=== PATIENT | female | born 1985 | race Hispanic/Latino ===

== ENCOUNTER 2021-12-20 14:04 | Emergency (ER) | payer OTHER ==
--- OUTSIDE RECORDS SUMMARY | 2021-12-20 14:07 | XMS REPORT | Continuity of Care Document ---
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 iterative reconstruction technique. Contrast: 100 mL Isovue-300 IV. Creatinine 0.8. GFR greater than 60. Findings: Lung bases are clear with no pleural effusion. The liver is normal in appearance. The biliary ducts are not dilated. No focal lesion is seen. Cholecystectomy. Some cellular The spleen is unremarkable.The adrenal glands are unremarkable. The pancreas is unremarkable. Kidneys are normal in appearance. No hydronephrosis or hydroureter. IVC is un remarkable. Abdominal aorta is unremarkable for age. Small bowel and appendix are unremarkable. A few sigmoid diverticula. No evidence of diverticulitis. Urinary bladder is unremarkable. PAGE 1 Signed Report (CONTINUED) Name: [place] : 1985 Age/S: 34 / F [address] [address] Unit #: [id number] Loc: [place] [address] Phys: Tolu Ashby MD Acct: [id number] Dis Date: Status: REG ERPHONE #: [phone] Exam Date: 03/04/20202131 FAX #: Reason: LLQ pain, tenderness EXAMS: CPT: [id number] CT ABD PELVIS W/CONT 08665 <Continued> Uterus is unremarkable. No adnexal masses seen. Also has a ventricular. The lung No adenopathy, free fluid, or free air. No abnormal mass, edema, or focal fluid collection. Abdominal-pelvic wall is intact. Skeletalstructures are normal for patient age. No abnormal enhancing lesion is seen. Impression: 1. No specific evidence of acute pathology. at 2206 Reported and signed by: Herman Nieves M.D. CC: Dave Callahan DO Technologist:RT Dolores(R)(CT) CTDI: DLP: Trnscb Date/Time: 03/04/2020 (2205) [email or web address] Orig Print D/T: S: 03/04/2020 (2209) PAGE 2 Signed ReportUA RFLX MICR CULT IF [id number] 21:19:00 Test Item Value Reference Range Interpretation Comments UA COLOR (test code = YELLOW discript YEL/STRAW COLU) UA APPEARANCE (test code CLEAR discript CLEAR = APPU) UA GLUCOSE DIPSTICK (test NEGATIVE mg/dL NEG code = DGLUU) UA BILIRUBIN DIPSTICK 1+ mg/dL NEG A (test code = BILU) UA KETONE DIPSTICK (test TRACE mg/dL NEG code = KETU) UA SPECIFIC GRAVITY (test >=1.030 SG 1.005-1.030 A code = SGU) UA BLOOD DIPSTICK (test NEGATIVE mg/DL NEG code = SAAD) UA PH DIPSTICK (test code 5.5 pH UNITS 5.0-7.0 = BENNY) UA PROTEIN DIPSTICK (test NEGATIVE mg/dL NEG code = PROU) UA UROBILINIOGEN DIPSTICK 0.2 mg/dL <2.0 (test code = URO) UA NITRITE DIPSTICK (test NEGATIVE SCREEN NEG code = JOHNNIE) UA LEUKOCYTE ESTERASE 1+ Leuk/mcL NEGATIVE A DIPSTICK (test code = LEUU) UA WBC (test code = WBCU) 1-3 #WBC/HPF 0-3 UA RBC (test code = RBCU) 0-1 #RBC/HPF 0-3 UA BACTERIA (test code = TRACE /HPF NONE-TRACE BACU) UA SQUAMOUS CELLS (test TRACE /HPF NONE code = SQU) UA CULTURE NEEDED? (test NO, WBC<10 Criteria Culture CHK code = UACULT) SOURCE OF URINE: CLEAN CATCHIndication for culture: Suprapubic PainUR HCG [id number] 21:19:00 Test Item Value Reference Range Interpretation Comments UR HCG QUAL (test code = HCGQLU) NEGATIVE NEGATIVE SOURCE OF URINE: CLEAN CATCHIndication for culture: Suprapubic PainUA RFLX MICR CULT IF [id number] 21:17:00 Test Item Value Reference Range Interpretation Comments UA COLOR (test code = COLU) YELLOW discript YEL/STRAW UA APPEARANCE (test code = CLEAR discript CLEAR APPU) UA GLUCOSE DIPSTICK (test NEGATIVE mg/dL NEG code = DGLUU) UA BILIRUBIN DIPSTICK (test 1+ mg/dL NEG A code = BILU) UA KETONE DIPSTICK (test code TRACE mg/dL NEG = KETU) UA SPECIFIC GRAVITY (test >=1.030 SG 1.005-1.030 A code = SGU) UA BLOOD DIPSTICK (test code NEGATIVE mg/DL NEG = SAAD) UA PH DIPSTICK (test code = 5.5 pH UNITS 5.0-7.0 BENNY) UA PROTEIN DIPSTICK (test NEGATIVE mg/dL NEG code = PROU) UA UROBILINIOGEN DIPSTICK 0.2 mg/dL <2.0 (test code = URO) UA NITRITE DIPSTICK (test NEGATIVE SCREEN NEG code = JOHNNIE) UA LEUKOCYTE ESTERASE 1+ Leuk/mcL NEGATIVE A DIPSTICK (test code = LEUU) UA CULTURE NEEDED? (test code Criteria Culture CHK = UACULT) SOURCE OF URINE: CLEAN CATCHIndication for culture: Suprapubic PainUR HCG [id number] 21:17:00 Test Item Value Reference Range Interpretation Comments UR HCG QUAL (test code = HCGQLU) NEGATIVE SOURCE OF URINE: CLEAN CATCHIndication for culture: Suprapubic PainBASIC METABOLIC [id number] 20:31:00 Test Item Value Reference Range Interpretation Comments SODIUM (test code = NA) 140 mmol/L 134-147 N POTASSIUM (test code = 4.2 mmol/L 3.4-5.0 N K) CHLORIDE (test code = 109 mmol/L 100-108 H CL) CARBON DIOXIDE (test 26 mmol/L 21-32 N code = CO2) ANION GAP (test code = 5.0 GAP calc 4.0-15.0 N GAP) GLUCOSE (test code = 81 MG/DL 70-110 N GLU) BLOOD UREA NITROGEN 10 MG/DL 7-18 N (test code = BUN) GLOMERULAR FILTRATION >=60 max estimate >60 RATE (test code = GFR) estGFR CREATININE (test code = 0.8 MG/DL 0.6-1.0 N CREAT) CALCIUM (test code = CA) 8.6 MG/DL 8.5-10.1 N HEPATIC FUNCTION [id number] 20:31:00 Test Item Value Reference Range Interpretation Comments TOTAL PROTEIN (test code = PROT) 7.6 G/DL 6.4-8.2 N ALBUMIN (test code = ALB) 3.6 G/DL 3.4-5.0 N BILIRUBIN TOTAL (test code = 0.20 MG/DL 0.2-1.2 N BILT) BILIRUBIN DIRECT (test code = < 0.10 MG/DL 0.00-0.30 N BILD) BILIRUBIN INDIRECT (test code = 0.10 MG/DL 0.2-1.2 L BILIND) SGOT/AST (test code = AST) 22 Unit/L 15-37 N SGPT/ALT (test code = ALT) 37 Unit/L 12-78 N ALKALINE PHOSPHATASE TOTAL (test 69 Unit/L 45-117 N code = ALKP) CBC W/AUTO [id number] 20:22:00 Test Item Value Reference Range Interpretation Comments WHITE BLOOD CELL (test code = 9.1 K/mm3 3.5-11.0 N WBC) RED BLOOD CELL (test code = 4.51 M/mm3 4.70-6.10 L RBC) HEMOGLOBIN (test code = HGB) 13.7 G/DL 10.4-14.9 N HEMATOCRIT (test code = HCT) 41.9 % 31.5-44.1 N MEAN CELL VOLUME (test code = 92.9 Fl 84.5-98.6 N MCV) MEAN CELL HGB (test code = MCH) 30.4 pg 27.0-34.2 N MEAN CELL HGB CONCETRATION 32.7 G/DL 31.5-34.0 N (test code = MCHC) RED CELL DISTRIBUTION WIDTH 12.5 SD 11.5-14.5 N (test code = RDW) PLATELET COUNT (test code = 209 K/mm3 150-450 N PLT) MEAN PLATELET VOLUME (test code 11.90 fL 7.0-10.5 H = MPV) NEUTROPHIL % (test code = NT%) 53.5 % 40-76 N IMMATURE GRANULOCYTE % (test 0.3 % 0.0-5.0 N code = IG%) LYMPHOCYTE % (test code = LY%) 34.8 % 20.5-51.1 N MONOCYTE % (test code = MO%) 7.5 % 1.7-9.3 N EOSINOPHIL % (test code = EO%) 3.1 % 0.0-6.0 N BASOPHIL % (test code = BA%) 0.8 % 0.0-2.0 N NUCLEATED RBC % (test code = 0.0 /100WBC% 0.0-1.0 N NRBC%) NEUTROPHIL # (test code = NT#) 4.9 K/mm3 1.8-7.6 N IMMATURE GRANULOCYTE # (test 0.03 x10 3/uL 0.00-0.03 N code = IG#) LYMPHOCYTE # (test code = LY#) 3.2 K/mm3 0.6-3.2 N MONOCYTE # (test code = MO#) 0.7 K/mm3 0.3-1.1 N EOSINOPHIL # (test code = EO#) 0.3 K/mm3 0.0-0.4 N BASOPHIL # (test code = BA#) 0.1 K/mm3 0.0-0.1 N NUCLEATED RBC # (test code = 0.0 K/mm3 0.0-0.1 N NRBC#) MANUAL DIFF REQUIRED (test code NO DIFF/SCN CRITERIA = MDIFF) - XR C-SPINE 2-3 [id number] 17:22:00 FAX: Dave Calero DO [phone] [place]: St: REG FAX: Rosenda Engle [phone] Name: SHEILA RODAS [facility] : 1985 Age/S: 33/F [address] [place] [address] Unit #: [id number] Loc: [place] [address] Phys: Rosenda Engle Acct: [id number] Dis Date: Status: REG ER PHONE #: [phone] Exam Date: 11/25/2018 1718 FAX #: [phone] Reason: NECK PAIN EXAMS: CPT CODE: [id number] XR C-SPINE 2-3 VIEWS 87364 CERVICAL SPINE SERIES 11/25/2018 AT 1652 HOURS. CLINICAL HISTORY: Neck pain. COMPARISONS: Cervical spine series 10/04/2008. FINDINGS: 4 AP, lateral, swimmer' s and open-mouth odontoid views of the cervical spine were obtained showing satisfactory cervical spine alignment with no visible fracture, dislocation or destructive lesion. No prevertebral edema. The lung apices are clear. IMPRESSION: 1. No signs of cervical spine fracture or subluxation. 2. No visible significant degenerative change. 3. Clear lung apices. SL: ER-H at 1722 Reported and signed by: Alexy Fu M.D. CC: Dave Callahan DO; Rosenda Engle Technologist: RT Negro(R) Trnscrd Date/Time/By: 11/25/2018 (938) : By: [email or web address] Orig Print D/T: S: 11/25/2018 (6973) PAGE 1 Signed ReportURINALYSIS [id number] 16:40:00 Test Item Value Reference Range Interpretation Comments UA COLOR (test code = COLU) YELLOW YEL/STRAW UA APPEARANCE (test code = APPU) CLOUDY CLEAR A UA GLUCOSE DIPSTICK (test code = NEGATIVE NEGATIVE DGLUU) UA BILIRUBIN DIPSTICK (test code NEGATIVE NEGATIVE = BILU) UA KETONE DIPSTICK (test code = NEGATIVE NEGATIVE KETU) UA SPECIFIC GRAVITY (test code = 1.017 1.005-1.030 N SGU) UA BLOOD DIPSTICK (test code = NEGATIVE NEGATIVE SAAD) UA PH DIPSTICK (test code = BENNY) 5.0 5.0-7.0 N UA PROTEIN DIPSTICK (test code = NEGATIVE NEGATIVE PROU) UA UROBILINIOGEN DIPSTICK (test 2.0 mg/dL 0.2-1.0 A code = URO) UA NITRITE DIPSTICK (test code = NEGATIVE NEGATIVE JOHNNIE) UA LEUKOCYTE ESTERASE DIPSTICK 3+ NEGATIVE A (test code = LEUU) UA WBC (test code = WBCU) >50 WBC/HPF 0-3 A UA RBC (test code = RBCU) >50 RBC/HPF 0-3 A UA BACTERIA (test code = BACU) 2+ /HPF NONE SEEN A UA SQUAMOUS CELLS (test code = 26-35 /HPF NONE SEEN A SQU) UA MUCUS (test code = MUCU) TRACE /LPF NONE SEEN UR HCG [id number] 16:40:00 Test Item Value Reference Range Interpretation Comments UR HCG QUAL (test code = HCGQLU) NEGATIVE NEGATIVE URINALYSIS [id number] 04:22:00 Test Item Value Reference Range Interpretation Comments UA COLOR (test code = COLU) YELLOW YEL/STRAW UA APPEARANCE (test code = APPU) TURBID CLEAR A UA GLUCOSE DIPSTICK (test code = NEGATIVE NEGATIVE DGLUU) UA BILIRUBIN DIPSTICK (test code NEGATIVE NEGATIVE = BILU) UA KETONE DIPSTICK (test code = NEGATIVE NEGATIVE KETU) UA SPECIFIC GRAVITY (test code = 1.015 1.005-1.030 N SGU) UA BLOOD DIPSTICK (test code = 1+ NEGATIVE A SAAD) UA PH DIPSTICK (test code = BENNY) 5.0 5.0-7.0 N UA PROTEIN DIPSTICK (test code = 1+ NEGATIVE A PROU) UA UROBILINIOGEN DIPSTICK (test 0.2 mg/dL 0.2-1.0 code = URO) UA NITRITE DIPSTICK (test code = NEGATIVE NEGATIVE JOHNNIE) UA LEUKOCYTE ESTERASE DIPSTICK 3+ NEGATIVE A (test code = LEUU) UA WBC (test code = WBCU) >50 WBC/HPF 0-3 A UA RBC (test code = RBCU) >50 RBC/HPF 0-3 A UA BACTERIA (test code = BACU) 2+ /HPF NONE SEEN A UA SQUAMOUS CELLS (test code = 36-50 /HPF NONE SEEN A SQU) UA MUCUS (test code = MUCU) 3+ /LPF NONE SEEN A COMMENTS: Clean Catch- CT ABD PELVIS W/O [id number] 03:52:00 Name: SHEILA RODAS [facility] : 1985 Age/S: 33 / F [address] [place] [address] Unit #: [id number] Loc: [place], [id number] Phys: Adrianne Painter MD Acct: [id number] Dis Date: Status: REG ER PHONE #: [phone] Exam Date: 10/04/20188 FAX #: [phone] Reason: rlq abdpain EXAMS: CPTCODE: [id number] CT ABD PELVIS W/O CONT 54859 EXAM: CT, CT abdomen pelvis without contrast: 10/04/2018 Clinical Indication: Vomiting blood. Blood in stools.. Pelvic pain. Right lower quadrant abdominal pain. Comparison: 06/01/2018. TECHNIQUE: Noncontrast helical imaging was performed without IV contrast from diaphragm to the symphysis pubis regions. Multiplanar coronal and sagittal reformations are obtained. CT imaging was performed with exposure control parameters to reduce radiation dose. Oral contrast: None. CT Radiation Dose: DLP = 621.87 mGy-cm FINDINGS: This examination is limited for the evaluation of solid organs and vascular structures due to withheld intravenous contrast. LOWER CHEST: The visualized lung basesare clear. NON-CONTRAST ENHANCED SOLID ORGANS: LIVER: Unremarkable. GALLBLADDER: Cholecystectomy. INTRAHEPATIC BILE DUCT AND EXTRAHEPATIC BILE DUCT: Unremarkable. PANCREAS: Unremarkable. SPLEEN: Unremarkable. ADRENALS: Unremarkable. KIDNEYS: No urinary calculi, hydronephrosis or perinephric stranding. By upper pole renal scars, stable. NON-CONTRAST OPACIFIED STOMACH AND BOWEL: STOMACH: Unremarkable. BOWEL: The non-contrast opacified small bowel loops in the abdomen and pelvis appear unremarkable. The noncontrast opacified colonic loops in the abdomen and pelvis appear unremarkable. APPENDIX: Unremarkable Small fat-containing umbilical hernia seen. The lack of orally administered contrast material limits bowel assessment. PAGE 1 Signed Report (CONTINUED) Name: SHEILA RODAS [facility] : 1985 Age/S: 33 / F [address] [place] [address] Unit #: [id number] Loc: [place] [address] Phys: Adrianne Painter MD Acct: [id number] Dis Date: Status: REG ER PHONE #: [phone] Exam Date: 10/04/2018337 FAX #: [phone] Reason: rlq abd pain EXAMS: CPT CODE: [id number] CT ABD PELVIS W/O CONT 27037 <Continued> PERITONEUM AND RETROPERITONEUM: No ascites or free air. No other fluid collection. There is no aortic aneurysm seen. LYMPH NODES: Unremarkable. PELVIS: No pelvic mass or adenopathy. Uterusis anteverted and unremarkable. Ovaries are unremarkable. BLADDER: Unremarkable. OSSEOUS STRUCTURES: No acute abnormality seen. SOFT TISSUES: Unremarkable. IMPRESSION: 1. No acute abdominal or pelvic abnormality. SL: CONNIE at 0352 Reported and signed by: Luis Mckeon M.D. CC: Adrianne Painter MD; Dave Callahan DO Technologist:RT Young(R) CTDI: DLP: Trnscb Date/Time: 10/04/2018 (035) [email or web address] Orig Print D/T: S: 10/04/2018 (0355)CTDI: DLP: PAGE 2 Signed Report- US TRANSVAGINAL NON [id number] 03:43:00 Name: SHEILA RODAS [facility] : 1985 Age/S: 33 / F [address] [place] [address] Unit #: [id number] Loc: [place], [id number] Phys: Adrianne Painter MD Acct: [id number] Dis Date: Status: REG ER PHONE #: [phone] Exam Date: 10/04/2018 032 FAX #: [phone] Reason: Pelvic Pain EXAMS: CPTCODE: [id number] [place] [address] EXAM: US, US PELVIS COMPLETE: 10/04/2018 EXAM: US, US TRANSVAGINAL: 10/04/2018 Clinical Indication: Blood in stool. Vomiting blood.. Pelvic pain. Comparison: None. TECHNIQUE: Technique: Grayscale, color and Doppler transabdominal and transvaginal imaging of the pelvis was performed with standard technique. FINDINGS: Transabdominal pelvic ultrasound: Uterus is anteverted and heterogenous. Uterus measures6.1 x 2.6 x 3.5 cm. The adnexa and the endometrium not well evaluated on transabdominalpelvic ultrasound necessitating endovaginal pelvic ultrasound. Endovaginal pelvic ultrasound UTERUS: There is an anteverted uterus measuring 5.9 x 2.7 x 4.2 cm in size. Normal uterine contour and morphology. There is normal parenchymal echotexture. The endometrial stripe measures 6.9 mm in thickness. Trace fluid seen in the endometrium trace fluid. Prominent cervix with trace fluid in the cervical canal OVARIES: RIGHT: 2.6 x 1.8 x 2.0 cm. LEFT: 2.3 x 2.1 x 2.3 cm. Small follicle seen in the ovaries.. There areno adnexal masses. The limited Doppler images show normal bilateral ovarian blood flow. OTHER FINDINGS: No free fluid in the pelvic cul-de-sac. If there is further concern, followup pelvic sonography or MRI of the pelvis may be performed. IMPRESSION: PAGE 1 Signed Report (CONTINUED) Name: SHEILA RODAS [facility] : 1985 Age/S: 33 / F [address] [place] [address] Unit #: [id number] Loc: [place] [address] Phys: Adrianne Painter MD Acct: [id number] Dis Date: Status: REG ER PHONE #: [phone] Exam Date: 10/04/2018326 FAX #: [phone] Reason: Pelvic Pain EXAMS: CPT CODE: [id number] [place] [address] <Continued> 1. Trace fluid in the endometrial and cervical canal. Prominent cervix. 2. Otherwise unremarkable pelvic ultrasound SL: CONNIE at 0343 Reported and signed by: Luis Mckeon M.D. CC: Adrianne Painter MD;Dave Callahan Technologist: Elisha Colmenares RDMS(Ady)(OB) Trnscb Date/Time: 10/04/2018 (034) [email or web address] Orig Print D/T: S: 10/04/2018 (034) Probe: [id number] PAGE 2 Signed Report- US PELVIS [id number] 03:43:00 Name: SHEILA RODAS [facility] : 1985 Age/S: 33 / F [address] [place] [address] Unit #: [id number] Loc: [place] [id number] Phys: Adrianne Painter MD Acct: [id number] Dis Date: Status: REG ER PHONE #: [phone] Exam Date: 10/04/2018326 FAX #: [phone] Reason: Pelvic Pain EXAMS: CPTCODE: [id number] US PELVIS COMPLETE 67087 EXAM: US, US PELVIS COMPLETE: 10/04/2018 EXAM: US, US TRANSVAGINAL: 10/04/2018 Clinical Indication: Blood in stool. Vomiting blood.. Pelvic pain. Comparison: None. TECHNIQUE: Technique: Grayscale, color and Doppler transabdominal and transvaginal imaging of the pelvis was performed with standard technique. FINDINGS: Transabdominal pelvic ultrasound: Uterus is anteverted and heterogenous. Uterus measures6.1 x 2.6 x 3.5 cm. The adnexa and the endometrium not well evaluated on transabdominalpelvic ultrasound necessitating endovaginal pelvic ultrasound. Endovaginal pelvic ultrasound UTERUS: There is an anteverted uterus measuring 5.9 x 2.7 x 4.2 cm in size. Normal uterine contour and morphology. There is normal parenchymal echotexture. The endometrial stripe measures 6.9 mm in thickness. Trace fluid seen in the endometrium trace fluid. Prominent cervix with trace fluid in the cervical canal OVARIES: RIGHT: 2.6 x 1.8 x 2.0 cm. LEFT: 2.3 x 2.1 x 2.3 cm. Small follicle seen in the ovaries.. There areno adnexal masses. The limited Doppler images show normal bilateral ovarian blood flow. OTHER FINDINGS: No free fluid in the pelvic cul-de-sac. If there is further concern, followup pelvic sonography or MRI of the pelvis may be performed. IMPRESSION: PAGE 1 Signed Report (CONTINUED) Name: SHEILA RODAS [facility] : 1985 Age/S: 33 / F [address] [place] [address] Unit #: [id number] Loc: [place] [address] Phys: Adrianne Painter MD Acct: [id number] Dis Date: Status: REG ER PHONE #: [phone] Exam Date: 10/04/2018326 FAX #: [phone] Reason: Pelvic Pain EXAMS: CPT CODE: [id number] US PELVIS COMPLETE 55294 <Continued> 1. Trace fluid in the endometrial and cervical canal. Prominent cervix. 2. Otherwise unremarkable pelvic ultrasound SL: JSYED-H at 0343 Reported and signed by: Luis Mckeon M.D. CC: Adrianne Painter MD;Dave Callahan DO Technologist: Elisha Colmenares RDMS(Ady)(OB) Trnscb Date/Time: 10/04/2018 (034) [email or web address] Orig Print D/T: S: 10/04/2018 (034) Probe: PAGE 2 Signed ReportCOMPREHENSIVE METABOLIC [id number] 03:26:00 Test Item Value Reference Range Interpretation Comments SODIUM (test code = NA) 138 mEq/L 134-147 N POTASSIUM (test code = 4.3 mEq/L 3.4-5.0 N K) CHLORIDE (test code = 107 mEq/L 100-108 N CL) CARBON DIOXIDE (test 25 mEq/L 21-33 N code = CO2) ANION GAP (test code = 10 0-20 N GAP) GLUCOSE (test code = 102 mg/dL 70-110 N GLU) BLOOD UREA NITROGEN 10 mg/dL 7-18 N (test code = BUN) GLOMERULAR FILTRATION 95.8 105-110 L Units of measure = RATE (test code = GFR) ml/mi n/1.73 m2 CREATININE (test code = 0.7 mg/dL 0.6-1.3 N CREAT) TOTAL PROTEIN (test 7.6 g/dL 6.4-8.2 N code = PROT) ALBUMIN (test code = 3.50 g/dL 3.4-5.0 N ALB) CALCIUM (test code = 8.7 mg/dL 8.0-10.5 N CA) BILIRUBIN TOTAL (test 0.20 mg/dL 0.0-1.0 N code = BILT) SGOT/AST (test code = 29 IUnit/L 15-37 N AST) SGPT/ALT (test code = 31 IUnit/L 15-65 N ALT) ALKALINE PHOSPHATASE 92 IUnit/L 20-125 N TOTAL (test code = ALKP) [id number] 03:26:00 Test Item Value Reference Range Interpretation Comments LIPASE (test code = LIP) 125 IUnit/L 73-393 N HCG SERUM [id number] 03:26:00 Test Item Value Reference Range Interpretation Comments HCG SERUM QUAL (test code = SERUM NEGATIVE NEGATIVE HCGQL) COMPREHENSIVE METABOLIC [id number] 03:15:00 Test Item Value Reference Range Interpretation Comments SODIUM (test code = NA) mEq/L 134-147 POTASSIUM (test code = K) mEq/L 3.4-5.0 CHLORIDE (test code = CL) mEq/L 100-108 CARBON DIOXIDE (test code = CO2) mEq/L 21-33 ANION GAP (test code = GAP) 0-20 GLUCOSE (test code = GLU) mg/dL 70-110 BLOOD UREA NITROGEN (test code = mg/dL 7-18 BUN) GLOMERULAR FILTRATION RATE (test 105-110 code = GFR) CREATININE (test code = CREAT) mg/dL 0.6-1.3 TOTAL PROTEIN (test code = PROT) g/dL 6.4-8.2 ALBUMIN (test code = ALB) g/dL 3.4-5.0 CALCIUM (test code = CA) mg/dL 8.0-10.5 BILIRUBIN TOTAL (test code = BILT) mg/dL 0.0-1.0 SGOT/AST (test code = AST) IUnit/L 15-37 SGPT/ALT (test code = ALT) IUnit/L 15-65 ALKALINE PHOSPHATASE TOTAL (test IUnit/L 20-125 code = ALKP) [id number] 03:15:00 Test Item Value Reference Range Interpretation Comments LIPASE (test code = LIP) IUnit/L 73-393 HCG SERUM [id number] 03:15:00 Test Item Value Reference Range Interpretation Comments HCG SERUM QUAL (test code = SERUM NEGATIVE NEGATIVE HCGQL) CBC W/AUTO [id number] 03:11:00 Test Item Value Reference Range Interpretation Comments WHITE BLOOD CELL (test code = 11.09 x10 3/uL 4.5-11.0 H WBC) RED BLOOD CELL (test code = 4.48 x10 6/uL 3.54-5.02 N RBC) HEMOGLOBIN (test code = HGB) 13.6 g/dL 11.0-15.0 N HEMATOCRIT (test code = HCT) 43.3 % 33.0-45.0 N MEAN CELL VOLUME (test code = 96.7 fL 81.0-99.0 N MCV) MEAN CELL HGB (test code = 30.4 pg 27.0-33.0 N MCH) MEAN CELL HGB CONCETRATION 31.4 g/dL 33.0-37.0 L (test code = MCHC) RED CELL DISTRIBUTION WIDTH CV 12.3 % 11.5-14.5 N (test code = RDW) RED CELL DISTRIBUTION WIDTH SD 43.9 fL 37.0-54.0 N (test code = RDW-SD) PLATELET COUNT (test code = 211 x10 3/uL 150-400 N PLT) MEAN PLATELET VOLUME (test 12.0 fL 7.0-9.0 H code = MPV) NEUTROPHIL % (test code = NT%) 65.0 % 56.0-77.0 N IMMATURE GRANULOCYTE % (test 0.7 % 0.0-2.0 N code = IG%) LYMPHOCYTE % (test code = LY%) 25.7 % 14.0-32.0 N MONOCYTE % (test code = MO%) 5.4 % 4.8-9.0 N EOSINOPHIL % (test code = EO%) 2.5 % 0.3-3.7 N BASOPHIL % (test code = BA%) 0.7 % 0.0-2.0 N NUCLEATED RBC % (test code = 0.0 % 0-0 N NRBC%) NEUTROPHIL # (test code = NT#) 7.20 x10 3/uL 2.0-7.6 N IMMATURE GRANULOCYTE # (test 0.08 x10 3/uL 0.00-0.03 H code = IG#) LYMPHOCYTE # (test code = LY#) 2.85 x10 3/uL 1.0-3.8 N MONOCYTE # (test code = MO#) 0.60 x10 3/uL 0.1-0.8 N EOSINOPHIL # (test code = EO#) 0.28 x10 3/uL 0.0-0.2 H BASOPHIL # (test code = BA#) 0.08 x10 3/uL 0.0-0.2 N NUCLEATED RBC # (test code = 0.00 x10 3/uL 0.0-0.1 N NRBC#) MANUAL DIFF REQUIRED (test NO code = MDIFF)
[2021-12-20 15:28] LABS: Urine Blood Trace-intact (Negative); Urine Glucose Negative (Negative); Urine Protein Negative (Negative); Urine Specific Gravity 1.025 (1.005-1.030)
--- NOTE | 2021-12-20 16:23 | RAD REPORT ---
EXAM DESCRIPTION: RAD - Chest Single View - 12/20/2021 4:00 pm CLINICAL HISTORY: Cough COMPARISON: Chest Single View dated 06/29/2020; Chest Pa And Lat (2 Views) dated 02/11/2020; Chest Sin gle View dated 11/01/2018; Chest Single View dated 11/27/2016No comparisons FINDINGS: Lines: None. Lungs: No evidence of edema or pneumonia. Pleural: No significant pleural effusions or pneumothorax. Cardiac: The heart size is within normal limits. Bones: No acute fractures. Other: IMPRESSION: No acute cardiopulmonary disease.
[2021-12-20 16:40] LABS: Urine Specific Gravity/Preg 1.025 (1.005-1.030)
--- NOTE | 2021-12-20 17:40 | ER ---
Nurse's Notes [facility] Name: Jodie Rodriguez Age: 36 yrs Sex: Female : 1985 Arrival Date: 12/20/2021 Time: 14:12 Bed 10 Private MD: Diagnosis: Acute bronchitis, unspecified;UTI/ Urinary tract infection, site not specified Presentation: 12/20 14:46 Chief complaint: Patient states: she started having shortness of breath, cough, ap3 congestion and feeling weak on Friday December 17, 2021. Patient states her symptoms did not improve over the weekend, and she is wanting to be evaluated here for flu, COVID and possible . Coronavirus screen: Client presents with at least one sign or symptom that may indicate coronavirus-19. Ebola Screen: No symptoms or risks identified at this time. Initial Sepsis Screen: Does the patient meet any 2 criteria? No. Patient's initial sepsis screen is negative. Does the patient have a suspected source of infection? No. Patient's initial sepsis screen is negative. Risk Assessment: Do you want to hurt yourself or someone else? Patient reports no desire to harm self or others. Onset of symptoms was December 17, 2021. 14:46 Method Of Arrival: Ambulatory ap3 14:46 Acuity: FLORA 4 ap3 Triage Assessment: 14:49 General: Appears in no apparent distress. Behavior is calm, cooperative. Pain: ap3 Complains of pain in body aches. EENT: Reports nasal congestion nasal discharge. Neuro: Level of Consciousness is awake, alert, obeys commands, Oriented to person, place, time, situation, Appropriate for age Gait is steady, Speech is normal. Cardiovascular: Patient's skin is warm and dry. Respiratory: Reports shortness of breath cough that is Airway is patent Respiratory effort is even, unlabored, Onset: The symptoms/episode began/occurred gradually, the patient has mild shortness of breath. 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 - Social history:: Smoking status: Patient reports the use of cigarette tobacco products, denies chronic smoking, but will smoke occasionally. Screenin:49 Abuse screen: Denies threats or abuse. Nutritional screening: No deficits noted. ap3 Tuberculosis screening: No symptoms or risk factors identified. Fall Risk None identified. Assessment: 15:11 General: patient provided with urine specimen cup and education on proper urine ap3 collection. patient verbalized understanding. Vital Signs: 14:46 BP 103 / 62; Pulse 73; Resp 19; Temp 98.2; Pulse Ox 97% on R/A; Weight 70.31 kg; Height ap3 5 ft. 0 in. (152.40 cm); 14:46 Body Mass Index 30.27 (70.31 kg, 152.40 cm) ap3 ED Course: 14:12 Patient arrived in ED. mr 14:35 Naresh Banks PA is PHCP. cp 14:35 Juan Guzman DO is Attending Physician. cp 14:48 Triage completed. ap3 14:50 Arm band placed on right wrist. ap3 15:19 Flu Sent. ap3 16:03 Chest Single View XRAY In Process Unspecified. EDMS 16:19 Yaima Freire, RN is Primary Nurse. iw Administered Medications: 18:03 Drug: Rocephin (cefTRIAXone) 1 grams Route: IM; Site: right ventrogluteal; iw Medication: 14:50 VIS not applicable for this client. ap3 Outcome: 17:39 Discharge ordered by . cp 18:11 Patient left the ED. iw Signatures: Dispatcher [employer] EDMS Delia Mart mr Yaima Freire, RN RN iw Naresh Banks PA PA cp Prokisch, Amanda RN RN ap3 Corrections: (The following items were deleted from the chart) 14:49 14:48 Allergies: No Known Allergies; ap3 ap3 17:46 15:19 COVID 19 CPL+ANTONIACainRAMSEY drawn and sent. ap3 EDMS
--- NOTE | 2021-12-20 17:40 | EDPHYS ---
Physician Documentation [facility] Name: Jodie Rodriguez Age: 36 yrs Sex: Female : 1985 Arrival Date: 12/20/2021 Time: 14:12 Bed 10 Private MD: ED Physician Juan Guzman HPI: 12/20 15:30 This 36 yrs old Female presents to ER via Ambulatory with complaints of cp Shortness Of Breath, Weakness, Cough. 15:30 The patient has shortness of breath with light activity. Onset: The symptoms/episode cp began/occurred 3 day(s) ago. Associated signs and symptoms: Pertinent positives: productive cough, Pertinent negatives: chest pain, fever, sore throat. Severity of symptoms: in the emergency department the symptoms are unchanged despite home interventions. 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 - Social history:: Smoking status: Patient reports the use of cigarette tobacco products, denies chronic smoking, but will smoke occasionally. ROS: 15:35 Constitutional: Positive for body aches, Negative for fever, poor PO intake. cp 15:35 Eyes: Negative for injury, pain, redness, and discharge. cp 15:35 ENT: Negative for drainage from ear(s), ear pain, sore throat, difficulty swallowing, difficulty handling secretions. 15:35 Cardiovascular: Negative for chest pain. 15:35 Respiratory: Positive for cough, "sounds productive", shortness of breath, Negative for wheezing. 15:35 Abdomen/GI: Negative for vomiting, diarrhea, constipation. 15:35 Skin: Negative for rash. 15:35 Neuro: Positive for weakness, Negative for altered mental status, dizziness, headache. 15:35 All other systems are negative. Exam: 15:45 Head/Face: Normocephalic, atraumatic. cp 15:45 Eyes: Periorbital structures: appear normal, Conjunctiva: normal, no exudate, no cp injection, Sclera: no appreciated abnormality, Lids and lashes: appear normal, bilaterally. 15:45 ENT: External ear(s): are unremarkable, Ear canal(s): are normal, clear, TM's: dullness, bilaterally, Nose: nasal drainage, that is minimal, and is seen coming from both nares, that is clear, Mouth: Lips: moist, Oral mucosa: pink and intact, moist, Posterior pharynx: Airway: no evidence of obstruction, patent, Tonsils: no enlargement, no erythema, no exudate, erythema, that is mild, exudate, is not appreciated, Voice: is normal. 15:45 Neck: ROM/movement: is normal, is supple, without pain, no range of motions limitations, no meningismus. 15:45 Chest/axilla: Inspection: normal. 15:45 Cardiovascular: Rate: normal, Rhythm: regular. 15:45 Respiratory: the patient does not display signs of respiratory distress, Respirations: normal, no use of accessory muscles, no retractions, labored breathing, is not present, Breath sounds: decreased breath sounds, are not appreciated, stridor, is not appreciated, + upper airway congestion. 15:45 Abdomen/GI: Exam negative for discomfort, distension, guarding, Inspection: abdomen appears normal. 15:45 Back: pain, is absent, ROM is normal. 15:45 Neuro: Orientation: to person, place \\T\\ time. Mentation: is normal. 12/21 09:20 Constitutional: The patient appears in no acute distress, alert, awake, non-toxic, well cp developed, well nourished, obese. Vital Signs: 12/20 14:46 BP 103 / 62; Pulse 73; Resp 19; Temp 98.2; Pulse Ox 97% on R/A; Weight 70.31 kg; Height ap3 5 ft. 0 in. (152.40 cm); 14:46 Body Mass Index 30.27 (70.31 kg, 152.40 cm) ap3 MDM: 16:00 Differential diagnosis: Bronchitis pneumonia, influenza, COVID-19, UTI. cp 16:04 Patient medically screened. cp 17:35 Data reviewed: vital signs, nurses notes, lab test result(s), radiologic studies, plain cp films. 17:35 Test interpretation: by ED physician or midlevel provider: plain radiologic studies. cp Counseling: I had a detailed discussion with the patient and/or guardian regarding: the historical points, exam findings, and any diagnostic results supporting the discharge/admit diagnosis, lab results, radiology results, to return to the emergency department if symptoms worsen or persist or if there are any questions or concerns that arise at home. ED course: VSS. Patient appears non-toxic and no signs of respiratory distress. Will discharge to home for continued monitoring. 12/20 15:01 Order name: Flu; Complete Time: 16:37 ap3 12/20 15:28 Order name: Urine Dipstick-Ancillary; Complete Time: 16:37 EDMS 12/20 16:37 Interpretation: Normal except: UBLD Trace-intact; U NIT Positive. cp 12/20 15:37 Order name: Urine --Ancillary (enter results); Complete Time: 17:20 iw 12/20 17:20 Interpretation: Reviewed. cp 12/20 17:39 Order name: SARS-COV-2 RT PCR (Document "Date of Onset" if Symptomatic) iw 12/20 14:56 Order name: Urine Dipstick-Ancillary (obtain specimen); Complete Time: 15:50 cp 12/20 14:56 Order name: Urine Test (obtain specimen); Complete Time: 15:50 cp 12/20 15:19 Order name: Chest Single View XRAY; Complete Time: 16:37 ap3 12/20 16:37 Interpretation: Report reviewed. cp Administered Medications: 18:03 Drug: Rocephin (cefTRIAXone) 1 grams Route: IM; Site: right ventrogluteal; iw Disposition: 17:37 Co-signature as Attending Physician, Juan ALVES was immediately available on-site ms3 in the Emergency Department for consultation in the care of the patient.. Disposition Summary: 12/20/21 17:39 Discharge Ordered Location: Home cp Problem: new cp Symptoms: have improved cp Condition: Stable cp Diagnosis - Acute bronchitis, unspecified cp - UTI/ Urinary tract infection, site not specified cp Followup: cp - With: Private Physician - When: 2 - 3 days - Reason: Recheck today's complaints Discharge Instructions: - Discharge Summary Sheet cp - Acute Bronchitis, Adult cp - Urinary Tract Infection, Adult cp Forms: - Medication Reconciliation Form cp - Thank You Letter cp - Antibiotic Education cp - Prescription Opioid Use cp Prescriptions: - albuterol sulfate 90 mcg/actuation Inhalation HFA aerosol inhaler - inhale 1 puff by INHALATION route every 4-6 hours; 1 Inhaler; Refills: 0, cp Product Selection Permitted - Augmentin 875-125 mg Oral Tablet - take 1 tablet by ORAL route every 12 hours for 10 days; 20 tablet; Refills: 0, cp Product Selection Permitted - Tessalon Perles 100 mg Oral Capsule - take 1 capsule by ORAL route every 8 hours As needed; 20 capsule; Refills: 0, cp Product Selection Permitted Signatures: Dispatcher [employer] EDIA Yaima Freire, [employer] iw Naresh Banks PA PA cp Kell Ruiz RN RN ap3 Juan Guzman DO DO ms3 Corrections: (The following items were deleted from the chart) 14:49 14:48 Allergies: No Known Allergies; ap3 ap3 17:46 15:02 COVID 19 CPL+.BRZ ordered. [facility] EDIA 12/21 09:22 09:20 Head/Face: Normocephalic, atraumatic. cp cp
[2021-12-20] MEDS ORDERED: CEFTRIAXONE 1000 MG/VIAL ONE (17:58)
[2021-12-20] MEDS ORDERED: LIDOCAINE 1% MPF 5 ML VIAL ONE (17:58)
[2021-12-20] MEDS ORDERED: DIAZEPAM 5 MG TABLET ONE (18:51)
[2021-12-20] MEDS ORDERED: HYDROCODONE/APAP 5/325 MG TAB ONE (18:51)
== END 2021-12-20 18:11 | disposition home or self-care (01) ==
LOC: ER 14:04
DX: J20.9 Acute bronchitis, unspecified (principal); N39.0 Urinary tract infection, site not specified; F17.210 Nicotine dependence, cigarettes, uncomplicated; Z20.822 Contact with and (suspected) exposure to COVID-19; Z88.5 Allergy status to narcotic agent
CPT/HCPCS: 81025; 81003; 87804 ×2; 71045; 96372; 99283; U0003

== ENCOUNTER 2022-02-07 14:45 | Emergency (ER) | payer OTHER ==
[2022-02-07 16:35] LABS: Absolute Lymphocytes (CBC) 2.2 K/uL (0.7-4.9); Hematocrit 38.8 % (36.0-45.0); Lymphocytes % 24.1 % (15.3-44.8); MCV 91.4 fL (80-100); MPV 9.7 fL (7.6-11.3); RBC Red Blood Cell Count 4.24 M/uL (3.86-4.86)
[2022-02-07 16:47] LABS: Potassium 3.4 mmol/L (3.5-5.1); Troponin High Sensitivity 3.5 pg/mL (<58.9)
--- NOTE | 2022-02-07 16:56 | RAD REPORT ---
EXAM DESCRIPTION: Griselda Single View02/07/2022 4:04 pm CLINICAL HISTORY: Chest pain COMPARISON: November 2021 FINDINGS: The lungs appear clear of acute infiltrate. The heart is normal size IMPRESSION: No acute abnormalities displayed
--- NOTE | 2022-02-07 17:03 | ER ---
Nurse's Notes [facility] Name: Jodie Rodriguez Age: 36 yrs Sex: Female : 1985 Arrival Date: 02/07/2022 Time: 15:03 Bed 18 Private MD: Diagnosis: Chest pain on breathing;Anxiety disorder, unspecified Presentation: 02/07 15:46 Chief complaint: Patient states: chest pain that began 2 days ago with dizziness, SOB vg1 and anxiety. Coronavirus screen: Vaccine status: Patient reports receiving the 2nd dose of the covid vaccine. Client denies travel out of the [place] in the last 14 days. Ebola Screen: Patient denies exposure to infectious person. Patient denies travel to an Ebola-affected area in the 21 days before illness onset. Initial Sepsis Screen: Does the patient meet any 2 criteria? No. Patient's initial sepsis screen is negative. Does the patient have a suspected source of infection? No. Patient's initial sepsis screen is negative. Risk Assessment: Do you want to hurt yourself or someone else? Patient reports no desire to harm self or others. Onset of symptoms was February 05, 2022. 15:46 Method Of Arrival: Ambulatory vg1 15:46 Acuity: FLORA 3 vg1 Triage Assessment: 15:51 General: Appears uncomfortable, Behavior is calm, cooperative. Pain: Complains of pain vg1 in chest Pain currently is 0 out of 10 on a pain scale. at worst was 10 out of 10 on a pain scale. Neuro: Level of Consciousness is awake, alert, obeys commands, Oriented to person, place, time, situation, Reports dizziness. Cardiovascular: Patient's skin is warm and dry. Respiratory: Airway is patent Respiratory effort is even, unlabored. Historical: - Allergies: 15:51 Codeine; vg1 - PMHx: 15:51 Anxiety; depressive disorder; UTI; vg1 - PSHx: 15:51 Cholecystectomy; section; vg1 - Immunization history:: Client reports receiving the 2nd dose of the Covid vaccine. - Social history:: Smoking status: Patient reports the use of cigarette tobacco products, denies chronic smoking, but will smoke occasionally. Screenin:54 Abuse screen: Denies threats or abuse. Denies injuries from another. Nutritional hernandez screening: No deficits noted. Tuberculosis screening: No symptoms or risk factors identified. Fall Risk None identified. Assessment: 16:54 Pain: Complains of pain in chest Pain does not radiate. Pain began gradually. hernandez Vital Signs: 15:46 BP 106 / 61; Pulse 65; Resp 18; Temp 98.1; Pulse Ox 100% on R/A; Weight 79.38 kg; vg1 Height 5 ft. 0 in. (152.40 cm); Pain 7/10; 15:46 Body Mass Index 34.18 (79.38 kg, 152.40 cm) vg1 ED Course: 15:03 Patient arrived in ED. as 15:09 Raghu White is PHCP. jl9 15:51 Triage completed. vg1 15:51 Arm band placed on. vg1 15:59 EKG done, by ED staff, reviewed by Raghu White. vg1 16:05 XRAY Chest (1 view) In Process Unspecified. EDMS 16:26 Basic Metabolic Panel Sent. kc6 16:26 CBC with Diff Sent. kc6 16:26 Troponin HS Sent. kc6 16:26 Inserted saline lock: 20 gauge in right antecubital area, using aseptic technique. kc6 Blood collected. 16:54 Patient has correct armband on for positive identification. Bed in low position. hernandez air sampling and monitoring on. Pulse ox on. NIBP on. 16:54 No provider procedures requiring assistance completed. Patient maintains SpO2 hernandez saturation greater than 95% on room air. 17:33 IV discontinued, intact, bleeding controlled, No redness/swelling at site. hb Administered Medications: No medications were administered Medication: 16:54 VIS not applicable for this client. hernandez Outcome: 17:03 Discharge ordered by MD. siegel 17:32 Discharged to home ambulatory. hb 17:32 Condition: stable 17:32 Discharge instructions given to patient, Instructed on discharge instructions, follow up and referral plans. medication usage, Demonstrated understanding of instructions, follow-up care, medications. 17:33 Patient left the ED. hb Signatures: Dispatcher [employer] Yael Auguste Heather, RN Lydia Núñez RN RN 1 Au-StagerSenait RN RN ha Linares, John jl9 Campbell, Kaitlyn kc6
--- NOTE | 2022-02-07 17:03 | EDPHYS ---
Physician Documentation [facility] Name: Jodie Rodriguez Age: 36 yrs Sex: Female : 1985 Arrival Date: 02/07/2022 Time: 15:03 Bed 18 Private MD: ED Physician HPI: 02/07 16:35 This 36 yrs old Female presents to ER via Ambulatory with complaints of jl9 Dizziness, Chest Pain, Anxiety. 16:35 The patient presents with generalized weakness, lightheadedness. Onset: The jl9 symptoms/episode began/occurred and improved. Modifying factors: the symptoms are aggravated by nothing. Associated signs and symptoms: Pertinent negatives: ataxia, blurred vision, chest pain. Severity of symptoms: Pain is currently a 0 / 10. Patient c/o intermittent episodes. Patient denies any current symptoms. . Historical: - Allergies: 15:51 Codeine; vg1 - PMHx: 15:51 Anxiety; depressive disorder; UTI; vg1 - PSHx: 15:51 Cholecystectomy; section; vg1 - Immunization history:: Client reports receiving the 2nd dose of the Covid vaccine. - Social history:: Smoking status: Patient reports the use of cigarette tobacco products, denies chronic smoking, but will smoke occasionally. ROS: 16:37 Constitutional: Negative for fever, chills, and weight loss, Eyes: Negative for injury, jl9 pain, redness, and discharge, ENT: Negative for injury, pain, and discharge, Neck: Negative for injury, pain, and swelling, Cardiovascular: Negative for chest pain, palpitations, and edema, Respiratory: Negative for shortness of breath, cough, wheezing, and pleuritic chest pain, Abdomen/GI: Negative for abdominal pain, nausea, vomiting, diarrhea, and constipation, Back: Negative for injury and pain, MS/Extremity: Negative for injury and deformity, Skin: Negative for injury, rash, and discoloration, Neuro: Negative for headache, weakness, numbness, tingling, and seizure, Psych: Negative for depression, anxiety, suicide ideation, homicidal ideation, and hallucinations, Allergy/Immunology: Negative for hives, rash, and allergies, Endocrine: Negative for neck swelling, polydipsia, polyuria, polyphagia, and marked weight changes, Hematologic/Lymphatic: Negative for swollen nodes, abnormal bleeding, and unusual bruising. Exam: 16:37 Constitutional: This is a well developed, well nourished patient who is awake, alert, jl9 and in no acute distress. Head/Face: Normocephalic, atraumatic. Eyes: Pupils equal round and reactive to light, extra-ocular motions intact. Lids and lashes normal. Conjunctiva and sclera are non-icteric and not injected. Cornea within normal limits. Periorbital areas with no swelling, redness, or edema. ENT: Mucous membranes moist. Neck: Trachea midline, no thyromegaly or masses palpated, and no cervical lymphadenopathy. Supple, full range of motion without nuchal rigidity, or vertebral point tenderness. No Meningismus. Chest/axilla: Normal chest wall appearance and motion. Nontender with no deformity. No lesions are appreciated. Cardiovascular: Regular rate and rhythm with a normal S1 and S2. No gallops, murmurs, or rubs. Normal PMI, no JVD. No pulse deficits. Respiratory: Lungs have equal breath sounds bilaterally, clear to auscultation and percussion. No rales, rhonchi or wheezes noted. No increased work of breathing, no retractions or nasal flaring. Abdomen/GI: Soft, non-tender, with normal bowel sounds. No distension or tympany. No guarding or rebound. No evidence of tenderness throughout. Back: No spinal tenderness. No costovertebral tenderness. Full range of motion. Skin: Warm, dry with normal turgor. Normal color with no rashes, no lesions, and no evidence of cellulitis. MS/ Extremity: Pulses equal, no cyanosis. Neurovascular intact. Full, normal range of motion. Neuro: Awake and alert, GCS 15, oriented to person, place, time, and situation. Cranial nerves II-XII grossly intact. Motor strength 5/5 in all extremities. Sensory grossly intact. Cerebellar exam normal. Normal gait. Psych: Awake, alert, with orientation to person, place and time. Behavior, mood, and affect are within normal limits. Vital Signs: 15:46 BP 106 / 61; Pulse 65; Resp 18; Temp 98.1; Pulse Ox 100% on R/A; Weight 79.38 kg; vg1 Height 5 ft. 0 in. (152.40 cm); Pain 7/10; 15:46 Body Mass Index 34.18 (79.38 kg, 152.40 cm) vg1 MDM: 15:51 Patient medically screened. 16:38 Data reviewed: vital signs, nurses notes. 02/07 15:50 Order name: Basic Metabolic Panel; Complete Time: 16:52 02/07 15:50 Order name: CBC with Diff; Complete Time: 16:47 02/07 15:50 Order name: Troponin HS; Complete Time: 16:52 02/07 15:50 Order name: XRAY Chest (1 view); Complete Time: 16:58 02/07 15:50 Order name: EKG; Complete Time: 15:51 02/07 15:50 Order name: Cardiac monitoring; Complete Time: 16:54 02/07 15:50 Order name: EKG - Nurse/Tech; Complete Time: 17:03 02/07 15:50 Order name: IV Saline Lock; Complete Time: 16:26 02/07 15:50 Order name: Labs collected and sent; Complete Time: 16:26 02/07 15:50 Order name: O2 Per Protocol; Complete Time: 16:54 02/07 15:50 Order name: O2 Sat Monitoring; Complete Time: 16:54 jl Administered Medications: No medications were administered Disposition Summary: 02/07/22 17:03 Discharge Ordered Location: Home jl9 Condition: Stable jl9 Diagnosis - Chest pain on breathing jl9 - Anxiety disorder, unspecified jl9 Followup: jl9 - With: Private Physician - When: 1 - 2 days - Reason: Recheck today's complaints, Continuance of care, Re-evaluation by your physician Discharge Instructions: - Discharge Summary Sheet jl9 - Nonspecific Chest Pain, Adult jl9 - Chest Wall Pain jl9 - Managing Anxiety, Adult jl9 Forms: - Medication Reconciliation Form jl9 - Thank You Letter jl9 - Antibiotic Education jl9 - Prescription Opioid Use jl9 Signatures: Dispatcher [employer] Lydia Painter, RN RN david1 Raghu White jl9
[2022-02-07 17:43] VITALS: BP 106/61; TEMP 98.1; O2SAT 100
--- NOTE | 2022-02-08 08:16 | EKG ---
Test Date: 2022-02-07 Test Time: 15:54:28 Manager Agricultural: MARIAM MEASUREMENT RESULTS: Intervals: Rate: 68 NM: 150 QRSD: 84 QT: 406 QTc: 431 [place]: P: 57 NM: 150 QRS: 54 T: 54 INTERPRETIVE STATEMENTS: Normal sinus rhythm Normal ECG No previous ECG available for comparison Electronically Signed On 02-08-22 08:12:40 CDT by Uvaldo Osman
== END 2022-02-07 17:33 | disposition home or self-care (01) ==
LOC: ER 14:45
DX: R07.1 Chest pain on breathing (principal); F41.9 Anxiety disorder, unspecified; F17.210 Nicotine dependence, cigarettes, uncomplicated; Z88.5 Allergy status to narcotic agent
CPT/HCPCS: 36415; 71045; 80048; 84484; 85025; 93005; 99285

== ENCOUNTER 2022-03-03 18:33 | Observation (INO) | payer OTHER ==
--- OUTSIDE RECORDS SUMMARY | 2022-03-03 18:38 | XMS REPORT | Continuity of Care Document ---
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 LYMPH NODES: Unremarkable. PELVIS: No pelvic mass or adenopathy. Uterus is anteverted and unremarkable. Ovaries are unremarkable. BLADDER: Unremarkable. OSSEOUS STRUCTURES: No acute abnormality seen. SOFT TISSUES: Unremarkable. IMPRESSION: 1. No acute abdominal or pelvic abnormality. SL: CONNIE at 0352 Reported and signed by: uLis Mckeon M.D. CC: Adrianne Painter MD; Dave Callahan DO Technologist:RT Young(R) CTDI: DLP: Trnscb Date/Time: 10/04/2018 (0352)[email or web address] Orig Print D/T: S: 10/04/2018 (0355) CTDI: DLP: PAGE 2 Signed Report- US TRANSVAGINAL NON [id number] 03:43:00 Name: SHEILA RODAS [facility] [place] : 1985 Age/S: 33 / F [address] [place] [address] Bl Unit #: [id number] Loc: [place] [address] Phys: Adrianne Painter MD Acct: [id number] Dis Date: Status: REGER PHONE #: [phone] Exam Date: 10/04/2018326 FAX #: [phone] Reason: Pelvic Pain EXAMS: CPT CODE: [id number] [place] [address] EXAM: US, US PELVIS COMPLETE: 10/04/2018 EXAM: US, USTRANSVAGINAL: 10/04/2018 Clinical Indication: Blood in stool. Vomiting blood.. Pelvic pain. Comparison: None. TECHNIQUE: Technique: Grayscale, color and Doppler transabdominal and transvaginal imaging of the pelvis was performed with standard technique. FINDINGS: Transabdominal pelvic ultrasound: Uterus is anteverted and heterogenous. Uterus measures 6.1 x 2.6 x 3.5 cm. The adnexa and the endometriumnot well evaluated on transabdominal pelvic ultrasound necessitating endovaginal pelvic ultrasound. Endovaginal pelvic [...] Small follicle seen in the ovaries.. There are no adnexal masses. The limited Doppler images show normal bilateral ovarian blood flow. OTHER FINDINGS: No free fluid in the pelvic cul-de-sac. If thereis further concern, followup pelvic sonography or MRI of the pelvis may be performed. IMPRESSION: PAGE 1 Signed Report (CONTINUED) Name: RODAS,SHEILA Flores : 1985 Age/S: 33 / F [address] [place] [address] Unit #: [id number] Loc: [place] [address] Phys: Adrianne Painter MD Acct: [id number] Dis Date: Status: REG ER PHONE #: [phone] Exam Date: 10/04/2018326 FAX #: [phone] Reason: Pelvic Pain EXAMS: CPT CODE: [id number] [place] [address] <Continued> 1. Trace fluid in the endometrial and cervical canal. Prominent cervix. 2. Otherwise unremarkable pelvicultrasound SL: JSYED-H at 0343 Reported and signed by: Luis Mckeon M.D. CC: Adrianne Painter MD; Dave Callahan DO Technologist: Elisha Colmenares RDMS(Ady)(OB) Trnscb Date/Time: 10/04/2018 (034) [email or web address] Orig Print D/T: S: 10/04/2018 (0346) Probe: [id number] PAGE 2 Signed Report- US PELVIS [id number] 03:43:00 Name: SHEILA RODAS : 1985 Age/S: 33 / F [address] [place] [address] Unit #: [id number] Loc: [place] [address] Phys: Adrianne Painter MD Acct: [id number] Dis Date: Status: REG ER PHONE #: [phone] Exam Date: 10/04/2018326 FAX #: [phone] Reason: Pelvic Pain EXAMS: CPT CODE: [id number] US PELVIS COMPLETE 59275 EXAM: US, US PELVIS COMPLETE: 10/04/2018 EXAM: US, US TRANSVAGINAL: 10/04/2018 Clinical Indication: Blood in stool. Vomiting blood.. Pelvic pain. Comparison: None. TECHNIQUE: Technique: Grayscale, color and Doppler transabdominal and transvaginal imaging of the pelvis was performed with standard technique. FINDINGS: Transabdominal pelvic ultrasound: Uterus is anteverted and heterogenous. Uterus measures 6.1 x 2.6 x 3.5 cm. The adnexa and the endometrium notwell evaluated on transabdominal pelvic ultrasound necessitating endovaginal pelvic ultrasound. Endovaginal pelvic [...] Small follicle seen in the ovaries.. There are no adnexal masses. The limited Doppler images show normal bilateral ovarian blood flow. OTHER FINDINGS: No free fluid in the pelvic cul-de-sac. If there is further concern, followup pelvic sonography or MRI of the pelvis may be performed. IMPRESSION: PAGE 1 Signed Report (CONTINUED) Name: SHEILA RODAS [facility] : 1985 Age/S: 33 / F [address] [place] [address] Blvd Unit #: [id number] Loc: [place] [address] Phys: Adrianne Painter MD Acct: [id number] Dis Date: Status: REG ER PHONE #: [phone] Exam Date: 10/04/2018326 FAX #: [phone] Reason: Pelvic Pain EXAMS: CPT CODE: [id number] US PELVIS COMPLETE 40282 <Continued> 1. Trace fluid in the endometrial and cervical canal. Prominent cervix. 2. Otherwise unremarkable pelvic ultrasound SL: JSYED-H at 0343 Reported and signed by: Luis Mckeon M.D. CC: Adrianne Painter MD; Dave Callahan DO Technologist: Elisha Colmenares RDMS (Ady)(OB) Trnscb Date/Time: 10/04/2018 (0343) [id number] Orig Print D/T: S: 10/04/2018 (034) Probe: PAGE 2 Signed ReportCOMPREHENSIVE METABOLIC PANEL 2018-10-04 03:26:00 Test Item Value Reference Range Interpretation [...] 20-125 N TOTAL (test code = ALKP) [id number] 03:26:00 Test Item Value Reference Range Interpretation Comments LIPASE (test code = LIP) 125 IUnit/L 73-393 N HCG SERUM [id number] 03:26:00 Test Item Value Reference Range Interpretation Comments HCG SERUM QUAL (test code = SERUM NEGATIVE NEGATIVE HCGQL) COMPREHENSIVE METABOLIC [id number] 03:15:00 Test Item Value Reference Range Interpretation [...] TOTAL (test IUnit/L 20-125 code = ALKP) [id number] 03:15:00 Test Item Value Reference Range Interpretation Comments LIPASE (test code = LIP) IUnit/L 73-393 HCG SERUM [id number] 03:15:00 Test Item Value Reference Range Interpretation Comments HCG SERUM QUAL (test code = SERUM NEGATIVE NEGATIVE HCGQL) CBC W/AUTO [id number] 03:11:00 Test Item Value Reference Range Interpretation [...]
[2022-03-03 20:02] LABS: Urine Blood Negative (Negative); Urine Glucose Negative (Negative); Urine Protein Negative (Negative); Urine Specific Gravity >=1.030 (1.005-1.030); Urine pH 5.5 (5.0-7.0)
--- NOTE | 2022-03-03 20:07 | RAD REPORT ---
EXAM DESCRIPTION: RAD - Chest Single View - 03/03/2022 8:02 pm CLINICAL HISTORY: CHEST PAIN Chest pain. COMPARISON: Chest Single View dated 02/07/2022; Chest Single View dated 12/20/2021 FINDINGS: Portable technique limits examination quality. The lungs are grossly clear. The heart is normal in size. No displaced fractures. IMPRESSION: No acute intrathoracic process suspected.
[2022-03-03] MEDS ORDERED: ONDANSETRON 4 MG/2 ML VIAL ONE (20:17)
[2022-03-03] MEDS ORDERED: MORPHINE 4 MG/ML SYR ONE (20:17)
[2022-03-03 20:45] LABS: Absolute Lymphocytes (CBC) 3.1 K/uL (0.7-4.9); Hematocrit 38.5 % (36.0-45.0); Lymphocytes % 28.9 % (15.3-44.8); MCV 90.6 fL (80-100); MPV 9.9 fL (7.6-11.3); RBC Red Blood Cell Count 4.25 M/uL (3.86-4.86)
[2022-03-03 21:07] LABS: Protime INR 0.92
--- NOTE | 2022-03-03 21:24 | ER ---
Nurse's Notes [facility] Name: Jodie Rodriguez Age: 36 yrs Sex: Female : 1985 Arrival Date: 03/03/2022 Time: 18:37 Bed 25 Private MD: Diagnosis: Chest pain, unspecified;Bradycardia, unspecified-adverse reaction to morphine Presentation: 03/03 18:57 Chief complaint: Patient states: I woke up this morning feeling really weak and sweaty bm7 and my whole body and chest started hurting and I couldn't even put on my clothes. Coronavirus screen: Client presents with at least one sign or symptom that may indicate coronavirus-19. Standard/surgical mask placed on the client. Ebola Screen: No symptoms or risks identified at this time. Initial Sepsis Screen: Does the patient meet any 2 criteria? No. Patient's initial sepsis screen is negative. Does the patient have a suspected source of infection? No. Patient's initial sepsis screen is negative. Risk Assessment: Do you want to hurt yourself or someone else? Patient reports no desire to harm self or others. Onset of symptoms was March 03, 2022 at 08:00. 18:57 Method Of Arrival: Ambulatory bm7 18:57 Acuity: FLORA 3 bm7 Triage Assessment: 18:59 General: Appears in no apparent distress. uncomfortable, Behavior is calm, cooperative, bm7 appropriate for age. Pain: Complains of pain in anterior aspect of right upper chest and anterior aspect of left upper chest Pain does not radiate. Pain currently is 8 out of 10 on a pain scale. EENT: No deficits noted. No signs and/or symptoms were reported regarding the EENT system. Neuro: No deficits noted. Cardiovascular: Denies shortness of breath, Chest pain is described as vague, is located in chest wall. Respiratory: No deficits noted. GI: No deficits noted. No signs and/or symptoms were reported involving the gastrointestinal system. : No deficits noted. No signs and/or symptoms were reported regarding the genitourinary system. Derm: No deficits noted. No signs and/or symptoms reported regarding the dermatologic system. Musculoskeletal: No deficits noted. No signs and/or symptoms reported regarding the musculoskeletal system. CLINICAL TEAM LEAD: 18:59 LMP N/A - Irregular menses bm7 Historical: - Allergies: 18:59 Codeine; bm7 - PMHx: 18:59 Anxiety; depressive disorder; bm7 - PSHx: 18:59 section; Cholecystectomy; bm7 - Immunization history:: Adult Immunizations up to date, Client reports receiving the 2nd dose of the Covid vaccine, Client reports receiving the 1st dose of the Covid vaccine. - Social history:: Smoking status: Patient/guardian denies using tobacco products. Screenin:00 Nutritional screening: No deficits noted. ja4 Assessment: 21:00 General: Appears uncomfortable, obese, Behavior is calm, cooperative, appropriate for ja4 age. Pain: Quality of pain is described as aching. 21:40 Reassessment: pt started having a reaction to the morphine and zofran given. chest pain ja4 increased breathing increased. pt is diaphoretic and pulse has dropped to low 40's and sometimes high 30's. provider aware. pt being monitored. Vital Signs: 18:57 BP 100 / 54; Pulse 74; Resp 16; Temp 97.7(TE); Pulse Ox 100% on R/A; Weight 90.72 kg; bm7 Height 5 ft. 0 in. (152.40 cm) (R); Pain 8/10; 21:00 Pulse 71; Resp 19; Pulse Ox 100% ; Pain 9/10; ja4 18:57 Body Mass Index 39.06 (90.72 kg, 152.40 cm) 7 ED Course: 18:37 Patient arrived in ED. ja2 18:59 Triage completed. bm7 18:59 Arm band placed on left wrist. bm7 19:04 EKG done. bm7 19:38 Robin Hicks NP is PHCP. pm1 19:38 Tyrone Salinas MD is Attending Physician. pm1 19:54 Mario Castaneda, [facility] is Primary Nurse. ja4 20:03 XRAY Chest (1 view) In Process Unspecified. EDMS 20:40 Inserted saline lock: 22 gauge in right antecubital area, using aseptic technique. ja4 Blood collected. 21:00 Patient has correct armband on for positive identification. Side rails up X 1. Cardiac ja4 monitor on. Pulse ox on. 21:00 No provider procedures requiring assistance completed. Patient maintains SpO2 ja4 saturation greater than 95% on room air. 21:23 Avelina Mo MD is Hospitalizing Provider. pm1 22:33 SARS RAPID Sent. aa9 03/04 07:43 Primary Nurse role handed off by Mario Castaneda, [facility] 07:43 Julius Romero, RN is Primary Nurse. bp Administered Medications: 03/03 20:43 Drug: Zofran (Ondansetron) 4 mg Route: IVP; Site: right antecubital; ja4 20:44 Drug: morphine 4 mg Route: IVP; Infused Over: 4 mins; Site: right antecubital; ja4 22:33 Drug: Magnesium Sulfate 1 grams Route: IVPB; Infused Over: 1 hrs; Site: right aa9 antecubital; Medication: 21:00 VIS not applicable for this client. ja4 Outcome: 21:00 Admitted to ER Hold. Please see [facility] for further documentation. ja4 21:23 Decision to Hospitalize by Provider. pm1 03/04 15:04 Patient left the ED. ss Signatures: Dispatcher [employer] EDNJ Jennifer Gallardo RN RN Robin Hicks, WOOD CHOPPER WOOD CHOPPER pm1 Julius Romero, RN RN Enedina Pizarro, RN RN Angeline Shafer ja2 Corazon Wilkinson RN RN [facility] Mario Castaneda, RN RN [email or web address] Corrections: (The following items were deleted from the chart) 03/03 19:00 18:59 PMHx: UTI; bm7 bm7 20:45 20:44 Inserted saline lock: 22 gauge in right antecubital area, using aseptic omar technique. Blood collected. jaAlicja
--- NOTE | 2022-03-03 21:24 | EDPHYS ---
Physician Documentation [facility] Name: Jodie Rodriguez Age: 36 yrs Sex: Female : 1985 Arrival Date: 03/03/2022 Time: 18:37 Bed 25 Private MD: ED Physician Tyrone Salinas HPI: 03/03 19:47 This 36 yrs old Female presents to ER via Ambulatory with complaints of Chest pm1 Pain, Nausea, Weakness. 19:47 The patient or guardian reports chest pain that is located primarily in the anterior pm1 aspect of right upper chest, anterior aspect of left upper chest and mid-sternal area. Onset: The symptoms/episode began/occurred 4 day(s) ago. The pain does not radiate. Associated signs and symptoms: Pertinent positives: Nausea and generalized weakness, Pertinent negatives: abdominal pain, cough, fever, shortness of breath, Nausea and vomiting. Modifying factors: the patient symptoms are aggravated by Palpation and deep breathing. The chest pain is described as stabbing. Duration: The patient or guardian reports a single episode, that is still ongoing, For 4 days. Severity of pain: in the emergency department the pain is actually worse. The patient has not experienced similar symptoms in the past. The patient has not recently seen a physician. 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 - Social history:: Smoking status: Patient/guardian denies using tobacco products. ROS: 19:47 Constitutional: Negative for fever, chills, and weight loss. pm1 19:47 Respiratory: Negative for shortness of breath, cough, wheezing, and pleuritic chest pain, Abdomen/GI: Negative for abdominal pain, nausea, vomiting, diarrhea, and constipation, Back: Negative for injury and pain, MS/Extremity: Negative for injury and deformity, Skin: Negative for injury, rash, and discoloration, Neuro: Negative for headache, weakness, numbness, tingling, and seizure. 19:47 Cardiovascular: Positive for chest pain, Negative for edema, palpitations. 19:47 All other systems are negative. Exam: 19:47 Constitutional: This is a well developed, well nourished patient who is awake, alert, pm1 and in no acute distress. Head/Face: Normocephalic, atraumatic. 19:47 Back: No spinal tenderness. No costovertebral tenderness. Full range of motion. Skin: Warm, dry with normal turgor. Normal color with no rashes, no lesions, and no evidence of cellulitis. MS/ Extremity: Pulses equal, no cyanosis. Neurovascular intact. Full, normal range of motion. 19:47 Chest/axilla: Inspection: normal, Palpation: tenderness, of the anterior aspect of right upper chest and anterior aspect of left upper chest, that totally reproduces the patient's complaints. 19:47 Cardiovascular: Exam negative for acute changes, Rate: normal, Rhythm: regular, Pulses: no pulse deficits are appreciated, Heart sounds: normal, normal S1and S2, Edema: is not appreciated. 19:47 Respiratory: Exam negative for acute changes, respiratory distress, shortness of breath, Breath sounds: are clear throughout. 19:47 Abdomen/GI: Exam negative for acute changes, Inspection: abdomen appears normal, Palpation: abdomen is soft and non-tender, in all quadrants. 19:47 Neuro: Exam negative for acute changes, Orientation: is normal, Mentation: is normal, Motor: is normal, moves all fours. Vital Signs: 18:57 BP 100 / 54; Pulse 74; Resp 16; Temp 97.7(TE); Pulse Ox 100% on R/A; Weight 90.72 kg; bm7 Height 5 ft. 0 in. (152.40 cm) (R); Pain 8/10; 21:00 Pulse 71; Resp 19; Pulse Ox 100% ; Pain 9/10; ja4 18:57 Body Mass Index 39.06 (90.72 kg, 152.40 cm) bm7 MDM: 19:38 Patient medically screened. pm1 19:51 Data reviewed: vital signs. Data interpreted: Pulse oximetry: on room air is 100 %. pm1 Interpretation: normal. 21:18 ED course: Patient with apparent adverse side effect to morphine administration. pm1 Patient was given morphine 4 mg. Which patient with bradycardia and EKG obtained EKG showing heart rate of 39 bpm. On triage patient with heart rates in the 70s. Patient's blood pressure within normal limits 130s to 140s systolic. Currently no indication to get patient atropine. Explained to patient would like to observe her in the hospital due to response to the medication and to continue cardiac work-up. 21:18 Counseling: I had a detailed discussion with the patient and/or guardian regarding: the pm1 historical points, exam findings, and any diagnostic results supporting the discharge/admit diagnosis, lab results, the need for further work-up and treatment in the hospital. 21:43 Physician consultation: Lore YEPEZ was contacted at 21:43, regarding admission, pm1 patient's condition, and will see patient in ED, shortly, would like further tests performed, UDS. 21:48 Counseling: I had a detailed discussion with the patient and/or guardian regarding: lab pm1 results. 03/03 19:44 Order name: Basic Metabolic Panel; Complete Time: 21:30 pm1 03/03 19:44 Order name: CBC with Diff; Complete Time: 21:39 pm1 03/03 19:44 Order name: LFT's; Complete Time: 21:30 pm1 03/03 19:44 Order name: Magnesium; Complete Time: 21:30 pm1 03/03 19:44 Order name: NT PRO-BNP; Complete Time: 21:30 pm1 03/03 19:44 Order name: PT-INR; Complete Time: 21:23 pm1 03/03 19:44 Order name: Troponin HS; Complete Time: 21:30 pm1 03/03 20:02 Order name: Urine Dipstick-Ancillary; Complete Time: 20:12 EDMS 03/03 21:24 Order name: SARS RAPID; Complete Time: 23:04 pm1 03/03 21:33 Order name: CBC Smear Scan; Complete Time: 21:39 EDMS 03/03 21:39 Order name: UDS; Complete Time: 03:45 pm1 03/04 03:18 Order name: CBC with Automated Diff; Complete Time: 03:45 EDMS 03/04 03:38 Order name: Basic Metabolic Panel; Complete Time: 03:45 EDMS 03/04 03:38 Order name: Phosphorus; Complete Time: 03:45 EDMS 03/03 19:44 Order name: XRAY Chest (1 view); Complete Time: 20:12 pm1 03/03 19:44 Order name: EKG; Complete Time: 19:46 pm1 03/03 19:44 Order name: Cardiac monitoring; Complete Time: 20:29 pm1 03/03 19:44 Order name: EKG - Nurse/Tech; Complete Time: 22:16 pm1 03/03 19:44 Order name: IV Saline Lock; Complete Time: 22:16 pm1 03/03 19:44 Order name: Labs collected and sent; Complete Time: 22:16 pm1 03/03 19:44 Order name: O2 Per Protocol; Complete Time: 22:16 pm1 03/03 19:44 Order name: O2 Sat Monitoring; Complete Time: 22:16 pm1 03/04 03:38 Order name: Troponin High Sensitivity; Complete Time: 03:45 EDMS 12 03:38 Order name: Lipid Profile; Complete Time: 03:45 EDMS 03/04 03:38 Order name: T4 Free; Complete Time: 03:45 EDMS 12 03:38 Order name: Magnesium; Complete Time: 03:45 EDMS 03/04 03:38 Order name: Thyroid Stimulating Hormone; Complete Time: 03:45 EDMS 11 19:44 Order name: Urine Dipstick-Ancillary (obtain specimen); Complete Time: 22:16 pm1 03/03 19:44 Order name: Urine Test (obtain specimen); Complete Time: 22:16 pm1 EC:49 Rate is 66 beats/min. Rhythm is regular, Normal Sinus Rhythm with No ectopy. QRS Grant pm1 is Normal. NM interval is normal. QRS interval is normal. QT interval is normal. No Q waves. T waves are Normal. No ST changes noted. Clinical impression: Normal ECG. 21:18 Rate is 39 beats/min. Rhythm is regular, Sinus bradycardia with No ectopy. QRS Grant is pm1 Normal. No Q waves. T waves are Normal. No ST changes noted. Clinical impression: Sinus bradycardia. Administered Medications: 20:43 Drug: Zofran (Ondansetron) 4 mg Route: IVP; Site: right antecubital; ja4 20:44 Drug: morphine 4 mg Route: IVP; Infused Over: 4 mins; Site: right antecubital; ja4 22:33 Drug: Magnesium Sulfate 1 grams Route: IVPB; Infused Over: 1 hrs; Site: right aa9 antecubital; Disposition Summary: 03/03/22 21:23 Hospitalization Ordered Hospitalization Status: Observation pm1 Provider: Avelina Mo pm1 Condition: Stable pm1 Problem: new pm1 Symptoms: have improved pm1 Bed/Room Type: Standard pm1 Location: [facility] ER HOLD(03/03/22 21:41) Room Assignment: ERHOLD-(03/03/22 21:41) Diagnosis - Chest pain, unspecified pm1 - Bradycardia, unspecified - adverse reaction to morphine pm1 Forms: - Medication Reconciliation Form pm1 - SBAR form pm1 Signatures: Dispatcher [employer] EDMS Ruchi Persaud RN RN Robin Hicks NP MANAGER TREASURY pm1 Enedina Pizarro, RN RN bm7 Lore Carmona PA PA sb3 Corazon Wilkinson RN RN aa9 Mario Castaneda RN RN ja4 Corrections: (The following items were deleted from the chart) 19:00 18:59 PMHx: UTI; bm7 bm7 21:41 21:23 Telemetry/MedSurg (observation) pm1 21:41 21:23 pm1 21:44 21:41 ECG: pm1 pm1
[2022-03-03 21:28] LABS: ALT/SGPT 23 U/L (12-78); Albumin 3.2 g/dL (3.4-5.0); Alkaline Phosphatase 88 U/L (45-117); BUN Blood Urea Nitrogen 7 mg/dL (7-18); Bicarbonate 23 mmol/L (21-32); Bilirubin Total 0.2 mg/dL (0.2-1.0); Glomerular Filtration Rate 114 ml/min (=/>90); Glucose Level 94 mg/dL (74-106); NT PRO-BNP 113 pg/mL (<125); Protein, Total 6.8 g/dL (6.4-8.2); Sodium Level 135 mmol/L (136-145)
[2022-03-03 21:29] LABS: AST/SGOT 27 U/L (15-37); Bilirubin Direct < 0.1 mg/dL (0-0.2); Magnesium 1.6 mg/dL (1.8-2.4)
[2022-03-03 21:32] LABS: Blood Morphology Comment NOT SEEN (NOT SEEN); Platelet Estimate ADEQ; White Blood Cell Scan OK (OK)
[2022-03-03] MEDS ORDERED: MAGNESIUM SULFATE 1 gm IVPB 1 GM/100 ML BAG IV ONE (22:32)
[2022-03-03 22:55] LABS: SARS-CoV-2 Antigen Rapid Res Negative (Negative)
[2022-03-03] MEDS ORDERED: ONDANSETRON 4 MG/2 ML VIAL IV PRN (23:29)
[2022-03-03] MEDS ORDERED: ACETAMINOPHEN 500 MG TAB PO PRN (23:29)
--- NOTE | 2022-03-03 23:30 | P.HP ---
Certification for Inpatient Patient admitted to: Observation With expected LOS: <2 Midnights Patient will require the following post-hospital care: None Practitioner: I am a practitioner with admitting privileges, knowledge of patient current condition, hospital course, and medical plan of care. Services: Services provided to patient in accordance with Admission requirements found in Title 42 Section 412.3 of the Code of Federal Regulations <Lore Carmona - Last Filed: 03/04/22 03:06> Patient History Date of Service: 03/04/22 Reason for admission: Chest Pain History of Present Illness: Patient is a 36-year-old female with anxiety who presented to the ED with complaints of chest pain. Patient states she has been feeling pain for about 4 days now but today she woke up with weakness, diaphoresis, and malaise. The pain is generalized and is reproducible. It does not radiate. No shortness of breath. Her EKG showed NSR. She was given 4 mg of morphine which dropped her HR from 70s to high 30s low 40s. She was light headed and diaphoretic. Patient reports having morphine in the past without any adverse reactions. Her HR gradually improved. Labs significant for sodium 135, magnesium 1.6, troponin negative. COVID negative. Given her chest pain and adverse reaction to morphine, ED provider wishes to admit patient for observation. Home medications list reviewed: Yes (None) - Past Medical/Surgical History Diabetic: No -: Depression -: Anxiety -: -: Cholecystectomy Psychosocial/ Personal History: Patient lives at home with her significant other. - Family History Mother -: Hypertension Father -: Diabetes - Social History Smoking Status: Current some day smoker Alcohol use: No CD- Drugs: No Caffeine use: Yes Place of Residence: Home <Lore Carmona - Last Filed: 03/04/22 03:06> Date of Service: 03/04/22 <Avelina Mo - Last Filed: 03/04/22 13:53> Allergies codeine Allergy (Verified 03/03/22 23:29) Itching/Hives/Rash Home Medications: ALPRAZolam [Xanax] 0.25 mg PO BID PRN #30 tab 03/04/22 Escitalopram Oxalate [Lexapro] 10 mg PO DAILY #30 03/04/22 Escitalopram [Lexapro] 10 mg PO DAILY #30 tab 03/04/22 Review of Systems General: Malaise Cardiovascular: Chest Pain Gastrointestinal: Nausea <Lore Carmona - Last Filed: 03/04/22 03:06> Physical Examination - Physical Exam General: Alert, In no apparent distress HEENT: Atraumatic, PERRLA, EOMI, Sclerae nonicteric Neck: Supple, 2+ carotid pulse no bruit, No LAD, Without JVD or thyroid abnormality Respiratory: Clear to auscultation bilaterally, Normal air movement Cardiovascular: Regular rate/rhythm, Normal S1 S2 Gastrointestinal: Normal bowel sounds, No tenderness Musculoskeletal: No tenderness Integumentary: No rashes Neurological: Normal speech, Normal strength at 5/5 x4 extr, Normal tone, Normal affect - Studies Laboratory Data (last 24 hrs) 03/03/22 20:25: PT 10.1, INR 0.92 03/03/22 20:25: WBC 10.9, Hgb 13.0, Hct 38.5, Plt Count 192 03/03/22 20:25: Sodium 135 L, Potassium 4.0, BUN 7, Creatinine 0.70, Glucose 94, Magnesium 1.6 L, Total Bilirubin 0.2, AST 27, ALT 23, Alkaline Phosphatase 88 <Lore Carmona - Last Filed: 03/04/22 03:06> - Studies Laboratory Data (last 24 hrs) 03/03/22 20:25: PT 10.1, INR 0.92 03/03/22 20:25: WBC 10.9, Hgb 13.0, Hct 38.5, Plt Count 192 03/03/22 20:25: Sodium 135 L, Potassium 4.0, BUN 7, Creatinine 0.70, Glucose 94, Magnesium 1.6 L, Total Bilirubin 0.2, AST 27, ALT 23, Alkaline Phosphatase 88 <Avelina Mo - Last Filed: 03/04/22 13:53> Assessment and Plan - Problems (Diagnosis) (1) Chest pain Current Visit: Yes Status: Acute Qualifiers: Chest pain type: unspecified Qualified Code(s): R07.9 - Chest pain, unspecified (2) Adverse effect of morphine Current Visit: Yes Status: Acute (3) Bradycardia Current Visit: Yes Status: Acute (4) Hypomagnesemia Current Visit: Yes Status: Acute - Plan -Initial troponin negative. Will repeat q6hx2 and trend -Cardiology consulted. Echo ordered. Monitor on telemetry -Hold off on any narcotics given adverse reaction. Heart rate has improved. -Lipid and thyroid panel ordered for morning. -IV fluids overnight -UDS pending -Monitor and replete electrolytes per protocol -Reconcile and continue home medications -Lovenox for VTE ppx -Full code Discharge Plan: Home Plan to discharge in: 24 Hours - Advance Directives Does patient have a Living Will: No Does patient have a Durable POA for Healthcare: No - Code Status/Comfort Care Code Status Assessed: Yes (Full) Critical Care: No Time Spent Managing Pts Care (In Minutes): 50 <Lore Carmona - Last Filed: 03/04/22 03:06>
[2022-03-03 23:36] VITALS: BMI 39.0
[2022-03-03] MEDS: NA CHLORIDE 0.9% 1,000 ML IV SCH (23:45)
[2022-03-04 03:14] LABS: Absolute Lymphocytes (CBC) 1.6 K/uL (0.7-4.9); Hematocrit 34.3 % (36.0-45.0); Lymphocytes % 17.3 % (15.3-44.8); MCV 90.2 fL (80-100); MPV 9.8 fL (7.6-11.3); RBC Red Blood Cell Count 3.81 M/uL (3.86-4.86)
[2022-03-04 03:29] LABS: Barbiturates NEGATIVE (NEGATIVE); Benzodiazepines NEGATIVE (NEGATIVE); Cocaine NEGATIVE (NEGATIVE); METHAMPHETAM NEGATIVE (NEGATIVE); Methadone NEGATIVE (NEGATIVE); Opiates POSITIVE (NEGATIVE); Phencyclidine NEGATIVE (NEGATIVE); THC Cannibis NEGATIVE (NEGATIVE)
[2022-03-04 03:38] LABS: Magnesium 1.9 mg/dL (1.8-2.4); Phosphorus 3.1 mg/dL (2.5-4.9); Potassium 4.4 mmol/L (3.5-5.1); Thyroid Stimulating Hormone 1.25 uIU/mL (0.360-3.740); Troponin High Sensitivity 5.8 pg/mL (<58.9)
[2022-03-04] MEDS ORDERED: ENOXAPARIN 40 MG/0.4 ML SQ SCH (09:00)
[2022-03-04] MEDS ORDERED: ENOXAPARIN 40 MG/0.4 ML SQ ONE (09:36)
[2022-03-04] MEDS: NA CHLORIDE 0.9% 1,000 ML IV SCH (09:45)
--- NOTE | 2022-03-04 13:32 | EKG ---
Test Date: 2022-03-03 Test Time: 19:01:43 Jewel Oliving Machine Operator: KAMARI MEASUREMENT RESULTS: Intervals: Rate: 66 NC: 144 QRSD: 74 QT: 386 QTc: 404 [place]: P: 41 NC: 144 QRS: 48 T: 48 INTERPRETIVE STATEMENTS: Normal sinus rhythm Normal ECG Compared to ECG 02/07/2022 15:54:28 No significant changes Electronically Signed On 03-04-22 13:31:34 CDT by Jose Thompson
--- NOTE | 2022-03-04 13:54 | P.DS ---
Discharge Date: 03/04/22 Disposition: ROUTINE DISCHARGE Discharge Condition: GOOD Reason for Admission: Chest Pain Brief History of Present Illness: Patient is a 36-year-old female who came to the hospital with chest pain. She was ruled out for acute coronary syndrome. Her blood pressure dropped after getting morphine. We will monitor her for observation. She was having a panic attack and we will discharge her with anxiolytics. Hospital Course: Clinically, patient is done well and she is stable for discharge home. She will continue with Lexapro daily and Xanax as needed. Vital Signs/Physical Exam: Temp Pulse Resp BP Pulse Ox 97.9 F 65 16 99/57 L 100 03/04/22 04:00 03/04/22 12:00 03/04/22 12:00 03/04/22 12:00 03/04/22 12:00 General: Alert, In no apparent distress, Oriented x3 Laboratory Data at Discharge: WBC 9.2 K/uL (4.3-10.9) D 03/04/22 02:47 Hgb 11.7 g/dL (12.0-15.0) L 03/04/22 02:47 Hct 34.3 % (36.0-45.0) L 03/04/22 02:47 Plt Count 170 K/uL (152-406) 03/04/22 02:47 PT 10.1 SECONDS (9.5-12.5) 03/03/22 20:25 INR 0.92 03/03/22 20:25 Sodium 138 mmol/L (136-145) 03/04/22 02:42 Potassium 4.4 mmol/L (3.5-5.1) 03/04/22 02:42 BUN 8 mg/dL (7-18) 03/04/22 02:42 Creatinine 0.67 mg/dL (0.55-1.3) 03/04/22 02:42 Glucose 109 mg/dL (74-106) H 03/04/22 02:42 Phosphorus 3.1 mg/dL (2.5-4.9) 03/04/22 02:42 Magnesium 1.9 mg/dL (1.8-2.4) 03/04/22 02:42 Total Bilirubin 0.2 mg/dL (0.2-1.0) 03/03/22 20:25 AST 27 U/L (15-37) 03/03/22 20:25 ALT 23 U/L (12-78) 03/03/22 20:25 Alkaline Phosphatase 88 U/L (45-117) 03/03/22 20:25 Triglycerides 102 mg/dL (<150) 03/04/22 02:42 Cholesterol 130 mg/dL (<200) 03/04/22 02:42 HDL Cholesterol 45 mg/dL (40-60) 03/04/22 02:42 Cholesterol/HDL Ratio 2.89 03/04/22 02:42 Home Medications: ALPRAZolam [Xanax] 0.25 mg PO BID PRN #30 tab 03/04/22 Escitalopram Oxalate [Lexapro] 10 mg PO DAILY #30 03/04/22 Escitalopram [Lexapro] 10 mg PO DAILY #30 tab 03/04/22 New Medications: Escitalopram Oxalate [Lexapro] 10 mg PO DAILY #30 Escitalopram [Lexapro] 10 mg PO DAILY #30 tab ALPRAZolam [Xanax] 0.25 mg PO BID PRN #30 tab PRN Reason: Anxiety Physician Discharge Instructions: -DC IV and DC home -Follow-up with PCP in 1 to 2 weeks -Follow-up with Cardiology in 1 to 2 weeks -Please call Dr. Mo at [phone] if any questions regarding hospital stay -Please call nursing station at [phone] if any nursing or medication questions -Return to the emergency room if symptoms worsen Diet: Regular Activity: Fall precautions Followup: NONE,NONE [Primary Care Provider] - Time spent managing pt's care (in minutes): 35
[2022-03-04 15:36] VITALS: BP 100/54; TEMP 97.7; O2SAT 100
--- NOTE | 2022-03-04 19:24 | CON ---
Date of Consultation: 03/04/2022 Reason For Consultation: Chest pain. History Of Present Illness: This 36-year-old female presented to the emergency room with chest pain, feeling generally weak and bad. Chest pain is retrosternal, not related to exertion and no radiatio n. No shortness of breath. No nausea, vomiting, diarrhea, or diaphoresis. No known history of card iac disease. Past Medical History: Dyslipidemia. Medications: Refer reconciliation sheet for detailed list. Allergies: CODEINE. Family History: No premature coronary artery disease or cancer. Social History: She does not smoke or drink. Does not use any drugs. Review of Systems: All systems were reviewed and were negative except for mentioned in HPI. Physical Examination: Vital Signs: Temperature is 97.9, pulse is 55, breathing at 16, blood pressure is 96/59, saturating 100% pleasant young female, in no apparent distress. Head and Neck: Pupils are equal, reactive to light. Intact eye movements. No JVD. No cervical lym phadenopathy. Neck is supple. Thyroid is not enlarged. Lungs: Clear to auscultation bilaterally. Cardiac: Crackles. No accessory muscle use. Heart: Regular rate and rhythm. No extra sounds. Abdomen: Soft, nontender. Bowel sounds positive. No organomegaly. No masses or hernia. No rigidi ty or rebound. Extremities: No edema, clubbing, cyanosis. Intact pulses. Skin: No rash. Neurologic: Alert, awake, oriented x3. No acute events. Investigations: Troponins x2 are negative. Creatinine 0.7, hemoglobin is 11.7, white blood count is 9.2. EKG without acute specific abnormalities. Assessment And Recommendation: 1.Chest pain. Cardiac enzymes are negative. From Cardiology standpoint, patient can be released. Also, she had an echo that showed normal ejection fraction and no wall motion abnormality. From Card iology standpoint, the patient can be released and follow up as an outpatient. We will plan for exer cise stress test on outpatient basis. 2.Dyslipidemia. Continue home medications. SR/MODL Voice ID: [id number] Report ID: [id number]
--- NOTE | 2022-03-07 07:02 | ECHO ---
HEIGHT: 5 ft 0 in WEIGHT: 200 lb 0 oz DATE OF STUDY: 03/04/[address]: Lore Carmona 2-DIMENSIONAL: YES M.MODE: YES DOPPLER: YES COLOR FLOW: YES TDS: NO PORTABLE: YES DEFINITY: NO BUBBLE STUDY: NO DIAGNOSIS: CHEST PAIN, SHORTNESS OF BREATH CARDIAC HISTORY: CATHERIZATION: SURGERY: PROSTHETIC VALVE: PACEMAKER: MEASUREMENTS (cm) DIASTOLIC (NORMALS) SYSTOLIC (NORMALS) IVSd 1.0 (0.6-1.2) LA Diam 2.8 (1.9-4.0) LVEF 55-60% LVIDd 3.5. (3.5-5.7) LVIDs 2.6 (2.0-3.5) %FS 27% LVPWd 1.1 (0.6-1.2) Ao Diam 2.4 (2.0-3.7) 2 DIMENSIONAL ASSESSMENT: RIGHT ATRIUM: NORMAL LEFT ATRIUM: NORMAL RIGHT VENTRICLE: NORMAL LEFT VENTRICLE: NORMAL TRICUSPID VALVE: NORMAL MITRAL VALVE: NORMAL PULMONIC VALVE: NORMAL AORTIC VALVE: NORMAL PERICARDIAL EFFUSION: NONE AORTIC ROOT: NORMAL LEFT VENTRICULAR WALL MOTION: NORMAL DOPPLER/COLOR FLOW: MILD AORTIC REGURGITATION. COMMENTS: NORMAL LEFT VENTRICULAR EJECTION FRACTION 55-60%. NORMAL WALL MOTION. MILD AORTIC REGURGITATION. TECHNOLOGIST: Lupillo MACDONALD
--- NOTE | 2022-03-08 08:28 | EKG ---
Test Date: 2022-03-03 Test Time: 21:23:51 Emulsion Coater: KAMARI MEASUREMENT RESULTS: Intervals: Rate: 42 [place]: 160 QRSD: 86 QT: 460 QTc: 384 [place]: P: 39 CO: 160 QRS: 68 T: 72 INTERPRETIVE STATEMENTS: Marked sinus bradycardia Abnormal ECG Compared to ECG 03/03/2022 21:02:42 Sinus arrhythmia no longer present Electronically Signed On 03-08-22 08:13:14 CDT by Uvaldo Osman
--- NOTE | 2022-03-08 08:29 | EKG ---
Test Date: 2022-03-03 Test Time: 20:58:31 Estimator: KAMARI MEASUREMENT RESULTS: Intervals: Rate: 39 [place]: 138 QRSD: 76 QT: 472 QTc: 379 [place]: P: 58 [place]: 138 QRS: 67 T: 67 INTERPRETIVE STATEMENTS: Marked sinus bradycardia with premature atrial complexes in a pattern of bigeminy Abnormal ECG Compared to ECG 03/03/2022 19:01:43 Atrial premature complex(es) now present Sinus rhythm no longer present Electronically Signed On 03-08-22 08:13:16 CDT by Uvaldo Osman
--- NOTE | 2022-03-08 08:29 | EKG ---
Test Date: 2022-03-03 Test Time: 21:02:42 Vegetable Grader: KAMARI MEASUREMENT RESULTS: Intervals: Rate: 39 [place]: 156 QRSD: 78 QT: 464 QTc: 373 [place]: P: 48 HI: 156 QRS: 60 T: 69 INTERPRETIVE STATEMENTS: Marked sinus bradycardia with sinus arrhythmia Abnormal ECG Compared to ECG 03/03/2022 20:58:31 Atrial premature complex(es) no longer present Electronically Signed On 03-08-22 08:13:15 CDT by Uvaldo Osman
== END 2022-03-04 14:58 | disposition home or self-care (01) ==
LOC: ER 18:33 → ERHOLD 23:24
PROVIDERS: ADMIT Hospitalist; ATTEND Hospitalist
DX: R07.9 Chest pain, unspecified (principal); I95.2 Hypotension due to drugs; T40.2X5A Adverse effect of other opioids, initial encounter; Y92.239 Unspecified place in hospital as the place of occurrence of the external cause; R00.1 Bradycardia, unspecified; E83.42 Hypomagnesemia; E78.5 Hyperlipidemia, unspecified; R11.0 Nausea; F41.9 Anxiety disorder, unspecified; F32.A Depression, unspecified; Z88.5 Allergy status to narcotic agent; Z90.49 Acquired absence of other specified parts of digestive tract; Z20.822 Contact with and (suspected) exposure to COVID-19; Z82.49 Family history of ischemic heart disease and other diseases of the circulatory system; Z83.3 Family history of diabetes mellitus
CPT/HCPCS: 93005 ×4; 93306; 85025 ×2; 80048 ×2; 36415; 83735 ×2; 84100; 85610; 80061; 80076; 84443; 81003; 84484 ×2; 84439; 83880; 80307; 71045; 96375; 96374; 99285; 87811; J1650; J3475; J2405; G0378 ×2

== ENCOUNTER 2022-03-21 19:32 | Emergency (ER) | payer OTHER ==
--- OUTSIDE RECORDS SUMMARY | 2022-03-21 19:36 | XMS REPORT | Continuity of Care Document ---
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 areobtained. CT imaging was performed with exposure control parameters to reduce radiation dose. Oral co ntrast: None. CT Radiation Dose: DLP = 621.87 mGy-cm FINDINGS: This examination is limited for the evaluation of solid organs and vascular structures due to withheld intravenous contrast. LOWER CHEST: The visualized lung bases are clear. NON-CONTRAST ENHANCED SOLID ORGANS: LIVER: Unremarkable. GALLBLADDER: Cholecystectomy. INTRAHEPATIC BILE DUCT AND EXTRAHEPATIC BILE DUCT: Unremarkable. PANCREAS: Unremarkable. SPLEEN: Unremarkable. ADRENALS: Unremarkable. KIDNEYS: No urinary calculi, hydronephrosis or perinephric stranding. By Dr renata wilson renal scars, stable. NON-CONTRAST OPACIFIED STOMACH AND BOWEL: STOMACH: Unremarkable. BOWEL: The non-contrast opacified small bowel loops in the abdomen and pelvis appear unremarkable. The noncontrast opacified colonic loops in the abdomen and pelvis appear unremarkable. APPENDIX: Unremarkable Small fat-containing umbilical hernia seen. The lack of orally admi nistered contrast material limits bowel assessment. PAGE 1 Signed Report (CONTINUED) Name: YASH RODAS : 1985 Age/S: 33 / F [address] [facility] Unit #: [id number] Loc: [place] [address] Phys: Adrianne Painter MD Acct: [id number] Dis Date: Status: REG ER PHONE #: Exam Date: 10/04/2018 033 FAX #: [phone] Reason: rlq abd pain EXAMS: CPT CODE: [id number] CT ABD PELVIS W/O CONT 13545 (Continued) PERITONEUM AND RETROPERITONEUM: No ascites or free air.No other fluid collection. There is no aortic aneurysm seen. LYMPH NODES: Unremarkable. PELVIS: No pelvic mass or adenopathy. Uterus is anteverted and unremarkable. Ovaries are unremarkable. BLADDER: Unremarkable. OSSEOUS STRUCTURES: No acute abnormality seen. SOFT TISSUES: Unremarkable. IMPRESSION: 1. No acute abdominal or pelvic abnormality. SL: CONNIE at 0352 Reported and signed by: Luis Mckeon M.D. CC: Adrianne Painter MD; Dave tinoco DO Technologist:RT Young(R) CTDI: DLP: Trnscb Date/Time: 10/04/2018 (035) [email or web address] Orig Print D/T: S: 10/04/2018 (0355) CTDI: DLP: PAGE 2 Signed Report- US TRANSVAGINAL NON [id number] 03:43:00 Name: SHEILA RODAS : 1985 Age/S: 33 / F [address] [place] [address] Unit #: [id number] Loc: [place] [address] Phys: Adrianne Painter MD Acct: [id number] Dis Date: Status: REG ER PHONE #: [phone] Exam Date: 10/04/2018326 FAX #: [phone] Reason: Pelvic Pain EXAMS:CPT CODE: [id number] [place] [address] EXAM: US, US PELVIS COMPLETE: 10/04/2018 EXAM: US, US TRANSVAGINAL: 10/04/2018 Clinical Indication: Blood in stool. Vomiting blood.. Pelvic pain. Comparison: None. TECHNIQUE: Technique: Grayscale, color and Doppler transabdominal and transvaginal imagingof the pelvis was performed with standard technique. FINDINGS: Transabdominal pelvic ultrasound: Uterus is anteverted and heterogenous. Uterus measures 6.1 x 2.6 x 3.5 cm. The adnexa and the endometrium not well evaluated on transabdominal pelvic ultrasound necessitating endovaginal pelvic ultrasound.Endovaginal pelvic ultrasound UTERUS: There is an anteverted uterus measuring 5.9 x 2.7 x 4.2 cm in size. Normal uterine contour and morphology. There is normal parenchymal echotexture. The endometrialstripe measures 6.9 mm in thickness. Trace fluid [...] 1 Signed Report (CONTINUED) Name: SHEILA RODAS [facility] : 1985 Age/S: 33 / F [address] [place] [address] Unit #: [id number] Loc: [place] [address] Phys: Adrianne Painter MD Acct: [id number] Dis Date: Status: REG ER PHONE #: [phone] Exam Date: 10/04/2018 0327 FAX #: [phone]: Pelvic Pain EXAMS: CPT CODE: [id number] [place] [address] (Continued) 1. Trace fl uid in the endometrial and cervical canal. Prominent cervix. 2. Otherwise unremarkable pelvic ultrasound SL: JSJORDON at 0343 Reported and signed by: Luis Mckeon M.D. CC: Adrianne Painter MD; Dave Callahan Technologist: Elisha Colmenares RDMS(Ady)(OB) Trnndb Date/Time: 10/04/2018 (0343) [email or web address] Orig Print D/T: S: 10/04/2018 (0346) Probe: [id number] PAGE 2 Signed Report- US PELVIS [id number] 03:43:00 Name: SHEILA RODAS [facility] : 1985 Age/S: 33 / F [address] [place] [address] Unit #: [id number] Loc: [place] [address] Phys: Adrianne Painter MD Acct: [id number] Dis Date: Status: REG ER PHONE #: [phone] Exam Date: 10/04/2018326 FAX #: [phone] Reason: Pelvic Pain EXAMS: CPT CODE: [id number] US PELVIS COMPLETE 67503 EXAM: US, US PELVIS COMPLETE: 10/04/2018 EXAM: US, US TRANSVAGINAL: 10/04/2018 Clinical Indication: Blood in stool. Vomiting blood.. Pelvic pain. Comparison: None. TECHNIQUE: Technique: Grayscale, color and Doppler transabdominal and transvaginal imaging of the pelvis was performed with standard technique. FINDINGS: Transabdominal pelvic ultrasound: Uterus isanteverted and heterogenous. Uterus measures 6.1 x 2.6 x 3.5 cm. The adnexa and the endometrium not well evaluated on transabdominal pelvic ultrasound necessitating endovaginal pelvic ultrasound. Endovaginal pelvic ultrasound UTERUS: There is an anteverted uterus measuring 5.9 x 2.7 x 4.2 cm in size.Normal uterine contour and morphology. There is normal parenchymal echotexture. The endometrial stripe measures 6.9 mm in thickness. Trace fluid seen in the endometrium trace fluid. Prominent cervix wit h trace fluid in the cervical canal OVARIES: [...] the pelvis may be performed. IMPRESSION: PAGE 1Signed Report (CONTINUED) Name: SHEILA RODAS [facility] : 1985 Age/S: 33 / F [address] [place] [address] Unit #: [id number] Loc: [place] [address] Phys: Adrianne Painter MD Acct: [id number] Dis Date: Status: REG ER PHONE #: [phone] Exam Date: 10/04/2018326 FAX #: [phone] Reason: Pelvic Pain EXAMS: CPT CODE: [id number] US PELVIS COMPLETE 56046 (Continued) 1. Trace fluid inthe endometrial and cervical canal. Prominent cervix. 2. Otherwise unremarkable pelvic ultrasound SL: JSYED-H at 0343 Reported and signed by: Luis Mckeon M.D. CC: Adrianne Painter MD; Dave Callahan Technologist: Elisha Colmenares RDMS(Ady)(OB)Trnscb Date/Time: 10/04/2018 (034) [email or web address] Orig Print D/T: S: 10/04/2018 (0346) Probe: PAGE 2 Signed Report COMPREHENSIVE METABOLIC [id number] 03:26:00 Test Item Value Reference Range Interpretation [...] 20-125 N TOTAL (test code = ALKP) [id number] 03:26:00 Test Item Value Reference Range Interpretation Comments LIPASE (test code = LIP) 125 IUnit/L 73-393 N HCG SERUM [id number] 03:26:00 Test Item Value Reference Range Interpretation Comments HCG SERUM QUAL (test code = SERUM NEGATIVE NEGATIVE HCGQL) COMPREHENSIVE METABOLIC [id number] 03:15:00 Test Item Value Reference Range Interpretation [...] TOTAL (test IUnit/L 20-125 code = ALKP) [id number] 03:15:00 Test Item Value Reference Range Interpretation Comments LIPASE (test code = LIP) IUnit/L 73-393 HCG SERUM [id number] 03:15:00 Test Item Value Reference Range Interpretation Comments HCG SERUM QUAL (test code = SERUM NEGATIVE NEGATIVE HCGQL) CBC W/AUTO [id number] 03:11:00 Test Item Value Reference Range Interpretation [...]
[2022-03-21 21:49] LABS: Urine Blood Negative (Negative); Urine Glucose Negative (Negative); Urine Protein Negative (Negative); Urine Specific Gravity >=1.030 (1.005-1.030)
--- NOTE | 2022-03-21 21:58 | RAD REPORT ---
EXAM DESCRIPTION: RAD - Chest Single View - 03/21/2022 9:42 pm CLINICAL HISTORY: CHEST PAIN COMPARISON: Portable 03/03/2022 TECHNIQUE: AP portable chest image was obtained 03/21/2022 9:42 pm . FINDINGS: Lungs are clear. Heart and vasculature are normal. No measurable pleural effusion and no p neumothorax. No acute bony abnormality seen. No acute aortic findings suspected. IMPRESSION: No acute cardiopulmonary process. No significant change from comparison study.
--- NOTE | 2022-03-21 23:12 | ER ---
Nurse's Notes [facility] Name: Jodie Rodriguez Age: 36 yrs Sex: Female : 1985 Arrival Date: 03/21/2022 Time: 19:34 Bed 30 Private MD: Diagnosis: Acute upper respiratory infection, unspecified Presentation: 03/21 20:14 Chief complaint: Patient states: Pt reports headache, cough, congestion, abdominal kb3 pain, chills, diarrhea, frequent urination x3-4 days. Coronavirus screen: Vaccine status: Patient reports receiving the 2nd dose of the covid vaccine. Client denies travel out of the [place] in the last 14 days. chills, congestion, cough unrelated to allergies, diarrhea, fatigue, headache, muscle pain, nausea, shaking with chills, Client presents with at least one sign or symptom that may indicate coronavirus-19. Standard/surgical mask placed on the client. Ebola Screen: Patient negative for fever greater than or equal to 101.5 degrees Fahrenheit, and additional compatible Ebola Virus Disease symptoms Patient denies exposure to infectious person. Patient denies travel to an Ebola-affected area in the 21 days before illness onset. No symptoms or risks identified at this time. Initial Sepsis Screen: Does the patient meet any 2 criteria? No. Patient's initial sepsis screen is negative. Does the patient have a suspected source of infection? No. Patient's initial sepsis screen is negative. Risk Assessment: Do you want to hurt yourself or someone else? Patient reports no desire to harm self or others. Onset of symptoms was March 17, 2022. 20:14 Method Of Arrival: Ambulatory kb3 20:14 Acuity: FLORA 3 kb3 Triage Assessment: 20:16 General: Appears in no apparent distress. Behavior is calm, cooperative. 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 - Social history:: Smoking status: Patient reports the use of cigarette tobacco products, smokes one-half pack cigarettes per day, Patient/guardian denies using alcohol, street drugs. Screenin:23 Abuse screen: Denies threats or abuse. Nutritional screening: No deficits noted. bb Tuberculosis screening: No symptoms or risk factors identified. Fall Risk None identified. Assessment: 21:23 General: Appears in no apparent distress. Behavior is calm, cooperative. Pain: bb Complains of pain in back and abdomen Pain does not radiate. Pain began suddenly. Neuro: Level of Consciousness is awake, alert, obeys commands, Oriented to person, place, time, situation. Cardiovascular: Capillary refill < 3 seconds Patient's skin is warm and dry. Respiratory: Respiratory effort is even, unlabored. GI: Reports lower abdominal pain, upper abdominal pain. Derm: Skin is pink, warm \T\ dry. Musculoskeletal: Circulation, motion, and sensation intact. 21:24 Reassessment: provider notified pt unable to tolerate nasal swabs. bb Vital Signs: 20:14 BP 123 / 68; Pulse 54; Resp 16; Temp 98.3; Pulse Ox 99% ; Weight 68.04 kg; Height 5 ft. kb3 0 in. (152.40 cm); Pain 7/10; 20:14 Body Mass Index 29.29 (68.04 kg, 152.40 cm) kb3 ED Course: 19:34 Patient arrived in ED. bp1 20:16 Triage completed. kb3 20:16 Arm band placed on right wrist. kb3 20:18 Rag[facility] White [facility]. jl9 20:18 Naresh Connolly MD is Attending Physician. jl9 21:08 Curly Haro, [facility] is Primary Nurse. as6 21:23 Patient has correct armband on for positive identification. Pulse ox on. NIBP on. bb 21:23 No provider procedures requiring assistance completed. Patient maintains SpO2 bb saturation greater than 95% on room air. 21:44 XRAY Chest (1 view) In Process Unspecified. EDMS 23:18 Patient did not have IV access during this emergency room visit. as6 Administered Medications: No medications were administered Medication: 21:23 VIS not applicable for this client. bb Outcome: 23:12 Discharge ordered by . jl9 23:18 Discharged to home ambulatory, with significant other. as6 23:18 Condition: stable 23:18 Discharge instructions given to patient, Instructed on discharge instructions, follow up and referral plans. medication usage, Demonstrated understanding of instructions, follow-up care, medications, Prescriptions given X 3. 23:19 Patient left the ED. as6 Signatures: Dispatcher [employer] EDMS Fabiola Sevilla RN RN bb Enedina Rodriguez Ashby, RN RN as6 Raghu White 9 Dipika Genao RN RN kb3 Corrections: (The following items were deleted from the chart) 20:18 20:16 Home Meds: Chronic UTI; kb3 kb3
--- NOTE | 2022-03-21 23:13 | EDPHYS ---
Physician Documentation [facility] Name: Jodie Rodriguez Age: 36 yrs Sex: Female : 1985 Arrival Date: 03/21/2022 Time: 19:34 Bed 30 Private MD: RUTH Physician Naresh Connolly HPI: 03/21 22:28 This 36 yrs old Female presents to ER via Ambulatory with complaints of Chest jl9 Pain > 30 y/o, Weakness, Abdominal Pain, Headache, Diarrhea. 22:28 Associated signs and symptoms: Pertinent positives: cough, Pertinent negatives: jl9 lightheadedness, near syncope, palpitations. Modifying factors: The symptoms are alleviated by the symptoms are aggravated by exertion. 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 - Social history:: Smoking status: Patient reports the use of cigarette tobacco products, smokes one-half pack cigarettes per day, Patient/guardian denies using alcohol, street drugs. ROS: 22:29 Constitutional: Negative for fever, chills, and weight loss, Eyes: Negative for injury, jl9 pain, redness, and discharge, ENT: Negative for injury, pain, and discharge, Neck: Negative for injury, pain, and swelling, Cardiovascular: Negative for chest pain, palpitations, and edema. 22:29 Back: Negative for injury and pain. 22:29 MS/Extremity: Negative for injury and deformity, Skin: Negative for injury, rash, and discoloration, Neuro: Negative for headache, weakness, numbness, tingling, and seizure, Psych: Negative for depression, anxiety, suicide ideation, homicidal ideation, and hallucinations, Allergy/Immunology: Negative for hives, rash, and allergies, Endocrine: Negative for neck swelling, polydipsia, polyuria, polyphagia, and marked weight changes, Hematologic/Lymphatic: Negative for swollen nodes, abnormal bleeding, and unusual bruising. 22:29 Respiratory: Positive for cough, "sounds productive". 22:29 Abdomen/GI: Positive for nausea. 22:29 : Positive for small amounts. Exam: 22:30 Constitutional: This is a well developed, well nourished patient who is awake, alert, jl9 and in no acute distress. Head/Face: Normocephalic, atraumatic. Eyes: Pupils equal round and reactive to light, extra-ocular motions intact. Lids and lashes normal. Conjunctiva and sclera are non-icteric and not injected. Cornea within normal limits. Periorbital areas with no swelling, redness, or edema. ENT: Mucous membranes moist. Neck: Trachea midline, no thyromegaly or masses palpated, and no cervical lymphadenopathy. Supple, full range of motion without nuchal rigidity, or vertebral point tenderness. No Meningismus. Chest/axilla: Normal chest wall appearance and motion. Nontender with no deformity. No lesions are appreciated. Cardiovascular: Regular rate and rhythm with a normal S1 and S2. No gallops, murmurs, or rubs. Normal PMI, no JVD. No pulse deficits. Respiratory: Lungs have equal breath sounds bilaterally, clear to auscultation and percussion. No rales, rhonchi or wheezes noted. No increased work of breathing, no retractions or nasal flaring. Abdomen/GI: Soft, non-tender, with normal bowel sounds. No distension or tympany. No guarding or rebound. No evidence of tenderness throughout. Back: No spinal tenderness. No costovertebral tenderness. Full range of motion. Skin: Warm, dry with normal turgor. Normal color with no rashes, no lesions, and no evidence of cellulitis. MS/ Extremity: Pulses equal, no cyanosis. Neurovascular intact. Full, normal range of motion. Neuro: Awake and alert, GCS 15, oriented to person, place, time, and situation. Cranial nerves II-XII grossly intact. Motor strength 5/5 in all extremities. Sensory grossly intact. Cerebellar exam normal. Normal gait. Psych: Awake, alert, with orientation to person, place and time. Behavior, mood, and affect are within normal limits. Vital Signs: 20:14 BP 123 / 68; Pulse 54; Resp 16; Temp 98.3; Pulse Ox 99% ; Weight 68.04 kg; Height 5 ft. kb3 0 in. (152.40 cm); Pain 7/10; 20:14 Body Mass Index 29.29 (68.04 kg, 152.40 cm) kb3 MDM: 20:51 Patient medically screened. jl9 22:30 Data reviewed: vital signs, nurses notes. jl9 23:11 Counseling: I had a detailed discussion with the patient and/or guardian regarding: the jl9 historical points, exam findings, and any diagnostic results supporting the discharge/admit diagnosis, lab results, the need for outpatient follow up, to return to the emergency department if symptoms worsen or persist or if there are any questions or concerns that arise at home. 03/21 20:19 Order name: Urine Dipstick-Ancillary (obtain specimen); Complete Time: 21:44 [facility] 03/21 20:19 Order name: XRAY Chest (1 view); Complete Time: 22:06 [facility] 03/21 21:50 Order name: Urine Dipstick-Ancillary; Complete Time: 22:06 [facility] 03/21 21:50 Order name: Urine Test (obtain specimen); Complete Time: 21:50 mw2 Administered Medications: No medications were administered Disposition Summary: 03/21/22 23:12 Discharge Ordered Location: Home jl9 Condition: Stable jl9 Diagnosis - Acute upper respiratory infection, unspecified jl9 Followup: jl9 - With: Private Physician - When: 1 - 2 days - Reason: Recheck today's complaints, Continuance of care, Re-evaluation by your physician Discharge Instructions: - Discharge Summary Sheet jl9 - Upper Respiratory Infection, Adult jl9 Forms: - Medication Reconciliation Form jl9 - Thank You Letter jl9 - Antibiotic Education jl9 - Prescription Opioid Use jl9 Prescriptions: - albuterol sulfate 90 mcg/actuation Inhalation HFA aerosol inhaler - inhale 2 puff by INHALATION route every 6 hours As needed; 18 gram; Refills: 0, jl9 Product Selection Permitted - azithromycin 250 mg Oral tablet - take 2 tablet by ORAL route once daily for 1 day then 1 tablet (250 mg) by oral jl9 route once daily for 4 days; 6 tablet; Refills: 0, Product Selection Permitted - Prednisone 20 mg Oral Tablet - take 2 tablets by ORAL route once daily for 5 days; 10 tablet; Refills: 0, jl9 Product Selection Permitted Signatures: Dispatcher [employer] [facility] Elvis Delaney mw2 Raghu White jl9 Dipika Genao, RN RN kb3 Corrections: (The following items were deleted from the chart) 20:18 20:16 Home Meds: Chronic UTI; kb3 kb3
== END 2022-03-21 23:19 | disposition home or self-care (01) ==
LOC: ER 19:32
DX: J06.9 Acute upper respiratory infection, unspecified (principal); R07.9 Chest pain, unspecified; Z88.5 Allergy status to narcotic agent
CPT/HCPCS: 71045; 81003; 99284

== ENCOUNTER 2022-04-05 18:38 | Emergency (ER) | payer OTHER ==
--- OUTSIDE RECORDS SUMMARY | 2022-04-05 18:42 | XMS REPORT | Continuity of Care Document ---
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 Technologist: RT Negro(R) Trnscrd Date/Time/By: 11/25/2018 (0404) : By: [email or web address] Orig Print D/T: S: 11/25/2018 (5822) PAGE 1 Signed ReportURINALYSIS [id number] 16:40:00 Test Item Value Reference Range Interpretation [...] MUCU) TRACE /LPF NONE SEEN UR HCG [id number] 16:40:00 Test Item Value Reference Range Interpretation Comments UR HCG QUAL (test code = HCGQLU) NEGATIVE NEGATIVE URINALYSIS [id number] 04:22:00 Test Item Value Reference Range Interpretation [...] COMMENTS: Clean Catch- CT ABD PELVIS W/O [id number] 03:52:00 Name: SHEILA RODAS [facility] : 1985 Age/S: 33 / F [address] [place] [address] Bl Unit #: [id number] Loc: [place] [address] Phys: Adrianne Painter MD Acct: [id number] Dis Date: Status: REG ER PHONE #: [phone] Exam Date: 10/04/2018 0338 FAX #: [phone] Reason: rlq abd pain EXAMS:CPT CODE: [id number] CT ABD PELVIS W/O CONT 74185 EXAM: CT, CT abdomen pelvis without contrast: [...] 1 Signed Report (CONTINUED) Name: SHEILA RODAS [facility] : 1985 Age/S: 33 / F [address] [place] [address] Unit #: [id number] c: [place] [address] Phys: Adrianne Painter MD Acct: [id number] Dis Date: Status: REG ER PHONE #: [phone] Exam Date: 10/04/2018337 FAX #: [phone] Reason: rlq abd pain EXAMS: CPT CODE: [id number] CT ABD PELVIS W/O CONT 34234 (Continued) PERITONEUM AND RETROPERITONEUM: No ascites or [...] Young(R) CTDI: DLP: Trnscb Date/Time: 10/04/2018 (035) [id number].[email or web address] Orig Print D/T: S: 10/04/2018 (0355) CTDI: DLP: PAGE 2 Signed Report- US TRANSVAGINAL NON [id number] 03:43:00 Name: SHEILA RODAS [facility] : 1985 Age/S: 33 / F [address] [place] [address] Unit #: [id number] Loc: [place] [address] Phys: Adrianne Painter MD Acct: [id number] Dis Date: Status: REG ER PHONE #: [phone] Exam Date: 10/04/2018326 FAX #: [phone] Reason: Pelvic Pain EXAMS:CPT CODE: [id number] [place] [address] EXAM: US, US PELVIS COMPLETE: 10/04/2018 EXAM: [...] measuring 5.9 x 2.7 x 4.2 cm insize. Normal uterine contour and morphology. There is normal parenchymal echotexture. The endometrial stripe measures 6.9 mm in thickness. Trace fluid seen in the endometrium trace fluid. Prominent cervix with trace fluid in the cervical canal OVARIES: RIGHT: 2.6 x 1.8 x 2.0 cm. LEFT: 2.3 x 2.1 x 2.3cm. Small follicle seen in the ovaries.. There are no adnexal masses. The limited Doppler images show normal bilateral ovarian blood flow. OTHER FINDINGS: No free fluid in the pelvic cul-de-sac. If there is further concern, followup pelvic sonography or MRI of the pelvis may be performed. IMPRESSION: PAGE 1 Signed Report (CONTINUED) Name: SHEILA RODAS [facility] [place] : 1985 Age/S: 33 / F [address] [place] [address] Unit #: [id number] Loc: [place] [address] Phys: Adrianne Painter MD Acct: [id number] Dis Date: Status: REG ER PHONE #: [phone] Exam Date: 10/04/2018326 FAX #: [phone] Reason: Pelvic Pain EXAMS: CPT CODE: [id number] [place] [address] (Continued) 1. Trace fluid in the endometrial and cervical canal. Prominent cervix. 2. Otherwise unremarkable pelvic ultrasound SL: JSYED-H at 0343 Reported and signed by: Luis Mckeon M.D. CC: Adrianne Painter MD; Dave Callahan Technologist: Elisha Colmenares RDMS(A)(OB) Trnscb Date/Time: 10/04/2018 (0343) [email or web address] Orig Print D/T: S: 10/04/2018 (0346) Probe: [id number] PAGE 2 Signed Report- US PELVIS [id number] 03:43:00 Name: SHEILA RODAS [facility] : 1985 Age/S: 33 / F [address] [place] [address] Unit #: [id number] Loc: [place] [address] Phys: Adrianne Painter MD Acct: [id number] Dis Date: Status: REG ER PHONE #: [phone] Exam Date: 10/04/2018326 FAX #: [phone] Reason: Pelvic Pain EXAMS: CPT CODE: [id number] US PELVIS COMPLETE 58403 EXAM: US, US PELVIS COMPLETE: 10/04/2018 EXAM: US, US TRANSVAGINAL: 10/04/2018 Clinical Indication: Blood in stool. Vomiting blood.. Pelvic pain. Comparison:None. TECHNIQUE: Technique: Grayscale, color and Doppler transabdominal [...] fluid in the pelvic cul-de-sac. If there isfurther concern, followup pelvic sonography or MRI of the pelvis may be performed. IMPRESSION: PAGE 1 Signed Report (CONTINUED) Name: SHEILA RODAS [facility] : 1985 Age/S: 33 / F [address] [place] [address] Unit #: [id number] Loc: [place] [address] Phys: Adrianne Painter MD Acct: [id number] Dis Date: Status: REG ER PHONE #: [phone] Exam Date: 10/04/2018326 FAX #: [phone] Reason: Pelvic Pain EXAMS: CPT CODE: [id number] US PELVIS COMPLETE 91001 (Continued) 1. Trace fluid in the endometrial and cervical canal. Prominent cervix. 2. Otherwise unremarkable pelvic ultrasound SL:JSSHOND-H at 0343 Reported and signed by:Luis Mckeon M.D. CC: Adrianne Painter MD; Dave Callahan DO Technologist: Elisha Colmenares RDMS(Ady)(OB) Trnscb Date/Time: 10/04/2018 (034) [id number] Orig Print D/T: S: 10/04/2018 (0346) Probe: PAGE 2 Signed ReportCOMPREHENSIVE METABOLIC [id number] 03:26:00 Test Item Value Reference Range Interpretation [...] 20-125 N TOTAL (test code = ALKP) [id number] 03:26:00 Test Item Value Reference Range Interpretation Comments LIPASE (test code = LIP) 125 IUnit/L 73-393 N HCG SERUM [id number] 03:26:00 Test Item Value Reference Range Interpretation Comments HCG SERUM QUAL (test code = SERUM NEGATIVE NEGATIVE HCGQL) COMPREHENSIVE METABOLIC [id number] 03:15:00 Test Item Value Reference Range Interpretation [...] TOTAL (test IUnit/L 20-125 code = ALKP) [id number] 03:15:00 Test Item Value Reference Range Interpretation Comments LIPASE (test code = LIP) IUnit/L 73-393 HCG SERUM [id number] 03:15:00 Test Item Value Reference Range Interpretation Comments HCG SERUM QUAL (test code = SERUM NEGATIVE NEGATIVE HCGQL) CBC W/AUTO [id number] 03:11:00 Test Item Value Reference Range Interpretation [...]
[2022-04-05 19:49] LABS: Urine Blood Negative (Negative); Urine Glucose Negative (Negative); Urine Protein Negative (Negative); Urine Specific Gravity 1.025 (1.005-1.030); Urine pH 5.5 (5.0-7.0)
[2022-04-05 20:25] LABS: Urine Mucus Slight /HPF (None Seen); Urine RBC <5 /HPF (None Seen)
[2022-04-05 20:36] LABS: Absolute Lymphocytes (CBC) 2.8 K/uL (0.7-4.9); Hematocrit 36.9 % (36.0-45.0); Lymphocytes % 25.4 % (15.3-44.8); MCV 89.8 fL (80-100); RBC Red Blood Cell Count 4.12 M/uL (3.86-4.86)
[2022-04-05 21:02] LABS: Albumin 3.3 g/dL (3.4-5.0); Bilirubin Total 0.3 mg/dL (0.2-1.0); Protein, Total 7.1 g/dL (6.4-8.2)
[2022-04-05 21:10] LABS: Potassium 3.7 mmol/L (3.5-5.1)
[2022-04-05] MEDS ORDERED: KETOROLAC 30 MG/ML INJ ONE (21:17)
--- NOTE | 2022-04-05 21:37 | RAD REPORT ---
EXAM DESCRIPTION: CTAbdomen Pelvis W Contrast - 04/05/2022 9:29 pm CLINICAL HISTORY: Abdominal pain. lower abdomen pain COMPARISON: Chest Single View dated 03/03/2022 TECHNIQUE: Biphasic CT imaging of the abdomen and pelvis was performed with 100 ml non-ionic IV cont rast. All CT scans are performed using dose optimization technique as appropriate and may include automated exposure control or mA/KV adjustment according to patient size. FINDINGS: The lung bases are clear. Cholecystectomy clips. The liver, spleen, pancreas, adrenal glands and kidneys are within normal limits. No bowel obstruction, free air, free fluid or abscess. Small fat containing umbilical hernia. The perez endix is not identified as a discrete structure, however, no secondary findings of appendicitis are i dentified. No evidence of significant lymphadenopathy. No suspicious bony findings. IMPRESSION: No acute intra-abdominal or pelvic finding.
[2022-04-05 22:24] LABS: Urine Specific Gravity/Preg 1.025 (1.005-1.030)
[2022-04-05] MEDS ORDERED: CEFTRIAXONE 1000 MG/VIAL ONE (22:29)
--- NOTE | 2022-04-05 23:21 | EDPHYS ---
Physician Documentation [facility] Name: Jodie Rodriguez Age: 36 yrs Sex: Female : 1985 Arrival Date: 04/05/2022 Time: 18:40 Bed 9 Private MD: Naresh Fernandez HPI: 04/05 19:20 This 36 yrs old Female presents to ER via Ambulatory with complaints of Needs cp Test, Chest Pain, Abdominal Pain, Back Pain. 19:20 The patient presents with pelvic pain, vaginal discharge. cp 19:20 Onset: The symptoms/episode began/occurred gradually. Associated signs and symptoms: cp Pertinent positives: pain with intercourse, suprapubic pain, weight gain, Pertinent negatives: fever. The patient's method of control includes nothing. 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 - Social history:: Smoking status: Patient/guardian denies using tobacco. ROS: 19:30 Constitutional: Positive for weight gain, Negative for body aches, chills, fever, poor cp PO intake. 19:30 Respiratory: Negative for cough, shortness of breath, wheezing. cp 19:30 Abdomen/GI: Positive for abdominal pain, of the suprapubic area, Negative for vomiting, diarrhea, constipation. 19:30 Back: Negative for pain at rest, pain with movement. 19:30 : Positive for pelvic pain, vaginal discharge. 19:30 Neuro: Negative for altered mental status, headache, weakness. 19:30 All other systems are negative. Exam: 19:35 Constitutional: The patient appears in no acute distress, alert, awake, non-toxic, well cp developed, well nourished, overweight 19:35 Head/Face: Normocephalic, atraumatic. cp 19:35 Eyes: Periorbital structures: appear normal, Sclera: no appreciated abnormality, Lids and lashes: appear normal, bilaterally. 19:35 ENT: External ear(s): are unremarkable, Nose: is normal, Mouth: Lips: moist, Oral mucosa: moist, Posterior pharynx: Airway: no evidence of obstruction, patent. 19:35 Chest/axilla: Inspection: normal. 19:35 Cardiovascular: Rate: normal. 19:35 Respiratory: the patient does not display signs of respiratory distress, Respirations: normal, no use of accessory muscles, no retractions, labored breathing, is not present, Breath sounds: are clear throughout, no decreased breath sounds, no stridor, no wheezing. 19:35 Abdomen/GI: Inspection: obese Bowel sounds: active, all quadrants, Palpation: soft, in all quadrants, mild abdominal tenderness, in the suprapubic area, rebound tenderness, is not appreciated, involuntary guarding, is not appreciated. 19:35 Back: pain, is absent, ROM is normal. 19:35 Skin: cellulitis, is not appreciated, no rash present. 23:00 : Pelvic Exam: External exam: is normal, Speculum exam: no bleeding is noted, cp discharge, white, the nurse was present for the exam, patient unable to tolerate complete exam. Vital Signs: 19:30 BP 109 / 70; Pulse 72; Resp 16; Temp 96.8; Pulse Ox 100% ; jh5 21:12 BP 108 / 55; Pulse 56; Resp 18 S; Pulse Ox 99% on R/A; as6 22:30 BP 114 / 59; Pulse 60; Resp 17 S; Pulse Ox 100% on R/A; jj7 23:25 BP 128 / 99; Pulse 79; Resp 19; Pulse Ox 100% ; jj7 MDM: 19:42 Patient medically screened. cp 20:00 Differential diagnosis: appendicitis, cervicitis, molar preganancy, nonspecific cp abdominal pain, ovarian cyst, pelvic inflammatory disease, hemorrhage, ruptured ectopic , urinary tract infection, vaginosis. 23:20 Data reviewed: vital signs, nurses notes, lab test result(s), radiologic studies, CT cp scan. 23:20 Counseling: I had a detailed discussion with the patient and/or guardian regarding: the cp historical points, exam findings, and any diagnostic results supporting the discharge/admit diagnosis, lab results, radiology results, the need for outpatient follow up, an OB/Gyne specialist, to return to the emergency department if symptoms worsen or persist or if there are any questions or concerns that arise at home. Response to treatment: the patient's symptoms have mildly improved after treatment, and as a result, I will discharge patient. 04/05 19:11 Order name: Urine Microscopic Only; Complete Time: 20:35 cp 04/05 19:49 Order name: Urine Dipstick-Ancillary; Complete Time: 19:55 EDMS 04/05 19:56 Order name: CBC with Diff; Complete Time: 22:05 cp 04/05 19:56 Order name: CMP; Complete Time: 22:05 cp 04/05 19:56 Order name: Lipase; Complete Time: 22:05 cp 04/05 20:10 Order name: Urine --Ancillary (enter results); Complete Time: 22:58 wm 04/05 19:11 Order name: Urine Dipstick-Ancillary (obtain specimen); Complete Time: 19:49 cp 04/05 19:11 Order name: Urine Test (obtain specimen); Complete Time: 19:49 cp 04/05 20:36 Order name: CT Abd/Pelvis - IV Contrast Only; Complete Time: 22:05 cp 04/05 22:08 Order name: Wet Prep 04/05 19:56 Order name: IV Saline Lock; Complete Time: 20:20 cp 04/05 19:56 Order name: Labs collected and sent; Complete Time: 20:20 cp 04/05 22:08 Order name: Pelvic Exam Setup; Complete Time: 23:18 cp Administered Medications: 21:11 Drug: Ketorolac 15 mg Route: IVP; Site: left antecubital; as6 22:29 Drug: Rocephin (cefTRIAXone) 1 grams Route: IV; Rate: calculated rate; Site: left j antecubital; 23:33 Follow up: Response: No adverse reaction; IV Status: Completed infusion; IV Intake: 13mmzw0 23:17 Drug: Zithromax (azithromycin) 1 grams Route: PO; jj7 23:32 Follow up: Response: No adverse reaction jj7 23:35 Follow up: Response: No adverse reaction jj7 Disposition Summary: 04/05/22 23:21 Discharge Ordered Location: Home cp Problem: new cp Symptoms: have improved cp Condition: Stable cp Diagnosis - Female pelvic inflammatory disease, unspecified cp Followup: cp - With: Melvin Lacy MD - When: 1 week - Reason: Recheck today's complaints Discharge Instructions: - Discharge Summary Sheet cp - Pelvic Inflammatory Disease cp - Pelvic Pain, Female cp Forms: - Medication Reconciliation Form cp - Thank You Letter cp - Antibiotic Education cp - Prescription Opioid Use cp Prescriptions: - Naprosyn 500 mg Oral Tablet - take 1 tablet by ORAL route 2 times per day take with food; 20 tablet; Refills: cp 0, Product Selection Permitted - Zofran 4 mg Oral Tablet - take 1 tablet by ORAL route every 12 hours As needed; 20 tablet; Refills: 0, cp Product Selection Permitted - Doxycycline Hyclate 100 mg Oral Tablet - take 1 tablet by ORAL route every 12 hours; 20 tablet; Refills: 0, Product cp Selection Permitted - Metronidazole 500 mg Oral Tablet - take 1 tablet by ORAL route every 8 hours; 30 tablet; Refills: 0, Product cp Selection Permitted Signatures: Dispatcher [employer] EDAK Naresh Banks PA PA cp Rees, Jessica RN RN jh5 Curly Haro RN RN as6 Kristen Arredondo RN RN jj7
--- NOTE | 2022-04-05 23:21 | ER ---
Nurse's Notes [facility] Name: Jodie Rodriguez Age: 36 yrs Sex: Female : 1985 Arrival Date: 04/05/2022 Time: 18:40 Bed 9 Private MD: Diagnosis: Female pelvic inflammatory disease, unspecified Presentation: 04/05 19:30 Chief complaint: Patient states: "As you can tell by my stomach, I have gained weight! jh5 So am i or is something else going on? I have had urinary tract infections all my life. When me and him are having sex, I leak a lot of fluid. Like a lot a lot.". Coronavirus screen: Vaccine status: Patient reports being unvaccinated. Client denies travel out of the [place] in the last 14 days. Ebola Screen: Patient negative for fever greater than or equal to 101.5 degrees Fahrenheit, and additional compatible Ebola Virus Disease symptoms Patient denies exposure to infectious person. Patient denies travel to an Ebola-affected area in the 21 days before illness onset. 19:30 Method Of Arrival: Ambulatory 5 19:39 Initial Sepsis Screen: Does the patient meet any 2 criteria? No. Patient's initial 5 sepsis screen is negative. Does the patient have a suspected source of infection? No. Patient's initial sepsis screen is negative. Risk Assessment: Do you want to hurt yourself or someone else? Patient reports no desire to harm self or others. 19:39 Acuity: FLORA 4 jh5 20:22 Onset of symptoms is unknown. as6 Triage Assessment: 19:38 General: Appears in no apparent distress. unkempt, Behavior is calm, cooperative, jh5 appropriate for age. Pain: Denies pain. Cardiovascular: No deficits noted. 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 - Social history:: Smoking status: Patient/guardian denies using tobacco. Screenin:22 Abuse screen: Denies threats or abuse. Denies injuries from another. Nutritional as6 screening: No deficits noted. Tuberculosis screening: No symptoms or risk factors identified. Fall Risk None identified. Assessment: 20:21 General: Appears in no apparent distress. Behavior is calm, cooperative, Reports as6 fatigue for. Pain: Denies pain. Neuro: Level of Consciousness is awake, alert. Respiratory: Respiratory effort is even, unlabored. : Reports "Fluid leaking" during intercourse. Vital Signs: 19:30 BP 109 / 70; Pulse 72; Resp 16; Temp 96.8; Pulse Ox 100% ; jh5 21:12 BP 108 / 55; Pulse 56; Resp 18 S; Pulse Ox 99% on R/A; as6 22:30 BP 114 / 59; Pulse 60; Resp 17 S; Pulse Ox 100% on R/A; jj7 23:25 BP 128 / 99; Pulse 79; Resp 19; Pulse Ox 100% ; jj7 ED Course: 18:40 Patient arrived in ED. rg4 18:43 Naresh Banks PA is PHCP. cp 18:43 Naresh Connolly MD is Attending Physician. cp 19:38 Arm band placed on right wrist. jh5 19:40 Triage completed. jh5 19:41 Curly Haro, RN is Primary Nurse. as6 20:10 Inserted saline lock: 20 gauge in left antecubital area, using aseptic technique. Blood as6 collected. 20:20 CBC with Diff Sent. as6 20:20 CMP Sent. as6 20:20 Lipase Sent. as6 20:22 Bed in low position. Call light in reach. Side rails up X 1. Adult w/ patient. Warm as6 blanket given. 21:31 CT Abd/Pelvis - IV Contrast Only In Process Unspecified. EDMS 22:50 Assist provider with pelvic exam: Set up pelvic tray. Performed by Naresh romero Specimens sent to lab. ASSISTED MARLENI BANKS WITH PELVIC EXAM. PT DID NOT TOLERATE WELL. ONLY WET PREP COLLECTED PT REFUSED OTHER SWABBED AND STATED IT HURT TO MUCH. MARLENI BANKS STOPPED EXAM IMMEDIATELY. PT BOYFRIEND AT BEDSIDE HOLDING HER HAND. 23:14 Wet Prep Sent. jj7 23:20 Melvin Lacy MD is Referral Physician. cp 23:26 IV discontinued, intact, bleeding controlled, Pressure dressing applied. jj7 Administered Medications: 21:11 Drug: Ketorolac 15 mg Route: IVP; Site: left antecubital; as6 22:29 Drug: Rocephin (cefTRIAXone) 1 grams Route: IV; Rate: calculated rate; Site: left jj7 antecubital; 23:33 Follow up: Response: No adverse reaction; IV Status: Completed infusion; IV Intake: 30odde3 23:17 Drug: Zithromax (azithromycin) 1 grams Route: PO; jj7 23:32 Follow up: Response: No adverse reaction jj7 23:35 Follow up: Response: No adverse reaction jj7 Medication: 23:26 VIS not applicable for this client. jj7 Intake: 23:33 IV: 20ml; Total: 20ml. jj7 Outcome: 23:21 Discharge ordered by . mariela 23:26 Discharged to home ambulatory, with significant other. jj7 23:26 Condition: good 23:26 Discharge instructions given to patient. 23:31 Patient left the ED. jj7 Signatures: Dispatcher [employer] EDMS Naresh Banks PA PA cp Garcia, Rubi rg4 Angeline Lyn, RN RN jh5 Curly Haro RN RN as6 Kristen Arredondo RN RN jj7 Corrections: (The following items were deleted from the chart) 19:40 19:30 Chief complaint: Patient states: "As you can tell by my stomach, I have gained jh5 weight! So am i or is something else going on? I have had urinary tract infections all my life". jh5
[2022-04-05] MEDS ORDERED: AZITHROMYCIN 250 MG TAB ONE (23:26)
[2022-04-06 15:23] VITALS: TEMP 96.8
[2022-04-06 15:38] VITALS: O2SAT 100
[2022-04-06 15:40] VITALS: BP 128/99
== END 2022-04-05 23:31 | disposition home or self-care (01) ==
LOC: ER 18:38
DX: N73.9 Female pelvic inflammatory disease, unspecified (principal); Z88.5 Allergy status to narcotic agent
CPT/HCPCS: 85025; 36415; 81025; 87210; 83690; 80053; 74177; Q9967; 81003; 81015; 96365; 96375; 99284

== ENCOUNTER 2022-04-22 13:52 | Emergency (ER) | payer OTHER ==
--- OUTSIDE RECORDS SUMMARY | 2022-04-22 13:57 | XMS REPORT | Continuity of Care Document ---
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 [facility] 4.2.7.2.686 [place] [phone] [place] [address] Branch 2019-08-22 2019-08-22 Emergency Magen [facility] 1.2.840.114 [id number] Univers 11:21:43 17:19:00 [facility] 350.1.13.10 it y of [place] [phone] [facility] 014 Branch ([facility]) 2019-08-22 2019-08-22 Emergency X MAGEN [facility] ERT [id number] Univers 11:21:43 17:19:00 COYE ity of [facility] 2019-08-22 2019-08-22 Office Roberto Carlos Hubbard 1.2.840.114 [id number] Univers 09:38:03 09:53:03 Visit , Erika Pediatric 350.1.13.10 ity of [place] and [place].2.[place].2.[place] [phone] [facility] 314 [facility] 2019-08-20 2019-08-20 Transition Erwin Kat 1.2.840.114 [id number] [id number] Univers 00:00:00 00:00:00 of Care Avery Gentile 350.1.13.10 ity of [place]2.7.2.[place] [id number] [place] [address] Branch 2019-08-18 2019-08-18 Emergency Arnulfo [facility] 1.2.261.360 8357 7450 Univers 16:02:43 20:28:00 Luana Joyner 350.1.13.10 it y of [place] 4.2.7.2.686 [place] [phone] [facility] 014 Branch ([facility]) 2019-08-18 2019-08-18 Nurse KINGSTON Engle 1.2.840.114 [id number] Univers 00:00:00 00:00:00 Triage Angeline Roberson RAKESH 350.1.13.10 ity of [facility] 4.2.7.2.686 [place] [phone] [place] [address] Branch 2019-08-15 2019-08-15 Office Siri Carney 1.2.840.114 737 [id number] Univers 14:01:24 16:11:29 Visit Y Pediatric 350.1.13.10 ity of [place] and [place] [id number] [address] 2019-07-23 2019-07-23 Emergency X SIERRA [facility] ERT [id number] Univers 18:48:12 21:49:00 DHARA mata of [facility] 2019-04-12 2019-04-12 Telephone Team, [facility] [place] 1.2.840.114 [id number] Univers 00:00:00 00:00:00 Health RAKESH 350.1.13.10 it y of [facility] 4.2.7.2.686 [place] [id number] [facility] 082 Branch 2019-03-21 2019-03-21 Office Rhett Gabriel 1.2.840.114 [id number] Univers 13:09:44 13:29:44 Visit Bryon Pediatric 350.1.13.10 ity of [place] and [place].2.[place].2.[place] [phone] [facility] 059 [facility] 2019-03-15 2019-03-15 Office Rhett Massey 1.2.840.114 710 [id number] Univers 14:04:01 14:19:01 Visit Lana Pediatric 350.1.13.10 ity of [place] and [place] [phone] [facility] 314 [facility] 2019-03-14 2019-03-14 Clinic Siri Carney 1.2.840.114 710 [id number] Univers 00:00:00 00:00:00 Assessment Y Pediatric 350.1.13.10 ity of [place] and [place] [phone] [address] 2019-03-07 2019-03-07 Office Siri Carney 1.2.840.114 [id number] Univers 13:29:17 13:53:55 Visit Y Pediatric 350.1.13.10 ity of [place] and [place].2.[place] [id number] [address] 2019-02-28 2019-03-01 Emergency Natalio Kurtz [facility] 1.2 .840.114 [id number] Univers 13:57:58 15:30:00 [facility] 350.1.13.10 ity of [place] [phone] [facility] 109 Branch ([facility]) 2019-02-28 2019-02-28 Office Siri Carney 1.2.840.114 [id number] Univers 13:34:47 15:10:47 Visit Y Pediatric 350.1.13.10 ity of [place] and [place].2.[place] [phone] [address] 2019-02-28 2019-02-28 Telephone Pcp, Rhett 1.2.103.473 [id number] 3517 Univers 00:00:00 00:00:00 Patient Pediatric 350.1.13.10 ity of Does Not s and 4.2.7.2.686 [place] as Have A Adult [phone] [address] Results Test Description Test Time Test Comments Results Result Comments Source POCT TEST 2021-10-14 17:20:00 Test Item Value Reference Range Interpretation Comme nts POCT PREG (test code = 1605) Negative On board controls acceptable with C Line (test code = 3574) Yes POCT PREG LOT # (test code = 3575) [id number] POCT PREG TEST DATE (test code = 3576) [facility]20[facility]2021-09-20 13:37:00 Test Item Value Reference Range Interpretation Comments URINE HCG TRIAGE (ER ONLY) (test NEGATIVE Negative code = HCGTRIAGE) Urine Test Result: NEGATIVEAre internal controls (presence of a control line & clear background) OK? YesLot # of HCG Test Kit: [id number] Date of Kit: 09/18/21Test Performed by:KRISTINA RNTest Perfomed on: 09/18/21- CT ABD PELVIS [id number] 00:00:00 [facility] SHE[facility] RODRIGUEZINDA : 1985 Sex: F Name: MICHAELSHEILA Hubbard FSED : 1985 Age/S: 36 / F [address] [facility] Unit #: [id number] Loc: [place] [address] Phys: YochaparrojonopumafaisalJosejulius Garsia MD Acct: [id number] Dis Date: Status: JEN WHEELER #: Exam Date: 2021 0310 FAX #: Reason: lower abdominal pain EXAMS: CPT CODE: [id number] CT ABD PELVIS W/CONT 13580 PROCEDURE INFORMATION: Exam: CT Abdomen And Pelvis [...] clinical indication); or iterative reconstruction. Contrast material: BGH703; Contrast volume: 95 ml; Contrast route: INTRAVENOUS [...] PAGE 1 Signed Report (CONTINUED) Name: SHEILA RODRIGUEZ FSED : 1985 Age/S: 36 / F [address] [facility] Unit #: [id number] Loc: [place] [address] Phys: Linda Kendrick MD Acct: [id number] Dis Date: Status: REG ER PHONE #: Exam Date: 09/18/20210 FAX #: Reason: lower abdominal pain EXAMS: CPT CODE: [id number] CT ABD PELVIS W/CONT 12001 (Continued) at 0355 Reported and signed by: Aubrie Busch M.D CC: Linda Kendrick MD; Dave Callahan DO Technologist:RT Soledad(R)(CT) CTDI: DLP: Trnscb Date/Time: 2021 (354) [email or web address] Orig Print D/T: S: 2021 (354) PAGE 2 Signed ReportBASIC METABOLIC [id number] 06:50:00 Test Item Value Reference Range Interpretation [...] CA) 9.3 MG/DL 8.5-10.1 N HEPATIC FUNCTION [id number] 06:50:00 Test Item Value Reference Range Interpretation [...] 45-117 N code = ALKP) BASIC METABOLIC [id number] 06:46:00 Test Item Value Reference Range Interpretation [...] CA) 9.3 MG/DL 8.5-10.1 N HEPATIC FUNCTION [id number] 06:46:00 Test Item Value Reference Range Interpretation [...] = ALKP) UA RFLX MICR CULT IF [id number] 06:43:00 Test Item Value Reference Range Interpretation [...] Indication for culture: RiskForSepsis-no oth srcUR HCG [id number] 06:43:00 Test Item Value Reference Range Interpretation Comments UR HCG QUAL (test code = HCGQLU) NEGATIVE NEGATIVE Indication for culture: RiskForSepsis-no oth src- XR CHEST 1 [id number] 06:38:00[facility] : 1985 Sex: F Name: SHEILA RODRIGUEZ [place] : 1985 Age/S: 34 / F [address] Unit #: [id number] Loc: [place] [address] Phys: Tolu Ashby MD Acct: [id number] Dis Date: Status: PRE ER PHONE #: [phone] Exam Date: 08/15/2020624 FAX #: Reason: chest pain EXAMS: CPT: [id number] XR CHEST 1 V 64535 FluoroTime: DAP (Gy m2): Air Kerma (mGy): [...] CC: PAGE 1 Signed Report Name: SHEILA RODRIGUEZ [place] : 1985 Age/S: 34 / F [address] Unit #: [id number] Loc: [place] [address] Phys: Tolu Ashby MD Acct: [id number] Date: Status: PRE ER PHONE #: [phone] Exam Date: 08/15/2020624 FAX #: Reason: chest painEXAMS: CPT: [id number] XR CHEST 1 V 02656 Fluoro Time: DAP (Gy m2): Air Kerma (mGy): <Continued> Technologist: RT Lee Ann(R)(MR) Trnscb Date/Time: 08/15/2020 (0638) [email or web address] Orig Print D/T: S: 08/15/2020 (1175) PAGE 2 Signed ReportUA RFLX MICR CULT IF [id number] 06:36:00 Test Item Value Reference Range Interpretation [...] Indication for culture: RiskForSepsis-no oth srcUR HCG [id number] 06:36:00 Test Item Value Reference Range Interpretation Comments UR HCG QUAL (test code = HCGQLU) NEGATIVE NEGATIVE Indication for culture: RiskForSepsis-no oth srcCBC W/O [id number] 06:36:00 Test Item Value Reference Range Interpretation [...] H MPV) UA RFLX MICR CULT IF [id number] 06:32:00 Test Item Value Reference Range Interpretation [...] Indication for culture: RiskForSepsis-no oth srcUR HCG [id number] 06:32:00 Test Item Value Reference Range Interpretation Comments UR HCG QUAL (test code = HCGQLU) NEGATIVE Indication for culture: RiskForSepsis-no oth src- CT ABD PELVIS W/[id number] 22:06:00 Name: SHEILA RODRIGUEZ [facility] : 1985 Age/S: 34 / F [address] Unit #: [id number] Loc: [place] [address] Phys: Tolu Ashby MD Acct: [id number] Dis Date: Status: REG ER PHONE #: [phone] Exam Date: 03/04/20202131 FAX #: Reason: LLQ pain, tenderness EXAMS: CPT: [id number] CT ABD PELVIS W/CONT 25868 Location code: H5 CT Abdomen and Pelvis [...] PAGE 1 Signed Report (CONTINUED) Name: SHEILA RODIRGUEZ [facility] : 1985 Age/S: 34 / F [address] Unit #: [id number] Loc: [place] [address] Phys: Tolu Ashby MD Acct: [id number] Dis Date: Status: [facility] ER PHONE #: [phone] Exam Date: 03/04/20202131 FAX #: Reason: LLQ pain, tenderness EXAMS: CPT:[id number] CT ABD PELVIS W/CONT 36550 <Continued> Uterus is unremarkable. No adnexal masses [...] Dolores(R)(CT) CTDI: DLP: Trnscb Date/Time: 03/04/2020 (2205) [email or web address] Orig Print D/T: S: 03/04/2020 (2209) PAGE 2 SignedReportUA RFLX MICR CULT IF [id number] 21:19:00 Test Item Value Reference Range Interpretation [...] culture: Suprapubic PainUA RFLX MICR CULT IF [id number] 21:17:00 Test Item Value Reference Range Interpretation [...] CLEAN CATCHIndication for culture: Suprapubic PainBASIC METABOLIC [id number] 20:31:00 Test Item Value Reference Range Interpretation [...] CA) 8.6 MG/DL 8.5-10.1 N HEPATIC FUNCTION [id number] 20:31:00 Test Item Value Reference Range Interpretation [...] 45-117 N code = ALKP) CBC W/AUTO [id number] 20:22:00 Test Item Value Reference Range Interpretation [...] CRITERIA = MDIFF) - XR C-SPINE 2-3 [id number] 17:22:00 FAX: Dave Calero DO [phone] [place]: St: REG FAX: Rosenda Engle [phone] ---- Name: SHEILA RODRIGUEZ [facility] : 1985 Age/S: 33/F [address] [place] [address] Unit #: [id number] Loc: [place] [address] Phys: Rosenda Engle Acct: [id number] Dis Date: Status: REG ER PHONE #: [phone] Exam Date: 11/25/2018 1718 FAX #: [phone] Reason: NECK PAIN EXAMS: CPT CODE: [id number] XR C-SPINE 2-3 VIEWS 05293 CERVICAL SPINE SERIES 11/25/2018 AT 1652 HOURS. [...] signed by: Alexy Fu M.D. CC: Dave Pandya; Rosenda Engle Technologist: RT Negro(R) Trnscrd Date/Time/By: 11/25/2018 (146) : By: [email or web address] Orig Print D/T: S: 11/25/2018 (5001) PAGE 1 Signed ReportURINALYSIS [id number] 16:40:00 Test Item Value Reference Range Interpretation [...] MUCU) TRACE /LPF NONE SEEN UR HCG [id number] 16:40:00 Test Item Value Reference Range Interpretation Comments UR HCG QUAL (test code = HCGQLU) NEGATIVE NEGATIVE URINALYSIS [id number] 04:22:00 Test Item Value Reference Range Interpretation [...] COMMENTS: Clean Catch- CT ABD PELVIS W/O [id number] 03:52:00 Name: SHEILA RODRIGUEZ [facility] : 1985 Age/S: 33 / F [address] [place] [address] Unit #: [id number] Loc: [place] [address] Phys: Adrianne Painter MD Acct: [id number] Dis Date: Status: REG ER PHONE #: [phone] Exam Date: 10/04/2018337 FAX #: [phone] Reason: rlq abd pain EXAMS: CPT CODE: [id number] CT ABD PELVIS W/O CONT 25728 EXAM: CT, CT abdomen pelvis without contrast: [...] PAGE 1 Signed Report (CONTINUED) Name: YASH RODRIGUEZ [facility] [place] : 1985 Age/S: 33 / F [address] [place] [address] Unit #: [id number] Loc: [place] [address] Phys: Adrianne Painter MD Acct: [id number] Dis Date: Status: REG ER PHONE #: [phone] Exam Date: 10/04/2018337 FAX #: [phone] Reason: rlq abd pain EXAMS: CPT CODE: [id number] CT ABD PELVIS W/O CONT 75919 (Continued) PERITONEUM AND RETROPERITONEUM: No ascites or [...] Luis Mckeon M.D. CC: Adrianne Painter MD; ShadePuma Callahan Technologist:RT Young(R) CTDI: DLP: Trnscb Date/Time: 10/04/2018 (035) [email or web address] Orig Print D/T: S: 10/04/2018 (0355) CTDI: DLP: PAGE 2 Signed Report- US TRANSVAGINAL NON [id number] 03:43:00 Name: SHEILA RODRIGUEZ [facility] : 1985 Age/S: 33 / F [address] [place] [address] Unit #: [id number] Loc: [place] [address] Phys: Adrianne Painter MD Acct: [id number] Dis Date: Status: [facility] PHONE #: [phone] Exam Date: 10/04/2018326 FAX #: [phone] Reason: Pelvic Pain EXAMS: CPT CODE: [id number] [place] [address] EXAM: US, US PELVIS COMPLETE: 10/04/2018 EXAM: [...] no adnexal masses. The limited Doppler images shownormal bilateral ovarian blood flow. OTHER FINDINGS: No free fluid in the pelvic cul-de-sac. If there is further concern, followup pelvic sonography or MRI of the pelvis may be performed. IMPRESSION: PAGE 1 Signed Report (CONTINUED) Name: SHEILA RODRIGUEZ [facility] [place] : 1985 Age/S: 33 / F [address] [place] [address] Unit #: [id number] Loc: [place] [address] Phys: Adrianne Painter MD Acct: [id number] Dis Date: Status: REG ER PHONE #: [phone] Exam Date: 10/04/2018326 FAX #: [phone] Reason: Pelvic Pain EXAMS: CPT CODE: [id number] [place] [address] (Continued) 1. Trace fl uid in the endometrial and cervical canal. Prominent cervix. 2. Otherwise unremarkable pelvic ultrasound SL: JSSTARH at 0343 Reported and signed by: Luis Mckeon M.D. CC: Adrianne Painter MD; Dave Callahan DO Technologist: VALENTE Pretty S(A)(OB) Trnscb Date/Time: 10/04/2018 (342) [email or web address] Orig Print D/T: S: 10/04/2018 (034) Probe: [id number] PAGE 2 Signed Report- US PELVIS COMPLETE 2018-10-04 03:43:00 Name: SHEILA RODRIGUEZ [facility] : 1985 Age/S: 33 / F [address] [place] [address] Unit #: [id number] Loc: [place] [address] Phys: Adrianne Painter MD Acct: [id number] Dis Date: Status: REGER PHONE #: [phone] Exam Date: 10/04/2018326 FAX #: [phone] Reason: Pelvic Pain EXAMS: CPT CODE: [id number] US PELVIS COMPLETE 17254 EXAM: US, US PELVIS COMPLETE: 10/04/2018 EXAM: [...] IMPRESSION: PAGE 1Signed Report (CONTINUED) Name: [facility] [place] [facility] 1985 Age/S: 33 / F [address] [place] [address] Unit #: [id number] Loc: [place] [address] Phys: Adrianne Painter MD Acct: [id number] Dis Date: Status: REG ER PHONE #: [phone] Exam Date: 10/04/2018326 FAX #: [phone] Reason: Pelvic Pain EXAMS: CPT CODE: [id number] US PELVIS COMPLETE 23306 (Continued) 1. Trace fluid inthe endometrial and cervical canal. Prominent cervix. 2. Otherwise unremarkable pelvic ultrasound SL: [id number]-[id number] at 0343 Reported and signed by: Luis Mckeon M.D. CC: Adrianne Painter MD; Dave Callahan DO Technologist: Elisha Colmenares RDMS(A)(OB) Trniab Date/Time: 10/04/2018 (342) [email or web address] Orig Print D/T: S: 10/04/2018 (345) Probe: PAGE 2 Signed Report COMPREHENSIVE METABOLIC [id number] 03:26:00 Test Item Value Reference Range Interpretation [...] 20-125 N TOTAL (test code = ALKP) [id number] 03:26:00 Test Item Value Reference Range Interpretation Comments LIPASE (test code = LIP) 125 IUnit/L 73-393 N HCG SERUM [id number] 03:26:00 Test Item Value Reference Range Interpretation Comments HCG SERUM QUAL (test code = SERUM NEGATIVE NEGATIVE HCGQL) COMPREHENSIVE METABOLIC [id number] 03:15:00 Test Item Value Reference Range Interpretation [...] TOTAL (test IUnit/L 20-125 code = ALKP) [id number] 03:15:00 Test Item Value Reference Range Interpretation Comments LIPASE (test code = LIP) IUnit/L 73-393 HCG SERUM [id number] 03:15:00 Test Item Value Reference Range Interpretation Comments HCG SERUM QUAL (test code = SERUM NEGATIVE NEGATIVE HCGQL) CBC W/AUTO [id number] 03:11:00 Test Item Value Reference Range Interpretation [...]
[2022-04-22] MEDS ORDERED: ALBUTEROL 2.5 MG/3 ML NEB SOL ONE (15:39)
[2022-04-22] MEDS ORDERED: IPRATROPIUM BROM 0.5MG/2.5ML ONE (15:39)
[2022-04-22 16:03] LABS: Absolute Lymphocytes (CBC) 2.6 K/uL (0.7-4.9); Lymphocytes % 25.2 % (15.3-44.8); MCV 89.8 fL (80-100); MPV 9.9 fL (7.6-11.3); RBC Red Blood Cell Count 4.12 M/uL (3.86-4.86)
[2022-04-22 16:21] LABS: Potassium 3.3 mmol/L (3.5-5.1); Troponin High Sensitivity 3.6 pg/mL (<58.9)
[2022-04-22 16:28] LABS: Urine Blood Negative (Negative); Urine Glucose Negative (Negative); Urine Protein Negative (Negative); Urine pH 6.5 (5.0-7.0)
--- NOTE | 2022-04-22 16:40 | RAD REPORT ---
EXAM DESCRIPTION: RAD - Chest Single View - 04/22/2022 4:30 pm CLINICAL HISTORY: CHEST PAIN COMPARISON: Chest Single View dated 03/21/2022; Chest Single View dated 03/03/2022; Chest Single View dated 02/07/2022; Chest Single View dated 12/20/2021; Abdomen Pelvis W Contrast dated 04/05/2022 FINDINGS: Lines: None. Lungs: Low lung volumes and likely basilar atelectasis. Pleural: No significant pleural effusions or pneumothorax. Cardiac: The heart size is within normal limits. Mediastinum: Within normal limits. Bones: No acute fractures. Other: None IMPRESSION: Low lung volumes with likely basilar atelectasis. No definite acute process.
--- NOTE | 2022-04-22 17:39 | EDPHYS ---
Physician Documentation [facility] Name: Jodie Rodriguez Age: 36 yrs Sex: Female : 1985 Arrival Date: 04/22/2022 Time: 13:56 Bed 5 Private MD: ED Physician Tony Woods HPI: 04/22 17:52 This 36 yrs old Female presents to ER via Ambulatory with complaints of kdr Breathing Difficulty, Chest Pain, Headache. 17:52 Patient complains of generalized chest pain, shortness of breath and mild headache that kdr all began this morning. She does not appear in any acute distress on initial evaluation. She does not appear toxic.. Onset: The symptoms/episode began/occurred gradually, this morning. Severity of symptoms: At their worst the symptoms were. The patient has not experienced similar symptoms in the past. The patient has not recently seen a physician. 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 - Social history:: Smoking status: Patient reports the use of cigarette tobacco products, smokes one-half pack cigarettes per day. ROS: 17:52 Constitutional: Negative for fever, chills, and weight loss, Eyes: Negative for injury, kdr pain, redness, and discharge, Neck: Negative for injury, pain, and swelling, Abdomen/GI: Negative for abdominal pain, nausea, vomiting, diarrhea, and constipation, Back: Negative for injury and pain, : Negative for injury, bleeding, discharge, and swelling, MS/Extremity: Negative for injury and deformity, Skin: Negative for injury, rash, and discoloration, Neuro: Negative for headache, weakness, numbness, tingling, and seizure activity. Psych: Negative for depression, anxiety, suicide ideation, homicidal ideation, and hallucinations, Allergy/Immunology: Negative for hives, rash, and allergies, Endocrine: Negative for neck swelling, polydipsia, polyuria, polyphagia, and marked weight changes, Hematologic/Lymphatic: Negative for swollen nodes, abnormal bleeding, and unusual bruising. 17:52 Cardiovascular: Positive for chest pain, with cough, with movement, Negative for edema, orthopnea, palpitations, paroxysmal nocturnal dyspnea. 17:52 Respiratory: Positive for shortness of breath, on exertion. Patient reports difficulty breathing with exertion.. Exam: 14:22 ECG was reviewed by the Attending Physician. kdr 17:52 Constitutional: This is a well developed, well nourished patient who is awake, alert, kdr and in no acute distress. Head/Face: Normocephalic, atraumatic. Eyes: Pupils equal round and reactive to light, extra-ocular motions intact. Lids and lashes normal. Conjunctiva and sclera are non-icteric and not injected. Cornea within normal limits. Periorbital areas with no swelling, redness, or edema. Neck: Trachea midline, no thyromegaly or masses palpated, and no cervical lymphadenopathy. Supple, full range of motion without nuchal rigidity, or vertebral point tenderness. No Meningismus. Chest/axilla: Normal chest wall appearance and motion. Nontender with no deformity. No lesions are appreciated. Cardiovascular: Regular rate and rhythm with a normal S1 and S2. No gallops, murmurs, or rubs. Normal PMI, no JVD. No pulse deficits. Respiratory: Lungs have equal breath sounds bilaterally, clear to auscultation and percussion. No rales, rhonchi or wheezes noted. No increased work of breathing, no retractions or nasal flaring. Abdomen/GI: Soft, non-tender, with normal bowel sounds. No distension or tympany. No guarding or rebound. No evidence of tenderness throughout. Back: No spinal tenderness. No costovertebral tenderness. Full range of motion. Skin: Warm, dry with normal turgor. Normal color with no rashes, no lesions, and no evidence of cellulitis. MS/ Extremity: Pulses equal, no cyanosis. Neurovascular intact. Full, normal range of motion. Neuro: Awake and alert, GCS 15, oriented to person, place, time, and situation. Cranial nerves II-XII grossly intact. Motor strength 5/5 in all extremities. Sensory grossly intact. Cerebellar exam normal. Normal gait. Psych: Awake, alert, with orientation to person, place and time. Behavior, mood, and affect are within normal limits. Vital Signs: 14:15 BP 105 / 56; Pulse 62; Resp 20; Temp 98.1; Pulse Ox 100% ; Height 5 ft. 0 in. (152.40 kb3 cm); Pain 7/10; 14:20 Weight 79.38 kg; kb3 17:27 BP 108 / 57; Pulse 74; Resp 25; Pulse Ox 100% on R/A; Pain 5/10; mb9 17:50 BP 110 / 67; Pulse 71; Resp 18 S; Temp 98.0(TE); Pulse Ox 100% on R/A; aa5 14:20 Body Mass Index 34.18 (79.38 kg, 152.40 cm) kb3 MDM: 17:39 Patient medically screened. kdr 17:52 Data reviewed: vital signs, nurses notes, lab test result(s), EKG, radiologic studies. kdr Counseling: I had a detailed discussion with the patient and/or guardian regarding: the historical points, exam findings, and any diagnostic results supporting the discharge/admit diagnosis, lab results, radiology results, the need for outpatient follow up. ED course: Patient continues to be nontoxic and not in any acute distress in the ED. She tolerated the interventions well and was happy with the care provided the plan for discharge and follow-up.. 04/22 15:37 Order name: Basic Metabolic Panel [facility] 04/22 15:37 Order name: CBC with Diff [facility] 04/22 15:37 Order name: Troponin HS [facility] 04/22 16:13 Order name: CBC with Automated Diff; Complete Time: 17:08 EDMO 04/22 16:21 Order name: Basic Metabolic Panel; Complete Time: 17:08 EDMO 04/22 16:21 Order name: Troponin High Sensitivity; Complete Time: 17:08 MO 04/22 15:37 Order name: XRAY Chest (1 view) [facility] 04/22 15:37 Order name: EKG; Complete Time: 15:38 04/22 15:37 Order name: Cardiac monitoring; Complete Time: 15:37 [facility] 04/22 16:28 Order name: Urine Dipstick-Ancillary; Complete Time: 17:08 EDMO 04/22 16:30 Order name: Urine --Ancillary (enter results) eb 04/22 16:40 Order name: RAD; Complete Time: 17:08 EDMO 04/22 16:57 Order name: Urine --Ancillary; Complete Time: 17:08 EDMO 04/22 15:37 Order name: EKG - Nurse/Tech; Complete Time: 15:37 aa 04/22 15:37 Order name: IV Saline Lock; Complete Time: 15:56 aa 04/22 15:37 Order name: Labs collected and sent; Complete Time: 15:56 aa 04/22 15:37 Order name: O2 Per Protocol; Complete Time: 15:37 aa5 04/22 15:37 Order name: O2 Sat Monitoring; Complete Time: 15:38 aa 04/22 16:28 Order name: Urine Dipstick-Ancillary (obtain specimen); Complete Time: 16:28 ss 04/22 16:28 Order name: Urine Test (obtain specimen); Complete Time: 16:28 ss EC: Rate is 57 beats/min. Rhythm is regular, Sinus bradycardia with No ectopy. QRS [place] is kdr Normal. GA interval is normal. QRS interval is normal. QT interval is normal. Clinical impression: Sinus bradycardia. Administered Medications: 15:56 Drug: Albuterol - atroVENT (ipratropium) (3:1) (2.5 mg - 0.5 mg) 3 ml Route: Nebulizer; aa5 16:15 Follow up: Response: No adverse reaction aa5 Disposition Summary: 04/22/22 17:39 Discharge Ordered Location: Home kdr Problem: an acute exacerbation kdr Symptoms: have improved kdr Condition: Stable kdr Diagnosis - Chest pain, unspecified kdr - Chest pain on breathing kdr - Dyspnea kdr Followup: kdr - With: Private Physician - When: 2 - 3 days - Reason: If symptoms return, Further diagnostic work-up, Recheck today's complaints, Continuance of care, Re-evaluation by your physician Discharge Instructions: - Discharge Summary Sheet kdr - Shortness of Breath, Adult, [id number] kdr - Nonspecific Chest Pain, Adult, [id number] kdr Forms: - Medication Reconciliation Form kdr - Thank You Letter kdr Prescriptions: - albuterol sulfate 90 mcg/actuation Inhalation HFA aerosol inhaler - inhale 2 puff by INHALATION route every 4 hours As needed; 2 puff; Refills: 0, kdr Product Selection Permitted - Ibuprofen 600 mg Oral Tablet - take 1 tablet by ORAL route every 6 hours As needed take with food; 30 tablet; kdr Refills: 0, Product Selection Permitted - Medrol (Dejon) 4 mg Oral Tablets, Dose Pack - take 1 tablet by ORAL route as directed - follow package instructions; 1 kdr packet; Refills: 0, Product Selection Permitted Signatures: Dispatcher [employer] Tony Coronado MD MD kdr Calderon, Audri, RN RN aa5 Jennifer Gallardo RN RN ss Dipika Genao RN RN kb3
--- NOTE | 2022-04-22 17:39 | ER ---
Nurse's Notes [facility] Name: Jodie Rodriguez Age: 36 yrs Sex: Female : 1985 Arrival Date: 04/22/2022 Time: 13:56 Bed 5 Private MD: Diagnosis: Chest pain, unspecified;Chest pain on breathing;Dyspnea Presentation: 04/22 14:15 Chief complaint: Patient states: Pt reports SOB, chest pain and headache since this kb3 morning. Bilateral lungs CTA. Coronavirus screen: Vaccine status: Patient reports receiving the 2nd dose of the covid vaccine. Client denies travel out of the [place] in the last 14 days. Ebola Screen: Patient negative for fever greater than or equal to 101.5 degrees Fahrenheit, and additional compatible Ebola Virus Disease symptoms Patient denies exposure to infectious person. Patient denies travel to an Ebola-affected area in the 21 days before illness onset. No symptoms or risks identified at this time. Initial Sepsis Screen: Does the patient meet any 2 criteria? No. Patient's initial sepsis screen is negative. Does the patient have a suspected source of infection? No. Patient's initial sepsis screen is negative. Risk Assessment: Do you want to hurt yourself or someone else? Patient reports no desire to harm self or others. Onset of symptoms was April 22, 2022 at 10:00. 14:15 Method Of Arrival: Ambulatory kb3 14:15 Acuity: FLORA 3 kb3 Triage Assessment: 14:17 General: Appears distressed, Behavior is calm, cooperative, anxious. Pain: Complains of kb3 pain in anterior aspect of left upper chest Pain does not radiate. Pain currently is 8 out of 10 on a pain scale. Quality of pain is described as sharp. Respiratory: Reports shortness of breath Breath sounds are clear bilaterally. Onset: The symptoms/episode began/occurred this morning. Respiratory: the patient has mild shortness of breath. 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 - Social history:: Smoking status: Patient reports the use of cigarette tobacco products, smokes one-half pack cigarettes per day. Screenin:15 Abuse screen: Denies threats or abuse. Nutritional screening: No deficits noted. aa5 Tuberculosis screening: No symptoms or risk factors identified. Fall Risk None identified. Assessment: 15:15 General: Appears comfortable, unkempt, Behavior is calm, cooperative. Pain: Complains aa5 of pain in chest Pain currently is 5 out of 10 on a pain scale. Quality of pain is described as aching, Pain began this morning Is continuous. Neuro: Level of Consciousness is awake, alert, obeys commands, Oriented to person, place, time, situation, Reports headache on and off. Cardiovascular: Heart tones S1 S2 present Rhythm is regular. Respiratory: Reports shortness of breath at rest cough that is non-productive, Airway is patent Respiratory effort is even, unlabored, Respiratory pattern is regular, symmetrical, Breath sounds are clear bilaterally. GI: Abdomen is round non-distended, Bowel sounds present X 4 quads. Abd is soft and non tender X 4 quads. Patient currently denies diarrhea, nausea, vomiting. : No signs and/or symptoms were reported regarding the genitourinary system. EENT: No signs and/or symptoms were reported regarding the EENT system. Derm: Skin is pink, warm \T\ dry. Musculoskeletal: Range of motion: intact in all extremities. 16:15 Reassessment: Patient is alert, oriented x 3, equal unlabored respirations, skin aa5 warm/dry/pink. 17:50 Reassessment: Patient is alert, oriented x 3, equal unlabored respirations, skin aa5 warm/dry/pink. Vital Signs: 14:15 BP 105 / 56; Pulse 62; Resp 20; Temp 98.1; Pulse Ox 100% ; Height 5 ft. 0 in. (152.40 kb3 cm); Pain 7/10; 14:20 Weight 79.38 kg; kb3 17:27 BP 108 / 57; Pulse 74; Resp 25; Pulse Ox 100% on R/A; Pain 5/10; mb9 17:50 BP 110 / 67; Pulse 71; Resp 18 S; Temp 98.0(TE); Pulse Ox 100% on R/A; aa5 14:20 Body Mass Index 34.18 (79.38 kg, 152.40 cm) kb3 ED Course: 13:56 Patient arrived in ED. dt4 14:17 Triage completed. kb3 14:17 Arm band placed on right wrist. kb3 14:18 Tony Woods MD is Attending Physician. kdr 14:19 EKG completed in triage. Results shown to MD. kb3 14:21 EKG done, by ED staff, reviewed by Tony Woods MD. ap3 15:10 Rosio Dewey, RN is Primary Nurse. aa5 15:15 Patient has correct armband on for positive identification. aa5 15:56 Inserted saline lock: 20 gauge in right antecubital area, using aseptic technique. mb9 Blood collected. 15:57 Basic Metabolic Panel Sent. mb9 15:57 CBC with Diff Sent. mb9 15:57 Troponin HS Sent. mb9 17:39 XRAY Chest (1 view) Sent. eb 17:39 Urine --Ancillary (enter results) Sent. eb 17:50 No provider procedures requiring assistance completed. IV discontinued, intact, aa5 bleeding controlled, No redness/swelling at site. Pressure dressing applied. Administered Medications: 15:56 Drug: Albuterol - atroVENT (ipratropium) (3:1) (2.5 mg - 0.5 mg) 3 ml Route: Nebulizer; aa5 16:15 Follow up: Response: No adverse reaction aa5 Medication: 17:50 VIS not applicable for this client. aa5 Outcome: 17:39 Discharge ordered by . kdr 17:50 Discharged to home ambulatory. aa5 17:50 Condition: improved 17:50 Discharge instructions given to patient, Instructed on discharge instructions, follow up and referral plans. medication usage, Demonstrated understanding of instructions, follow-up care, medications, Prescriptions given X 3. 17:52 Patient left the ED. ss Signatures: Tony Woods MD MD kdr Rosio Dewey, RN RN aa5 Jennifer Gallardo RN RN ss Kell Ruiz RN RN ap3 Justina Suárez eb Dipika Genao RN RN kb3 Lashawn Posadas dt4 Breneman, Delia, RN RN mb9
[2022-04-23 06:47] VITALS: TEMP 98.1; O2SAT 100
[2022-04-23 06:48] VITALS: BP 108/57
--- NOTE | 2022-04-24 07:46 | EKG ---
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
== END 2022-04-22 17:52 | disposition home or self-care (01) ==
LOC: ER 13:52
DX: R07.1 Chest pain on breathing (principal); R07.9 Chest pain, unspecified; J45.909 Unspecified asthma, uncomplicated; F17.210 Nicotine dependence, cigarettes, uncomplicated; Z88.5 Allergy status to narcotic agent
CPT/HCPCS: 36415; 71045; 80048; 81003; 81025; 84484; 85025; 93005; 94640; 99284

== ENCOUNTER 2022-06-05 20:39 | Emergency (ER) | payer OTHER ==
--- OUTSIDE RECORDS SUMMARY | 2022-06-05 20:43 | XMS REPORT | Continuity of Care Document ---
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 [facility] 4.2.7.2.686 [id number] 009 2019-11-13 2019-11-13 Orders Doctor KINGSTON 1.2.840.114 [id number] Univers 00:00:00 00:00:00 Only Unassigned, RAKESH 350.1.13.10 ity of [facility] 4.2.7.2.686 [place]ish as [id number] [place] [address] Branch 2019-11-08 2019-11-08 Telephone Siri Carney 1.2.840.114 7 [id number] 00:00:00 00:00:00 Y Pediatric 350.1.13.10 s and 4.2.7.2.686 Adult [id number] Primary [facility] Care Clinic 2019-11-08 2019-11-08 Telephone CarneySiri worley 1.2.840.114 [id number] Univers 00:00:00 00:00:00 Y Pediatric 350.1.13.10 ity of [place] and [place] [id number] [facility] Primary [facility] Branch Care [facility] 2019-10-18 2019-10-18 Telephone CarneySiri worley 1.2.840.114 7 [id number] Univers 00:00:00 00:00:00 Y Pediatric 350.1.13.10 it[place] and [place] [id number] [address] Care [facility] 2019-10-02 2019-10-02 Telephone CarneySiri worley 1.2.840.114 [id number] Univers 00:00:00 00:00:00 Y Pediatric 350.1.13.10 ity of [place] and [place] [id number] [facility] Primary [address] [place] [address] 2019-09-12 2019-09-12 Office Al [facility] 1.2.840.114 [id number] Univers 12:57:32 13:46:55 Visit Blake, RICH 350.1.13.10 ity of [facility] CARE 4.2.7.2.686 [place]ish as CENTER AT [phone] Va maribell MUELLER 072 [facility] 2019-09-12 2019-09-12 Orders Doctor K[place]STON 1.2.840.114 [id number] Univers 00:00:00 00:00:00 Only Unassigned, RAKESH 350.1.13.10 ity of [facility] 4.2.7.2.686 [place]ish as [phone] [facility] 009 Branch 2019-08-22 2019-08-22 Emergency Magen [facility] 1.2.840.114 [id number] Univers 11:21:43 17:19:00 [facility] 350.1.13.10 it [place] [phone] [place] [address] Branch ([facility]) 2019-08-22 2019-08-22 Emergency X MAGEN [facility] ERT [id number] Univers 11:21:43 17:19:00 VENKATSHON gonzalovince [facility] 2019-08-22 2019-08-22 Office Roberto Carlos Hubbard 1.2.840.114 [id number] Univers 09:38:03 09:53:03 Visit , Erika Pediatric 350.1.13.10 ity of [place] and [place] [id number] [address] 2019-08-20 2019-08-20 Transition Erwin Kat 1.2.840.114 [id number] Univers 00:00:00 00:00:00 of Care Avery Gentile 350.1.13.10 ity of [place].2.[place] [id number] [address] 2019-08-18 2019-08-18 Emergency Arnulfo [facility] 1.2.469.954 [id number] Univers 16:02:43 20:28:00 [facility] 350.1.13.10 it y of [place].2.[place].2.[place] Dar[place] [phone] [address] ([facility]) 2019-08-18 2019-08-18 Nurse KINGSTON Engle 1.2.840.114 [id number] Univers 00:00:00 00:00:00 Triage Angeline Roberson RAKESH 350.1.13.10 ity of [facility] 4.2.7.2.686 [place] [phone] [place] [address] Branch 2019-08-15 2019-08-15 Office CarneySiri worley 1.2.840.114 [id number] Univers 14:01:24 16:11:29 Visit Y Pediatric 350.1.13.10 ity of [place] and [place] [id number] [address] 2019-07-23 2019-07-23 Emergency X SIERRA [facility] ERT [id number] Univers 18:48:12 21:49:00 DHARA mata [facility] 2019-04-12 2019-04-12 Telephone Team, [email or web address] [place] 1.2.840.114 [id number] Univers 00:00:00 00:00:00 Health RAKESH 350.1.13.10 it y of [facility] 4.2.7.2.686 [place] [id number] [place] 640522 Branch 2019-03-21 2019-03-21 Office Rhett Gabriel 1.2.840.114 [id number] Univers 13:09:44 13:29:44 Visit Bryon Pediatric 350.1.13.10 ity of [place] and [place].2.[place].2.[place] [id number] [place] [address] [facility] 2019-03-15 2019-03-15 Office Rhett Massey 1.2.840.114 [id number] Univers 14:04:01 14:19:01 Visit Lana Pediatric 350.1.13.10 ity of [place] and [place].2.[place] [id number] [facility] 314 [facility] 2019-03-14 2019-03-14 Clinic Siri Carney 1.2.840.114 [id number] Univers 00:00:00 00:00:00 Assessment Y Pediatric 350.1.13.10 ity of [place] and [place].2.[place] [id number] [address] 2019-03-07 2019-03-07 Office Siri Carney 1.2.840.114 [id number] Univers 13:29:17 13:53:55 Visit Y Pediatric 350.1.13.10 ity of [place] and [place].2.7.2.[place] [id number] [address] 2019-02-28 2019-03-01 Emergency Natalio Kurtz [facility] 1.2 .840.114 [id number] Univers 13:57:58 15:30:00 Kevin Vyas [facility] 350.1.13.10 it[place] [phone] [facility] 109 Branch (CLC) 2019-02-28 2019-02-28 Office Siri Carney 1.2.840.114 [id number] Univers 13:34:47 15:10:47 Visit Y Pediatric 350.1.13.10 ity of [place] and [place].2.[place] [id number] [address] 2019-02-28 2019-02-28 Telephone Pcp, Rhett 1.2.763.790 [id number] Univers 00:00:00 00:00:00 Patient Pediatric 350.1.13.10 ity of Does Not s and 4.2.7.2.686 [place] as Have A Adult [id number] [address] Results Test Description Test Time Test Comments Results Result Comments Source POCT TEST 2021-10-14 17:20:00 Test Item Value Reference Range Interpretation Comme nts POCT PREG (test code = 1605) Negative On board controls acceptable with C Line (test code = 3574) Yes POCT PREG LOT # (test code = 3575) [id number] POCT PREG TEST DATE (test code = 3576) [facility]2021-09-20 13:37:00 Test Item Value Reference Range Interpretation Comments URINE HCG TRIAGE (ER ONLY) (test NEGATIVE Negative code = HCGTRIAGE) Urine Test Result: NEGATIVEAre internal controls (presence of a control line & clear background) OK? YesLot # of HCG Test Kit: [id number] Date of Kit: 09/18/21Test Performed by:KRISTINA RNTest Perfomed on: 09/18/21- CT ABD PELVIS [id number] 00:00:[address] [facility] JCARLOS LAKEName: SHEILA RODRIGUEZ : 1985 Sex: F Name: SHEILA RODRIGUEZ FSED : 1985 Age/S: 36 / F [address] [facility] Unit #: [id number] Loc: [place] [address] Phys: Linda Kendrick MD Acct: [id number] Dis Date: Status: REG ER PHONE #: Exam Date: 2021 0310 FAX #: Reason: lower abdominal pain EXAMS: CPT CODE: [id number] ABD PELVIS W/CONT 78112 PROCEDURE INFORMATION: Exam: CT Abdomen And Pelvis With Contrast Exam date and time: 2021 3:11 AM Age: 36 years old Clinical indication: Abdominal pain; Localized; Lower; Prior surgery; Surgery date: 6+ months; Surgery type: Gallbladder removed; Additional info: Lowerabdominal pain TECHNIQUE: Imaging protocol: Computed tomography of the abdomen and pelvis with contrast. Radiation optimization: All CT scans at this facility use at least one of these dose optimization techniques: automated exposure control; mA and/or kV adjustment per patient size (includes targetedexams where dose is matched to clinical indication); or iterative reconstruction. Contrast material:IZZ610; Contrast volume: 95 ml; Contrast route: INTRAVENOUS [...] aortic aneurysm. Lymph nodes: No evidence of lympha denopathy. Urinary bladder: Unremarkable as visualized. Reproductive: Unremarkable as visualized. Bones/joints: The visualized osseous structures are unremarkable. Soft tissues: There is a small fat containing umbilical hernia. IMPRESSION: 1. Small umbilical hernia. 2. No acute findings. PAGE 1 Signed Report (CONTINUED) Name: SHEILA RODRIGUEZ FSED : 1985 Age/S: 36 / F [address] [facility] Unit #: [id number] Loc: [place] [address] Phys: Linda Kendrick MD Acct: [id number] DisDate: Status: REG ER PHONE #: Exam Date: 2021 0310 FAX #: Reason: lower abdominal pain EXAMS: CPT CODE: [id number] CT ABD PELVIS W/CONT 86781 (Continued) at 0355 Reported and signed by: Aubrie Busch M.D CC: Linda Kendrick MD;Dave Callahan DO Technologist:RT Soledad(R)(CT) CTDI: DLP: Trnscb Date/Time: 2021 (354) [email or web address].AR21 Orig Print D/T: S: 2021 (354) PAGE 2 Signed ReportBASIC METABOLIC [id number] 06:50:00 Test Item Value Reference Range Interpretation [...] CA) 9.3 MG/DL 8.5-10.1 N HEPATIC FUNCTION [id number] 06:50:00 Test Item Value Reference Range Interpretation [...] 45-117 N code = ALKP) BASIC METABOLIC [id number] 06:46:00 Test Item Value Reference Range Interpretation [...] CA) 9.3 MG/DL 8.5-10.1 N HEPATIC FUNCTION [id number] 06:46:00 Test Item Value Reference Range Interpretation [...] = ALKP) UA RFLX MICR CULT IF [id number] 06:43:00 Test Item Value Reference Range Interpretation [...] Indication for culture: RiskForSepsis-no oth srcUR HCG [id number] 06:43:00 Test Item Value Reference Range Interpretation Comments UR HCG QUAL (test code = HCGQLU) NEGATIVE NEGATIVE Indication for culture: RiskForSepsis-no oth src- XR CHEST 1 [id number] 06:38:00[facility] ROD[facility]IGUE[facility] : 1985 Sex: F Name: SHEILA RODRIGUEZ [facility] : 1985 Age/S: 34 / F [address] Unit #: [id number] Loc: [place] [address] Phys: Tolu Ashby MD Acct: [id number] Dis Date: Status: PRE ER PHONE #: [phone] Exam Date: 08/15/2020 0625 FAX #: Reason: chest pain EXAMS: CPT: [id number] XR CHEST 1 V 35789 FluoroTime: DAP (Gy m2): Air Kerma (mGy): Location Code: H 31 CHEST AP HISTORY: Chest pain COMPARISON: None available FINDINGS: No evidence of consolidation, effusion, or pneumothorax is present. The cardiomediastinal silhouette and pulmonary vasculature are normal. Osseous structures are unremarkable. A mesh structure imposes left breast. Nonspecific radiodense structure superimposes the breasts bilaterally. IMPRESSION: No radiographic evidence for active cardiopulmonary disease. Electronically Signedby Makayla Cole MD on 08/15/2020 at 0638 Reported and signed by: Makayla Cole MD CC: PAGE 1 Signed Report Name: SHEILA RODRIGUEZ [place] : 1985 Age/S: 34 / F [address] [place] [address] Unit #: [id number] Loc: [place] [address] Phys: Tolu Ashby MD Acct: [id number] Date: Status: PRE ER PHONE #: [phone] Exam Date: 08/15/2020 0625 FAX #: Reason: chest painEXAMS: CPT: [id number] XR CHEST 1 V 72195 Fluoro Time: DAP (Gy m2): Air Kerma (mGy): <Continued> Technologist: RT Lee Ann(R)(MR) Trnscb Date/Time: 08/15/2020 (637) [email or web address] Orig Print D/T: S: 08/15/2020 (1036) PAGE 2 Signed ReportUA RFLX MICR CULT IF [id number] 06:36:00 Test Item Value Reference Range Interpretation [...] Indication for culture: RiskForSepsis-no oth srcUR HCG [id number] 06:36:00 Test Item Value Reference Range Interpretation Comments UR HCG QUAL (test code = HCGQLU) NEGATIVE NEGATIVE Indication for culture: RiskForSepsis-no oth srcCBC W/O [id number] 06:36:00 Test Item Value Reference Range Interpretation [...] H MPV) UA RFLX MICR CULT IF [id number] 06:32:00 Test Item Value Reference Range Interpretation [...] Indication for culture: RiskForSepsis-no oth srcUR HCG [id number] 06:32:00 Test Item Value Reference Range Interpretation Comments UR HCG QUAL (test code = HCGQLU) NEGATIVE Indication for culture: RiskForSepsis-no oth src- CT ABD PELVIS [id number] 22:06:00 Name: SHEILA RODRIGUEZ [facility] : 1985 Age/S: 34 / F [address] [facility] Unit #: [id number] Loc: [place] [address] Phys: Tolu Ashby MD Acct: [id number] Dis Date: Status: REG ER PHONE #: [phone] Exam Date: 03/04/20202131 FAX #: Reason: LLQ pain, tenderness EXAMS: CPT: [id number] CT ABD PELVIS W/CONT 04891 Location code: CT Abdomen and Pelvis with [...] 1 Signed Report (CONTINUED) Name: SHEILA RODRIGUEZ [facility] : 1985 Age/S: 34 / F [address] [facility] Unit #:[id number] Loc: [place] [address] Phys: Tolu Ashby MD Acct: [id number] Dis Date: Status: REGER PHONE #: [phone] Exam Date: 03/04/20202131 FAX #: Reason: LLQ pain, tenderness EXAMS: CPT:[id number] CT ABD PELVIS W/CONT 44365 <Continued> Uterus is unremarkable. No adnexal masses [...] Nieves M.D. CC: Dave Callahan DO Technologist:Jade Sweet, RT(R)(CT) CTDI: DLP: Trnscb Date/Time: 03/04/2020 (2205) t.SDR.DRB1 Orig Print D/T: S: 03/04/2020 (2209) PAGE 2 Signed ReportUA RFLX MICR CULT IF [id number] 21:19:00 Test Item Value Reference Range Interpretation [...] culture: Suprapubic PainUA RFLX MICR CULT IF [id number] 21:17:00 Test Item Value Reference Range Interpretation [...] CLEAN CATCHIndication for culture: Suprapubic PainBASIC METABOLIC [id number] 20:31:00 Test Item Value Reference Range Interpretation [...] CA) 8.6 MG/DL 8.5-10.1 N HEPATIC FUNCTION [id number] 20:31:00 Test Item Value Reference Range Interpretation [...] 45-117 N code = ALKP) CBC W/AUTO [id number] 20:22:00 Test Item Value Reference Range Interpretation [...] CRITERIA = MDIFF) - XR C-SPINE 2-3 [id number] 17:22:00 FAX: Dave Calero DO [phone] [place]: St: REG FAX: Rosenda Engle [facility] [phone] ---- Name: SHEILA RODRIGUEZ [facility] : 1985 Age/S: 33/F [address] [place] [address] Blvd Unit #: [id number] Loc: [place] [address] Phys: Rosenda Engle Acct: [id number] Dis Date: Status: REG ER PHONE #: [phone] Exam Date: 11/25/2018 1718 FAX #: [phone] Reason: NECK PAIN EXAMS: CPT CODE: [id number] XR C-SPINE 2-3 VIEWS 83482 CERVICAL SPINE SERIES 11/25/2018 AT 1652 HOURS. [...] Dave Callahan DO; Rosenda Engle Technologist: RT Negro(Janis) Trnscrd Date/Time/By: 11/25/2018 (837) : By: [email or web address] Orig Print D/T: S: 11/25/2018 (2293) PAGE 1 Signed ReportURINALYSIS [id number] 16:40:00 Test Item Value Reference Range Interpretation [...] MUCU) TRACE /LPF NONE SEEN UR HCG [id number] 16:40:00 Test Item Value Reference Range Interpretation Comments UR HCG QUAL (test code = HCGQLU) NEGATIVE NEGATIVE URINALYSIS [id number] 04:22:00 Test Item Value Reference Range Interpretation [...] COMMENTS: Clean Catch- CT ABD PELVIS W/O [id number] 03:52:00 Name: SHEILA RODRIGUEZ [facility] Reading : 1985 Age/S: 33 / F [address] [place] [address] Unit #: [id number] Loc: [facility] [place] [address] Phys: Adrianne Painter MD Acct: [id number] Dis Date: Status: REG ER PHONE #: [phone] Exam Date: 10/04/2018 0338 FAX #: [phone] Reason: rlq abd pain EXAMS: CPT CODE: [id number] CT ABD PELVIS W/O CONT 65037 EXAM: CT, CT abdomen pelvis without contrast: [...] 1 Signed Report (CONTINUED) Name: SHEILA RODRIGUEZ [facility] Reading : 1985 Age/S: 33 / F [address] [place] [address] Unit #: [id number] c: [place] [address] Phys: Adrianne Painter MD Acct: [id number] Dis Date: Status: REG ER PHONE #: [phone] Exam Date: 10/04/2018337 FAX #: [phone] Reason: rlq abd pain EXAMS: CPT CODE: [id number] CT ABD PELVIS W/O CONT 61681 (Continued) PERITONEUM AND RETROPERITONEUM: No ascites or free air. No other fluid collection. There is no aortic aneurysm seen. LYMPH NODES: Unremarkable. PELVIS: No pelvic mass or adenopathy. Uterus is anteverted and unremarkable. Ovaries are unremarkable. BLADDER: Unremarkable. OSSEOUS STRUCTURES: No acute abnormality seen. SOFT TISSUES: Unremarkable. IMPRESSION: 1 . No acute abdominal or pelvic abnormality. SL: CONNIE at 0352 Reported and signed by: Luis Mckeon M.D. CC: Adrianne Painter MD; Dave Callahan DO Technologist:RT Young(R) CTDI: DLP: Trnscb Date/Time: 10/04/2018 (035) t.SDR.JS38 Orig Print D/T: S: 10/04/2018 (0355) CTDI: DLP: PAGE 2 Signed Report- US TRANSVAGINAL NON OB 2018-10-04 03:43:00 Name: SHEILA RODRIGUEZ [facility] : 1985 Age/S: 33 / F [address] [place] [address] Unit #: [id number] Loc: [place] [address] Phys: Adrianne Painter MD Acct: [id number] Dis Date: Status: REG ER PHONE #: [phone] Exam Date: 10/04/2018326 FAX #: [phone] Reason: Pelvic Pain EXAMS: CPT CODE: [id number] [place] [address] EXAM: US, US PELVIS COMPLETE: 10/04/2018 EXAM: [...] 1 Signed Report (CONTINUED) Name: SHEILA RODRIGUEZ [facility] : 1985 Age/S: 33 / F [address] [place] [address] Unit #: [id number] Loc: [place] [address] Phys: Adrianne Painter MD Acct: [id number] Dis Date: Status: REG ER PHONE #: [phone] Exam Date: 10/04/2018326 FAX #: [phone] Reason: Pelvic Pain EXAMS: CPT CODE: [id number] [place] [address] (Continued) 1. Trace fluid in the endometrial and cervical canal. Prominent cervix. 2. Otherwise unremarkable pelvic ultrasound SL: JSYED-H at 0343 Reported and signed by: Luis Mckeon M.D. CC: Adrianne Painter MD; Dave Callahan Technologist: Elisha Colmenares RDMS(Ady)(OB) Trnscb Date/Time: 10/04/2018 (034) BernadineJS38 Orig Print D/T: S: 10/04/2018 (034) Probe: [id number] PAGE 2 Signed Report- US PELVIS [id number] 03:43:00 Name: SHEILA RODRIGUEZ [facility] [place] : 1985 Age/S: 33 / F [address] [place] [address] Unit #: [id number] Loc: [place] [address] Phys: Adrianne Painter MD Acct: [id number] Dis Date: Status: REG ER PHONE #: [phone] Exam Date: 10/04/2018 032 FAX #: [phone] Reason: Pelvic Pain EXAMS: CPT CODE: [id number] US PELVIS COMPLETE 83737 EXAM: US, US PELVIS COMPLETE: 10/04/2018 EXAM: US, US TRANSVAGINAL: 10/04/2018 Clinical Indication: Blood in stool. Vomiting blood.. Pelvic pain. Comparison: None. TECHNIQUE: Technique: Grayscale, color and Doppler transabdominal and transvaginal imaging ofthe pelvis was performed with standard technique. FINDINGS: Transabdominal pelvic ultrasound: Uterusis anteverted and heterogenous. Uterus measures 6.1 x [...] cm. LEFT: 2.3 x 2.1 x 2.3 cm.Small follicle seen in the ovaries.. There are no adnexal masses. The limited Doppler images show normal bilateral ovarian blood flow. OTHER FINDINGS: No free fluid in the pelvic cul-de-sac. If there is further concern, followup pelvic sonography or MRI of the pelvis may be performed. IMPRESSION: PAGE1 Signed Report (CONTINUED) Name: SHEILA RODRIGUEZ [facility] [place] : 1985 Age/S: 33 / F [address] [place] [address] Unit #: [id number] Loc: [place] [address] Phys: Adrianne Painter MD Acct: [id number] Dis Date: Status: REG ER PHONE #: [phone] Exam Date: 10/04/2018326 FAX #: [phone] Reason: Pelvic Pain EXAMS: CPT CODE: [id number] US PELVIS COMPLETE 95828 (Continued) 1. Trace fluidin the endometrial and cervical canal. Prominent cervix. 2. Otherwise unremarkable pelvic ultrasoundSL: CONNIE at 0343 Reported and signedby: Luis Mckeon M.D. CC: Adrianne Painter MD; Dave Callahan DO Technologist: Elisha Colmenares RDMS(Ady)(OB) Trnmdb Date/Time: 10/04/2018 (0343) [email or web address] Orig Print D/T: S: 10/04/2018 (0346) Probe: PAGE 2 Signed Report COMPREHENSIVE METABOLIC [id number] 03:26:00 Test Item Value Reference Range Interpretation [...] 20-125 N TOTAL (test code = ALKP) [id number] 03:26:00 Test Item Value Reference Range Interpretation Comments LIPASE (test code = LIP) 125 IUnit/L 73-393 N HCG SERUM [id number] 03:26:00 Test Item Value Reference Range Interpretation Comments HCG SERUM QUAL (test code = SERUM NEGATIVE NEGATIVE HCGQL) COMPREHENSIVE METABOLIC [id number] 03:15:00 Test Item Value Reference Range Interpretation [...] TOTAL (test IUnit/L 20-125 code = ALKP) [id number] 03:15:00 Test Item Value Reference Range Interpretation Comments LIPASE (test code = LIP) IUnit/L 73-393 HCG SERUM [id number] 03:15:00 Test Item Value Reference Range Interpretation Comments HCG SERUM QUAL (test code = SERUM NEGATIVE NEGATIVE HCGQL) CBC W/AUTO [id number] 03:11:00 Test Item Value Reference Range Interpretation [...]
[2022-06-05 21:00] LABS: Urine Blood Negative (Negative); Urine Glucose Negative (Negative); Urine Protein Negative (Negative)
--- NOTE | 2022-06-05 21:02 | EDPHYS ---
Physician Documentation [facility] Name: Jodie Rodriguez Age: 36 yrs Sex: Female : 1985 Arrival Date: 06/05/2022 Time: 20:41 Bed IW2 Private MD: ED Physician Juan Guzman HPI: 06/05 21:00 This 36 yrs old Female presents to ER via Ambulatory with complaints of r/o kb . 21:00 The patient presents with a desire for a test. Onset: The symptoms/episode kb began/occurred today. Modifying factors: The symptoms are alleviated by nothing, the symptoms are aggravated by nothing. Associated signs and symptoms: The patient has no apparent associated signs or symptoms. Severity of symptoms: At their worst the symptoms were very mild, in the emergency department the symptoms are unchanged. The patient has not experienced similar symptoms in the past. The patient has not recently seen a physician. Pt states her last period was 03/26 so she came to get a test. . [employer]: 20:52 LMP 03/26/2022 kb3 Historical: - Allergies: 20:52 Codeine; kb3 20:52 Morphine; kb3 - Home Meds: 21:12 albuterol sulfate 90 mcg/actuation Inhl aepb [Active]; kb3 - PMHx: 20:52 Anxiety; Asthma; depressive disorder; kb3 - PSHx: 20:52 section; Cholecystectomy; kb3 - Immunization history:: Adult Immunizations up to date, Client reports receiving the 2nd dose of the Covid vaccine, Last tetanus immunization: up to date. - Social history:: Smoking status: Patient reports the use of cigarette tobacco products, denies chronic smoking, but will smoke occasionally. ROS: 21:00 Constitutional: Negative for fever, chills, and weight loss. kb 21:00 : Positive for missed period. 21:00 All other systems are negative. Exam: 21:00 Constitutional: This is a well developed, well nourished patient who is awake, alert, kb and in no acute distress. Head/Face: Normocephalic, atraumatic. ENT: Moist Mucous membranes Cardiovascular: Regular rate and rhythm with a normal S1 and S2. No gallops, murmurs, or rubs. No pulse deficits. Respiratory: Respirations even and unlabored. No increased work of breathing. Talking in full sentences Abdomen/GI: Soft, non-tender. No distention Skin: Warm, dry with normal turgor. Normal color. MS/ Extremity: Pulses equal, no cyanosis. Neurovascular intact. Full, normal range of motion. Neuro: Awake and alert, GCS 15, oriented to person, place, time, and situation. Moves all extremities. Normal gait. Vital Signs: 20:48 BP 125 / 78; Pulse 62; Resp 20; Temp 98.8; Pulse Ox 100% ; Weight 88.9 kg; Height 5 ft. kb3 0 in. (152.40 cm); Pain 0/10; 20:48 Body Mass Index 38.28 (88.90 kg, 152.40 cm) kb3 MDM: 20:51 Patient medically screened. kb 20:59 Data reviewed: vital signs, nurses notes. Data interpreted: Pulse oximetry: on room air kb is 100 %. Interpretation: normal. Counseling: I had a detailed discussion with the patient and/or guardian regarding: the historical points, exam findings, and any diagnostic results supporting the discharge/admit diagnosis, lab results, the need for outpatient follow up, a family practitioner, an OB/Gyne specialist, to return to the emergency department if symptoms worsen or persist or if there are any questions or concerns that arise at home. 06/05 21:00 Order name: Urine Dipstick-Ancillary; Complete Time: 21:02 EDMS 06/05 21:05 Order name: Urine --Ancillary (enter results) ds4 06/05 20:43 Order name: Urine Test (obtain specimen); Complete Time: 21:05 ms3 06/05 20:51 Order name: Urine Dipstick-Ancillary (obtain specimen); Complete Time: 21:05 kb Administered Medications: No medications were administered Disposition: 06/06 00:44 Co-signature as Attending Physician, Juan Guzman DO I was immediately available on-site ms3 in the Emergency Department for consultation in the care of the patient. Disposition Summary: 06/05/22 21:01 Discharge Ordered Location: Home kb Condition: Stable kb Diagnosis - Irregular menstruation, unspecified kb Followup: kb - With: Emergency Department - When: As needed - Reason: Worsening of condition Followup: kb - With: Private Physician - When: 2 - 3 days - Reason: Recheck today's complaints, Continuance of care, Re-evaluation by your physician Forms: - Medication Reconciliation Form kb - Thank You Letter kb - Antibiotic Education kb - Prescription Opioid Use kb Signatures: Dispatcher [employer] EDZaynab Goel, BAM-C BAM-Juan Bolivar, DO ms3 Dipika Genao, RN RN kb3
--- NOTE | 2022-06-05 21:02 | ER ---
Nurse's Notes [facility] Name: Jodie Rodriguez Age: 36 yrs Sex: Female : 1985 Arrival Date: 06/05/2022 Time: 20:41 Bed IW2 Private MD: Diagnosis: Irregular menstruation, unspecified Presentation: 06/05 20:48 Chief complaint: Patient states: Pt reports LMP 3 months ago and she has "all the kb3 symptoms" including weight gain, fatigue, N/V. Reports the [employer] has been out of tests for 3 months so she has not taken a home test. Coronavirus screen: Vaccine status: Patient reports receiving the 2nd dose of the covid vaccine. Client denies travel out of the [place] in the last 14 days. Ebola Screen: Patient negative for fever greater than or equal to 101.5 degrees Fahrenheit, and additional compatible Ebola Virus Disease symptoms Patient denies exposure to infectious person. Patient denies travel to an Ebola-affected area in the 21 days before illness onset. Initial Sepsis Screen: Does the patient meet any 2 criteria? No. Patient's initial sepsis screen is negative. Does the patient have a suspected source of infection? No. Patient's initial sepsis screen is negative. Risk Assessment: Do you want to hurt yourself or someone else? Patient reports no desire to harm self or others. Onset of symptoms is unknown. 20:48 Method Of Arrival: Ambulatory kb3 20:48 Acuity: FLORA 4 kb3 Triage Assessment: 20:52 General: Appears in no apparent distress. Behavior is calm, cooperative. Pain: Denies kb3 pain. 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 - Social history:: Smoking status: Patient reports the use of cigarette tobacco products, denies chronic smoking, but will smoke occasionally. Screenin:07 Abuse screen: Denies threats or abuse. Denies injuries from another. Nutritional kb3 screening: No deficits noted. Tuberculosis screening: No symptoms or risk factors identified. Fall Risk None identified. Assessment: 21:07 General: See triage note. kb3 Vital Signs: 20:48 BP 125 / 78; Pulse 62; Resp 20; Temp 98.8; Pulse Ox 100% ; Weight 88.9 kg; Height 5 ft. kb3 0 in. (152.40 cm); Pain 0/10; 20:48 Body Mass Index 38.28 (88.90 kg, 152.40 cm) kb3 ED Course: 20:41 Patient arrived in ED. as 20:42 Juan Guzman DO is Attending Physician. ms3 20:46 Zaynab Hood FNP-C is PHCP. kb 20:52 Triage completed. kb3 20:52 Arm band placed on right wrist. kb3 21:07 Patient has correct armband on for positive identification. kb3 21:07 Urine --Ancillary (enter results) Sent. kb3 21:07 No provider procedures requiring assistance completed. Patient did not have IV access kb3 during this emergency room visit. 21:07 Urine collected: clean catch specimen, clear. kb3 Administered Medications: No medications were administered Medication: 21:07 VIS not applicable for this client. kb3 Outcome: 21:01 Discharge ordered by . kb 21:12 Discharged to home ambulatory. kb3 21:12 Condition: stable 21:12 Discharge instructions given to patient, Instructed on discharge instructions, follow up and referral plans. Demonstrated understanding of instructions, follow-up care. 21:13 Patient left the ED. kb3 Signatures: Zaynab Hood FNP-C FNP-Yael Sprague as Juan Guzman DO DO ms3 Dipika Genao, RN RN kb3
[2022-06-05 21:17] VITALS: BP 125/78; TEMP 98.8; O2SAT 100
== END 2022-06-05 21:13 | disposition home or self-care (01) ==
LOC: ER 20:39
DX: N92.6 Irregular menstruation, unspecified (principal)
CPT/HCPCS: 81003; 81025; 99283

== ENCOUNTER 2022-07-10 16:23 | Emergency (ER) | payer OTHER ==
--- OUTSIDE RECORDS SUMMARY | 2022-07-10 16:28 | XMS REPORT | Continuity of Care Document ---
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 of [place] [phone] [facility] 014 Branch ([facility]) 2020-03-04 2020-03-07 Inpatient HCAPM AJ [id number] [facility] 19:14:00 03:31:04 87 [facility] 2020-02-24 2020-02-24 Emergency E YOON, MHSE MHSE 7531 MH 07:10:00 14:54:00 [facility] 2019-12-30 2019-12-30 Telephone Siri Carney 1.2.840.114 7 [id number] 00:00:00 00:00:00 Y Pediatric 350.1.13.10 s and 4.2.7.2.686 Adult [phone] Primary 314 Care Clinic 2019-12-30 2019-12-30 Telephone Siri Carney 1.2.840.114 7 [id number] [facility] 00:00:00 00:00:00 Y Pediatric 350.1.13.10 ity of [place] and [place] [phone] [facility] 2019-12-11 2019-12-11 Transition Erwin Ansari 1.2.840.114 75 [id number] 00:00:00 00:00:00 of Care Chaneledgardo Gentile 350.1.13.10 [place] 4.2.7.2.686 [id number] 403 2019-12-11 2019-12-11 Transition Erwin Ansari 1.2.840.114 75 [id number] Univers 00:00:00 00:00:00 of Care Chanel Waitey 350.1.13.10 i ty [place] [id number] [facility] 403 Branch 2019-12-08 2019-12-10 Emergency Dhara Rico I [facility] 1.2 .840.114 [id number] 20:56:31 12:39:00 Abu [facility] 350.1.13.10 Clear 4.2.7.2.686 [place] [phone] [place] [address] ([facility]) 2019-12-08 2019-12-10 Emergency Dhara Rico I [facility] 1.2 .840.114 [id number] [facility] 20:56:31 12:39:00 Abu [facility] 350.1.13.10 ity of [place] [phone] [place] [address] [address] ([facility]) 2019-12-08 2019-12-[address] [facility] [id number] Univers 20:56:31 12:39:00 adolfo ESTRADA o f [facility] 2019-11-19 2019-11-19 Transition Erwin Kat 1.2.840.114 [id number] 00:00:00 00:00:00 of Care Avery Waitey 350.1.13.10 [place] [id number] [facility] 2019-11-19 2019-11-19 Transition Erwin Kat 1.2.840.114 753 [id number] Univers 00:00:00 00:00:00 of Care Avery Waitey 350.1.13.10 [place] [phone] [place] [address] Branch 2019-11-18 2019-11-18 Emergency Elizabeth Willson [facility] 1.2.8 40.114 [id number] 17:23:42 21:05:[address] [facility] 350.1.13.10 [place] 4.2.7.2.686 [place] [phone] [place] [address] ([facility]) 2019-11-18 2019-11-18 Emergency Elizabeth Willson [facility] 1.2.8 40.114 [id number] Univers 17:23:42 21:05:00 Zuhair Powell [facility] 350.1.13.10 ity of [place] [phone] [place] [address] Branch ([facility]) 2019-11-18 2019-11-18 Emergency X ANDRE [facility] ERT [id number] Univers 17:23:42 21:05:00 ZUHAIR [facility] 2019-11-17 2019-11-18 Emergency E IHMEE, LAZARO MHSE MHSE 7530 MH 23:37:00 02:43:00 [facility] ady [facility] 2019-11-13 2019-11-13 Telemedici Siri Carney 1.2.840.114 [id number] Univers 10:02:05 10:17:05 ne Visit Y Pediatric 350.1.13.10 ity of [place] and [place] [id number] [facility] [address] [facility] 2019-11-13 2019-11-13 Outpatient R SIRI CARNEY [facility] [id number] Univers 10:15:00 10:15:00 ity [facility] 2019-11-13 2019-11-13 Orders Doctor ONOFRE 1.2.840.114 [id number] 00:00:00 00:00:00 Only Unassigned, RAKESH 350.1.13.10 [place] [facility] 4.2.7.2.686 [id number] 009 2019-11-13 2019-11-13 Orders Doctor ONOFRE 1.2.840.114 [id number] 95 Univers 00:00:00 00:00:00 Only Unassigned, RAKESH 350.1.13.10 it[place] of [place] [facility] 4.2.7.2.686 [place] [phone] [place] [address] Branch 2019-11-08 2019-11-08 Telephone Siri Carney 1.2.840.114 7 [id number] 00:00:00 00:00:00 Y Pediatric 350.1.13.10 s and 4.2.7.2.686 Adult [phone] Primary [facility] 2019-11-08 2019-11-08 Telephone CarneyiSri worley 1.2.840.114 7 [id number] Univers 00:00:00 00:00:00 Y Pediatric 350.1.13.10 ity [place] [phone] [address] 2019-10-18 2019-10-18 Telephone CarneySiri worley 1.2.840.114 7 [id number] Univers 00:00:00 00:00:00 Y Pediatric 350.1.13.10 ity of [place] [phone] [address] 2019-10-02 2019-10-02 Telephone Siri Carney 1.2.840.114 7 [id number] Univers 00:00:00 00:00:00 Y Pediatric 350.1.13.10 ity of [place] and [place] [phone] [address] 2019-09-12 2019-09-12 Office Al [facility] 1.2.840.114 [id number] Univers 12:57:32 13:46:55 Visit Blake, SPECIALTY 350.1.13.10 ity of [facility] 4.2.7.2.686 [place]ish as CENTER AT [phone] Mn [facility] 2019-09-12 2019-09-12 Orders Doctor [place] 1.2.840.114 [id number] Univers 00:00:00 00:00:00 Only Unassigned, RAKESH 350.1.13.10 ity of [place] [facility] 4.2.7.2.686 [place]ish as [phone] [facility] 009 Branch 2019-08-22 2019-08-22 Emergency Magen [facility] 1.2.840.114 [id number] Univers 11:21:43 17:19:00 [facility] [employer] 350.1.13.10 it y of [place] [id number] [facility] 014 Branch ([facility]) 2019-08-22 2019-08-22 Emergency X MAGEN [facility] ERT [id number] Univers 11:21:43 17:19:00 VENKATSHON adolfo [facility] 2019-08-22 2019-08-22 Office Roberto Carlos Hubbard 1.2.840.114 [id number] Univers 09:38:03 09:53:03 Visit , Erika Pediatric 350.1.13.10 ity of [place] and [place] [id number] [address] 2019-08-20 2019-08-20 Transition Erwin Kat 1.2.840.114 [id number] [id number] Univers 00:00:00 00:00:00 of Care Avery Gentile 350.1.13.10 it[place]7.2.[place] [id number] [place] [address] Branch 2019-08-18 2019-08-18 Emergency Arnulfo [facility] 1.2.716.740 [id number] Univers 16:02:43 20:28:00 Ar [facility] 350.1.13.10 it y of [place] [phone] [facility] 014 Branch ([facility]) 2019-08-18 2019-08-18 Nurse [place] Engle 1.2.840.114 [id number] Univers 00:00:00 00:00:00 Triage Angeline CAMERON 350.1.13.10 ity of [facility] 4.2.7.2.686 [place] [phone] [facility] 019 Branch 2019-08-15 2019-08-15 Office CarneySiri worley 1.2.840.114 [id number] Univers 14:01:24 16:11:29 Visit Y Pediatric 350.1.13.10 ity of [place] [id number] [address] 2019-07-23 2019-07-23 Emergency X RICO [facility] ERT [id number] Univers 18:48:12 21:49:00 DHARA mata [facility] 2019-04-12 2019-04-12 Telephone Team, [facility] [place] 1.2.840.114 [id number] Univers 00:00:00 00:00:00 Health RAKESH 350.1.13.10 it y of [facility]OS[facility] 4.2.7.2.686 [place] [id number] [facility] 082 Branch 2019-03-21 2019-03-21 Office Rhett Gabriel 1.2.840.114 [id number] Univers 13:09:44 13:29:44 Visit Bryon Pediatric 350.1.13.10 ity of [place] and [place] [phone] [place] [address] [facility] 2019-03-15 2019-03-15 Office Rhett Massey 1.2.840.114 [id number] Univers 14:04:01 14:19:01 Visit Lana Pediatric 350.1.13.10 ity of [place] and [place] [phone] [facility] 314 [facility] 2019-03-14 2019-03-14 Clinic Siri Carney 1.2.840.114 [id number] [facility] 00:00:00 00:00:00 Assessment Y Pediatric 350.1.13.10 ity of [place] and [place]2.[place] [phone] [address] 2019-03-07 2019-03-07 Office Siri Carney 1.2.840.114 [id number] Univers 13:29:17 13:53:55 Visit Y Pediatric 350.1.13.10 ity of [place] and [place].2.[place] [id number] [address] 2019-02-28 2019-03-01 Emergency Natalio Kurtz [facility] 1.2 .840.114 [id number] Univers 13:57:58 15:30:00 Kevin Vyas 350.1.13.10 ity of [place] [phone] [facility] 109 Branch ([facility]) 2019-02-28 2019-02-28 Office Siri Carney 1.2.840.114 [id number] Univers 13:34:47 15:10:47 Visit Y Pediatric 350.1.13.10 ity of [place] and [place].2.[place] [phone] [address] 2019-02-28 2019-02-28 Telephone PcpAleksin Marely.2.417.660 1700 3517 Univers 00:00:00 00:00:00 Patient Pediatric 350.1.13.10 ity of Does Not s and 4.2.7.2.686 [place] as Have A Adult [phone] [address] Results Test Description Test Time Test Comments Results Result Comments Source COMP. METABOLIC PANEL (00645) 2022-06-29 18:22:57 Test Item Value Reference Range Interpretation Comme nts NA (test code = 0766231712) 137 mmol/L 135-145 K (test code = 5307846475) 4.4 mmol/L 3.5-5.0 CL (test code = 2605053588) 104 mmol/L 98-108 CO2 TOTAL (test code = 27 mmol/L 23-31 3364518851) AGAP (test code = 8365176368) 2-16 BUN (test code = 1189454003) 7 mg/dL 7-23 GLUCOSE (test code = 9954798280) 94 mg/dL 70-110 CREATININE (test code = 0.71 mg/dL 0.50-1.04 6817742921) TOTAL BILI (test code = 0.5 mg/dL 0.1-1.1 9443645541) CALCIUM (test code = 6287030042) 8.7 mg/dL 8.6-10.6 T PROTEIN (test code = 6.8 g/dL 6.3-8.2 1239240924) ALBUMIN (test code = 8557161820) 4.0 g/dL 3.5-5.0 ALK PHOS (test code = 2852672533) 78 U/L 34-122 ALTv (test code = 1742-6) 20 U/L 5-35 AST(SGOT) (test code = 25 U/L 13-40 2466280973) eGFR (test code = 1926381202) mL/min/1.73m2 ADARSH (test code = ADARSH) Association of Glomerular Filtration Rate (GFR) and Staging of Kidney Disease* + +--------- + ----+| GFR (mL/min/1.73 m2) ?| With Kidney Damage ?| ?Without Kidney Damage+ +--- + +| ?>90 ?| ?Stage one ?| ? Normal ?+ +-------- + -----+| ?60-89 ?| ?Stage two ?| ? Decreased GFR ? + +--------- + ----+| ?30-59 ?| ?Stage three ?| ? Stage three ? + +--------- + ----+| ?15-29 ?| ?Stage four ? | ? Stage four ?+ +-------- + -----+| ?<15 (or dialysis) ? ?| ?Stage five ? | ? Stage five ?+ +-------- + -----+ *Each stage assumes the associated GFR level has been in effect for at least three months. ?Stages 1 to 5, with or without kidney disease, indicate chronic kidney disease. Notes: Determination of stages one and two (with eGFR >59mL/min/1.73 m2) requires estimation of kidney damage for at least three months as defined by structural or functional abnormalities of the kidney, manifested by either:Pathological abnormalities or Markers of kidney damage (including abnormalities in the composition of the blood or urine or abnormalities in imaging tests). [facility] WITH [id number] 18:08:32 Test Item Value Reference Range Interpretation Comments WBC (test code = See_Comment [Automated 8124-2) message] The sy stem which generated this result transmitted reference range : 4.30 - 11.10 10*3/?L. The reference range was not used to interpret this result as normal/abnormal . RBC (test code = See_Comment [Automated 178-8) message] The sy stem which generated this result transmitted reference range : 3.93 - 5.25 10*6/?L. The reference range was not used to interpret this result as normal/abnormal . HGB (test code = 12.6 g/dL 11.6-15.0 718-7) HCT (test code = 38.4 % 35.7-45.2 4544-3) MCV (test code = 92.8 fL 80.6-95.5 787-2) MCH (test code = 30.4 pg 25.9-32.8 785-6) MCHC (test code = 32.8 g/dL 31.6-35.1 786-4) RDW-SD (test code = 41.9 fL 39.0-49.9 84866-7) RDW-CV (test code = 12.2 % 12.0-15.5 788-0) PLT (test code = See_Comment [Automated 777-3) message] The sy stem which generated this result transmitted reference range : 166 - 358 10*3/ ?L. The reference r cecilia was not used to interpret this result as normal/abnormal . MPV (test code = 11.4 fL 9.5-12.9 51795-7) NRBC/100 WBC (test See_Comment [Automat ed code = 4431963867) message] The system which generated this result transmitted reference range : 0.0 - 10.0 /100 WBCs. The refer ence range was not u sed to interpret th is result as normal/abnormal . NRBC x10^3 (test code See_Comment [Auto mated = 7506117131) message] The s ystem which generated this result transmitted reference range : 10*3/?L. The reference range was not used to interpret this result as normal/abnormal . GRAN MAT (NEUT) % 56.8 % (test code = 770-8) IMM GRAN % (test code 0.40 % = 9213075547) LYMPH % (test code = 25.2 % 736-9) MONO % (test code = 4.8 % 5905-5) EOS % (test code = 11.8 % 713-8) BASO % (test code = 1.0 % 706-2) GRAN MAT x10^3(ANC) 4.46 10*3/uL 1.88-7.09 (test code = 5536244343) IMM GRAN x10^3 (test 0.03 10*3/uL 0.00-0.06 code = 4763634292) LYMPH x10^3 (test code 1.98 10*3/uL 1.32-3.29 = 731-0) MONO x10^3 (test code 0.38 10*3/uL 0.33-0.92 = 742-7) EOS x10^3 (test code = 0.93 10*3/uL 0.03-0.39 H 711-2) BASO x10^3 (test code 0.08 10*3/uL 0.01-0.07 H = 704-7) Lab Interpretation Abnormal (test code = 42763-8) [facility] [place] [facility] [id number] 17:29:00 Test Item Value Reference Range Interpretation Comments POCT PREG (test code = 1605) negative On board controls acceptable with positive C Line (test code = 3574) POCT PREG LOT # (test code = 3575) [id number] POCT PREG TEST DATE (test 10-22-2023 code = 3576) Lab Interpretation (test code = Normal 23057-1) [facility] [id number] 17:20:00 Test Item Value Reference Range Interpretation Comments POCT PREG (test code = 1605) Negative On board controls acceptable with Yes C Line (test code = 3574) POCT PREG LOT # (test code = 3575) [id number] POCT PREG TEST DATE (test 09/20/22 code = 3576) [facility] [place] [facility] HCG TRIAGE (ER ONLY)2021-09-20 13:37:00 Test Item Value Reference Range Interpretation Comments URINE HCG TRIAGE (ER ONLY) (test NEGATIVE Negative code = HCGTRIAGE) Urine Test Result: NEGATIVEAre internal controls (presence of a control line & clear background) OK? YesLot # of HCG Test Kit: [id number] Date of Kit: 09/18/21Test Performed by:KRISTINA RNTest Perfomed on: 09/18/21- CT ABD PELVIS [id number] 00:00:00 [facility]: SHEILA RODRIGUEZ : 1985 Sex: F Name: SHEILA RODRIGUEZ FSED : 1985 Age/S: 36 / F [address] Unit #: [id number] Loc: [place] [address] Phys: Linda Kendrick MD Acct: [id number] Dis Date: Status: REG ERPHONE #: Exam Date: 2021 0310 FAX #: Reason: lower abdominal pain EXAMS: CPT CODE: [id number] CT ABD PELVIS W/CONT 33164 PROCEDURE INFORMATION: Exam: CT Abdomen And Pelvis With Contrast Exam date and time: 2021 3:11 AM Age: 36 years old Clinical indication: Abdominal pain; Localized; Lower;Prior surgery; Surgery date: 6+ months; Surgery type: [...] clinical indication); or iterative reconstruction. Contrast material: RWW095; Contrast volume: 95 ml; Contrast route: INTRAVENOUS [...] or evidence of diverticulosis or diverticulitis. Appendix: Noevidence of appendicitis. Intraperitoneal space: Unremarkable. No free [...] : 1985 Age/S: 36 / F [address] Unit #: [id number] Loc: [place] [address] Phys: Linda Kendrick MD Acct: [id number] Dis Date: Status: REG ER PHONE #: Exam Date: 2021 0310 FAX #: Reason: lower abdominal pain EXAMS: CPT CODE: [id number] CT ABD PELVIS W/CONT 11202 (Continued) at 0355 Reported and signed by: Aubrie Busch M.D CC: Linda Kendrick MD; Dave Callahan DO Technologist:RT Soledad(R)(CT) CTDI: DLP: Trnscb Date/Time: 2021 (354) [email or web address] Orig Print D/T: S: 2021 (354) PAGE 2 Signed ReportBASIC METABOLIC [id number] 06:50:00 Test Item Value Reference Range Interpretation [...] CA) 9.3 MG/DL 8.5-10.1 N HEPATIC FUNCTION [id number] 06:50:00 Test Item Value Reference Range Interpretation [...] 45-117 N code = ALKP) BASIC METABOLIC [id number] 06:46:00 Test Item Value Reference Range Interpretation [...] CA) 9.3 MG/DL 8.5-10.1 N HEPATIC FUNCTION [id number] 06:46:00 Test Item Value Reference Range Interpretation [...] = ALKP) UA RFLX MICR CULT IF [id number] 06:43:00 Test Item Value Reference Range Interpretation [...] Indication for culture: RiskForSepsis-no oth srcUR HCG [id number] 06:43:00 Test Item Value Reference Range Interpretation Comments UR HCG QUAL (test code = HCGQLU) NEGATIVE NEGATIVE Indication for culture: RiskForSepsis-no oth src- XR CHEST 1 [id number] 06:38:00[facility] : 1985 Sex: F Name: SHEILA RODRIGUEZ [place] : 1985 Age/S: 34 / F [address] Unit #: [id number] Loc: [place] [address] Phys: Tolu Ashby MD Acct: [id number] Dis Date: Status: PRE ER PHONE #: [phone] Exam Date: 08/15/2020624 FAX #: Reason: chest pain EXAMS: CPT: [id number] XR CHEST 1 V 88445 Fluoro Time: DAP (Gy m2): Air Kerma [...] PAGE 1 Signed Report Name: SHEILA RODRIGUEZ [place] : 1985 Age/S: 34 / F [address] Unit #: [id number] Loc: [place] [address] Phys: Tolu Ashby MD Acct: [id number] Dis Date: Status: PRE ER PHONE #: [phone] Exam Date: 08/15/2020624 FAX #: Reason: chest pain EXAMS: CPT: [id number] XR CHEST 1 V 61782 Fluoro Time: DAP (Gy m2): Air Kerma (mGy): <Continued> Technologist: Jaiden Moise RT(R)(MR) Trnscb Date/Time: 08/15/2020 (0638) [email or web address] Orig Print D/T: S: 08/15/2020 (2488) PAGE 2 Signed ReportUA RFLX MICR CULT IF [id number] 06:36:00 Test Item Value Reference Range Interpretation [...] Indication for culture: RiskForSepsis-no oth srcUR HCG [id number] 06:36:00 Test Item Value Reference Range Interpretation Comments UR HCG QUAL (test code = HCGQLU) NEGATIVE NEGATIVE Indication for culture: RiskForSepsis-no oth srcCBC W/O [id number] 06:36:00 Test Item Value Reference Range Interpretation [...] H MPV) UA RFLX MICR CULT IF [id number] 06:32:00 Test Item Value Reference Range Interpretation [...] Indication for culture: RiskForSepsis-no oth srcUR HCG [id number] 06:32:00 Test Item Value Reference Range Interpretation Comments UR HCG QUAL (test code = HCGQLU) NEGATIVE Indication for culture: RiskForSepsis-no oth src- CT ABD PELVIS [id number] 22:06:00 Name: SHEILA RODRIGUEZ [facility] : 1985 Age/S: 34 / F [address] Unit #: [id number] Loc: [place] [address] Phys: Tolu Ashby MD Acct: [id number] Dis Date: Status: REG ER PHONE #: [phone] Exam Date: 03/04/20202131 FAX #: Reason: LLQ pain, tenderness EXAMS: CPT: [id number] CT ABD PELVIS W/CONT 94131 Location code: CT Abdomen and Pelvis with [...] 1 Signed Report (CONTINUED) Name: SHEILA RODRIGUEZ [place] : 1985 Age/S: 34 / F [address] [facility] Unit #: [id number] Loc: [place] [address] Phys: Tolu Ashby MD Acct: [id number] Dis Date: Status: REG ERPHONE #: [phone] Exam Date: 03/04/20202131 FAX #: Reason: LLQ pain, tenderness EXAMS: CPT: [id number] CT ABD PELVIS W/CONT 74575 <Continued> Uterus is unremarkable. No adnexal masses [...] culture: Suprapubic PainUA RFLX MICR CULT IF [id number] 21:17:00 Test Item Value Reference Range Interpretation [...] CLEAN CATCHIndication for culture: Suprapubic PainBASIC METABOLIC [id number] 20:31:00 Test Item Value Reference Range Interpretation [...] CA) 8.6 MG/DL 8.5-10.1 N HEPATIC FUNCTION [id number] 20:31:00 Test Item Value Reference Range Interpretation [...] 45-117 N code = ALKP) CBC W/AUTO [id number] 20:22:00 Test Item Value Reference Range Interpretation [...] CRITERIA = MDIFF) - XR C-SPINE 2-3 [id number] 17:22:00 FAX: Dave Calero DO [phone] [place]: [facility]: [facility] FAX: Rosenda Engle [phone] ---- Name: SHEILA RODRIGUEZ [facility] : 1985 Age/S: 33/F [address] [place] [address] Unit #: [id number] Loc: [place] [address] Phys: Rosenda Engle Acct: [id number] Dis Date: Status: REG ER PHONE #: [phone] Exam Date: 11/25/2018 1718 FAX #: [phone] Reason: NECK PAIN EXAMS: CPT CODE: [id number] XR C-SPINE 2-3 VIEWS 47533 CERVICAL SPINE SERIES 11/25/2018 AT 1652 HOURS. [...] Engle Technologist: RT Negro(R) Trnscrd Date/Time/By: 11/25/2018 (172) : By: [email or web address] Orig Print D/T: S: 11/25/2018 (6326) PAGE 1 Signed ReportURINALYSIS [id number] 16:40:00 Test Item Value Reference Range Interpretation [...] MUCU) TRACE /LPF NONE SEEN UR HCG [id number] 16:40:00 Test Item Value Reference Range Interpretation Comments UR HCG QUAL (test code = HCGQLU) NEGATIVE NEGATIVE URINALYSIS [id number] 04:22:00 Test Item Value Reference Range Interpretation [...] SAAD) UA PH DIPSTICK (test code = BENYN) 5.0 5.0-7.0 N UA PROTEIN DIPSTICK (test [...] COMMENTS: Clean Catch- CT ABD PELVIS W/O [id number] 03:52:00 Name: SHEILA RODRIGUEZ [facility] : 1985 Age/S: 33 / F [address] [place] [address] Unit #: [id number] Loc: [place] [address] Phys: Adrianne Painter MD Acct: [id number] Dis Date: Status: REG ER PHONE #: [phone] Exam Date: 10/04/2018 033 FAX #: [phone] Reason: rlq abd pain EXAMS: CPT CODE: [id number] CT ABD PELVIS W/O CONT [id number] EXAM: CT, CT abdomen pelvis without contrast: [...] 1 Signed Report (CONTINUED) Name: SHEILA RODRIGUEZ [facility] : 1985 Age/S: 33 / F [address] [place] [address] Unit #: [id number] Loc: [place] [address] Phys: Adrianne Paniter MD Acct: [id number] Dis Date: Status: REG ER PHONE #: [phone] Exam Date: 10/04/2018337 FAX #: [phone] Reason: rlq abd pain EXAMS: CPT CODE: [id number] CT ABD PELVIS W/O CONT 99321 (Continued) PERITONEUM AND RETROPERITONEUM: No ascites or freeair. No other fluid collection. There is no aortic aneurysm seen. LYMPH NODES: Unremarkable. PELVIS:No pelvic mass or adenopathy. Uterus is anteverted and unremarkable. Ovaries are unremarkable. BLADDER: Unremarkable. OSSEOUS STRUCTURES: No acute abnormality seen. SOFT TISSUES: Unremarkable. IMPRESSION: 1. No acute abdominal or pelvic abnormality. SL: CONNIE at 0352 Reported and signed by: Luis Mckeon M.D. CC: Adrianne Painter MD; Dave Callahan DO Technologist:RT Young(R) CTDI: DLP: Trnscb Date/Time: 10/04/2018 (0352) [email or web address] Orig Print D/T: S: 10/04/2018 (0355) CTDI: DLP: PAGE 2 Signed Report- US TRANSVAGINAL NON [id number] 03:43:00 Name: SHEILA RODRIGUEZ [facility] : 1985 Age/S: 33 / F [address] [place] [address] Unit #: [id number] Loc: [place] [address] Phys: Adrianne Painter MD Acct: [id number] Dis Date: Status: REG ER PHONE #: [phone] Exam Date: 10/04/2018326 FAX #: [phone] Reason: Pelvic Pain EXAMS:CPT CODE: [id number] [place] [address] EXAM: US, US PELVIS COMPLETE: 10/04/2018 EXAM: [...] 1 Signed Report (CONTINUED) Name: SHEILA RODRIGUEZ [facility] : 1985 Age/S: 33 / F [address] [place] [address] Unit #: [id number] Loc: [place] [address] Phys: Adrianne Painter MD Acct: [id number] Dis Date: Status: REG ER PHONE #: [phone] Exam Date: 10/04/2018 032 FAX #: [phone] Reason: Pelvic Pain EXAMS: CPT CODE: [id number] [place] [address] (Continued) 1. Trace fluid in the endometrial and cervical canal. Prominent cervix. 2. Otherwise unremarkable pelvic ultrasound SL: JSYED-H at 0343 Reported and signed by: Luis Mckeon M.D. CC: Adrianne Painter MD; Dave Callahan DO Technologist: Elisha Colmenares RDMS(Ady)(OB) Trnmob Date/Time: 10/04/2018 (0343) [email or web address] Orig Print D/T: S: 10/04/2018 (0346) Probe: [id number] PAGE 2 Signed Report- US PELVIS [id number] 03:43:00 Name: SHEILA RODRIGUEZ [facility] : 1985 Age/S: 33 / F [address] [place] [address] Unit #: [id number] Loc: [place] [address] Phys: Adrianne Painter MD Acct: [id number] Dis Date: Status: REGER PHONE #: [phone] Exam Date: 10/04/2018326 FAX #: [phone] Reason: Pelvic Pain EXAMS:CPT CODE: [id number] US PELVIS COMPLETE 92285 EXAM: US, US PELVIS COMPLETE: 10/04/2018 EXAM: [...] PAGE 1Signed Report (CONTINUED) [facility] 1985 Age[facility]S: 33 / F [address] [place] [address] Blvd Unit #: [id number] Loc: [place] [address] Phys: Adrianne Painter MD Acct: [id number] Dis Date: Status: REG ER PHONE #: [phone] Exam Date: 10/04/2018326 FAX #: [phone] Reason: Pelvic Pain EXAMS: CPT CODE: [id number] US PELVIS COMPLETE 75279 (Continued) 1. Trace fluid in the endometrial and cervical canal. Prominent cervix. 2. Otherwise unremarkable pelvic ultrasound SL: CONNIE at 0343 Reported and signed by: Luis Mckeon M.D. CC: Adrianne Painter MD; Dave Callahan DO Technologist: Elisha Colmenares RDMS(Ady)(OB) Trnscb Date/Time: 10/04/2018 (034) [email or web address] Orig Print D/T: S: 10/04/2018 (034) Probe: PAGE 2 Signed ReportCOMPREHENSIVE METABOLIC [id number] 03:26:00 Test Item Value Reference Range Interpretation [...] 20-125 N TOTAL (test code = ALKP) [id number] 03:26:00 Test Item Value Reference Range Interpretation Comments LIPASE (test code = LIP) 125 IUnit/L 73-393 N HCG SERUM [id number] 03:26:00 Test Item Value Reference Range Interpretation Comments HCG SERUM QUAL (test code = SERUM NEGATIVE NEGATIVE HCGQL) COMPREHENSIVE METABOLIC [id number] 03:15:00 Test Item Value Reference Range Interpretation [...] TOTAL (test IUnit/L 20-125 code = ALKP) [id number] 03:15:00 Test Item Value Reference Range Interpretation Comments LIPASE (test code = LIP) IUnit/L 73-393 HCG SERUM [id number] 03:15:00 Test Item Value Reference Range Interpretation Comments HCG SERUM QUAL (test code = SERUM NEGATIVE NEGATIVE HCGQL) CBC W/AUTO [id number] 03:11:00 Test Item Value Reference Range Interpretation [...] MANUAL DIFF REQUIRED (test NO code = MDIFF)"
[2022-07-10 16:48] LABS: Urine Blood Negative (Negative); Urine Glucose Negative (Negative); Urine Protein Negative (Negative); Urine Specific Gravity 1.015 (1.005-1.030)
[2022-07-10 17:05] LABS: Absolute Lymphocytes (CBC) 0.9 K/uL (0.7-4.9); Hematocrit 37.7 % (36.0-45.0); Lymphocytes % 17.5 % (15.3-44.8); MPV 10.1 fL (7.6-11.3)
[2022-07-10 17:20] LABS: ALT/SGPT 23 U/L (13-56); AST/SGOT 20 U/L (15-37); BUN Blood Urea Nitrogen 9 mg/dL (7-18); Bicarbonate 27 mmol/L (21-32); Glomerular Filtration Rate 90 ml/min (=/>90); Glucose Level 92 mg/dL (74-106); Potassium 3.7 mmol/L (3.5-5.1); Sodium Level 135 mmol/L (136-145)
[2022-07-10 17:21] LABS: Albumin 3.4 g/dL (3.4-5.0); Alkaline Phosphatase 72 U/L (45-117); Bilirubin Total 0.1 mg/dL (0.2-1.0)
--- NOTE | 2022-07-10 17:35 | RAD REPORT ---
EXAM DESCRIPTION: CT - Head Brain Wo Cont - 07/10/2022 5:19 pm CLINICAL HISTORY: new seizure COMPARISON: <Comparisons> TECHNIQUE: Axial 5 mm thick images of the head were obtained without IV contrast. All CT scans are performed using dose optimization technique as appropriate and may include automated exposure control or mA/KV adjustment according to patient size. FINDINGS: No intracranial hemorrhage is present and there is no focal mass or midline shift. A focal acute cortical infarction is not seen. Sulci are not well defined. Martel matter- white matter differe ntiation is somewhat indistinct. No abnormal extra-axial fluid collections. Third ventricle is relati vely narrow. Temporal horns of the lateral ventricles are not identifiable. Sylvian fissures are stil l well defined and basilar cisterns are still visualized. Mastoid air cells and visualized portions of the paranasal sinuses are clear. No acute bony findings. IMPRESSION: No hemorrhage, focal mass or midline shift. No comparison baseline studies available. Patient does have findings questionable for mild cerebral e alissa. Correlation is needed with clinical presentation.
[2022-07-10 18:26] LABS: Urine Specific Gravity/Preg 1.015 (1.005-1.030)
[2022-07-10 18:30] LABS: Bilirubin Direct < 0.1 mg/dL (0-0.2)
--- NOTE | 2022-07-10 18:39 | ER ---
Nurse's Notes [facility] Name: Jodie Rodriguez Age: 36 yrs Sex: Female : 1985 Arrival Date: 07/10/2022 Time: 16:26 Bed 5 Private MD: Diagnosis: Other seizures;Anxiety disorder, unspecified Presentation: 07/10 16:33 Chief complaint: Family reports pt started shaking in her sleep and was unresponsive hb for approx 2-3 minutes with loss of bladder 1 hour ago. Coronavirus screen: At this time, the client does not indicate any symptoms associated with coronavirus-19. Ebola Screen: No symptoms or risks identified at this time. Initial Sepsis Screen: Does the patient meet any 2 criteria? No. Patient's initial sepsis screen is negative. Does the patient have a suspected source of infection? No. Patient's initial sepsis screen is negative. Risk Assessment: Do you want to hurt yourself or someone else? Patient reports no desire to harm self or others. Onset of symptoms was July 10, 2022. 16:33 Method Of Arrival: Ambulatory hb 16:33 Acuity: FLORA 3 hb ROLLER SKATER: 17:02 LMP N/A - control method mb9 Historical: - Allergies: 16:36 Codeine; hb 16:36 Morphine; hb - Home Meds: 16:36 albuterol sulfate 90 mcg/actuation Inhl aepb [Active]; hb - PMHx: 16:36 Anxiety; Asthma; depressive disorder; hb - PSHx: 16:36 section; Cholecystectomy; hb - Immunization history:: Adult Immunizations up to date. - Social history:: Smoking status: Patient denies any tobacco usage or history of. Screenin:02 [facility] ED Fall Risk Assessment (Adult) History of falling in the last 3 months, mb9 including since admission No falls in past 3 months (0 pts) Confusion or Disorientation No (0 pts) Intoxicated or Sedated No (0 pts) Impaired Gait No (0 pts) Mobility Assist Device Used No (0 pt) Altered Elimination No (0 pt) Score/Fall Risk Level 0 - 2 = Low Risk Oriented to surroundings, Maintained a safe environment, Educated pt \T\ family on fall prevention, incl call for assistance when getting out of bed. Abuse screen: Denies threats or abuse. Nutritional screening: No deficits noted. Tuberculosis screening: No symptoms or risk factors identified. Assessment: 17:00 General: Appears in no apparent distress. comfortable, Behavior is calm, cooperative, mb9 appropriate for age. Pain: Complains of pain in head Pain does not radiate. Pain currently is 3 out of 10 on a pain scale. Quality of pain is described as aching, Pain began suddenly. Neuro: Fontenot Agitation-Sedation Scale (RASS): 0 - Alert and Calm Level of Consciousness is awake, alert, obeys commands, Oriented to person, place, time, situation, Appropriate for age. Neuro: Turkish Line Attendant are equal bilaterally Moves all extremities. Gait is steady, Speech is normal, Facial symmetry appears normal, Pupils are PERRLA, Intact Reports headache. Cardiovascular: Heart tones S1 S2 present Rhythm is regular. Respiratory: Airway is patent Respiratory effort is even, unlabored, Respiratory pattern is regular, symmetrical, Breath sounds are clear bilaterally. GI: Abdomen is round non-distended, Bowel sounds present X 4 quads. Abd is soft and non tender X 4 quads. Reports nausea. : No signs and/or symptoms were reported regarding the genitourinary system. EENT: No signs and/or symptoms were reported regarding the EENT system. Derm: Skin is pink, warm \T\ dry. Musculoskeletal: Range of motion: intact in all extremities. 17:10 Reassessment: pt taken to CT via stretcher. mb9 18:10 Reassessment: No changes from previously documented assessment. Reassessment: pt states mb9 she's in pain and having anxiety. Pt crying. Airway is patent, respirations are clear and unlabored. Rhythm is regular. Skin is warm, dry, and intact. 18:55 Reassessment: Patient denies pain at this time. Patient states feeling better. Patient mb9 states symptoms have improved. Vital Signs: 16:33 BP 126 / 71; Pulse 86; Resp 16; Temp 97.9; Pulse Ox 100% on R/A; Weight 68.04 kg; hb Height 5 ft. (152.40 cm); Pain 5/10; 18:00 BP 103 / 86; Pulse 84; Resp 28; Pulse Ox 99% on 35% BiPAP; mb9 18:50 BP 92 / 63; Pulse 88; Resp 16; Pulse Ox 99% ; Pain 0/10; mb9 16:33 Body Mass Index 29.29 (68.04 kg, 152.40 cm) ED Course: 16:26 Patient arrived in ED. rg4 16:27 Tyrone Salinas MD is Attending Physician. sp3 16:35 EKG done, by ED staff. mb9 16:35 Inserted saline lock: 20 gauge in right antecubital area, using aseptic technique. mb9 Blood collected. 16:36 Triage completed. hb 16:36 Arm band placed on. hb 16:36 Placed in gown. Bed in low position. Call light in reach. Side rails up X 1. Seizure mb9 precautions initiated. Client placed on continuous cardiac and pulse oximetry monitoring. NIBP monitoring applied. home health travel ot on. 16:47 Delia Ewing, RN is Primary Nurse. mb9 16:59 Basic Metabolic Panel Sent. mb9 16:59 CBC with Diff Sent. mb9 16:59 Hepatic Function Sent. mb9 16:59 Urine Drug Screen Sent. mb9 17:03 No provider procedures requiring assistance completed. mb9 17:20 CT Head Brain wo Cont In Process Unspecified. EDMS Administered Medications: 18:38 Drug: Ativan (LORazepam) 2 mg Route: IVP; Site: right antecubital; mb9 18:55 Follow up: Response: No adverse reaction mb9 Medication: 17:02 VIS not applicable for this client. mb9 Outcome: 18:39 Discharge ordered by . sp3 19:27 Discharged to home ambulatory. aa9 19:27 Condition: stable 19:27 Discharge instructions given to patient, Instructed on discharge instructions, follow up and referral plans. Demonstrated understanding of instructions, follow-up care. 19:35 Patient left the ED. mb9 Signatures: Dispatcher [employer] EDMS Senait Reddy RN RN Shahnaz Lassiter rg4 Tyrone Salinas MD MD sp3 Corazon Wilkinson RN RN aa9 Delia Ewing, [facility] RN mb9 Corrections: (The following items were deleted from the chart) 19:30 19:29 IV discontinued, intact, bleeding controlled, No redness/swelling at site. aa9 Pressure dressing applied, mb9
--- NOTE | 2022-07-10 18:39 | EDPHYS ---
Physician Documentation [facility] Name: Jodie Rodriguez Age: 36 yrs Sex: Female : 1985 Arrival Date: 07/10/2022 Time: 16:26 Bed 5 Private MD: ED Physician Tyrone Salinas HPI: 07/10 16:48 This 36 yrs old Female presents to ER via Ambulatory with complaints of sp3 Anxiety. 16:48 36-year-old female with a history of anxiety, depression, asthma and recent upper sp3 respiratory infection diagnosis for which she is on Augmentin from [facility] now presents to the ED for a "event" that happened just prior to arrival. Patient and significant other state that patient was sitting on the couch and then developed sudden shaking action during which she was incoherent and lost control of her urine followed by event ending on its own in a period of decreased responsiveness followed by full recovery. They describe it as a anxiety event however also possibly be a seizure. She also states she has a mild headache with her symptoms including neck pain, neck stiffness, fever, facial pain, chest pain, shortness of breath, abdominal pain, rash, known sick contacts, travel history, or any other findings on ROS at this time.. WHARF HAND: 17:02 LMP N/A - control method mb9 Historical: - Allergies: 16:36 Codeine; hb 16:36 Morphine; hb - Home Meds: 16:36 albuterol sulfate 90 mcg/actuation Inhl aepb [Active]; hb - PMHx: 16:36 Anxiety; Asthma; depressive disorder; hb - PSHx: 16:36 section; Cholecystectomy; hb - Immunization history:: Adult Immunizations up to date. - Social history:: Smoking status: Patient denies any tobacco usage or history of. ROS: 16:50 Constitutional: Negative for fever, chills, and weight loss, Eyes: Negative for injury, sp3 pain, redness, and discharge, ENT: Negative for injury, pain, and discharge, Neck: Negative for injury, pain, and swelling, Cardiovascular: Negative for chest pain, palpitations, and edema, Respiratory: Negative for shortness of breath, cough, wheezing, and pleuritic chest pain, Abdomen/GI: Negative for abdominal pain, nausea, vomiting, diarrhea, and constipation, Back: Negative for injury and pain, : Negative for injury, bleeding, discharge, and swelling, MS/Extremity: Negative for injury and deformity, Skin: Negative for injury, rash, and discoloration, Psych: Negative for depression, anxiety, suicide ideation, homicidal ideation, and hallucinations, Allergy/Immunology: Negative for hives, rash, and allergies, Endocrine: Negative for neck swelling, polydipsia, polyuria, polyphagia, and marked weight changes, Hematologic/Lymphatic: Negative for swollen nodes, abnormal bleeding, and unusual bruising. 16:50 All other systems are negative. Exam: 16:50 Constitutional: This is a well developed, well nourished patient who is awake, alert, sp3 and in no acute distress. Head/Face: Normocephalic, atraumatic. Eyes: Pupils equal round and reactive to light, extra-ocular motions intact. Lids and lashes normal. Conjunctiva and sclera are non-icteric and not injected. Cornea within normal limits. Periorbital areas with no swelling, redness, or edema. ENT: Nares patent. No nasal discharge, no septal abnormalities noted. External auditory canals are clear. Oropharynx with no redness, swelling, or masses, exudates, or evidence of obstruction, uvula midline. Mucous membranes moist. Neck: Trachea midline, no thyromegaly or masses palpated, and no cervical lymphadenopathy. Supple, full range of motion without nuchal rigidity, or vertebral point tenderness. No Meningismus. Chest/axilla: Normal chest wall appearance and motion. Nontender with no deformity. No lesions are appreciated. Cardiovascular: Regular rate and rhythm with a normal S1 and S2. No gallops, murmurs, or rubs. Normal PMI, no JVD. No pulse deficits. Respiratory: Lungs have equal breath sounds bilaterally, clear to auscultation and percussion. No rales, rhonchi or wheezes noted. No increased work of breathing, no retractions or nasal flaring. Abdomen/GI: Soft, non-tender, with normal bowel sounds. No distension or tympany. No guarding or rebound. No evidence of tenderness throughout. Back: No spinal tenderness. No costovertebral tenderness. Full range of motion. Skin: Warm, dry with normal turgor. Normal color with no rashes, no lesions, and no evidence of cellulitis. MS/ Extremity: Pulses equal, no cyanosis. Neurovascular intact. Full, normal range of motion. Neuro: Awake and alert, GCS 15, oriented to person, place, time, and situation. Cranial nerves II-XII grossly intact. Motor strength 5/5 in all extremities. Sensory grossly intact. Cerebellar exam normal. Normal gait. Psych: Awake, alert, with orientation to person, place and time. Behavior, mood, and affect are within normal limits. 17:36 ECG was reviewed by the Attending Physician. EKG is normal sinus rhythm at 81 bpm with sp3 normal intervals, normal QRS, normal axis, normal axis ST segments without evidence of acute ischemia. Vital Signs: 16:33 BP 126 / 71; Pulse 86; Resp 16; Temp 97.9; Pulse Ox 100% on R/A; Weight 68.04 kg; hb Height 5 ft. (152.40 cm); Pain 5/10; 18:00 BP 103 / 86; Pulse 84; Resp 28; Pulse Ox 99% on 35% BiPAP; mb9 18:50 BP 92 / 63; Pulse 88; Resp 16; Pulse Ox 99% ; Pain 0/10; mb9 16:33 Body Mass Index 29.29 (68.04 kg, 152.40 cm) hb MDM: 16:36 Patient medically screened. sp3 16:50 Data reviewed: vital signs, nurses notes. ED course: 36-year-old female who presents to sp3 the ED with likely single seizure event. Will obtain CT scan of the head, laboratory values, urine analysis including urine drug screen. Patient likely had a single seizure episode and if work-up is negative, we will discharge her home to neurology follow-up. Likely have ruled out CVA, ICH, cranial mass, meningitis, sepsis, shock, or any other critical findings. Remainder work-up is negative, we will discharge patient home as outlined above. Patient is okay with the plan and states she will not drive until she is fully evaluated. All questions answered and plan is excepted by all.. 18:36 ED course: CT scan negative and laboratory values are within normal limits. UDS was not sp3 available secondary to machine being down however I am not highly suspicious for drug-induced seizure. Patient has had no seizure activity here in the ER. She appears anxious and we will give her Ativan 2 mg IV and discharge her after that.. 07/10 16:38 Order name: Basic Metabolic Panel sp3 07/10 16:38 Order name: CBC with Diff; Complete Time: 17:36 sp3 07/10 16:38 Order name: Hepatic Function sp3 07/10 16:38 Order name: Urine Drug Screen sp3 07/10 16:48 Order name: Urine Dipstick-Ancillary; Complete Time: 17:36 EDMS 07/10 16:57 Order name: Urine --Ancillary (enter results); Complete Time: 18:28 eb 07/10 16:38 Order name: EKG; Complete Time: 16:39 sp3 07/10 16:38 Order name: EKG - Nurse/Tech; Complete Time: 16:59 sp3 07/10 16:38 Order name: IV Saline Lock; Complete Time: 16:59 sp3 07/10 16:38 Order name: Labs collected and sent; Complete Time: 16:59 sp3 07/10 16:38 Order name: Urine Dipstick-Ancillary (obtain specimen); Complete Time: 16:47 sp3 07/10 16:38 Order name: Urine Test (obtain specimen); Complete Time: 16:47 sp3 07/10 16:38 Order name: CT Head Brain wo Cont; Complete Time: 17:36 sp3 07/10 16:38 Order name: Seizure Precautions; Complete Time: 16:47 sp3 Administered Medications: 18:38 Drug: Ativan (LORazepam) 2 mg Route: IVP; Site: right antecubital; mb9 18:55 Follow up: Response: No adverse reaction mb9 Disposition Summary: 07/10/22 18:39 Discharge Ordered Location: Home sp3 Condition: Stable sp3 Diagnosis - Other seizures sp3 - Anxiety disorder, unspecified sp3 Followup: sp3 - With: Private Physician - When: Upon discharge from the Emergency Department - Reason: Continuance of care Discharge Instructions: - Discharge Summary Sheet sp3 - Panic Attack sp3 - Seizure, Adult sp3 Forms: - Medication Reconciliation Form sp3 - Thank You Letter sp3 - Antibiotic Education sp3 - Prescription Opioid Use sp3 Signatures: Dispatcher [employer] EDSenait Parr RN RN hb Patel, Setul, MD MD sp3 Delia Ewing RN RN mb9
[2022-07-10] MEDS ORDERED: LORazepam 2 MG/ML VIAL ONE (18:41)
[2022-07-10 19:50] VITALS: TEMP 97.9
[2022-07-10 19:59] VITALS: O2SAT 99
[2022-07-10 20:01] VITALS: BP 92/63
[2022-07-11 06:07] LABS: Barbiturates NEGATIVE (NEGATIVE); Benzodiazepines NEGATIVE (NEGATIVE); Cocaine NEGATIVE (NEGATIVE); METHAMPHETAM NEGATIVE (NEGATIVE); Methadone NEGATIVE (NEGATIVE); Opiates NEGATIVE (NEGATIVE); Phencyclidine NEGATIVE (NEGATIVE); THC Cannibis NEGATIVE (NEGATIVE)
--- NOTE | 2022-07-12 15:19 | EKG ---
Test Date: 2022-07-10 Test Time: 16:55:36 Direct Service Provider: [facility] MEASUREMENT RESULTS: Intervals: Rate: 81 IA: 152 QRSD: 82 QT: 360 QTc: 418 [place]: P: 46 IA: 152 QRS: 55 T: 46 INTERPRETIVE STATEMENTS: Normal sinus rhythm Normal ECG Compared to ECG 04/22/2022 14:16:40 Sinus bradycardia no longer present Electronically Signed On 07-12-22 15:16:24 TRANSIT PLANNER by Jose Thompson
== END 2022-07-10 19:35 | disposition home or self-care (01) ==
LOC: ER 16:23
DX: R56.9 Unspecified convulsions (principal); F41.9 Anxiety disorder, unspecified; Z88.5 Allergy status to narcotic agent
CPT/HCPCS: 36415; 70450; 80048; 80076; 80307; 81003; 81025; 85025; 93005; 96374; 99284

== ENCOUNTER 2022-08-17 08:42 | Emergency (ER) | payer OTHER ==
--- OUTSIDE RECORDS SUMMARY | 2022-08-17 08:49 | XMS REPORT | Continuity of Care Document ---
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 12:39:00 [facility] 350.1.13.10 ity of [place] [phone] [place] [address] Branch ([facility]) 2019-12-08 2019-12-10 Outpatient X ABU [facility] [id number] Univers 20:56:31 12:39:00 SEAN gonzaloy o f [facility] 2019-11-19 2019-11-19 Transition Erwin Kat 1.2.840.114 [id number] 00:00:00 00:00:00 of Care Avery Ady [place] 350.1.13.10 [place] 4.2.7.2.686 [id number] 403 2019-11-19 2019-11-19 Transition Erwin Kat 1.2.840.114 753 [id number] Univers 00:00:00 00:00:00 of Care Avery Gentile 350.1.13.10 ity [place] [phone] [place] [address] Branch 2019-11-18 2019-11-18 Emergency Elizabeth Willson [facility] 1.2.8 40.114 [id number] 17:23:42 21:05:00 [facility] 350.1.13.10 [place] 4.2.7.2.686 [place] [phone] [facility] 014 ([facility]) 2019-11-18 2019-11-18 Emergency Elizabeth Willson [facility] 1.2.8 40.114 [id number] Univers 17:23:42 21:05:00 [facility] 350.1.13.10 it[place] [phone] [place] [address] Branch ([facility]) 2019-11-18 2019-11-18 Emergency X [facility] ERT [id number] Univers 17:23:42 21:05:00 ZUHAIR mata [facility] 2019-11-17 2019-11-18 Emergency E IHEME, LAZARO MHSE MHSE 7530 MH 23:37:00 [facility]:43[facility] [facility] 2019-11-13 2019-11-13 Telemedici Siri Carney 1.2.840.114 [id number] Univers 10:02:05 10:17:05 ne Visit Y Pediatric 350.1.13.10 ity of [place] and [place] [phone] [facility] Primary [facility] 2019-11-13 2019-11-13 Outpatient R SIRI CARNEY [facility] [id number] Univers 10:15:00 10:15:00 ity [facility] 2019-11-13 2019-11-13 Orders Doctor ONOFRE 1.2.840.114 [id number] 00:00:00 00:00:00 Only Unassigned, RAKESH 350.1.13.10 [place] [facility] 4.2.7.2.686 [phone] 009 2019-11-13 2019-11-13 Orders Doctor ONOFRE 1.2.840.114 [id number] Univers 00:00:00 00:00:00 Only Unassigned, RAKESH 350.1.13.10 ity of [place] [facility] 4.2.7.2.686 [place] as [phone] [address] 2019-11-08 2019-11-08 Telephone CarneySiri worley 1.2.840.114 7 [id number] 00:00:00 00:00:00 Y Pediatric 350.1.13.10 s and 4.2.7.2.[address] Adult [phone] [address] 2019-11-08 2019-11-08 Telephone CarneySiri worleyin 1.2.840.114 7 [id number] Univers 00:00:00 00:00:00 Y Pediatric 350.1.13.10 ity of [place] and [place] [id number] [address] 2019-10-18 2019-10-18 Telephone CarneySiri 1.2.840.114 7 [id number] Univers 00:00:00 00:00:00 Y Pediatric 350.1.13.10 ity of [place] and [place] [id number] [address] 2019-10-02 2019-10-02 Telephone Siri Carney Rhett 1.2.840.114 7 [id number] Univers 00:00:00 00:00:00 Y Pediatric 350.1.13.10 ity of [place] and [place] [id number] [address] 2019-09-12 2019-09-12 Office Al [facility] 1.2.840.114 [id number] Univers 12:57:32 13:46:55 Visit Blake, RICH 350.1.13.10 [facility] 4.2.7.2.686 [place] as CENTER AT [phone] Vt maribell MUELLER 2 [facility] 2019-09-12 2019-09-12 Orders Doctor ONOFRE 1.2.840.114 [id number] Univers 00:00:00 00:00:00 Only Unassigned, RAKESH 350.1.13.10 ity of [place] [facility] 4.2.7.2.686 [place] as [phone] [facility] 009 Branch 2019-08-22 2019-08-22 [facility] 1.2.840.114 [id number] Univers 11:21:43 17:19:00 [facility] 350.1.13.10 it y [place] [phone] [facility] [address] [place] ([facility]) 2019-08-22 2019-08-22 Emergency [facility] [id number] Univers 11:21:43 17:19:00 COYE ity of [facility] 2019-08-22 2019-08-22 Office Roberto Carlos Hubbard 1.2.840.114 73 [id number] Univers 09:38:03 09:53:03 Visit , Erika Pediatric 350.1.13.10 ity of [place] and [place]2.[place].2.[place] [phone] [facility] [address] [facility] 2019-08-20 2019-08-20 Transition Erwin Kat 1.2.840.114 [id number] [id number] Univers 00:00:00 00:00:00 of Care Avery Gentile 350.1.13.10 ity of [place] [id number] [facility] 403 Branch 2019-08-18 2019-08-18 Emergency Arnulfo [facility] 1.2.862.528 [id number] 7450 Univers 16:02:43 20:28:00 Ar, Health 350.1.13.10 it y of [place].2.[place] [phone] [facility] [address] [place] ([facility]) 2019-08-18 2019-08-18 Nurse [place] Engle 1.2.840.114 [id number] Univers 00:00:00 00:00:00 Triage Angeline CAMERON 350.1.13.10 ity of HOSPITAL 4.2.7.2.686 [place] [phone] [facility] 019 Branch 2019-08-15 2019-08-15 Office Siri Carney 1.2.840.114 [id number] Univers 14:01:24 16:11:29 Visit Y Pediatric 350.1.13.10 ity of [place] and [place]2.[place].2.[place] [phone] [facility] 314 [facility] 2019-07-23 2019-07-23 Emergency X SIERRA [facility] ERT [id number] Univers 18:48:12 21:49:00 DHARA gonzalovince of [facility] 2019-04-12 2019-04-12 Telephone Team, [facility] [place] 1Cain2.840.114 7 [id number] Univers 00:00:00 00:00:00 Health RAKESH 350.1.13.10 it y of [facility] 4.2.7.2.686 [place] [phone] [place] [address]12 Branch 2019-03-21 2019-03-21 Office Rhett Gabriel 1.2.840.114 [id number] Univers 13:09:44 13:29:44 Visit Bryon Pediatric 350.1.13.10 ity of [place] and [place] [phone] [facility] 059 [facility] 2019-03-15 2019-03-15 Office Rhett Massey 1.2.840.114 710 [id number] Univers 14:04:01 14:19:01 Visit Lana Pediatric 350.1.13.10 ity of [place] and [place]2.[place] 610.8870329 [facility] 314 [facility] 2019-03-14 2019-03-14 Clinic Siri Carney 1.2.840.114 [id number] Univers 00:00:00 00:00:00 Assessment Y Pediatric 350.1.13.10 ity of [place] and [place].2.[place] [phone] [address] 2019-03-07 2019-03-07 Office Siri Carney 1.2.840.114 [id number] Univers 13:29:17 13:53:55 Visit Y Pediatric 350.1.13.10 ity of [place] and [place].2.[place] [id number] [address] 2019-02-28 2019-03-01 Emergency MutNatalio quevedo [facility] 1.2 .840.114 [id number] Univers 13:57:58 15:30:00 Kevin Vyas 350.1.13.10 ity of [place] [phone] [facility] 109 Branch ([facility]) 2019-02-28 2019-02-28 Office Siri Carney 1.2.840.114 [id number] Univers 13:34:47 15:10:47 Visit Y Pediatric 350.1.13.10 ity of [place] and [place] [id number] [address] 2019-02-28 2019-02-28 Telephone PcpRhett 1.2.788.273 [id number] Univers 00:00:00 00:00:00 Patient Pediatric 350.1.13.10 ity of Does Not s and 4.2.7.2.686 [place] as Have A Adult [phone] [address] Results Test Description Test Time Test Comments Results Result Comments Source COMP. METABOLIC PANEL (91956) 2022-06-29 18:22:57 Test Item Value Reference Range Interpretation Comme nts NA (test code = 0123059207) 137 mmol/L 135-145 K (test code = 9740225623) 4.4 mmol/L 3.5-5.0 CL (test code = 4416007104) 104 mmol/L 98-108 CO2 TOTAL (test code = 27 mmol/L 23-31 4501229690) AGAP (test code = 2454614625) 2-16 BUN (test code = 1141026077) 7 mg/dL 7-23 GLUCOSE (test code = 8757770224) 94 mg/dL 70-110 CREATININE (test code = 0.71 mg/dL 0.50-1.04 0534934031) TOTAL BILI (test code = 0.5 mg/dL 0.1-1.7 3182787356) CALCIUM (test code = 6571703602) 8.7 mg/dL 8.6-10.6 T PROTEIN (test code = 6.8 g/dL 6.3-8.2 3873981086) ALBUMIN (test code = 3951422169) 4.0 g/dL 3.5-5.0 ALK PHOS (test code = 4807634935) 78 U/L 34-122 ALTv (test code = 1742-6) 20 U/L 5-35 AST(SGOT) (test code = 25 U/L 13-40 6268436034) eGFR (test code = 5416902924) mL/min/1.73m2 ADARSH (test code = ADARSH) Association [...] or urine or abnormalities in imaging tests). [facility] WITH [id number] 18:08:32 Test Item Value Reference Range Interpretation Comments WBC (test code = See_Comment [Automated 6690-2) message] The sy stem which generated this result transmitted reference range : 4.30 - 11.10 10*3/?L. The reference range was not used to interpret this result as normal/abnormal . RBC (test code = See_Comment [Automated 789-8) message] The sy stem which generated this [...] RDW-SD (test code = 41.9 fL 39.0-49.9 61398-6) RDW-CV (test code = 12.2 % 12.0-15.5 788-0) PLT (test code = See_Comment [Automated 777-3) message] The sy stem which generated this result transmitted reference range : 166 - 358 10*3/ ?L. The reference r cecilia was not used to interpret this result as normal/abnormal . MPV (test code = 11.4 fL 9.5-12.9 44547-5) NRBC/100 WBC (test See_Comment [Automat ed code = 2921817478) message] The system which generated this result transmitted reference range : 0.0 - 10.0 /100 WBCs. The refer ence range was not u sed to interpret th is result as normal/abnormal . NRBC x10^3 (test code See_Comment [Auto mated = 8285980831) message] The s ystem which generated this result transmitted reference range : 10*3/?L. The reference range was not used to interpret this result as normal/abnormal . GRAN MAT (NEUT) % 56.8 % (test code = 770-8) IMM GRAN % (test code 0.40 % = 5936054946) LYMPH % (test code = 25.2 % 736-9) MONO % (test code = 4.8 % 5905-5) EOS % (test code = 11.8 % 713-8) BASO % (test code = 1.0 % 706-2) GRAN MAT x10^3(ANC) 4.46 10*3/uL 1.88-7.09 (test code = 7707902752) IMM GRAN x10^3 (test 0.03 10*3/uL 0.00-0.06 code = 7583358544) LYMPH x10^3 (test code 1.98 10*3/uL 1.32-3.29 = 731-0) MONO x10^3 (test code 0.38 10*3/uL 0.33-0.92 = 742-7) EOS x10^3 (test code = 0.93 10*3/uL 0.03-0.39 H 711-2) BASO x10^3 (test code 0.08 10*3/uL 0.01-0.07 H = 704-7) Lab Interpretation Abnormal (test code = 38315-6) [facility] [id number] 17:29:00 Test Item Value Reference Range Interpretation Comments POCT PREG (test code = 1605) negative On board controls acceptable with positive C Line (test code = 3574) POCT PREG LOT # (test code = 3575) [id number] POCT PREG TEST DATE (test 10-22-2023 code = 3576) Lab Interpretation (test code = Normal 90733-6) [facility] [id number] 17:20:00 Test Item Value Reference Range Interpretation Comments POCT PREG (test code = 1605) Negative On board controls acceptable with Yes C Line (test code = 3574) POCT PREG LOT # (test code = 3575) [id number] POCT PREG TEST DATE (test 09/20/22 code = 3576) [facility]2021-09-20 13:37:00 Test Item Value Reference Range Interpretation Comments URINE HCG TRIAGE (ER ONLY) (test NEGATIVE Negative code = HCGTRIAGE) Urine Test Result: NEGATIVEAre internal controls (presence of a control line & clear background) OK? YesLot # of HCG Test Kit: [id number] Date of Kit: 09/18/21Test Performed by:KRISTINA Gorman Perfomed on: 09/18/21- CT ABD PELVIS [id number] 00:00:00 [facility] : 1985 Sex: F Name: SHEILA RODRIGUEZ FSED : 1985 Age/S: 36 / F [address] [facility] Unit #: [id number] Loc: [place] [address] Phys: Linda Kendrick MD Acct: [id number] Dis Date: Status: REG ERPHONE #: Exam Date: 2021 0310 FAX #: Reason: lower abdominal pain EXAMS: CPT CODE: [id number] CT ABD PELVIS W/CONT 38839 PROCEDURE INFORMATION: Exam: CT Abdomen And Pelvis [...] clinical indication); or iterative reconstruction. Contrast material: YSN450; Contrast volume: 95 ml; Contrast route: INTRAVENOUS [...] There is cortical thinning in the upper poleof the bilateral kidneys. There are no calculi or hydronephrosis. Stomach and bowel: The stomach andsmall bowel are normal in appearance without evidence [...] 1 Signed Rep ort (CONTINUED) Name: SHEILA RODRIGUEZ FSED : 1985 Age/S: 36 / F [address] [facility] Unit #: [id number] Loc: [place] [address] Phys: Lnida Knedrick MD Acct: [id number] Dis Date: Status: REG ER PHONE #: Exam Date: 2021 0310 FAX #: Reason: lower abdominal pain EXAMS: CPTCODE: [id number] CT ABD PELVIS W/CONT 70178 (Continued) at 0355 Reported and signed by: Aubrie Busch M.D CC: Linda Kendrick MD; Dave Callahan DO Technologist:RT Soledad(R)(CT) CTDI: DLP: Trnscb Date/Time: 2021 (354) [email or web address] Orig Print D/T: S: 2021 (354) PAGE 2 Signed ReportBASIC METABOLIC [id number] 06:50:00 Test Item Value Reference Range Interpretation [...] CA) 9.3 MG/DL 8.5-10.1 N HEPATIC FUNCTION [id number] 06:50:00 Test Item Value Reference Range Interpretation [...] 45-117 N code = ALKP) BASIC METABOLIC [id number] 06:46:00 Test Item Value Reference Range Interpretation [...] CA) 9.3 MG/DL 8.5-10.1 N HEPATIC FUNCTION [id number] 06:46:00 Test Item Value Reference Range Interpretation [...] = ALKP) UA RFLX MICR CULT IF [id number] 06:43:00 Test Item Value Reference Range Interpretation [...] Indication for culture: RiskForSepsis-no oth srcUR HCG [id number] 06:43:00 Test Item Value Reference Range Interpretation Comments UR HCG QUAL (test code = HCGQLU) NEGATIVE NEGATIVE Indication for culture: RiskForSepsis-no oth src- XR CHEST 1 [id number] 06:38:00[facility] : 1985 Sex: F Name: SHEILA RODRIGUEZ [facility] : 1985 Age/S: 34 / F [address] Unit #: [id number] Loc: [place] [address] Phys: Tolu Ashby MD Acct: [id number] Dis Date: Status: PRE ER PHONE #: [phone] Exam Date: 08/15/2020 0625 FAX #: Reason: chest pain EXAMS: CPT: [id number] XR CHEST 1 V 59476 Fluoro Time: DAP (Gy m2): Air Kerma [...] PAGE 1 Signed Report Name: SHEILA RODRIGUEZ [facility] MolinaErin : 1985 Age/S: 34 / F [address] Unit #: [id number] Loc: [place] [address] Phys: Tolu Ashby MD Acct: [id number] Dis Date: Status: PRE ER PHONE #: [phone] Exam Date: 08/15/2020624 FAX #: Reason: chest pain EXAMS: CPT: [id number] XR CHEST 1 V 95355 Fluoro Time: DAP (Gy m2): Air Kerma (mGy): <Continued> Technologist: Jaiden Moise RT(R)(MR) Trnscb Date/Time: 08/15/2020 (637) [email or web address] Orig Print D/T: S: 08/15/2020 (0641) PAGE 2 Signed ReportUA RFLX MICR CULT IF [id number] 06:36:00 Test Item Value Reference Range Interpretation [...] Indication for culture: RiskForSepsis-no oth srcUR HCG [id number] 06:36:00 Test Item Value Reference Range Interpretation Comments UR HCG QUAL (test code = HCGQLU) NEGATIVE NEGATIVE Indication for culture: RiskForSepsis-no oth srcCBC W/O [id number] 06:36:00 Test Item Value Reference Range Interpretation [...] H MPV) UA RFLX MICR CULT IF [id number] 06:32:00 Test Item Value Reference Range Interpretation [...] Indication for culture: RiskForSepsis-no oth srcUR HCG [id number] 06:32:00 Test Item Value Reference Range Interpretation Comments UR HCG QUAL (test code = HCGQLU) NEGATIVE Indication for culture: RiskForSepsis-no oth src- CT ABD PELVIS [id number] 22:06:00 Name: SHEILA RODRIGUEZ [facility] : 1985 Age/S: 34 / F [address] Unit #: [id number] Loc: [place] [address] Phys: Tolu Ashby MD Acct: [id number] Dis Date: Status: REG ER PHONE #: [phone] Exam Date: 03/04/20202131 FAX #: Reason: LLQ pain, tenderness EXAMS: CPT: [id number] CT ABD PELVIS W/CONT 49984 Location code: H5 CT Abdomen and Pelvis with Contrast Indication: LLQ pain, tenderness. Comparison: 10/04/2018. Technical factors: Axial images were obtained with contrast.Coronal and sagittal reconstruction. This exam was performed [...] 1 Signed Report (CONTINUED) Name: SHEILA RODRIGUEZ [facility] : 1985 Age/S: 34 / F [address] Unit #: [id number] Loc: [place] [address] Phys: Tolu Ashby MD Acct: [id number] Dis Date: Status: REG ER PHONE #: [phone] Exam Date: 03/04/20202131 FAX #: Reason: LLQ pain, tenderness EXAMS: CPT: [id number] CT ABD PELVIS W/CONT 44799 <Continued> Uterus is unremarkable. No adnexal masses seen.Also has a ventricular. The lung No adenopathy, free fluid, or free air. No abnormal mass, edema, or focal fluid collection. Abdominal-pelvic wall is intact. Skeletal structures are normal for patient age. No abnormal enhancing lesion is seen. Impression: 1. No specific evidence of acute pathology. at 2206 Reported and signedby: Herman Nieves M.D. CC: Dave Callahan DO Technologist:RT Dolores(R)(CT) CTDI: DLP: Trnscb Date/Time: 03/04/2020 (2205) [email or web address] Orig Print D/T: S: 03/04/2020 (2209) PAGE 2 SignedReportUA RFLX MICR CULT IF INDICATED 2020-03-04 21:19:00 [...] culture: Suprapubic PainUA RFLX MICR CULT IF [id number] 21:17:00 Test Item Value Reference Range Interpretation [...] CLEAN CATCHIndication for culture: Suprapubic PainBASIC METABOLIC [id number] 20:31:00 Test Item Value Reference Range Interpretation [...] CA) 8.6 MG/DL 8.5-10.1 N HEPATIC FUNCTION [id number] 20:31:00 Test Item Value Reference Range Interpretation [...] 45-117 N code = ALKP) CBC W/AUTO [id number] 20:22:00 Test Item Value Reference Range Interpretation [...] CRITERIA = MDIFF) - XR C-SPINE 2-3 [id number] 17:22:00 FAX: Dave Calero DO [phone] [place]: St: REG FAX: Rosenda Engle [phone] ---- Name: SHEILA RODRIGUEZ [facility] : 1985 Age/S: 33/F [address] [place] [address] Unit #: [id number] Loc: [place] [address] Phys: Rosenda Engle Acct: [id number] Dis Date: Status: REG ER PHONE #: [phone] Exam Date: 11/25/2018 1718 FAX #: [phone] Reason: NECK PAIN EXAMS: CPT CODE: [id number] XR C-SPINE 2-3 VIEWS 47424 CERVICAL SPINE SERIES 11/25/2018 AT 1652 HOURS. [...] Engle Technologist: RT Negro(Janis) Trnscrd Date/Time/By: 11/25/2018 (172) : By: [email or web address] Orig Print D/T: S: 11/25/2018 (6267) PAGE 1 Signed ReportURINALYSIS [id number] 16:40:00 Test Item Value Reference Range Interpretation [...] MUCU) TRACE /LPF NONE SEEN UR HCG [id number] 16:40:00 Test Item Value Reference Range Interpretation Comments UR HCG QUAL (test code = HCGQLU) NEGATIVE NEGATIVE URINALYSIS [id number] 04:22:00 Test Item Value Reference Range Interpretation [...] COMMENTS: Clean Catch- CT ABD PELVIS W/O [id number] 03:52:00 Name: SHEILA RODRIGUEZ [facility] : 1985 Age/S: 33 / F [address] [place] [address] Unit #: [id number] Loc: [place] [address] Phys: Adrianne Painter MD Acct: [id number] Dis Date: Status: REG ER PHONE #: [phone] Exam Date: 10/04/2018 0338 FAX #: [phone] Reason: rlq abd pain EXAMS: CPT CODE: [id number] CT ABD PELVIS W/O CONT 99732 EXAM: CT, CT abdomen pelvis without contrast: [...] pole renal scars, stable. NON-CONTRAST OPACIFIED STOMACH ANDBOWEL: STOMACH: Unremarkable. BOWEL: The non- contrast opacified small bowel loops in the abdomen and pelvis appear unremarkable. The noncontrast opacified colonic loops in the abdomen and pelvis appear unremarkable. APPENDIX: Unremarkable Small fat-containing umbilical hernia seen. The lack of orallyadministered contrast material limits bowel assessment. PAGE 1 Signed Report (CONTINUED) Name: SHEILA RODRIGUEZ [facility] : 1985 Age/S: 33 / F [address] [place] [address] Unit #: [id number] L oc: GLORY Marte [id number] Phys: Adrianne Painter MD Acct: [id number] Dis Date: Status: REG ER PHONE #: [phone] Exam Date: 10/04/2018337 FAX #: [phone] Reason: rlq abd pain EXAMS: CPT CODE: [id number] CT ABD PELVIS W/O CONT 79924 (Continued) PERITONEUM AND RETROPERITONEUM: No ascites or free air. No other fluid collection. There is no aortic aneurysm seen. LYMPH NODES: Unremarkable. PELVIS: No pelvic mass or adenopathy. Uterus is anteverted and unremarkable. Ovaries are unremarkable. BLADDER: Unremarkable. OSSEOUS STRUCTURES: No acute abnormality seen. SOFT TISSUES: Unremarkable. IMPRESSION: 1. No acute abdominal or pelvic abnormality. SL: JSYED-H at 0352 Reported and signed by: Luis Mckeon M.D. CC: Adrianne Painter MD; Dave Matute DO Technologist:RT Young(R) CTDI: DLP: Trnscb Date/Time: 10/04/2018 (351) [email or web address] Orig Print D/T: S: 10/04/2018 (035) CTDI: DLP: PAGE 2 Signed Report- US TRANSVAGINAL NON [id number] 03:43:00 Name: SHEILA RODRIGUEZ [facility] : 1985 Age/S: 33 / F [address] [place] [address] Unit #: [id number] Loc: MarteGLORY [address] Phys: Adrianne Painter MD Acct: [id number] Dis Date: Status: REG ER PHONE #: [phone] Exam Date: 10/04/2018326 FAX #: [phone] Reason: Pelvic Pain EXAMS: CPT CODE: [id number] [place] [id number] EXAM: US, US PELVIS COMPLETE: 10/04/2018 EXAM: [...] 1 Signed Report (CONTINUED) Name: SHEILA RODRIGUEZ [facility] : 1985 Age/S: 33 / F [address] [place] [address] Unit #: [id number] Loc: GLORY Marte [address] Phys: Adrianne Painter MD Acct: [id number] Dis Date: Status: REG ER PHONE #: [phone] Exam Date: 10/04/2018326 FAX #: [phone] Reason: Pelvic Pain EXAMS: CPT CODE: [id number] [place] [address] (Continued) 1. Trace fluid in the endometrial and cervical canal. Prominent cervix. 2. Otherwise unremarkable pelvic ultrasound SL: TOYINH at 0343 Reported and signed by: Luis Mckeon M.D. CC: Adrianne Painter MD; Dave Callahan Technologist: Elisha Colmenares RDMS(A)(OB) Trnscb Date/Time: 10/04/2018 (0343) [email or web address] Orig Print D/T: S: 10/04/2018 (0346) Probe: [id number] PAGE 2 Signed Report- US PELVIS [id number] 03:43:00 Name: SHEILA RODRIGUEZ [facility] : 1985 Age/S: 33 / F [address] [place] [address] Unit #: [id number] Loc: [place] [address] Phys: Adrianne Painter MD Acct: [id number] Dis Date: Status: REG ER PHONE #: [phone] Exam Date: 10/04/2018326 FAX #: [phone] Reason: Pelvic Pain EXAMS:CPT CODE: [id number] US PELVIS COMPLETE 74066 EXAM: US, US PELVIS COMPLETE: 10/04/2018 EXAM: [...] 1 Signed Report (CONTINUED) Name: SHEILA RODRIGUEZ [facility] : 1985 Age/S: 33 / F [address] [place] [address] Unit #: [id number] Loc: [place] [address] Phys: Adrianne Painter MD Acct: [id number] Dis Date: Status: REG ER PHONE #: [phone] Exam Date: 10/04/2018326 FAX #: [phone] Reason: Pelvic Pain EXAMS: CPT CODE: [id number] US PELVIS COMPLETE 80475 (Continued) 1. Trace fluid inthe endometrial and cervical canal. Prominent cervix. 2. Otherwise unremarkable pelvic ultrasound SL: JSYED-H at 0343 Reported and signed by: Luis Mckeon M.D. CC: Adrianne Painter MD; Dave Callahan DO Technologist: Elisha Colmenares RDMS(A)(OB) Trnscb Date/Time: 10/04/2018 (034) [email or web address] Orig Print D/T: S: 10/04/2018 (034) Probe: PAGE 2 Signed ReportCOMPREHENSIVE METABOLIC [id number] 03:26:00 Test Item Value Reference Range Interpretation [...] 20-125 N TOTAL (test code = ALKP) [id number] 03:26:00 Test Item Value Reference Range Interpretation Comments LIPASE (test code = LIP) 125 IUnit/L 73-393 N HCG SERUM [id number] 03:26:00 Test Item Value Reference Range Interpretation Comments HCG SERUM QUAL (test code = SERUM NEGATIVE NEGATIVE HCGQL) COMPREHENSIVE METABOLIC [id number] 03:15:00 Test Item Value Reference Range Interpretation [...] TOTAL (test IUnit/L 20-125 code = ALKP) [id number] 03:15:00 Test Item Value Reference Range Interpretation Comments LIPASE (test code = LIP) IUnit/L 73-393 HCG SERUM [id number] 03:15:00 Test Item Value Reference Range Interpretation Comments HCG SERUM QUAL (test code = SERUM NEGATIVE NEGATIVE HCGQL) CBC W/AUTO [id number] 03:11:00 Test Item Value Reference Range Interpretation [...]
--- NOTE | 2022-08-17 10:23 | RAD REPORT ---
EXAM DESCRIPTION: RAD - Foot Right 3 View - 08/17/2022 9:57 am CLINICAL HISTORY: Right foot pain FINDINGS: No fracture or dislocation is seen Soft tissue swelling is present. No significant bone or joint abnormality noted
--- NOTE | 2022-08-17 10:31 | EDPHYS ---
Physician Documentation [facility] Name: Jodie Rodriguez Age: 36 yrs Sex: Female : 1985 Arrival Date: 08/17/2022 Time: 08:46 Bed IW4 Private MD: ED Physician Desean Rubio HPI: 08/17 10:26 This 36 yrs old Female presents to ER via Wheelchair with complaints of Foot jmm Pain. 10:26 The patient presents with pain. Onset: The symptoms/episode began/occurred gradually, jmm 2.5 week(s) ago. Modifying factors: The symptoms are alleviated by nothing. the symptoms are aggravated by nothing. Associated signs and symptoms: Pertinent positives: swelling, Pertinent negatives fever. The patient has not experienced similar symptoms in the past. This is a 36 year old female with a history of anxiety, asthma, depression, that presents to the ED with complaints of right foot pain which has been ongoing for the past 2 weeks. Denies injury but states she is one her feet most the day due to work. Has a fam hx of gout. Denies fever. . Historical: - Allergies: 09:31 Codeine; iw 09:31 Morphine; iw - PMHx: 09:31 Anxiety; Asthma; depressive disorder; iw - PSHx: 09:31 section; Cholecystectomy; iw ROS: 10:26 Constitutional: Negative for fever, chills, and weight loss, Cardiovascular: Negative jmm for chest pain, palpitations, and edema, Respiratory: Negative for shortness of breath, cough, wheezing, and pleuritic chest pain. 10:26 MS/extremity: Positive for pain. 10:26 All other systems are negative. Exam: 10:26 Constitutional: This is a well developed, well nourished patient who is awake, alert, jmm and in no acute distress. Head/Face: atraumatic. Eyes: EOMI, no conjunctival erythema appreciated ENT: Moist Mucus Membranes Neck: Trachea midline, Supple Chest/axilla: Normal chest wall appearance and motion. Cardiovascular: Regular rate and rhythm. No edema appreciated Respiratory: Normal respirations, no respiratory distress appreciated Abdomen/GI: Non distended Back: Normal ROM Skin: General appearance color normal 10:26 Musculoskeletal/extremity: mild swelling noted to the right foot, full dorsalis pulse, compartments are soft, NVI. 10:26 Skin: Appearance: Color: normal in color. 10:26 Neuro: Motor: is normal. 10:26 Psych: Behavior/mood is pleasant, cooperative. Vital Signs: 09:30 BP 123 / 90; Pulse 71; Resp 16; Temp 98.6; Pulse Ox 100% ; iw MDM: 09:32 Patient medically screened. [facility] 10:28 Data reviewed: vital signs, nurses notes. Independent interpretation of the following [facility] test(s) in the Emergency Department X-Ray: My interpretation is No fracture appreciated. Counseling: I had a detailed discussion with the patient and/or guardian regarding: the historical points, exam findings, and any diagnostic results supporting the discharge/admit diagnosis, radiology results, the need for outpatient follow up, to return to the emergency department if symptoms worsen or persist or if there are any questions or concerns that arise at home. ED course: Patient is alert and non toxic in appearance in the ED. Advised to follow up with podiatry or orther for further evaluation. patient understood and agrees with the plan of care. . 08/17 09:32 Order name: Foot Right 3 View XRAY; Complete Time: 10:26 [facility] Administered Medications: No medications were administered Disposition: 11:53 Co-signature as Attending Physician, Desean Rubio MD I reviewed the patient's care rt provided by the Advanced Practice Provider and agree with the diagnosis and treatment plan. Disposition Summary: 08/17/22 10:30 Discharge Ordered Location: Home [facility] Condition: Stable [facility] Diagnosis - Pain in right foot [facility] Followup: [facility] - With: Julius Kearns DPM - When: 2 - 3 days - Reason: Recheck today's complaints, Continuance of care, Re-evaluation by your physician Discharge Instructions: - Discharge Summary Sheet [facility] - Foot Pain [facility] Forms: - Medication Reconciliation Form [facility] - Work release form [facility] - Thank You Letter [facility] - Antibiotic Education [facility] - Prescription Opioid Use [facility] Prescriptions: - Diclofenac Sodium 75 mg Oral Tablet Sustained Release - take 1 tablet by ORAL route 2 times per day; 30 tablet; Refills: 0, Product [facility] Selection Permitted - orphenadrine citrate 100 mg Oral Tablet Sustained Release - take 1 tablet by ORAL route 2 times per day As needed; 20 tablet; Refills: 0, [facility] Product Selection Permitted Signatures: Dispatcher [employer] Jessee Dobson PA PA jmm Williams, Irene, RN RN iw Desean Rubio MD MD rt
--- NOTE | 2022-08-17 10:31 | ER ---
Nurse's Notes [facility] Name: Jodie Rodriguez Age: 36 yrs Sex: Female : 1985 Arrival Date: 08/17/2022 Time: 08:46 Bed IW4 Private MD: Diagnosis: Pain in right foot Presentation: 08/17 09:30 Chief complaint: Patient states: right foot pain X 2 weeks ago. Coronavirus screen: At this time, the client does not indicate any symptoms associated with coronavirus-19. Ebola Screen: Patient negative for fever greater than or equal to 101.5 degrees Fahrenheit, and additional compatible Ebola Virus Disease symptoms Patient denies exposure to infectious person. Patient denies travel to an Ebola-affected area in the 21 days before illness onset. No symptoms or risks identified at this time. Initial Sepsis Screen: Does the patient meet any 2 criteria? No. Patient's initial sepsis screen is negative. Does the patient have a suspected source of infection? No. Patient's initial sepsis screen is negative. Risk Assessment: Do you want to hurt yourself or someone else? Patient reports no desire to harm self or others. Onset of symptoms was August 07, 2022. 09:30 Method Of Arrival: Wheelchair iw 09:30 Acuity: FLORA 4 iw Historical: - Allergies: 09:31 Codeine; iw 09:31 Morphine; iw - PMHx: 09:31 Anxiety; Asthma; depressive disorder; iw - PSHx: 09:31 section; Cholecystectomy; iw Vital Signs: 09:30 BP 123 / 90; Pulse 71; Resp 16; Temp 98.6; Pulse Ox 100% ; iw ED Course: 08:46 Patient arrived in ED. mr 08:53 Jessee Mccain PA is PHCP. jmm 08:53 Desean Rubio MD is Attending Physician. jmm 09:31 Triage completed. iw 09:31 Arm band placed on. iw 09:59 Foot Right 3 View XRAY In Process Unspecified. EDMS 10:30 Julius Kearns DPM is Referral Physician. jmm 11:34 Yaima Freire, RN is Primary Nurse. iw Administered Medications: No medications were administered Outcome: 10:30 Discharge ordered by . jmm 11:34 Patient left the ED. iw Signatures: Dispatcher [employer] EDMS Yvroseil, Jessee, PA PA jmm Mart, Delia mr Yaima Freire, RN RN iw Corrections: (The following items were deleted from the chart) 09:32 09:30 Pulse 71bpm; Resp 16bpm; Pulse Ox 100%; Temp 98.6F; iw iw
[2022-08-17 11:38] VITALS: BP 123/90; TEMP 98.6; O2SAT 100
== END 2022-08-17 11:34 | disposition home or self-care (01) ==
LOC: ER 08:42
DX: M79.671 Pain in right foot (principal); Z88.5 Allergy status to narcotic agent

== ENCOUNTER 2022-12-28 16:37 | Emergency (ER) | payer OTHER ==
--- OUTSIDE RECORDS SUMMARY | 2022-12-28 16:42 | XMS REPORT | Continuity of Care Document ---
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 [facility] 2020-07-28 2020-07-28 Outpatient R KENDAL [facility] [id number] Univers 18:45:00 18:45:00 ANT mata [facility] 2020-07-28 2020-07-28 Laboratory NurseAleks 1.2.8 40.114 [id number] Univers 18:21:41 18:36:41 Only Ant Villalpando Pediatric 350.1.13.10 ity of [place] [address] [phone] [facility] Primary [facility] 2020-07-27 2020-07-27 Refill Doctor [facility] 1.2.840.114 [id number] Univers 00:00:00 00:00:00 Unassigned, Health 350.1.13.10 ity of [place] [phone] [address] ([facility]) 2020-06-01 2020-06-01 Telephone CarneySiri worley 1.2.840.114 [id number] Univers 00:00:00 00:00:00 Y Pediatric 350.1.13.10 ity of [place] and [place] Adult [phone] [facility] Primary 314 [facility] 2020-05-27 2020-05-27 Transition Aidan Hoppernoah 1.2.840.114 [id number] Univers 00:00:00 00:00:00 of Care Vivienne Mendiola 350.1.13.10 it y of [place] 4.2.7.2.[phone] [facility] 403 Branch 2020-05-26 2020-05-[address] [facility] 1.2.840.114 [id number] Univers 12:56:00 17:09:00 [facility] 350.1.13.10 it y of [place] [phone] [address] ([facility]) 2020-05-26 2020-05-26 Telephone Siri Carney 1.2.840.114 [id number] Univers 00:00:00 00:00:00 Y Pediatric 350.1.13.10 ity of [place] and [place] Adult [id number] [facility] Primary 314 [facility] 2020-04-15 2020-04-15 Transition Erwin Kat 1.2.840.114 [id number] [id number] Univers 00:00:00 00:00:00 of Care Avery Mendiola 350.1.13.10 ity of [place] 4.2.7.2.[phone] [facility] 403 Branch 2020-04-13 2020-04-13 Emergency [facility] 1.2.840.114 [id number] Univers 18:02:00 22:18:00 [facility] 350.1.13.10 i ty of [place] [phone] [facility] 014 Branch ([facility]) 2020-03-04 2020-03-07 Inpatient HCAPM AJ [id number] [facility] 19:14:00 03:31:04 87 [facility] 2020-02-24 2020-02-24 Emergency E YOON, MHSE MHSE 7531 MH 07:10:00 14:54:[address] [facility] 2019-12-30 2019-12-30 Telephone Siri Carney 1.2.840.114 [id number] 00:00:00 00:00:00 Y Pediatric 350.1.13.10 s and 4.2.7.2.686 Adult [id number] Primary [facility] 2019-12-30 2019-12-30 Telephone Siri Carney 1.2.840.114 [id number] Univers 00:00:00 00:00:00 Y Pediatric 350.1.13.10 ity of [place] and [place] Adult [phone] [facility] Primary 314 [facility] 2019-12-11 2019-12-11 Transition Erwin Ansari 1.2.840.114 [id number] 00:00:00 00:00:00 of Care Chanel Waitey 350.1.13.10 [place] [phone] 2019-12-11 2019-12-11 Transition Erwin Ansari 1.2.840.114 75 [id number] Univers 00:00:00 00:00:00 of Care Chanel Waitey 350.1.13.10 i ty of [place] 4.2.7.2.[phone] [facility] 403 Branch 2019-12-08 2019-12-10 Emergency Dhara Rico I [facility] 1.2 .840.114 [id number] 20:56:31 12:39:00 [facility] 350.1.13.10 Clear 4.2.7.2.686 [place] [phone] [place] [address] ([facility]) 2019-12-08 2019-12-10 Emergency LimestoneDhara I [facility] 1.2 .840.114 [id number] Univers 20:56:31 12:39:00 Abu [facility] 350.1.13.10 ity of [place] [phone] [facility] 114 Branch ([facility]) 2019-12-08 2019-12-10 Outpatient X ABU [facility] [id number] Univers 20:56:31 12:39:00 adolfo ESTRADA o f GIL [facility] 2019-11-19 2019-11-19 Transition Erwin Kat 1.2.840.114 [id number] 00:00:00 00:00:00 of Care Avery Mendiola 350.1.13.10 [place] [phone] 403 2019-11-19 2019-11-19 Transition Erwin Kat 1.2.840.114 [id number] [id number] Univers 00:00:00 00:00:00 of Care Avery Mendiola 350.1.13.10 ity of [place] 4.2.7.2.[address] [phone] [facility] 403 Branch 2019-11-18 2019-11-18 Emergency Elizabeth Willson [facility] 1.2.8 40.114 [id number] 17:23:42 21:05:00 [facility] 350.1.13.10 Clear 4.2.7.2.686 [place] [phone] [facility] 014 ([facility]) 2019-11-18 2019-11-18 Emergency Elizabeth Willson [facility] 1.2.8 40.114 [id number] Univers 17:23:42 21:05:00 [facility] 350.1.13.10 ity of [place] [phone] [facility] 014 Branch ([facility]) 2019-11-18 2019-11-18 Emergency [facility] ERT [id number] Univers 17:23:42 21:05:00 ZUHAIR mata [facility] 2019-11-17 2019-11-18 Emergency E LAZARO MASSEY MHSE MHSE 7530 MH 23:37:00 02:43:[address] [facility] 2019-11-13 2019-11-13 TelemedicSiri Marinelli 1.2.840.114 [id number] Univers 10:02:05 10:17:05 ne Visit Y Pediatric 350.1.13.10 ity of [place] and [place] [phone] [place] [address] Branch Care Clinic 2019-11-13 2019-11-13 Outpatient R SIRI CARNEY [facility] [id number] [facility] 10:15:00 10:15:00 ity of [facility] 2019-11-13 2019-11-13 Orders Doctor [place] 1.2.840.114 [id number] 00:00:00 00:00:00 Only Unassigned, RAKESH 350.1.13.10 [place] [facility] 4.2.7.2.686 [id number] 009 2019-11-13 2019-11-13 Orders Doctor ONOFRE 1.2.840.114 [id number] [facility] 00:00:00 00:00:00 Only Unassigned, RAKESH 350.1.13.10 ity of [place] [facility]PITAL 4.2.7.2.686 Girish as [phone] [address] 2019-11-08 2019-11-08 Telephone CarneySiri worley 1.2.840.114 7 [id number] 00:00:00 00:00:00 Y Pediatric 350.1.13.10 s and 4.2.7.2.686 Adult [phone] [address] 2019-11-08 2019-11-08 Telephone CarneySiri worley 1.2.840.114 7 [id number] Univers 00:00:00 00:00:00 Y Pediatric 350.1.13.10 ity of [place] [phone] [address] 2019-10-18 2019-10-18 Telephone Siri Carney 1.2.840.114 7 [id number] Univers 00:00:00 00:00:00 Y Pediatric 350.1.13.10 ity of [place] and [place] [phone] [address] 2019-10-02 2019-10-02 Telephone Siri Carney 1.2.840.114 7 [id number] Univers 00:00:00 00:00:00 Y Pediatric 350.1.13.10 ity of [place] and [place] [phone] [address] 2019-09-12 2019-09-12 Office Al [facility] 1.2.840.114 [id number] Univers 12:57:32 13:46:55 Visit Blake, RICH 350.1.13.10 ity of [place] CARE 4.2.7.2.686 [place]ish as CENTER AT [phone] Id maribell MUELLER 072 [facility] 2019-09-12 2019-09-12 Orders Doctor [place] 1.2.840.114 [id number] Univers 00:00:00 00:00:00 Only Unassigned, RAKESH 350.1.13.10 ity of [place] [facility] 4.2.7.2.[phone] [facility] 009 Branch 2019-08-22 2019-08-22 Emergency [facility] 1.2.840.114 [id number] Univers 11:21:43 17:19:00 [facility] 350.1.13.10 it y of [place]2.[place] [phone] [facility] 014 Branch ([facility]) 2019-08-22 2019-08-[address] [facility] ERT [id number] Univers 11:21:43 17:19:00 COYE ity of [facility] 2019-08-22 2019-08-22 Office Roberto Carlos Hubbard 1.2.840.114 [id number] Univers 09:38:03 09:53:03 Visit , Erika Pediatric 350.1.13.10 ity of [place] and [place]2.7.2.[place] Adult [phone] [facility] Primary 314 Branch Care Clinic 2019-08-20 2019-08-20 Transition Erwin Kat 1.2.840.114 [id number] [id number] Univers 00:00:00 00:00:00 of Care Avery Mendiola 350.1.13.10 ity of [place] 4.2.7.2.[id number] [facility] 403 Branch 2019-08-18 2019-08-18 Emergency Arnulfo [facility] 1.2.680.829 [id number] 7450 Univers 16:02:43 20:28:00 [facility] 350.1.13.10 it y of [place].2.7.2.[place] [phone] [facility] 014 Branch ([facility]) 2019-08-18 2019-08-18 Nurse KINGSTON Engle 1.2.840.114 [id number] Univers 00:00:00 00:00:00 Triage Angeline CAMERON 350.1.13.10 ity of HOSPITAL 4.2.7.2.[phone] [facility] 019 Branch 2019-08-15 2019-08-15 Office Siri Carney 1.2.840.114 [id number] Univers 14:01:24 16:11:29 Visit Y Pediatric 350.1.13.10 ity of [place] and [place] [phone] [address] 2019-07-23 2019-07-23 Emergency X [facility] ERT [id number] Univers 18:48:12 21:49:00 DHARA mata [facility] 2019-04-12 2019-04-12 Telephone Team, [facility] KINGSTON Cuenca2.840.114 7 [id number] Univers 00:00:00 00:00:00 Health RAKESH 350.1.13.10 it y of [facility] HOSPITAL 4.2.7.2.686 [place] [phone] [place] [address] [place] 2019-03-21 2019-03-21 Office Rhett Gabriel 1.2.840.114 [id number] Univers 13:09:44 13:29:44 Visit Bryon Pediatric 350.1.13.10 ity of [place] and [place] [phone] [facility] 059 [facility] 2019-03-15 2019-03-15 Office Rhett Massey 1.2.840.114 [id number] Univers 14:04:01 14:19:01 Visit Lana Pediatric 350.1.13.10 ity of [place] and [place].2.[place] [phone] [facility] 314 [facility] 2019-03-14 2019-03-14 Clinic Siri Carney 1.2.840.114 [id number] Univers 00:00:00 00:00:00 Assessment Y Pediatric 350.1.13.10 ity of [place] and [place].2.[place] [phone] [address] 2019-03-07 2019-03-07 Office Siri Carney 1.2.840.114 [id number] Univers 13:29:17 13:53:55 Visit Y Pediatric 350.1.13.10 ity of [place] and [place]2.[place].2.[place] [phone] [address] 2019-02-28 2019-03-01 Emergency [facility] 1.2 .840.114 [id number] Univers 13:57:58 15:30:00 segun [facility] 350.1.13.10 ity of [place].2.[place] [phone] [place] [address] Branch ([facility]) 2019-02-28 2019-02-28 Office Siri Carney 1.2.840.114 [id number] Univers 13:34:47 15:10:47 Visit Y Pediatric 350.1.13.10 ity of [place] and [place] [phone] [address] 2019-02-28 2019-02-28 Telephone PcpRhett 1.2.183.380 [id number] Univers 00:00:00 00:00:00 Patient Pediatric 350.1.13.10 ity of Does Not s and 4.2.7.2.686 [place]ish as Have A Adult [phone] [address] Results Test Description Test Time Test Comments Results Result Comments Source COMP. METABOLIC PANEL (96254) 2022-06-29 18:22:57 Test Item Value Reference Range Interpretation Comme nts NA (test code = 2823292933) 137 mmol/L 135-145 K (test code = 8152809049) 4.4 mmol/L 3.5-5.0 CL (test code = 4723464591) 104 mmol/L 98-108 CO2 TOTAL (test code = 27 mmol/L 23-31 8115227083) AGAP (test code = 9667298879) 2-16 BUN (test code = 5259136583) 7 mg/dL 7-23 GLUCOSE (test code = 3274672670) 94 mg/dL 70-110 CREATININE (test code = 0.71 mg/dL 0.50-1.04 2848294484) TOTAL BILI (test code = 0.5 mg/dL 0.1-1.6 2874273903) CALCIUM (test code = 0574643805) 8.7 mg/dL 8.6-10.6 T PROTEIN (test code = 6.8 g/dL 6.3-8.2 1052764410) ALBUMIN (test code = 8196137436) 4.0 g/dL 3.5-5.0 ALK PHOS (test code = 5858093950) 78 U/L 34-122 ALTv (test code = 1742-6) 20 U/L 5-35 AST(SGOT) (test code = 25 U/L 13-40 5975571949) eGFR (test code = 1751288091) mL/min/1.73m2 ADARSH (test code = ADARSH) Association [...] or urine or abnormalities in imaging tests). [facility] WITH [id number] 18:08:32 Test Item Value Reference Range Interpretation [...] RDW-SD (test code = 41.9 fL 39.0-49.9 48076-0) RDW-CV (test code = 12.2 % 12.0-15.5 788-0) PLT (test code = See_Comment [Automated 777-3) message] The sy stem which generated this result transmitted reference range : 166 - 358 10*3/ ?L. The reference r cecilia was not used to interpret this result as normal/abnormal . MPV (test code = 11.4 fL 9.5-12.9 91162-9) NRBC/100 WBC (test See_Comment [Automat ed code = 2070964238) message] The system which generated this result transmitted reference range : 0.0 - 10.0 /100 WBCs. The refer ence range was not u sed to interpret th is result as normal/abnormal . NRBC x10^3 (test code See_Comment [Auto mated = 9600621190) message] The s ystem which generated this result transmitted reference range : 10*3/?L. The reference range was not used to interpret this result as normal/abnormal . GRAN MAT (NEUT) % 56.8 % (test code = 770-8) IMM GRAN % (test code 0.40 % = 1356185107) LYMPH % (test code = 25.2 % 736-9) MONO % (test code = 4.8 % 5905-5) EOS % (test code = 11.8 % 713-8) BASO % (test code = 1.0 % 706-2) GRAN MAT x10^3(ANC) 4.46 10*3/uL 1.88-7.09 (test code = 4798679013) IMM GRAN x10^3 (test 0.03 10*3/uL 0.00-0.06 code = 8692114107) LYMPH x10^3 (test code 1.98 10*3/uL 1.32-3.29 = 731-0) MONO x10^3 (test code 0.38 10*3/uL 0.33-0.92 = 742-7) EOS x10^3 (test code = 0.93 10*3/uL 0.03-0.39 H 711-2) BASO x10^3 (test code 0.08 10*3/uL 0.01-0.07 H = 704-7) Lab Interpretation Abnormal (test code = 16241-1) [facility] [id number] 17:29:00 Test Item Value Reference Range Interpretation Comments POCT PREG (test code = 1605) negative On board controls acceptable with positive C Line (test code = 3574) POCT PREG LOT # (test code = 3575) [id number] POCT PREG TEST DATE (test 10-22-2023 code = 3576) Lab Interpretation (test code = Normal 55351-8) [facility] [id number] 17:20:00 Test Item Value Reference Range Interpretation Comments POCT PREG (test code = 1605) Negative On board controls acceptable with Yes C Line (test code = 3574) POCT PREG LOT # (test code = 3575) [id number] POCT PREG TEST DATE (test 09/20/22 code = 3576) [facility]2021-09-20 13:37:00 Test Item Value Reference Range Interpretation Comments URINE HCG TRIAGE (ER ONLY) (test NEGATIVE Negative code = HCGTRIAGE) Urine Test Result: NEGATIVEAre internal controls (presence of a control line & clear background) OK? YesLot # of HCG Test Kit: [id number] Date of Kit: 09/18/21Test Performed by:KRISTINA RNTest Perfomed on: 09/18/21- CT ABD PELVIS [id number] 00:00:00 [facility] SHEILA RODRIGUEZA : 1985 Sex: F Name: SHEILA RODRIGUEZ FSED : 1985 Age/S: 36 / F [address] [facility] Unit #: [id number] Loc: [place] [address] Phys: Linda Kendrick MD Acct: [id number] Dis Date: Status: REG ERPHONE #: Exam Date: 2021 0310 FAX #: Reason: lower abdominal pain EXAMS: CPT CODE: [id number] CT ABD PELVIS W/CONT 51825 PROCEDURE INFORMATION: Exam: CT Abdomen And Pelvis [...] clinical indication); or iterative reconstruction. Contrast material: RFD386; Contrast volume: 95 ml; Contrast route: INTRAVENOUS [...] hernia. 2. No acute findings. PAGE 1 SignedReport (CONTINUED) Name: SHEILA RODRIGUEZ FS : 1985 Age/S: 36 / F [address] [facility]. Unit #: [id number] Loc: [place] [address] Phys: Linda Kendrick MD Acct: [id number] Dis Date: Status: REG ER PHONE #: Exam Date: 2021 0310 FAX #: Reason: lower abdominal pain EXAMS: CPT CODE: [id number] CT ABD PELVIS W/CONT 10993 (Continued) Electronically Signed by Ez Linton 2021 at 0353 Reported and signed by: Aubrie Busch M.D CC: Linda Kendrick MD; Dave Callahan DO Technologist:Chandel Geel, RT(R)(CT) CTDI: DLP: Trnscb Date/Time: 2021 (354) ColinR.AR21 Orig Print D/T: S: 2021 (354) PAGE 2 Signed ReportBASIC METABOLIC [id number] 06:50:00 Test Item Value Reference Range Interpretation [...] CA) 9.3 MG/DL 8.5-10.1 N HEPATIC FUNCTION [id number] 06:50:00 Test Item Value Reference Range Interpretation [...] 45-117 N code = ALKP) BASIC METABOLIC [id number] 06:46:00 Test Item Value Reference Range Interpretation [...] CA) 9.3 MG/DL 8.5-10.1 N HEPATIC FUNCTION [id number] 06:46:00 Test Item Value Reference Range Interpretation [...] = ALKP) UA RFLX MICR CULT IF [id number] 06:43:00 Test Item Value Reference Range Interpretation [...] Indication for culture: RiskForSepsis-no oth srcUR HCG [id number] 06:43:00 Test Item Value Reference Range Interpretation Comments UR HCG QUAL (test code = HCGQLU) NEGATIVE NEGATIVE Indication for culture: RiskForSepsis-no oth src- XR CHEST 1 [id number] 06:38:00[facility]: SHEILA RODRIGUEZ : 1985 Sex: F Name: SHEILA RODRIGUEZ [facility] : 1985 Age/S: 34 / F [address] Unit #: [id number] Loc: [place] [address] Phys: oTlu Ashby MD Acct: [id number] Dis Date: Status: PRE ER PHONE #: [phone] Exam Date: 08/15/2020 0625 FAX #: Reason: chest pain EXAMS: CPT: [id number] XR CHEST 1 V 63431 Fluoro Time: DAP (Gy m2): Air Kerma [...] PAGE 1 Signed Report Name: SHEILA RODRIGUEZ [place] : 1985 Age/S: 34 / F [address] Unit #: [id number] Loc: [place] [address] Phys: Tolu Ashby MD Acct: [id number] Dis Date: Status: PRE ER PHONE #: [phone] Exam Date: 08/15/2020624 FAX #: Reason: chest pain EXAMS: CPT: [id number] XR CHEST 1 V 56370 Fluoro Time: DAP (Gy m2): Air Kerma (mGy): <Continued> Technologist: Jaiden Moise RT(R)(MR) Trnscb Date/Time: 08/15/2020 (0638) [email or web address] Orig Print D/T: S: 08/15/2020 (0641) PAGE 2 Signed ReportUA RFLX MICR CULT IF [id number] 06:36:00 Test Item Value Reference Range Interpretation [...] Indication for culture: RiskForSepsis-no oth srcUR HCG [id number] 06:36:00 Test Item Value Reference Range Interpretation Comments UR HCG QUAL (test code = HCGQLU) NEGATIVE NEGATIVE Indication for culture: RiskForSepsis-no oth srcCBC W/O [id number] 06:36:00 Test Item Value Reference Range Interpretation [...] H MPV) UA RFLX MICR CULT IF [id number] 06:32:00 Test Item Value Reference Range Interpretation [...] Indication for culture: RiskForSepsis-no oth srcUR HCG [id number] 06:32:00 Test Item Value Reference Range Interpretation Comments UR HCG QUAL (test code = HCGQLU) NEGATIVE Indication for culture: RiskForSepsis-no oth src- CT ABD PELVIS [id number] 22:06:00 Name: SHEILA RODRIGUEZ [facility] : 1985 Age/S: 34 / F [id number] Unit #: [id number] Loc: [place] [address] Phys: Tolu Ashby MD Acct: [id number] Dis Date: Status: REG ER PHONE #: [phone] Exam Date: 03/04/2020 2132 FAX #: Reason: LLQ pain, tenderness EXAMS: CPT: [id number] CT ABD PELVIS W/CONT 48833 Location code: H5 CT Abdomen and Pelvis [...] PAGE 1 Signed Report (CONTINUED) Name: [place]ILA RODRIGUEZland : 1985 Age/S: 34 / F [address] Unit #: [id number] Loc: [place] [address] Phys: Tolu Ahsby MD Acct: [id number] Dis Date: Status: REG ER PHONE #: [phone] Exam Date: 03/04/20202131 FAX #: Reason: LLQ pain, tenderness EXAMS: CPT: [id number] CT ABD PELVIS W/CONT 08843 <Continued> Uterus is unremarkable. No adnexal masses [...] culture: Suprapubic PainUA RFLX MICR CULT IF [id number] 21:17:00 Test Item Value Reference Range Interpretation [...] CLEAN CATCHIndication for culture: Suprapubic PainBASIC METABOLIC [id number] 20:31:00 Test Item Value Reference Range Interpretation [...] CA) 8.6 MG/DL 8.5-10.1 N HEPATIC FUNCTION [id number] 20:31:00 Test Item Value Reference Range Interpretation [...] 45-117 N code = ALKP) CBC W/AUTO [id number] 20:22:00 Test Item Value Reference Range Interpretation [...] CRITERIA = MDIFF) - XR C-SPINE 2-3 [id number] 17:22:00 FAX: Dave Calero DO [phone] [place]: St: REG FAX: Rosenda Engle [facility] [phone] ---- Name: SHEILA RODRIGUEZ [facility] : 1985 Age/S: 33/F [address] [place] [address] Unit #: [id number] Loc: [place] [address] Phys: Rosenda Engle Acct: [id number] Dis Date: Status: REG ER PHONE #: [phone] Exam Date: 11/25/2018 1718 FAX #: [phone] Reason: NECK PAIN EXAMS: CPT CODE: [id number] XRC-SPINE 2-3 VIEWS 70866 CERVICAL SPINE SERIES 11/25/2018 AT 1652 HOURS. [...] CC: Dave Callahan DO; Rosenda Engle Technologist: Giuliana Suero RT(R) Trnscrd Date/Time/By: 11/25/2018 (172) : By: [email or web address] Orig Print D/T: S: 11/25/2018 (6806) PAGE 1 Signed ReportURINALYSIS [id number] 16:40:00 Test Item Value Reference Range Interpretation [...] MUCU) TRACE /LPF NONE SEEN UR HCG [id number] 16:40:00 Test Item Value Reference Range Interpretation Comments UR HCG QUAL (test code = HCGQLU) NEGATIVE NEGATIVE URINALYSIS [id number] 04:22:00 Test Item Value Reference Range Interpretation [...] COMMENTS: Clean Catch- CT ABD PELVIS W/O [id number] 03:52:00 Name: SHEILA RODRIGUEZ [facility] : 1985 Age/S: 33 / F [address] [place] [address] Unit #: [id number] Loc: [place] [address] Phys: Adrianne Painter MD Acct: [id number] Dis Date: Status: REG ER PHONE #: [phone] Exam Date: 10/04/2018 0338 FAX #: [phone] Reason: rlq abd pain EXAMS: CPT CODE: [id number] CT ABD PELVIS W/O CONT 48836 EXAM: CT, CT abdomen pelvis without contrast: 10/04/2018 Clinical Indication: Vomiting blood. Blood in stools.. Pelvic pain. Right lower quadrant abdominal pain. Comparison: 06/01/2018. TECHNIQUE: Noncontrast helical imaging was performed without IV contrast from diaphragm to the symphysis pubis regions. Multiplanar coronal and sagittal reformations are obtained. CT imaging was performed with exposure control parameters to reduce radiation dose. Oralcontrast: None. CT Radiation Dose: DLP = 621.87 mGy-cm FINDINGS: This examination is limited for the evaluation of solid organs and vascular structures due to withheld intravenous contrast. LOWER CHEST: The visualized lung bases are clear. NON-CONTRAST ENHANCED SOLID ORGANS: LIVER: Unremarkable. GALLBLADDER: Cholecystectomy. INTRAHEPATIC BILE DUCT AND EXTRAHEPATIC BILE DUCT: Unremarkable. PANCREAS: Unremarkable. SPLEEN: Unremarkable. ADRENALS: Unremarkable. KIDNEYS: No urinary calculi, hydronephrosi s or perinephric stranding. By upper pole renal [...] 1 Signed Report (CONTINUED) Name: SHEILA RODRIGUEZ [facility] : 1985 Age/S: 33 / F [address] [place], [place] [address]vd Unit #: [id number] Loc: [place] [address] Phys: Adrianne Painter MD Acct: [id number] Dis Date: Status: REG ER PHONE #: [phone] Exam Date: 10/04/2018337 FAX #: [phone] Reason: rlq abd pain EXAMS: CPT CODE: [id number] CT ABD PELVIS W/O CONT 62791 (Continued) PERITONEUM AND RETROPERITONEUM: No ascites or [...] M.D. CC: Adrianne Painter MD; Dave Callahan Technologist:RT Young(R) CTDI: DLP: Trnscb Date/Time: 10/04/2018 (035) [email or web address] Orig Print D/T: S: 10/04/2018 (0355) CTDI: DLP: PAGE 2 Signed Report- US TRANSVAGINAL NON [id number] 03:43:00 Name: SHEILA RODRIGUEZ [facility] : 1985 Age/S: 33 / F [address] [place] [address] Unit #: [id number] Loc: [place] [address] Phys: Adrianne Painter MD Acct: [id number] Dis Date: Status: REGER PHONE #: [phone] Exam Date: 10/04/2018326 FAX #: [phone] Reason: Pelvic Pain EXAMS: CPT CODE: [id number] [place] [address] EXAM: US, US PELVIS COMPLETE: 10/04/2018 EXAM: [...] 1 Signed Report (CONTINUED) Name: SHEILA RODRIGUEZ : 1985 Age/S: 33 / F [address] [place] [address] Unit #: [id number] Loc: [place] [address] Phys: Adrianne Painter MD Acct: [id number] Dis Date: Status: REG ER PHONE #: [phone] Exam Date: 10/04/2018326 FAX #: [phone] Reason: Pelvic Pain EXAMS: CPT CODE: [id number] [place] [address] (Continued) 1. Trace fluid in the endometrial and cervical canal. Prominent cervix. 2. Otherwise unremarkable pelvic ultrasound SL: CONNIE at 0343 Reported andsigned by: Luis Mckeon M.D. CC: Adrianne Painter MD; Dave Callahan DO Technologist: Elisha Colmenares RDMS(Ady)(OB) Trnscb Date/Time: 10/04/2018 (0343) [email or web address] Orig Print D/T: S: 10/04/2018 (0346) Probe:[id number] PAGE 2 Signed Report- US PELVIS [id number] 03:43:00 Name: SHEILA RODRIGUEZ : 1985 Age/S: 33 / F [address] [place] [address] Unit #: [id number] Loc: [place] [address] Phys: Adrianne Painter MD Acct: [id number] Dis Date: Status: REG ER PHONE #: [phone] Exam Date: 10/04/2018326 FAX #: [phone] Reason: Pelvic Pain EXAMS:CPT CODE: [id number] US PELVIS COMPLETE 17693 EXAM: US, US PELVIS COMPLETE: 10/04/2018 EXAM: [...] transabdominal pelvic ultrasound necessitating endovaginal pelvic ultrasound. E ndovaginal pelvic ultrasound UTERUS: There is an anteverted [...] 1 Signed Report (CONTINUED) Name: SHEILA RODRIGUEZ [facility] : 1985 Age/S: 33 / F [address] [place] [address] Unit #: [id number] Loc: [place] [address] Phys: Adrianne Painter MD Acct: [id number] Dis Date: Status: REG ER PHONE #: [phone] Exam Date: 10/04/2018326 FAX #: [phone] Reason: Pelvic Pain EXAMS: CPT CODE: [id number] US PELVIS COMPLETE 87285 (Continued) 1. Trace fluid i n the endometrial and cervical canal. Prominent cervix. 2. Otherwise unremarkable pelvic ultrasoundSL: JSYED-H at 0343 Reported and signedby: Luis Mckeon M.D. CC: Adrianne Painter MD; Dave Callahan DO Technologist: Elisha Colmenares RDMS(Ady)(OB) Trnscb Date/Time: 10/04/2018 (034) [email or web address] Orig Print D/T: S: 10/04/2018 (345) Probe: PAGE 2Signed ReportCOMPREHENSIVE METABOLIC [id number] 03:26:00 Test Item Value Reference Range Interpretation [...] 20-125 N TOTAL (test code = ALKP) [id number] 03:26:00 Test Item Value Reference Range Interpretation Comments LIPASE (test code = LIP) 125 IUnit/L 73-393 N HCG SERUM [id number] 03:26:00 Test Item Value Reference Range Interpretation Comments HCG SERUM QUAL (test code = SERUM NEGATIVE NEGATIVE HCGQL) COMPREHENSIVE METABOLIC [id number] 03:15:00 Test Item Value Reference Range Interpretation [...] TOTAL (test IUnit/L 20-125 code = ALKP) [id number] 03:15:00 Test Item Value Reference Range Interpretation Comments LIPASE (test code = LIP) IUnit/L 73-393 HCG SERUM [id number] 03:15:00 Test Item Value Reference Range Interpretation Comments HCG SERUM QUAL (test code = SERUM NEGATIVE NEGATIVE HCGQL) CBC W/AUTO [id number] 03:11:00 Test Item Value Reference Range Interpretation [...] DIFF REQUIRED (test NO code = MDIFF) Notes Date/Time Note Provider Source 2021-10-18 23:50:00-00:00 [facility] ([facility]) EMERGENCY PROVIDER REPORT REPORT#:[id number] REPORT STATUS: Signed DATE:10/18/21 TIME: 2349 PATIENT: SHEILA RODRIGUEZ UNIT #: [id number] ROOM/BED: AGE: 36 SEX: F PCP PHYS: Dave Callahan DO SERVICE AUTHOR: James Mims DO * ALL edits or amendments must be made on the el ectronic/computer document * HPI-Abd Pain F Under 40 Free Text HPI Notes Free Text HPI Notes 36F PMHx anxiety and gastrit is complaining of right lower quadrant pain going on for 2 days. Patient states the pain is 10 out of 10 associated with nausea vomiting and fever. Patient brought in by EMS who gave patient 4 mg of morphine that brought pain down 10 out of 10. Patient sta kamryn she is status post appendectomy, cholecystectomy and also repair of abdominal hernia with mesh. Patient also status post salpingectomy and oopho rectomy. Patient denies chest pain, palpitations, or shortness of breath. Cyril es fevers chills or night sweats. Denies headache,dizziness, or blurry vis ion. Denies LOC or syncope. General Initial Greet Date/Time 10/18/212349 Presentation Chief Complaint Abdominal pain Risk-Abd Pain F Under 40 )( Ectopic Risk factors reviewed Review of Systems ROS Statements All systems rev neg except as marked. Past Medical History - Adult Stated Complaint RLQ PAIN Allergies Coded Allergies: codeine (Severe, SHORTNESS OF BREATH 10/18/21) Home Medications Active Scripts IBUPROFEN (MOTRIN) 800 MG PO TID PRN PRN PAIN IBUPROFEN (MOTRIN) 800 MG PO TID PRN PRN PAIN # 30 TABS Prov: 09/18/21 Physical Exam Vital Signs Vital Signs First Documented: Result Date Time Pulse Ox 100 10/18 2349 B/P 132/73 10/18 2349 B/P Mean 92 10/18 2348 O2 Delivery Nasal cannula 10/18 2348 O2 Flow Rate 2 10/18 2348 Temp 36.6 10/18 2348 Pulse 115 10/18 2348 Resp 10/18 Last Documented: Result Date Time Pulse Ox 100 10/18 2349 B/P 132/73 10/18 2349 B/P Mean 92 10/18 2348 O2 Delivery Nasal cannula 10/18 2348 O2 Flow Rate 2 10/18 2348 Temp 36.6 10/18 2348 Pulse 115 10/18 2348 Resp 10/18 Review of Vital Signs Reviewed Re-Evaluation MDM Free Text MDM Notes Additional Text Review of Vital Signs Reviewed Focused PE General/Const General/Const Awake, Alert, No acute di stress, Well appearing, Well developed , Well hydrated, Well nourished, Cooperative, No t toxic appearing Eyes Eyes EOMI MS Neck Neck Full range of motion Resp/Chest Respiratory/Chest Breath sounds NL, Breath soun ds = bilat, No respiratory distress, No rales, No rhonchi, No wheezing, No retractions Cardiovascular Cardiovascular Heart rate NL, Regular rhythm, H eart sounds NL Abdomen/GI Abdomen/GI Soft, diffuse tenderness to palpation without rebound or guarding, No distention MS Back Back Full range of motion, Painless range of mo tion MS Lower Extrem Lower Ext/Pelvis/MS No edema Skin Skin Color NL, No rash, Warm, Dry, Intact Neurologic Neurologic Oriented X3, Speech NL, No motor def icits, CN II - XII intact Psychiatric Psychiatric Affect NL, Mood NL Additional PE MS Head Head Atraumatic, Normocephalic Ears/Nose/Throat Ears/Nose/Throat Airway patent MS Upper Extrem Upper Extremity/MS Full range of motion, No def ormity )( Re-Evaluation/Progress #1 Text/Dict Note Informed that patient was seen walking out of e emergency room with steady gait unassisted. Patient was screaming i n intense pain when she arrived and we informed her that we would b e doing the labs and imaging after she was recently given pain medication by EMS. [id number]. Pt had IV line placed by EMS so security is currently looking for patient. Time of Re-Eval 0037 )( Re-Eval Status Unchanged Re-Evaluation/Progress #2 Text/Dict Note Security staff was unable to locate patient. Nina rge nurse Linda called PD and informed us that they had a different na me for the patient. When patient spoke to EMS she said that she did not have ID and gav e them a name and address and information that we believed to be fake. Time of Eval 0147 Re-Eval Status Unchanged ED Course Medication(s) Ordered Medication(s) Ordered: Electrolytic, Caloric, And Cayden Sig/Chinedu Start time Last Medication Dose Route Stop Time Status Admin Sodium Chloride 1,000 ML X1ED STA 10/18 2356 DC IV 10/19 0055 Sodium Chloride 0 ASDIR PRN 10/18 234 AC IV 10/19 2256 Gastrointestinal Drugs Sig/Chinedu Start time Last Medication Dose Route Stop Time Status Admin Ondansetron HCl 4 MG X1ED PRN PRN 10/18 2345 AC IV 10/19 2344 Patient Discharge Departure Vital Signs/Condition Vital Signs First Documented: Result Date Time Pulse Ox 100 10/18 2349 B/P 132/73 10/18 2349 B/P Mean 92 10/18 2348 O2 Delivery Nasal cannula 10/18 2348 O2 Flow Rate 2 10/18 2348 Temp 36.6 10/18 2348 Pulse 115 10/18 2349 Resp 20 10/18 2348 Last Documented: Result Date Time Pulse Ox 100 10/18 2349 B/P 132/73 10/18 2349 B/P Mean 92 10/18 2348 O2 Delivery Nasal cannula 10/18 2348 O2 Flow Rate 2 10/18 2348 Temp 36.6 10/18 2348 Pulse 115 10/18 2348 Resp 20 10/18 2348 All vital signs available at the time of this en try have been reviewed. Clinical Impression Clinical Impression Primary Impression: Abdominal pain Disposition Decision Discharge )( Discharged to Home Yes )( Time 014 )( Date 10/19/21 Electronically Signed by James Mims DO on 10/19 at 0148 RPT #:[id number] END OF REPORT 2021 04:00:00-00:00 [facility] ([facility]) EMERGENCY PROVIDER REPORT REPORT#:[id number] REPORT STATUS: Signed DATE:09/18/21 TIME: 399 PATIENT: SHEILA RODRIGUEZ UNIT #: [id number] ROOM/BED: AGE: 36 SEX: F PCP PHYS: Dave Callahan DO SERVICE AUTHOR: Murphy Kendrick MD * ALL edits or amendments must be made on the [employer]/computer document * HPI- Female General Initial Greet Date/Time 09/18/21 0136 Presentation Chief Complaint Vaginal bleeding Free Text HPI Notes Free Text HPI Notes 36-year-old female presents with vaginal bleedin g. Patient reports yesterday morning she started having vaginal bleed ing and lower abdominal cramping pain. She reports small volume of blood but has not actually worn any pads reports she took some tramadol at home w ithout significant pain relief. Patient reports she has unusual, which are usually just spotting for 1 day. LMP July 24. Review of Systems Focused Review of Systems Constitutional Denies: Fever. GI Reports: Abdominal pain. Female Reports: Vaginal discharge. Denies: Dysuria. Musculoskeletal Denies: Back pain. Neurologic Denies: Focal weakness. Past Medical History - Adult Stated Complaint ABDOMINAL PAIN, VAG BLEED Allergies Coded Allergies: codeine (Severe, SHORTNESS OF BREATH 10/04/18) Calculated Suicide Risk (nurs) No risk Past Medical History: Reports: Asthma, Cancer (cer vical, in remission), GERD/gastritis, Kidney disease /stones (stones), Urinary tract infection. Denie s: Diabetes mellitus, Hypertension. Additional Medical History h/o kidney infections Past Surgical History: Reports: Cholecystectomy. Alcohol Use Alcohol use (occasional) Drug Use Denies recreational drugs Smoking status: Smoking status for patients 13 years old or old er: Current every day smoker Other Social History Local resident Additional Social History Father at bedside Physical Exam Vital Signs Vital Signs First Documented: Result Date Time Pulse Ox 98 09/18 014 B/P 143/92 09/18 014 B/P Mean 109 09/18 014 O2 Delivery Room air 09/18 014 Temp 36.8 09/18 014 Pulse 84 09/18 0141 Resp 20 09/18 0141 Last Documented: Result Date Time Pulse Ox 99 09/18 0412 B/P 132/89 09/18 0412 B/P Mean 103 09/18 0412 O2 Delivery Room air 09/18 041 Temp 36.9 09/18 0412 Pulse 76 09/18 0412 Resp 19 09/18 0412 Review of Vital Signs Reviewed Focused PE General/Const General/Const Awake, Alert, No acute distress, Well appearing, Not toxic appearing Resp/Chest Respiratory/Chest Breath sounds NL, Breath soun ds = bilat, No respiratory distress Cardiovascular Cardiovascular Heart rate NL, Regular rhythm, H eart sounds NL Abdomen/GI Abdomen/GI Soft, No guarding, No rebound Tenderness/Guarding/Rebound Tender RLQ, Tender suprapubic. MS Back Back Inspection NL Skin Skin Atraumatic Genitourinary General Merchandising Representative present Text/Dict Notes Scant dark red blood coming from os. No CMT, michael nexal mass/tenderness. Interpretation Diagnostics Lab Results Interpretation Results Recent Impressions: CAT SCAN - CT ABD PELVIS W/CONT 09/18 0300 Report Impression - Status: SIGNED Entered: 2021 0355 IMPRESSION: 1. Small umbilical hernia. 2. No acute findings. Impression By: Deborah Busch M.D Point of Care Testing Test Negative - urine HCG Re-Evaluation MDM Free Text MDM Notes Free Text MDM Notes 36-year-old female presents with vaginal bleedin g. Consider ectopic, miscarriage. Also consider menses, ovarian cyst/ torsion. UPT ordered. Re-Evaluation/Progress Re-Evaluation/Progress Text/Dict Note UPT negative. CT without acute findings. Pelvic exam w/o brisk bleeding. Discharge home with return precautions, PCP foll owup, [facility] followup. ED Course Medication(s) Ordered Medication(s) Ordered: Central Nervous System Agents Sig/Chinedu Start time Last Medication Dose Route Stop Time Status Admin Ketorolac 30 MG X1ED STA 09/18 0242 DC 09/18 Tromethamine IV 09/18 0243 0307 Ketorolac 30 MG X1ED STA 09/18 0227 CAN Tromethamine IM 09/18 0228 Acetaminophen 1,000 MG X1ED STA 09/18 0147 DC 0 09/18 PO 09/18 0148 0219 Diagnostic Agents Sig/Chinedu Start time Last Medication Dose Route Stop Time Status Admin Iopamidol 95 ML .STK-MED ONE 09/18 0254 DC 08/25 6 IV 09/18 0255 0254 Patient Discharge Departure Vital Signs/Condition Vital Signs First Documented: Result Date Time Pulse Ox 98 09/18 0141 B/P 143/92 09/18 0141 B/P Mean 109 09/18 0141 O2 Delivery Room air 09/18 014 Temp 36.8 09/18 014 Pulse 84 09/18 0141 Resp 20 09/18 014 Last Documented: Result Date Time Pulse Ox 99 09/18 0412 B/P 132/89 09/18 0412 B/P Mean 103 09/18 0412 O2 Delivery Room air 09/18 411 Temp 36.9 09/18 0412 Pulse 76 09/18 0412 Resp 19 09/18 0412 All vital signs available at the time of this en try have been reviewed. Clinical Impression Clinical Impression Primary Impression: Vaginal bleeding Secondary Impressions: Abnormal menses Disposition Decision Discharge )( Discharged to Home Yes )( Time 0401 )( Date 09/18/21 Discharge/Care Plan Counseled Regarding Diagnosi s, Lab results, Imaging studies, Need for follow-up, When to return to ED (Auto) Prescriptions Current Visit Scripts IBUPROFEN (MOTRIN) 800 MG PO TID PRN PRN PAIN IBUPROFEN (MOTRIN) 800 MG PO TID PRN PRN PAIN # 30 TABS Patient Instructions ED Dysfunctional Uterine Bl eeding Referrals Provider Referral: Bob Jennings MD Follow-Up: Call for appointment Notes: Abnormal menses Address: [address] [place] [address] [address] [place] [address] Provider Group: PRIMARY CARE Follow-Up: 1 Week Discharge Note I have spoken with the patie nt and/or caregivers. I have explained the patient's condition, diagnoses and heather atment plan based on the information available to me at this time. I have answered the patient's and/ or caregiver's questions and addressed any concerns. The patient and/or careg kaushik have as good an understanding of the patient 's diagnosis, condition and treatment plan as can be expected at this point. The vital signs have bee n stable. The patient's condition is stable and appr opriate for discharge from the emergency department. The patient will pursue further outpatient evalu ation with the primary care physician or other designated or consulting phys ician as outlined in the discharge instructions. The patient and/or caregivers are agreeable to this plan of care and follow-up instructions have been exp lained in detail. The patient and/or caregivers have received these instructio ns in written format and have expressed an understanding of the discharge inst ructions. The patient and/or caregivers are aware that any significant change in condition or worsening of symptoms should prompt an immediate return to [facility] or the closest emergency department or a call to 1. at 0527 RPT #:[id number] END OF REPORT 2020-08-15 06:16:00-00:00 [facility] ([facility]) EMERGENCY PROVIDER REPORT REPORT#:[id number] REPORT STATUS: Signed DATE:08/15/20 TIME:615 PATIENT: SHEILA RODRIGUEZ UNIT #: [id number] ROOM/BED: : 84 AGE: 34 SEX: F PCP PHYS: DOES_NOT KNOW SERVICE AUTHOR: Tolu Ashby MD * ALL edits or amendments must be made on the [employer]/computer document * HPI-General Illness Free Text HPI Notes Free Text HPI Notes 34-year-old female with a past medical history a nxiety depression presents emergency department via EMS for a "anxiety kay ck". Patient states that she was clean her friends house this morning when she started having her symptoms. Patient reports fast breathi ng chest pain headache and "tingling" of her hands. Patient reports 1-2 similar episodes per month. Patient reports seeing a counselor but reports that she has not seen one recently. Patient denies alcohol or drug use tonight. Of note the patient did say that she did meth a week ago and was around some friends who were do ing meth tonight. General Initial Greet Date/Time 08/15/20 0550 Presentation Chief Complaint Anxiety, Chest pain Hx Obtained From Patient Review of Systems ROS Statements All systems rev neg except as marked. Review of Systems Constitutional Denies: Chills, Fever. Respiratory Denies: Cough, productive, Shortness of breath. Cardiovascular Denies: Chest pain. GI Denies: Abdominal pain, Nausea, Vomiting. Skin Denies: Rash. Neurologic Reports: Headache. Denies: Syncope. Psychiatric Reports: Anxiety. Denies: Depression. Past Medical History - Adult Stated Complaint ANXIETY ATTACK Allergies Coded Allergies: codeine (HIVES 08/15/20) Home Medications Reported Medications No Known Home Medications Calculated suicide risk level: No risk Smoking status for patients 13 years old or olde r: Current some day smoker Physical Exam Vital Signs Vital Signs First Documented: Result Date Time Pulse Ox 100 08/15 0448 B/P 143/94 08/15 0448 B/P Mean 110 08/15 547 O2 Delivery Room air 08/15 547 Temp 36.7 08/15 547 Pulse 74 08/15 0448 Resp 18 08/15 547 Last Documented: Result Date Time Pulse Ox 100 08/15 0605 B/P 132/75 08/15 704 B/P Mean 94 08/15 704 O2 Delivery Room air 08/15 704 Temp 36.8 08/15 704 Pulse 65 08/15 07 Resp 19 08/15 704 Review of Vital Signs Reviewed Physical Exam General/Const General/Const Awake, Alert, Well appearing MS Head Head Normocephalic Eyes Eyes PERRL Ears/Nose/Throat Ears/Nose/Throat Airway patent, Mucous membrane s moist, Pharynx NL MS Neck Neck Supple, No meningismus, Full range of diana on, No swelling, Non-tender, No masses Resp/Chest Respiratory/Chest Breath sounds NL, Breath soun ds = bilat, No respiratory distress, No rales, No rhonchi, No wheezing Cardiovascular Cardiovascular Heart rate NL, Regular r hythm, Heart sounds NL, Cap refill not delayed, Peripheral circulation NL Abdomen/GI Abdomen/GI Soft, Non-tender, No guarding, No re bound Skin Skin Color NL, Warm, Dry, Turgor NL Neurologic Neurologic Oriented X3, Speech NL, No motor def icits, No sensory deficits Psychiatric Psychiatric Mood NL, Thought content NL Abnormal Mood/Affect Anxious. Interpretation Diagnostics Lab Results Interpretation Results Laboratory Tests 08/15/20613: [Embedded Image Not Available] Laboratory Tests: 08/15 613 Chemistry Sodium (134 - 147 mmol/L) 139 Potassium (3.4 - 5.0 mmol/L) 3.7 Chloride (100 - 108 mmol/L) 108 Carbon Dioxide (21 - 32 mmol/L) 24 Anion Gap (4.0 - 15.0 GAP calc) 7.0 BUN (7 - 18 MG/DL) 8 Creatinine (0.6 - 1.0 MG/DL) 0.9 Glomerular Filtr Rate (>60 estGFR) >=60 max est imate Glucose (70 - 110 MG/DL) 93 Calcium (8.5 - 10.1 MG/DL) 9.3 Total Bilirubin (0.2 - 1.2 MG/DL) 0.50 Direct Bilirubin (0.00 - 0.30 MG/DL) 0.10 Indirect Bilirubin (0.2 - 1.2 MG/DL) 0.40 AST (15 - 37 Unit/L) 23 ALT (12 - 78 Unit/L) 23 Total Alk Phosphatase (45 - 117 Unit/L) 84 Total Protein (6.4 - 8.2 G/DL) 8.2 Albumin (3.4 - 5.0 G/DL) 3.9 Hematology WBC (3.5 - 11.0 K/mm3) 9.2 RBC (4.70 - 6.10 M/mm3) 4.30 L Hgb (10.4 - 14.9 G/DL) 12.9 Hct (31.5 - 44.1 %) 39.6 MCV (84.5 - 98.6 Fl) 92.1 MCH (27.0 - 34.2 pg) 30.0 MCHC (31.5 - 34.0 G/DL) 32.6 RDW (11.5 - 14.5 SD) 12.5 Plt Count (150 - 450 K/mm3) 234 MPV (7.0 - 10.5 fL) 11.10 H Urines Urine Color (YEL/STRAW discript) YELLOW Urine Appearance (CLEAR discript) HAZY H Urine pH (5.0 - 7.0 pH UNITS) 7.5 H Ur Specific [place] (1.005 - 1.030 SG) 1.010 Urine Protein (NEG mg/dL) NEGATIVE Urine Glucose (UA) (NEG mg/dL) NEGATIVE Urine Ketones (NEG mg/dL) TRACE Urine Blood (NEG mg/DL) NEGATIVE Urine Nitrite (NEG SCREEN) NEGATIVE Urine Bilirubin (NEG mg/dL) NEGATIVE Urine Urobilinogen (<2.0 mg/dL) 0.2 Ur Leukocyte Esterase (NEGATIVE Leuk/mcL) 2+ H Urine RBC (0 - 3 #RBC/HPF) 3-5 H Urine WBC (0 - 3 #WBC/HPF) 5-10 H Ur Squamous Epith Cells (NONE /HPF) 4+ H Urine Bacteria (NONE - TRACE /HPF) 1+ H Urine Yeast (NONE SEEN /HPF) TRACE H Urine Culture Screen (Culture CHK Criteria) NO, WBC<10 Urine HCG, Qual (NEGATIVE) NEGATIVE Recent Impressions: RADIOLOGY - XR CHEST 1 V 08/15 0620 Report Impression - Status: SIGNED Entered: 08/15/2020 0641 IMPRESSION: No radiographic evidence for active cardiopulmon too disease. Impression By: [email or web address] - Elizabeth Cole MD ECG #1 Interpretation Text/Dict Note EKG reviewed and interpreted by myself. Time 0 5 53. Heart rate 77, normal sinus rhythm, no STEMI, normal intervals. Re-Evaluation MDM Free Text MDM Notes Free Text MDM Notes Differential diagnosis anxiety, electrolyte abno rmality, viral syndrome, pneumonia, among others. Labs and imagin g reviewed and discussed with patient. Vital signs stable no respir atory distress or hypoxia. Consistent with patient' s previous anxiety flares. Urged follow- up with her therapist. Resources given , return precautions given, follow-up [facility] PCP. Patient understands and agrees to plan. Re-Evaluation/Progress #1 Time of Re-Eval 06 Re-Eval Status Improved ED Course Medication(s) Ordered Medication(s) Ordered: Central Nervous System Agents Sig/Chinedu Start time Last Medication Dose Route Stop Time Status Admin Lorazepam 0.5 MG X1ED STA 08/15 0600 DC 08/15 PO 08/15 0601 0605 Electrolytic, Caloric, And Cayden Sig/Chinedu Start time Last Medication Dose Route Stop Time Status Admin Sodium Chloride 1,000 ML X1ED STA 08/15 0605 DC 08/15 IV 08/15 07 0627 Patient Discharge Departure Vital Signs/Condition Vital Signs First Documented: Result Date Time Pulse Ox 100 08/15 0548 B/P 143/94 08/15 0548 B/P Mean 110 08/15 0548 O2 Delivery Room air 08/15 0548 Temp 36.7 08/15 0548 Pulse 74 08/15 0548 Resp 18 08/15 0548 Last Documented: Result Date Time Pulse Ox 100 08/15 0705 B/P 132/75 08/15 0705 B/P Mean 94 08/15 0705 O2 Delivery Room air 08/15 0705 Temp 36.8 08/15 0705 Pulse 65 08/15 0705 Resp 19 08/15 0705 All vital signs available at the time of this en try have been reviewed. Condition Stable Clinical Impression Clinical Impression Primary Impression: Anxiety Disposition Decision Discharge )( Discharged to Home Yes )( Time 0656 )( Date 08/15/20 Discharge/Care Plan Counseled Regarding Diagnosi s, Lab results, Imaging studies, Need for follow-up, When to return to ED (Auto) Prescriptions Current Visit Scripts No Known Home Medications Patient Instructions ED Anxiety Reaction, ED Pearce ic Attack Referrals Wilbert Weaver MD: 2-3 Days Discharge Note I have spoken with the patie nt and/or caregivers. I have explained the patient's condition, diagnoses and heather atment plan based on the information available to me at this time. I have answered the patient's and/ or caregiver's questions and addressed any concerns. The patient and/or careg kaushik have as good an understanding of the patient 's diagnosis, condition and treatment plan as can be expected at this point. The vital signs have bee n stable. The patient's condition is stable and appr opriate for discharge from the emergency department. The patient will pursue further outpatient evalu ation with the primary care physician or other designated or consulting phys ician as outlined in the discharge instructions. The patient and/or caregivers are agreeable to this plan of care and follow-up instructions have been exp lained in detail. The patient and/or caregivers have received these instructio ns in written format and have expressed an understanding of the discharge inst ructions. The patient and/or caregivers are aware that any significant change in condition or worsening of symptoms should prompt an immediate return to [facility] or the closest emergency department or a call to 1. Electronically Signed by Tolu Ashby MD on at 1752 RPT #: [id number] END OF REPORT 2020-08-15 05:53:00-00:00 [id number] [facility] [address] [place] [id number] PATIENT NAME: SHEILA RODRIGUEZ ADMIT DATE: 08/15/20 ACCOUNT NO: [id number] ROOM NO: AGE: 34 REPORT TYPE: eELECTROCARDIOGRAM SEX: F ADMITTING PHYSICIAN: ATTENDING PHYSICIAN: Order: [id number] Test Reason : (Not Selected) Test Date/Time Stamp: MonAug 15 2020 05:53:25 Blood Pressure : 143/094 mmHG Vent. Rate : 077 BPM Atrial Rate : 077 BPM P-R Int : 158 ms QRS Dur : 074 ms QT Int : 378 ms P-R-T Axes : 058 072 074 degree s QTc Int : 427 ms Normal sinus rhythm Normal ECG No previous ECGs available Confirmed by KRISTINE JEFFREY MD ([id number]) on 8:20:22 PM Referred By: Self Referred Confirmed by:KRISTINE KAPLAN MD at 2020 PATIENT NAME: SHEILA RODRIGUEZ 2020-03-04 19:22:00-00:00 [facility] ([facility]) EMERGENCY PROVIDER REPORT REPORT#:[id number] REPORT STATUS: Signed DATE:03/04/20 TIME:1921 PATIENT: SHEILA RODRIGUEZ UNIT #: [id number] ROOM/BED: : 84 AGE: 34 SEX: F PCP PHYS: Janis Callahan DO SERVICE AUTHOR: Tolu Ashby MD * ALL edits or amendments must be made on the el ectronic/computer document * HPI-General Illness Free Text HPI Notes Free Text HPI Notes 34-year-old female with past medical history of asthma, anemia, chronic UTIs presents emergency department with left lower qu adrant abdominal pain for the last 3 to 4 days. States about 4 days ago she wa s helping her friend move moving furniture she noted t hat her left lower quadrant started hurting she laid down on the couch and her friend's dog jumped on her in the same location causing more pain she has hernandez d constant pain since then describes it as sharp and achy with some radiation to diffusely to her paulina k. Patient denies dysuria, vaginal discharge. Patient d enies nausea vomiting or diarrhea, fever or chills, recent illness or sick contacts. Patient reports similar pain on and off x3 years. General Initial Greet Date/Time 03/04/201914 Presentation Chief Complaint Abdominal pain Hx Obtained From Patient Sudden in Onset? No Review of Systems ROS Statements All systems rev neg except as marked. Review of Systems Constitutional Denies: Chills, Fever. Ears/Nose/Throat Denies: Nasal congestion, Sore throat. Respiratory Denies: Cough, non-productiv e, Cough, productive, Dyspnea on exertion, Shortness of breath. Cardiovascular Denies: Chest pain, Dyspnea on exertion. GI Reports: Abdominal pain. Denies: Diarrhea, Nause a, Vomiting. Musculoskeletal Reports: Back pain. Denies: Neck pain. Skin Denies: Rash. Neurologic Denies: Focal weakness, Generalized weakness, He adache, Syncope. Past Medical History - Adult Stated Complaint ABDOMINAL AND BACK PAIN Allergies Coded Allergies: codeine (Severe, SHORTNESS OF BREATH 10/04/18) Home Medications Reported Medications No Known Home Medications Past Medical History: Reports: Asthma, Cancer (cer vical, in remission), GERD/gastritis, Kidney disease /stones (stones), Urinary tract infection. Denie s: Diabetes mellitus, Hypertension. Additional Medical History h/o kidney infections Past Surgical History: Reports: Cholecystectomy. Alcohol Use Alcohol use (occasional) Drug Use Denies recreational drugs Other Social History Local resident Additional Social History Father at bedside Physical Exam Vital Signs Vital Signs First Documented: Result Date Time Pulse Ox 97 03/04 1921 B/P 108/63 03/04 1921 B/P Mean 78 03/04 1921 O2 Delivery Room air 03/04 1921 Temp 36.1 03/04 1921 Pulse 93 03/04 1921 Resp 18 03/04 1921 Last Documented: Result Date Time Pulse Ox 100 03/04 2230 B/P 121/73 03/04 2230 B/P Mean 89 03/04 2230 Pulse 82 03/04 2230 Resp 17 03/04 2230 O2 Delivery Room air 03/04 1921 Temp 36.1 03/04 1921 Review of Vital Signs Reviewed Physical Exam General/Const General/Const Awake, Alert, No acute di stress, Well appearing, Well developed , Well hydrated, Well nourished, Cooperative, No t toxic appearing MS Head Head Normocephalic Eyes Eyes PERRL Ears/Nose/Throat Ears/Nose/Throat Airway patent, Mucous membrane s moist, Pharynx NL MS Neck Neck Supple, No meningismus, Full range of diana on, No swelling, Non-tender, No masses Resp/Chest Respiratory/Chest Breath sounds NL, Breath soun ds = bilat, No respiratory distress, No rales, No rhonchi, No wheezing Cardiovascular Cardiovascular Heart rate NL, Regular rhythm, H eart sounds NL, Peripheral circulation NL Text/Dict Notes Cap refill greater than 3 seconds Abdomen/GI Abdomen/GI Soft, No guarding, No rebound Text/Dict Notes Left lower quadrant tenderness to palpation. No obvious hernia. MS Back Back Inspection NL, Painless range of motion, N o midline vertebral tend, No CVA tenderness Text/Dict Notes Diffuse paraspinal lumbar tenderness to palpatio n MS Upper Extrem Upper Extremity/MS Inspection NL, No swelling, Non-tender, No erythema, No deformity, Neurologic intact, Vascular intact, N o clubbing/cyanosis MS Wrist/Hand Wrist/Hand Inspection NL, No swelling, No erythema, Non-tender, No deformity, Neurologic intact, Vascular intact, No clubbing/ cyanosis MS Lower Extrem Lower Ext/Pelvis/MS Inspection NL, No swelling, Non-tender, No erythema, No deformity, Neurologic intact, Vascular intact, N o edema MS Ankle/Foot Ankle/Foot Inspection NL, No swelling, No erythema, Non-tender, No deformity, Neurologic intact, Vascular intact, No edema Skin Skin Color NL, Warm, Dry, Turgor NL Neurologic Neurologic Oriented X3, Speech NL, No motor def icits, No sensory deficits Psychiatric Psychiatric Affect NL, Mood NL, Thought content NL Interpretation Diagnostics Lab Results Interpretation Results Laboratory Tests 03/04/201944: [Embedded Image Not Available] Laboratory Tests: 03/04 Chemistry Sodium (134 - 147 mmol/L) 140 Potassium (3.4 - 5.0 mmol/L) 4.2 Chloride (100 - 108 mmol/L) 109 H Carbon Dioxide (21 - 32 mmol/L) 26 Anion Gap (4.0 - 15.0 GAP calc) 5.0 BUN (7 - 18 MG/DL) 10 Creatinine (0.6 - 1.0 MG/DL) 0.8 Glomerular Filtr Rate (>60 estGFR) >=60 max est imate Glucose (70 - 110 MG/DL) 81 Calcium (8.5 - 10.1 MG/DL) 8.6 Total Bilirubin (0.2 - 1.2 MG/DL) 0.20 Direct Bilirubin (0.00 - 0.30 MG/DL) < 0.10 Indirect Bilirubin (0.2 - 1.2 MG/DL) 0.10 L AST (15 - 37 Unit/L) 22 ALT (12 - 78 Unit/L) 37 Total Alk Phosphatase (45 - 117 Unit/L) 69 Total Protein (6.4 - 8.2 G/DL) 7.6 Albumin (3.4 - 5.0 G/DL) 3.6 Hematology WBC (3.5 - 11.0 K/mm3) 9.1 RBC (4.70 - 6.10 M/mm3) 4.51 L Hgb (10.4 - 14.9 G/DL) 13.7 Hct (31.5 - 44.1 %) 41.9 MCV (84.5 - 98.6 Fl) 92.9 MCH (27.0 - 34.2 pg) 30.4 MCHC (31.5 - 34.0 G/DL) 32.7 RDW (11.5 - 14.5 SD) 12.5 Plt Count (150 - 450 K/mm3) 209 MPV (7.0 - 10.5 fL) 11.90 H Neut % (Auto) (40 - 76 %) 53.5 Lymph % (Auto) (20.5 - 51.1 %) 34.8 Daggett % (Auto) (1.7 - 9.3 %) 7.5 Eos % (Auto) (0.0 - 6.0 %) 3.1 Baso % (Auto) (0.0 - 2.0 %) 0.8 Neut # (Auto) (1.8 - 7.6 K/mm3) 4.9 Lymph # (Auto) (0.6 - 3.2 K/mm3) 3.2 Daggett # (Auto) (0.3 - 1.1 K/mm3) 0.7 Eos # (Auto) (0.0 - 0.4 K/mm3) 0.3 Baso # (Auto) (0.0 - 0.1 K/mm3) 0.1 Abs Immat Gran (auto) (0.00 - 0.03 x10 3/uL) 0. 03 Add Manual Diff (CRITERIA DIFF/SCN) NO Immature Gran % (0.0 - 5.0 %) 0.3 Nucleated RBC % (0.0 - 1.0 /100WBC%) 0.0 Urines Urine Color (YEL/STRAW discript) YELLOW Urine Appearance (CLEAR discript) CLEAR Urine pH (5.0 - 7.0 pH UNITS) 5.5 Ur Specific [place] (1.005 - 1.030 SG) >=1.030 H Urine Protein (NEG mg/dL) NEGATIVE Urine Glucose (UA) (NEG mg/dL) NEGATIVE Urine Ketones (NEG mg/dL) TRACE Urine Blood (NEG mg/DL) NEGATIVE Urine Nitrite (NEG SCREEN) NEGATIVE Urine Bilirubin (NEG mg/dL) 1+ H Urine Urobilinogen (<2.0 mg/dL) 0.2 Ur Leukocyte Esterase (NEGATIVE Leuk/mcL) 1+ H Urine RBC (0 - 3 #RBC/HPF) 0-1 Urine WBC (0 - 3 #WBC/HPF) 1-3 Ur Squamous Epith Cells (NONE /HPF) TRACE Urine Bacteria (NONE - TRACE /HPF) TRACE Urine Culture Screen (Culture CHK Criteria) NO, WBC<10 Urine HCG, Qual (NEGATIVE) NEGATIVE Recent Impressions: CAT SCAN - CT ABD PELVIS W/CONT 03/04 2125 Report Impression - Status: SIGNED Entered: 03/04/20202209 Impression: 1. No specific evidence of acute pathology. Impression By: Uzma Rebolledo Re-Evaluation MDM Free Text MDM Notes Free Text MDM Notes Differential diagnosis diverticulitis, ectopic, PID, musculoskeletal strain, among others. Labs and imaging reviewed and disc ussed with patient. Abdomen non-peritoneal. P.o. tolerant in ED. Rx meds, GI referral given. Return precautions given. Patient understands and agree s to plan. Re-Evaluation/Progress #1 Time of Re-Eval 2227 Re-Eval Status Improved, stable ED Course Medication(s) Ordered Medication(s) Ordered: Central Nervous System Agents Sig/Chinedu Start time Last Medication Dose Route Stop Time Status Admin Morphine Sulfate 4 MG X1ED STA 03/04 2039 DC IV 03/04 Ketorolac 15 MG X1ED STA 03/04 1941 DC 03/04 Tromethamine IV 03/04 Diagnostic Agents Sig/Chinedu Start time Last Medication Dose Route Stop Time Status Admin Iopamidol 0 .STK-MED ONE 03/04 2048 DC 03/04 .ROUTE 2136 Electrolytic, Caloric, And Cayden Sig/Chinedu Start time Last Medication Dose Route Stop Time Status Admin Sodium Chloride 50 ML .STK-MED ONE 03/04 2048 D C 03/04 IV 213 Sodium Chloride 1,000 ML X1ED STA 03/04 1941 DC 03/04 IV 03/04 2041 1950 Sodium Chloride 10 ML ASDIR 03/04 1930 DC IV 04/03 1929 Sodium Chloride 500 ML ONCE ONE 03/04 193 CAN IV 03/05 2029 Gastrointestinal Drugs Sig/Chinedu Start time Last Medication Dose Route Stop Time Status Admin Ondansetron HCl 4 MG X1ED STA 03/04 2039 DC IV 03/04 Patient Discharge Departure Vital Signs/Condition Vital Signs First Documented: Result Date Time Pulse Ox 97 03/04 1921 B/P 108/63 03/04 1921 B/P Mean 78 03/04 1921 O2 Delivery Room air 03/04 1921 Temp 36.1 03/04 1921 Pulse 93 03/04 1921 Resp 18 03/04 1921 Last Documented: Result Date Time Pulse Ox 100 03/04 2230 B/P 121/73 03/04 2230 B/P Mean 89 03/04 2230 Pulse 82 03/04 2230 Resp 17 03/04 2230 O2 Delivery Room air 03/04 1921 Temp 36.1 03/04 1921 All vital signs available at the time of this en try have been reviewed. Condition Stable Clinical Impression Clinical Impression Primary Impression: Abdominal pain Disposition Decision Discharge )( Discharged to Home Yes )( Time 2228 )( Date 03/04/20 Discharge/Care Plan Counseled Regarding Diagnosis, Lab resul ts, Prescriptions, Need for follow-up, When to return to ED Rx Drug Database Reviewed Yes Prescriptions bentyl tramadol (Auto) Prescriptions Current Visit Scripts No Known Home Medications Referrals Dave Callahan DO (PCP/Family) Electronically Signed by Tolu Ashby MD on at 0124 RPT #: [id number] END OF REPORT 2018-11-25 15:39:00-00:00 [facility] ([facility] EMERGENCY PROVIDER REPORT REPORT#:[id number] REPORT STATUS: Signed DATE:11/25/18 TIME: 1538 PATIENT: SHEILA RODRIGUEZ UNIT #: [id number] ROOM/BED: AGE: 33 SEX: F PCP PHYS: Dave Callahan DO SERVICE AUTHOR: Rosenda Engle * ALL edits or amendments must be made on the [employer]/computer document * HPI-Neck Pain General Confirmed Patient Yes Initial Greet Date/Time 11/25/[address] Dave Callahan-PCP Presentation Chief Complaint Neck pain Hx Obtained From Patient Onset Occurred Days ago (x3) Symptom Duration Since onset Progression since Onset Intermittent, Gradually worsening Caused by No trauma by history Radiation No: Does not radiate. Associated with Reports: Decreased range of motion. Denies: Feve r. Free Text HPI Notes Free Text HPI Notes 33 y/o F w/ PMHx asthma, cervical cancer in norberto ssion, UTI, GERD, and kidney stones presents to the ED w/ c/o worsening inter mittent neck pain, onset occurred 3 days ago. Pt notes the pain is locate d in the back of her neck, increasingly painful w/ ROM radiating to her mid back, and worse today. Pt reports intermittent hematuria since this nikkin g. Pt denies any fever. Portions of this section were scribed by Desean Morales on 11/25/18 at 1751 Review of Systems ROS Statements All systems rev neg except as marked. Focused Review of Systems Constitutional Denies: Fever. Musculoskeletal Reports: Neck pain. Additional Review of Systems Female Reports: Hematuria. Portions of this section were scribed by Desean Morales on 11/25/18 at 1539 Past Medical History - Adult Stated Complaint NECK PAIN Allergies Coded Allergies: codeine (Severe, SHORTNESS OF BREATH 10/04/18) Home Medications Reported Medications No Known Home Medications Past Medical History: Reports: Asthma, Cancer (cer vical, in remission), GERD/gastritis, Kidney disease /stones (stones), Urinary tract infection. Denie s: Diabetes mellitus, Hypertension. Additional Medical History h/o kidney infections Past Surgical History: Reports: Cholecystectomy. Alcohol Use Alcohol use (occasional) Drug Use Denies recreational drugs Other Social History Local resident Additional Social History Father at bedside Portions of this section were scribed by Desean Morales on 11/25/18 at 1539 Physical Exam Vital Signs Vital Signs First Documented: Result Date Time Pulse Ox 98 / 1542 B/P 119/57 05/05 1542 B/P Mean 77 05/05 1542 O2 Delivery Room air 05 1542 Temp 36.7 05/05 1542 Pulse 81 05/05 1542 Resp 17 / 1542 Last Documented: Result Date Time Pulse Ox 98 / 1542 B/P 119/57 05/05 1542 B/P Mean 77 05/05 1542 O2 Delivery Room air 05/ 1542 Temp 36.7 05/05 1542 Pulse 81 05/05 1542 Resp 17 / 1542 Review of Vital Signs Reviewed Focused PE General/Const General/Const Awake, Alert, Well developed, Respiratory Technician perative MS Head Head Atraumatic, Normocephalic Eyes Eyes EOMI, Conjunctiva NL Ears/Nose/Throat Ears/Nose/Throat Airway patent, Mucous membrane s moist MS Neck Neck No meningismus Text/Dict Notes BL paraspinal cervical tenderness. Decre ased ROM secondary to pain, pain worse when rotates head to the right. No stepoffs. Resp/Chest Respiratory/Chest Breath sounds NL, No respirat ory distress, No rales, No rhonchi, No wheezing Cardiovascular Cardiovascular Heart rate NL, Regular rhythm, H eart sounds NL Skin Skin Warm, Dry, Intact Neurologic Neurologic Oriented X3, Speech NL, No motor def icits, No sensory deficits Additional PE Psychiatric Psychiatric Affect NL, Mood NL Portions of this section were scribed by Desean Morales on 11/25/18 at 1557 Interpretation Diagnostics Lab Results Interpretation Results Laboratory Tests: 11/25 11/25 1624 1624 Urines Urine Color (YEL/STRAW) YELLOW Urine Appearance (CLEAR) CLOUDY H Urine pH (5.0 - 7.0) 5.0 Ur Specific [place] (1.005 - 1.030) 1.017 Urine Protein (NEGATIVE) NEGATIVE Urine Glucose (UA) (NEGATIVE) NEGATIVE Urine Ketones (NEGATIVE) NEGATIVE Urine Blood (NEGATIVE) NEGATIVE Urine Nitrite (NEGATIVE) NEGATIVE Urine Bilirubin (NEGATIVE) NEGATIVE Urine Urobilinogen (0.2 - 1.0 mg/dL) 2.0 H Ur Leukocyte Esterase (NEGATIVE) 3+ H Urine RBC (0 - 3 RBC/HPF) >50 H Urine WBC (0 - 3 WBC/HPF) >50 H Ur Squamous Epith Cells (NONE SEEN /HPF) 26-35 H Urine Bacteria (NONE SEEN /HPF) 2+ H Urine Mucus (NONE SEEN /LPF) TRACE Urine HCG, Qual (NEGATIVE) NEGATIVE Microbiology: Date/Time Procedure - Status Source Growth 11/25 1640 Urine Culture - RECD URINE Recent Impressions: RADIOLOGY - XR C-SPINE 2-3 VIEWS 11/25 1718 Report Impression - Status: SIGNED Entered: 11/25/2018 1725 IMPRESSION: 1. No signs of cervical spine fracture or sublux ation. 2. No visible significant degenerative change. 3. Clear lung apices. SL: ER-H Impression By: [email or web address] - Aelxy klein M.D. Lab Imaging Statement Laboratory radiographic studies reviewed and con sidered in the medical decision-making. Point of Care Testing Pulse Oximetry Pulse Ox % 98 On: Room air Interpretation Interpreted by me, Pulse oximetr y normal Time 1542 Radiography X-Ray C-Spine Text/Dict Note IMPRESSION: 1. No signs of cervical spine fracture or sublux ation. 2. No visible significant degenerative change. 3. Clear lung apices. Interpretation/Wet Read by Interpret - Radiolog ist Reviewed by ED HOBBING MACHINE OPERATOR Portions of this section were scribed by Desean Morales on 11/25/18 at 1746 Re-Evaluation MDM Re-Evaluation/Progress Re-Evaluation/Progress Text/Dict Note Discussed results w/ pt, plan to D/C home and f/ u w/ PCP. Provided reasons to return to the ED for any new or worsening sxs. P t agrees w/ plan. Time of Re-Eval 1736 ED Course Medication(s) Ordered Medication(s) Ordered: Anti-Infective Agents Sig/Chinedu Start time Last Medication Dose Route Stop Time Status Admin Ceftriaxone Sodium 1,000 MG X1ED STA 11/25 1743 DC IM 11/25 1744 Autonomic Drugs Sig/Chinedu Start time Last Medication Dose Route Stop Time Status Admin Cyclobenzaprine HCl 10 MG X1ED STA 11/25 1541 D C 11/25 PO 11/25 1542 1559 Cardiovascular Drugs Sig/Chinedu Start time Last Medication Dose Route Stop Time Status Admin Lidocaine HCl 2.1 ML X1ED STA 11/25 1743 DC IM 11/25 1744 Central Nervous System Agents Sig/Chinedu Start time Last Medication Dose Route Stop Time Status Admin Ketorolac 20 MG ONCE ONE 11/25 1545 DC 11/25 Tromethamine PO 11/25 1546 1559 Portions of this section were scribed by Desean Morales on 11/25/18 at 1746 Patient Discharge Departure Vital Signs/Condition Vital Signs First Documented: Result Date Time Pulse Ox 98 11/25 1542 B/P 119/57 05/ 1542 B/P Mean 77 11/25 1542 O2 Delivery Room air 11/25 1542 Temp 36.7 11/25 1542 Pulse 81 11/25 1542 Resp 17 11/25 1542 Last Documented: Result Date Time Pulse Ox 98 / 1542 B/P 119/57 05/ 1542 B/P Mean 77 / 1542 O2 Delivery Room air 11/25 1542 Temp 36.7 11/25 1541 Pulse 81 11/25 1542 Resp 17 11/25 154 All vital signs available at the time of this en try have been reviewed. Condition Stable Clinical Impression Clinical Impression Primary Impression: UTI (urinary tract infection ) Secondary Impressions: Torticollis Disposition Decision Discharge )( Discharged to Home Yes )( Time 1828 )( Date 11/25/18 Discharge/Care Plan Counseled Regarding Diagnosi s, Lab results, Imaging studies, Prescriptions, Need for follow-up, When to return to ED Prescriptions Naproxen, Flexeril, Macrobid Prescriptions Reviewed Risks, Benefits, Alternat paulina treatment Supervising Physician Note Scribe Statement Desean Carpio, 11/25/18 1558, scribing for an d in the presence of [Rosenda Engle NP]. Signed By: Desean Carpio, 11/25/18 1553 Provider Scribed Statement I personally performed the s ervices described in this documentation and reviewed the documentation that was dictated to the scrib e(s) in my presence, and it accurately records my words and actions. Raquel Engle, 11/25/18 Portions of this section were scribed by Desean Morales on 11/25/18 at 1746 Electronically Signed by Rosenda Engle on 0 11/25/18 at 1829 RPT #:[id number] END OF REPORT 2018-11-25 15:39:00-00:00 [facility] EMERGENCY PROVIDER REPORT REPORT#:[id number] REPORT STATUS: Signed DATE:11/25/18 TIME: 1538 PATIENT: SHEILA RODRIGUEZ UNIT #: [id number] ROOM/BED: AGE: 33 SEX: F PCP PHYS: Dave Callahan DO SERVICE AUTHOR: Rosenda Engle * ALL edits or amendments must be made on the [employer]/computer document * Rosenda Engle 11/25/18 1539: HPI-Neck Pain General Confirmed Patient Yes PCP Dr. Dave Callahan-PCP Presentation Chief Complaint Neck pain Hx Obtained From Patient Onset Occurred Days ago (x3) Symptom Duration Since onset Progression since Onset Intermittent, Gradually worsening Caused by No trauma by history Radiation No: Does not radiate. Associated with Reports: Decreased range of motion. Denies: Feve r. Free Text HPI Notes Free Text HPI Notes 33 y/o F w/ PMHx asthma, cervical cancer in norberto ssion, UTI, GERD, and kidney stones presents to the ED w/ c/o worsening inter mittent neck pain, onset occurred 3 days ago. Pt notes the pain is locate d in the back of her neck, increasingly painful w/ ROM radiating to her mid back, and worse today. Pt reports intermittent hematuria since this shana wiseman Pt denies any fever. Portions of this section were scribed by Desean Morales on 11/25/18 at 1751 Review of Systems ROS Statements All systems rev neg except as marked. Focused Review of Systems Constitutional Denies: Fever. Musculoskeletal Reports: Neck pain. Additional Review of Systems Female Reports: Hematuria. Portions of this section were scribed by Desean Morales on 11/25/18 at 1539 Past Medical History - Adult Stated Complaint NECK PAIN Allergies Coded Allergies: codeine (Severe, SHORTNESS OF BREATH 10/04/18) Home Medications Reported Medications No Known Home Medications Past Medical History: Reports: Asthma, Cancer (cer vical, in remission), GERD/gastritis, Kidney disease /stones (stones), Urinary tract infection. Denie s: Diabetes mellitus, Hypertension. Additional Medical History h/o kidney infections Past Surgical History: Reports: Cholecystectomy. Alcohol Use Alcohol use (occasional) Drug Use Denies recreational drugs Other Social History Local resident Additional Social History Father at bedside Portions of this section were scribed by Desean Morales on 11/25/18 at 1539 Physical Exam Vital Signs Vital Signs First Documented: Result Date Time Pulse Ox 98 11/25 1542 B/P 119/57 11/25 1542 B/P Mean 77 11/25 1542 O2 Delivery Room air 11/25 1542 Temp 36.7 11/25 1542 Pulse 81 11/25 1542 Resp 17 11/25 1542 Last Documented: Result Date Time Pulse Ox 99 11/25 1830 B/P 115/68 11/25 1830 B/P Mean 83 11/25 1830 O2 Delivery Room air 11/25 1829 Temp 36.6 11/25 1829 Pulse 78 11/25 1829 Resp 18 11/25 1829 Review of Vital Signs Reviewed Focused PE General/Const General/Const Awake, Alert, Well developed, Respiratory Technician perative MS Head Head Atraumatic, Normocephalic Eyes Eyes EOMI, Conjunctiva NL Ears/Nose/Throat Ears/Nose/Throat Airway patent, Mucous membrane s moist MS Neck Neck No meningismus Text/Dict Notes BL paraspinal cervical tenderness. Decre ased ROM secondary to pain, pain worse when rotates head to the right. No stepoffs. Resp/Chest Respiratory/Chest Breath sounds NL, No respirat ory distress, No rales, No rhonchi, No wheezing Cardiovascular Cardiovascular Heart rate NL, Regular rhythm, H eart sounds NL Skin Skin Warm, Dry, Intact Neurologic Neurologic Oriented X3, Speech NL, No motor def icits, No sensory deficits Additional PE Psychiatric Psychiatric Affect NL, Mood NL Portions of this section were scribed by Desean Morales on 11/25/18 at 1557 Interpretation Diagnostics Lab Results Interpretation Results Laboratory Tests: 11/25 11/25 1624 1624 Urines Urine Color (YEL/STRAW) YELLOW Urine Appearance (CLEAR) CLOUDY H Urine pH (5.0 - 7.0) 5.0 Ur Specific [place] (1.005 - 1.030) 1.017 Urine Protein (NEGATIVE) NEGATIVE Urine Glucose (UA) (NEGATIVE) NEGATIVE Urine Ketones (NEGATIVE) NEGATIVE Urine Blood (NEGATIVE) NEGATIVE Urine Nitrite (NEGATIVE) NEGATIVE Urine Bilirubin (NEGATIVE) NEGATIVE Urine Urobilinogen (0.2 - 1.0 mg/dL) 2.0 H Ur Leukocyte Esterase (NEGATIVE) 3+ H Urine RBC (0 - 3 RBC/HPF) >50 H Urine WBC (0 - 3 WBC/HPF) >50 H Ur Squamous Epith Cells (NONE SEEN /HPF) 26-35 H Urine Bacteria (NONE SEEN /HPF) 2+ H Urine Mucus (NONE SEEN /LPF) TRACE Urine HCG, Qual (NEGATIVE) NEGATIVE Microbiology: Date/Time Procedure - Status Source Growth 11/25 1640 Urine Culture - RECD URINE Recent Impressions: RADIOLOGY - XR C-SPINE 2-3 VIEWS 11/25 1718 Report Impression - Status: SIGNED Entered: 11/25/2018 1725 IMPRESSION: 1. No signs of cervical spine fracture or sublux ation. 2. No visible significant degenerative change. 3. Clear lung apices. SL: ER-H Impression By: [email or web address] - Alexy klein M.D. Lab Imaging Statement Laboratory radiographic studies reviewed and con sidered in the medical decision-making. Point of Care Testing Pulse Oximetry Pulse Ox % 98 On: Room air Interpretation Interpreted by me, Pulse oximetr y normal Time 1542 Radiography X-Ray C-Spine Text/Dict Note IMPRESSION: 1. No signs of cervical spine fracture or sublux ation. 2. No visible significant degenerative change. 3. Clear lung apices. Interpretation/Wet Read by Interpret - Radiolog ist Reviewed by ED HOBBING MACHINE OPERATOR Portions of this section were scribed by Desean Morales on 11/25/18 at 1746 Re-Evaluation MDM Re-Evaluation/Progress Re-Evaluation/Progress Text/Dict Note Discussed results w/ pt, plan to D/C home and f/ u w/ PCP. Provided reasons to return to the ED for any new or worsening sxs. P t agrees w/ plan. Time of Re-Eval 1736 ED Course Medication(s) Ordered Medication(s) Ordered: Anti-Infective Agents Sig/Chinedu Start time Last Medication Dose Route Stop Time Status Admin Ceftriaxone Sodium 1,000 MG X1ED STA 11/25 1743 DC IM 11/25 1744 Autonomic Drugs Sig/Chinedu Start time Last Medication Dose Route Stop Time Status Admin Cyclobenzaprine HCl 10 MG X1ED STA 11/25 1541 D C 11/25 PO 11/25 1542 1559 Cardiovascular Drugs Sig/Chinedu Start time Last Medication Dose Route Stop Time Status Admin Lidocaine HCl 2.1 ML X1ED STA 11/25 1743 DC IM 11/25 1744 Central Nervous System Agents Sig/Chinedu Start time Last Medication Dose Route Stop Time Status Admin Ketorolac 20 MG ONCE ONE 11/25 1545 DC 11/25 Tromethamine PO 11/25 1546 1559 Portions of this section were scribed by Desean Morales on 11/25/18 at 1746 Patient Discharge Departure Vital Signs/Condition Vital Signs First Documented: Result Date Time Pulse Ox 98 11/25 1542 B/P 119/57 11/25 1542 B/P Mean 77 11/25 1542 O2 Delivery Room air 11/25 1542 Temp 36.7 11/25 1542 Pulse 81 11/25 1542 Resp 17 11/25 1542 Last Documented: Result Date Time Pulse Ox 99 11/25 1829 B/P 115/68 11/25 1829 B/P Mean 83 11/25 1829 O2 Delivery Room air 11/25 1829 Temp 36.6 11/25 1829 Pulse 78 11/25 1829 Resp 18 11/25 1829 All vital signs available at the time of this en try have been reviewed. Condition Stable Clinical Impression Clinical Impression Primary Impression: UTI (urinary tract infection ) Secondary Impressions: Torticollis Disposition Decision Discharge )( Discharged to Home Yes )( Time 1828 )( Date 11/25/18 Discharge/Care Plan Counseled Regarding Diagnosi s, Lab results, Imaging studies, Prescriptions, Need for follow-up, When to return to ED Prescriptions Naproxen, Flexeril, Macrobid Prescriptions Reviewed Risks, Benefits, Alternat paulina treatment Supervising Physician Note Scribe Statement Desean Carpio, 11/25/18 1558, scribing for an d in the presence of [Rosenda Engle NP]. Signed By: Desean Carpio, 11/25/18 1552 Provider Scribed Statement I personally performed the s ervices described in this documentation and reviewed the documentation that was dictated to the scrib e(s) in my presence, and it accurately records my words and actions. Raquel Engle, 11/25/18 Portions of this section were scribed by Desean Morales on 11/25/18 at 1746 Kp Moses 11/25/182043: HPI-Neck Pain General Initial Greet Date/Time 11/25/18 1537 Physical Exam Vital Signs Vital Signs Interpretation Diagnostics Lab Results Interpretation Results Re-Evaluation MDM ED Course Medication(s) Ordered Patient Discharge Departure Vital Signs/Condition Vital Signs Supervising Physician Note MidLv Saw Pt Alone I was available for consultation as needed at al l times during the patient's visit in the emergency department. Authenticated by Esteban Dewey MD on 11/25/18 a t 1756 Electronically Signed by Rosenda Engle on 0 11/25/18 at 1823 RPT #:[id number] END OF REPORT 2018-11-25 15:39:00-00:00 [facility]) EMERGENCY PROVIDER REPORT REPORT#:[id number] REPORT STATUS: Signed DATE:11/25/18 TIME: 1538 PATIENT: SHEILA RODRIGUEZ UNIT #: [id number] ROOM/BED: AGE: 33 SEX: F PCP PHYS: Dave Callahan DO SERVICE AUTHOR: Rosenda Engle SHUTTLE FINAL INSPECTOR * ALL edits or amendments must be made on the [employer]/computer document * Rosenda Engle. 11/25/18 153: HPI-Neck Pain General Confirmed Patient Yes PCP Dr. Dave Callahan-PCP Presentation Chief Complaint Neck pain Hx Obtained From Patient Onset Occurred Days ago (x3) Symptom Duration Since onset Progression since Onset Intermittent, Gradually worsening Caused by No trauma by history Radiation No: Does not radiate. Associated with Reports: Decreased range of motion. Denies: Feve rCain Free Text HPI Notes Free Text HPI Notes 33 y/o F w/ PMHx asthma, cervical cancer in norberto ssion, UTI, GERD, and kidney stones presents to the ED w/ c/o worsening inter mittent neck pain, onset occurred 3 days ago. Pt notes the pain is locate d in the back of her neck, increasingly painful w/ ROM radiating to her mid back, and worse today. Pt reports intermittent hematuria since this mornin g. Pt denies any fever. Portions of this section were scribed by Desean Morales on 11/25/18 at 1751 Review of Systems ROS Statements All systems rev neg except as marked. Focused Review of Systems Constitutional Denies: Fever. Musculoskeletal Reports: Neck pain. Additional Review of Systems Female Reports: Hematuria. Portions of this section were scribed by Desean Morales on 11/25/18 at 1539 Past Medical History - Adult Stated Complaint NECK PAIN Allergies Coded Allergies: codeine (Severe, SHORTNESS OF BREATH 10/04/18) Home Medications Reported Medications No Known Home Medications Past Medical History: Reports: Asthma, Cancer (cer vical, in remission), GERD/gastritis, Kidney disease /stones (stones), Urinary tract infection. Denie s: Diabetes mellitus, Hypertension. Additional Medical History h/o kidney infections Past Surgical History: Reports: Cholecystectomy. Alcohol Use Alcohol use (occasional) Drug Use Denies recreational drugs Other Social History Local resident Additional Social History Father at bedside Portions of this section were scribed by Desean Morales on 11/25/18 at 1539 Physical Exam Vital Signs Vital Signs First Documented: Result Date Time Pulse Ox 98 11/25 1542 B/P 119/57 11/25 1542 B/P Mean 77 11/25 1542 O2 Delivery Room air 11/25 154 Temp 36.7 11/25 1542 Pulse 81 11/25 1542 Resp 17 11/25 1542 Last Documented: Result Date Time Pulse Ox 99 11/25 1830 B/P 115/68 11/25 1830 B/P Mean 83 11/25 1830 O2 Delivery Room air 11/25 183 Temp 36.6 11/25 183 Pulse 78 11/25 1830 Resp 18 11/25 1830 Review of Vital Signs Reviewed Focused PE General/Const General/Const Awake, Alert, Well developed, Respiratory Technician perative MS Head Head Atraumatic, Normocephalic Eyes Eyes EOMI, Conjunctiva NL Ears/Nose/Throat Ears/Nose/Throat Airway patent, Mucous membrane s moist MS Neck Neck No meningismus Text/Dict Notes BL paraspinal cervical tenderness. Decre ased ROM secondary to pain, pain worse when rotates head to the right. No stepoffs. Resp/Chest Respiratory/Chest Breath sounds NL, No respirat ory distress, No rales, No rhonchi, No wheezing Cardiovascular Cardiovascular Heart rate NL, Regular rhythm, H eart sounds NL Skin Skin Warm, Dry, Intact Neurologic Neurologic Oriented X3, Speech NL, No motor def icits, No sensory deficits Additional PE Psychiatric Psychiatric Affect NL, Mood NL Portions of this section were scribed by Desean Morales on 11/25/18 at 1557 Interpretation Diagnostics Lab Results Interpretation Results Laboratory Tests: 11/25 11/25 1624 1624 Urines Urine Color (YEL/STRAW) YELLOW Urine Appearance (CLEAR) CLOUDY H Urine pH (5.0 - 7.0) 5.0 Ur Specific [place] (1.005 - 1.030) 1.017 Urine Protein (NEGATIVE) NEGATIVE Urine Glucose (UA) (NEGATIVE) NEGATIVE Urine Ketones (NEGATIVE) NEGATIVE Urine Blood (NEGATIVE) NEGATIVE Urine Nitrite (NEGATIVE) NEGATIVE Urine Bilirubin (NEGATIVE) NEGATIVE Urine Urobilinogen (0.2 - 1.0 mg/dL) 2.0 H Ur Leukocyte Esterase (NEGATIVE) 3+ H Urine RBC (0 - 3 RBC/HPF) >50 H Urine WBC (0 - 3 WBC/HPF) >50 H Ur Squamous Epith Cells (NONE SEEN /HPF) 26-35 H Urine Bacteria (NONE SEEN /HPF) 2+ H Urine Mucus (NONE SEEN /LPF) TRACE Urine HCG, Qual (NEGATIVE) NEGATIVE Microbiology: Date/Time Procedure - Status Source Growth 11/25 1640 Urine Culture - RECD URINE Recent Impressions: RADIOLOGY - XR C-SPINE 2-3 VIEWS 11/25 1718 Report Impression - Status: SIGNED Entered: 11/25/2018 1725 IMPRESSION: 1. No signs of cervical spine fracture or sublux ation. 2. No visible significant degenerative change. 3. Clear lung apices. SL: ER-H Impression By: [email or web address] - Alexy klein M.D. Lab Imaging Statement Laboratory radiographic studies reviewed and con sidered in the medical decision-making. Point of Care Testing Pulse Oximetry Pulse Ox % 98 On: Room air Interpretation Interpreted by me, Pulse oximetr y normal Time 1542 Radiography X-Ray C-Spine Text/Dict Note IMPRESSION: 1. No signs of cervical spine fracture or sublux ation. 2. No visible significant degenerative change. 3. Clear lung apices. Interpretation/Wet Read by Interpret - Radiolog ist Reviewed by ED HOBBING MACHINE OPERATOR Portions of this section were scribed by Desean Morales on 11/25/18 at 1746 Re-Evaluation MDM Re-Evaluation/Progress Re-Evaluation/Progress Text/Dict Note Discussed results w/ pt, plan to D/C home and f/ u w/ PCP. Provided reasons to return to the ED for any new or worsening sxs. P t agrees w/ plan. Time of Re-Eval 1736 ED Course Medication(s) Ordered Medication(s) Ordered: Anti-Infective Agents Sig/Chinedu Start time Last Medication Dose Route Stop Time Status Admin Ceftriaxone Sodium 1,000 MG X1ED STA 11/25 1743 DC IM 11/25 1744 Autonomic Drugs Sig/Chinedu Start time Last Medication Dose Route Stop Time Status Admin Cyclobenzaprine HCl 10 MG X1ED STA 11/25 1541 D C / PO 11/25 1542 1559 Cardiovascular Drugs Sig/Chinedu Start time Last Medication Dose Route Stop Time Status Admin Lidocaine HCl 2.1 ML X1ED STA 11/25 1743 DC IM 11/25 1744 Central Nervous System Agents Sig/Chinedu Start time Last Medication Dose Route Stop Time Status Admin Ketorolac 20 MG ONCE ONE 11/25 1545 DC 11/25 Tromethamine PO 11/25 1546 1559 Portions of this section were scribed by Desean Morales on 11/25/18 at 1746 Patient Discharge Departure Vital Signs/Condition Vital Signs First Documented: Result Date Time Pulse Ox 98 11/25 1542 B/P 119/57 11/25 1542 B/P Mean 77 11/25 1542 O2 Delivery Room air 11/25 1542 Temp 36.7 / 1542 Pulse 81 / 1542 Resp 17 11/25 1542 Last Documented: Result Date Time Pulse Ox 99 11/25 1830 B/P 115/68 05/ 1830 B/P Mean 83 11/25 1830 O2 Delivery Room air 11/25 1830 Temp 36.6 11/25 1830 Pulse 78 05 1830 Resp 18 11/25 1830 All vital signs available at the time of this en try have been reviewed. Condition Stable Clinical Impression Clinical Impression Primary Impression: UTI (urinary tract infection ) Secondary Impressions: Torticollis Disposition Decision Discharge )( Discharged to Home Yes )( Time 1829 )( Date 11/25/18 Discharge/Care Plan Counseled Regarding Diagnosi s, Lab results, Imaging studies, Prescriptions, Need for follow-up, When to return to ED Prescriptions Naproxen, Flexeril, Macrobid Prescriptions Reviewed Risks, Benefits, Alternat paulina treatment Supervising Physician Note Scribe Statement Desean Carpio, 11/25/18 5729, scribing for an d in the presence of [Rosenda Engle NP]. Signed By: Desean Carpio, 11/25/18 3538 Provider Scribed Statement I personally performed the s ervices described in this documentation and reviewed the documentation that was dictated to the scrib e(s) in my presence, and it accurately records my words and actions. Raquel Engle, 11/25/18 Portions of this section were scribed by Desean Morales on 11/25/18 at 1746 Kp Moses 11/25/182043: HPI-Neck Pain General Initial Greet Date/Time 11/25/18 1537 Physical Exam Vital Signs Vital Signs Interpretation Diagnostics Lab Results Interpretation Results Re-Evaluation MDM ED Course Medication(s) Ordered Patient Discharge Departure Vital Signs/Condition Vital Signs Supervising Physician Note MidLv Saw Pt Alone I was available for consultation as needed at al l times during the patient's visit in the emergency department. Authenticated by Esteban Dewey MD on 11/25/18 a t 1756 Electronically Signed by Rosenda Engle on 0 11/25/18 at 1829 Electronically Signed by Esteban Dewey MD on at 2101 RPT #:[id number] END OF REPORT 2018-10-04 00:48:00-00:00 [facility] REPORT#:[id number] REPORT STATUS: Signed DATE:10/04/18 TIME: 47 PATIENT: SHEILA RODRIGUEZ UNIT #: [id number] ROOM/BED: AGE: 33 SEX: F PCP PHYS: Dave Callahan DO SERVICE AUTHOR: Adrianne Painter MD * ALL edits or amendments must be made on the [employer]/computer document * HPI-Abd Pain F Under 40 General Confirmed Patient Yes Initial Greet Date/Time 10/04/18 0040 Presentation Chief Complaint Abdominal pain Hx Obtained From Patient Onset Occurred One week ago Symptom Duration Since onset Progression since Onset Gradually worsening Location Suprapubic, Pelvis Free Text HPI Notes Free Text HPI Notes 33 y/o F w/ h/o cervical CA, chronic UTIs presen ts to the ED w/ c/o abd pain, onset one week ago. She states the pain became u nbearable today. She reports intermittent CP, dysuria, constipation v omiting in assoc w/ sx. Pt reports she had 4 episodes of emesis w/ some assoc t aint blood. Additionally, she mentions that she believes she has a hernia. She denies hematuria, bloody/tarry stool or any other additional sx. She states sx do not fe el consistent w/ h/o chronic UTIs. No other complaints. Portions of this section were scribed by Karol Neil on 10/04/18 at 0539 Risk-Abd Pain F Under 40 )( Ectopic Risk factors reviewed Portions of this section were scribed by Karol Neil on 10/04/18 at 0413 Review of Systems ROS Statements All systems rev neg except as marked. Focused Review of Systems Cardiovascular Reports: Chest pain. GI Reports: Abdominal pain, Constipation, Vomiting. Denies: Bloody/tarry stool, Hematemesis. Female Reports: Dysuria, Pelvic pain. Denies: Hematuria . Portions of this section were scribed by Karol Neil on 10/04/18 at 0445 Past Medical History - Adult Stated Complaint PELVIC PAIN,"VOMITING BLOOD, BL OOD IN STOOL." Allergies Coded Allergies: codeine (Severe, SHORTNESS OF BREATH 10/04/18) Home Medications Reported Medications No Known Home Medications Past Medical History: Reports: Asthma, Cancer (cer vical, in remission), GERD/gastritis, Kidney disease /stones (stones). Denies: Diabetes mellitus, Hyp ertension. Additional Medical History h/o kidney infections Past Surgical History: Reports: Cholecystectomy. Alcohol Use Alcohol use (occasional) Drug Use Denies recreational drugs Smoking status for patients 13 years old or olde r: Unknown,if ever smoked Other Social History Local resident Additional Social History Father at bedside Portions of this section were scribed by Karol Neil on 10/04/18 at 0048 Physical Exam Vital Signs Vital Signs First Documented: Result Date Time Pulse Ox 100 10/04 33 B/P 113/68 10/04 33 B/P Mean 83 10/04 33 O2 Delivery Room air 10/04 33 Temp 36.8 10/04 33 Pulse 62 10/04 33 Resp 17 10/04 33 Last Documented: Result Date Time Pulse Ox 98 10/04 514 B/P 103/55 10/04 514 B/P Mean 71 10/04 514 O2 Delivery Room air 10/04 514 Temp 36.8 10/04 514 Pulse 62 10/04 514 Resp 16 10/04 514 Review of Vital Signs Reviewed Focused PE General/Const General/Const Awake, Alert, Well developed Text/Dict Notes hirsutism MS Head Head Atraumatic, Normocephalic Eyes Eyes EOMI, Conjunctiva NL Ears/Nose/Throat Ears/Nose/Throat Airway patent, Mucous membrane s moist Resp/Chest Respiratory/Chest Breath sounds NL, No respirat ory distress, No rales, No rhonchi, No wheezing, No retractions Cardiovascular Cardiovascular Heart rate NL, Regular rhythm, H eart sounds NL, No gallop, No murmurs, No rubs Abdomen/GI Abdomen/GI Soft, No guarding, No rebound, No di stention Text/Dict Notes no hernia noted Tenderness/Guarding/Rebound Tender RLQ, Tender LLQ, Tender suprapubic. MS Back Back Atraumatic, Inspection NL, No CVA tenderne ss Skin Skin Warm, Dry, Intact Neurologic Neurologic Oriented X3, Speech NL Additional PE MS Neck Neck Supple, Full range of motion Psychiatric Psychiatric Affect NL, Mood NL Portions of this section were scribed by Karol Neil on 10/04/18 at 0539 Interpretation Diagnostics Lab Results Interpretation Results Laboratory Tests 10/04/18 0147: [Embedded Image Not Available] Laboratory Tests: 10/04 10/04 0339 0147 Chemistry Sodium (134 - 147 mEq/L) 138 Potassium (3.4 - 5.0 mEq/L) 4.3 Chloride (100 - 108 mEq/L) 107 Carbon Dioxide (21 - 33 mEq/L) 25 Anion Gap (0 - 20) 10 BUN (7 - 18 mg/dL) 10 Creatinine (0.6 - 1.3 mg/dL) 0.7 Glomerular Filtr Rate (105 - 110) 95.8 L Glucose (70 - 110 mg/dL) 102 Calcium (8.0 - 10.5 mg/dL) 8.7 Total Bilirubin (0.0 - 1.0 mg/dL) 0.20 AST (15 - 37 IUnit/L) 29 ALT (15 - 65 IUnit/L) 31 Total Alk Phosphatase (20 - 125 IUnit/L) 92 Total Protein (6.4 - 8.2 g/dL) 7.6 Albumin (3.4 - 5.0 g/dL) 3.50 Lipase (73 - 393 IUnit/L) 125 Serum , Qual (NEGATIVE) SERUM NEGATIVE Hematology WBC (4.5 - 11.0 x10 3/uL) 11.09 H RBC (3.54 - 5.02 x10 6/uL) 4.48 Hgb (11.0 - 15.0 g/dL) 13.6 Hct (33.0 - 45.0 %) 43.3 MCV (81.0 - 99.0 fL) 96.7 MCH (27.0 - 33.0 pg) 30.4 MCHC (33.0 - 37.0 g/dL) 31.4 L RDW (11.5 - 14.5 %) 12.3 Plt Count (150 - 400 x10 3/uL) 211 MPV (7.0 - 9.0 fL) 12.0 H Neut % (Auto) (56.0 - 77.0 %) 65.0 Lymph % (Auto) (14.0 - 32.0 %) 25.7 [place] % (Auto) (4.8 - 9.0 %) 5.4 Eos % (Auto) (0.3 - 3.7 %) 2.5 Baso % (Auto) (0.0 - 2.0 %) 0.7 Neut # (Auto) (2.0 - 7.6 x10 3/uL) 7.20 Lymph # (Auto) (1.0 - 3.8 x10 3/uL) 2.85 [place] # (Auto) (0.1 - 0.8 x10 3/uL) 0.60 Eos # (Auto) (0.0 - 0.2 x10 3/uL) 0.28 H Baso # (Auto) (0.0 - 0.2 x10 3/uL) 0.08 Abs Immat Gran (auto) (0.00 - 0.03 x10 3/uL) 0. 08 H Add Manual Diff NO Immature Gran % (0.0 - 2.0 %) 0.7 Nucleated RBC % (0 - 0 %) 0.0 Nucleated RBCs # (Man) (0.0 - 0.1 x10 3/uL) 0.0 0 Urines Urine Color (YEL/STRAW) YELLOW Urine Appearance (CLEAR) TURBID H Urine pH (5.0 - 7.0) 5.0 Ur Specific [place] (1.005 - 1.030) 1.015 Urine Protein (NEGATIVE) 1+ H Urine Glucose (UA) (NEGATIVE) NEGATIVE Urine Ketones (NEGATIVE) NEGATIVE Urine Blood (NEGATIVE) 1+ H Urine Nitrite (NEGATIVE) NEGATIVE Urine Bilirubin (NEGATIVE) NEGATIVE Urine Urobilinogen (0.2 - 1.0 mg/dL) 0.2 Ur Leukocyte Esterase (NEGATIVE) 3+ H Urine RBC (0 - 3 RBC/HPF) >50 H Urine WBC (0 - 3 WBC/HPF) >50 H Ur Squamous Epith Cells (NONE SEEN /HPF) 36-50 H Urine Bacteria (NONE SEEN /HPF) 2+ H Urine Mucus (NONE SEEN /LPF) 3+ H Microbiology: Date/Time Procedure - Status Source Growth 10/04 421 Urine Culture - COMP URINE Recent Impressions: ULTRASOUND - US TRANSVAGINAL NON OB 10/04 326 Report Impression - Status: SIGNED Entered: 10/04/2018 034 IMPRESSION: 1. Trace fluid in the endometrial and cervical c anal. Prominent cervix. 2. Otherwise unremarkable pelvic ultrasound SL: JSYED-H Impression By: Guido Mckeon M.D. ULTRASOUND - US PELVIS COMPLETE 10/04 326 Report Impression - Status: SIGNED Entered: 10/04/2018345 IMPRESSION: 1. Trace fluid in the endometrial and cervical c anal. Prominent cervix. 2. Otherwise unremarkable pelvic ultrasound SL: JSYED-H Impression By: Guido Mckeon M.D. CAT SCAN - CT ABD PELVIS W/O CONT 10/04 337 Report Impression - Status: SIGNED Entered: 10/04/2018 0355 IMPRESSION: 1. No acute abdominal or pelvic abnormality. SL: JSYED-H Impression By: Guido Mckeon M.D. Lab Imaging Statement Laboratory radiographic studies reviewed and con sidered in the medical decision-making. Point of Care Testing Pulse Oximetry Pulse Ox % 100 On: Room air Interpretation Interpreted by me, Pulse oximetr y normal Time 0034 ECG #1 Interpretation Text/Dict Note NSR, No STEMI, nml intervals, no ST segment harris ges Date 10/04/18 Time 0225 Interpreted by ED physician Rate 62 Portions of this section were scribed by Karol Neil on 10/04/18 at 0539 Re-Evaluation MDM )( Re-Evaluation/Progress #1 Text/Dict Note Discussed imaging results an d enlarged cervix and need fo rf/u with ob/gy. Plan to D/C home f/u w/ BONDERIZER OPERATOR (Dr. Anderson). She und erstands agrees w/ plan of care. uti without sx or signs of pyelonephritis Time of Re-Eval 0434 )( Re-Eval Status Improved ED Course Medication(s) Ordered Medication(s) Ordered: Central Nervous System Agents Sig/Chinedu Start time Last Medication Dose Route Stop Time Status Admin Ketorolac 15 MG X1ED STA 10/04 0108 DC 10/04 Tromethamine IV 10/04 0109 0239 Morphine Sulfate 4 MG X1ED STA 10/04 0108 DC IV 10/04 0109 Electrolytic, Caloric, And Cayden Sig/Chinedu Start time Last Medication Dose Route Stop Time Status Admin Sodium Chloride 0 ASDIR PRN 10/04 0115 DCD IV 10/05 0008 Gastrointestinal Drugs Sig/Chinedu Start time Last Medication Dose Route Stop Time Status Admin Ondansetron HCl 4 MG ONCE PRN 10/04 0115 DCD IV 11/03 0114 0239 Portions of this section were scribed by Karol Neil on 10/04/18 at 0539 Patient Discharge Departure Vital Signs/Condition Vital Signs First Documented: Result Date Time Pulse Ox 100 10/04 0034 B/P 113/68 10/04 0034 B/P Mean 83 10/04 0034 O2 Delivery Room air 10/04 0034 Temp 36.8 10/04 0034 Pulse 62 10/04 0034 Resp 17 10/04 0034 Last Documented: Result Date Time Pulse Ox 98 10/04 0515 B/P 103/55 10/04 0515 B/P Mean 71 10/04 0515 O2 Delivery Room air 10/04 514 Temp 36.8 10/04 05 Pulse 62 10/04 05 Resp 16 10/04 0515 All vital signs available at the time of this en try have been reviewed. Condition Stable Clinical Impression Clinical Impression Primary Impression: UTI (urinary tract infection ) Secondary Impressions: History of cervical cance r Disposition Decision Discharge )( Discharged to Home Yes )( Time 0437 )( Date 10/04/18 Discharge/Care Plan Counseled Regarding Diagnosi s, Lab results, Imaging studies, Prescriptions, Need for follow-up, When to return to ED Prescriptions Tramadol Prescriptions Reviewed Risks, Benefits, Alternat paulina treatment Supervising Physician Note Scribe Statement Bennie Neil, 10/04/18 0048, scribing for and i n the presence of Dr. Adrianne Painter. Signed By: Bennie Neil, 10/04/18 0048 Provider Scribed Statement I personally performed the s ervices described in this documentation and reviewed the documentation that was dictated to the scrib e(s) in my presence, and it accurately records my words and actions. Adrianne Edward, 10/07/18 Portions of this section were scribed by Karol Neil on 10/04/18 at 0437 Electronically Signed by Adrianne Painter MD on 0 10/07/18 at 1544 RPT #:[id number] END OF REPORT 2018-08-28 15:02:00-00:00 [facility] ([facility]) EMERGENCY PROVIDER REPORT REPORT#:[id number] REPORT STATUS: Signed DATE:08/28/18 TIME:1502 PATIENT: SHEILA RODRIGUEZ UNIT #: [id number] ROOM/BED: : 84 AGE: 32 SEX: F PCP PHYS: Janis Callahan DO SERVICE AUTHOR: Olga Crain I HOBBING MACHINE OPERATOR * ALL edits or amendments must be made on the [employer]/computer document * HPI-Allergic Reaction General Confirmed Patient Yes Patient Type New patient Initial Greet Date/Time 08/28/18 1426 Presentation Chief Complaint Rash (to face) Hx Obtained From Patient Onset Occurred Today Symptom Duration Since onset, Constant Progression since Onset Unchanged Context of Onset Exposure, poison pito Location Face rash Quality Itching Radiation Does not radiate Severity: Current Pain level 0 out of 10 Associated with Reports: Itching localized (to face ). Associated Other Pt denies other symptoms Exacerbated by Scratching Relieved by Nothing Free Text HPI Notes Free Text HPI Notes 32 yo female presents to ED via EMS with c/o facial rash after being exposed to poison pito. Reports she had same episode yesterday and went to [facility] where she received a steroid shot and was diagnosed on benadryl. Reports she went to clean the same area she was exposed to yesterday again today when the rash de veloped. C/O itching and SOB when she was picked up by EMS. Patient is in no acute distress at curre nt time. Review of Systems ROS Statements All systems rev neg except as marked. Complete sys rev neg except as marked. Focused Review of Systems Constitutional Denies: Chills, Fever, Lethargy. Ears/Nose/Throat Denies: Earache bilat, Nasal congestion, Sore th roat. Respiratory Denies: Cough, non-productive, Cough, pr oductive, Pleuritic pain, Shortness of breath, Wheezing. GI Denies: Abdominal pain, Diarrhea, Nausea, Vomiti ng. Skin Reports: Rash. Neurologic Denies: Change LOC, Dizziness, Focal weakness, H eadache, Numbness, Slurred speech. Past Medical History - Adult Stated Complaint POSION PITO Allergies Coded Allergies: codeine (Severe, SHORTNESS OF BREATH 08/28/18) Home Medications Reported Medications No Known Home Medications Review of Nursing Notes Rev avail, and agree (tr iage only) Past Medical History: Reports: Asthma, Cancer (cer vical, in remission), GERD/gastritis, Kidney disease /stones (stones). Denies: Diabetes mellitus, Hyp ertension. Additional Medical History h/o kidney infections Past Surgical History: Reports: Cholecystectomy. Alcohol Use Alcohol use (occasional) Drug Use Denies recreational drugs Smoking status for patients 13 years old or olde r: Current some day smoker Other Social History Local resident Additional Social History Father at bedside Physical Exam Vital Signs Vital Signs First Documented: Result Date Time Pulse Ox 100 08/28 1425 B/P 120/79 08/28 1425 B/P Mean 92 08/28 1425 O2 Delivery Room air 08/28 1425 Temp 98.5 08/28 1425 Pulse 79 08/28 1425 Resp 20 08/28 1425 Last Documented: Result Date Time Pulse Ox 99 08/28 1533 B/P 122/70 08/28 1533 B/P Mean 87 08/28 1533 O2 Delivery Room air 08/28 1533 Pulse 80 08/28 1533 Resp 18 08/28 1533 Temp 98.5 08/28 1425 Review of Vital Signs Reviewed Focused PE General/Const General/Const Awake, Alert, No acute di stress, Well appearing, Well hydrated, Cooperative, Not toxic appearing MS Head Head Atraumatic Eyes Eyes No periorbital redness, No periorbital swe lling, Conjunctiva NL Ears/Nose/Throat Ears/Nose/Throat Airway patent, Mucous membrane s moist, Pharynx NL, Tympanic membs NL, Ext aud canal NL, No facial swelling Resp/Chest Respiratory/Chest Breath sounds NL, Breath soun ds = bilat, No respiratory distress, No rales, No rhonchi, No wheezing, No retractions, No stridor Cardiovascular Cardiovascular Heart rate NL, Regular r hythm, Heart sounds NL, Cap refill not delayed, Peripheral circulation NL Abdomen/GI Abdomen/GI Soft, Non-tender, BS normoactive Skin Skin Warm, Dry, No swelling Text/Dict Notes Facial erythematous rash. Non tender. Neurologic Neurologic Oriented X3, Speech NL, No motor def icits, No sensory deficits Additional PE MS Neck Neck Atraumatic, Full range of motion MS Back Back Atraumatic, Full range of motion Psychiatric Psychiatric Affect NL, Mood NL Interpretation Diagnostics Point of Care Testing Pulse Oximetry Pulse Ox % 100 On: Room air Interpretation Interpreted by me, Pulse oximetr y normal Re-Evaluation MDM )( Re-Evaluation/Progress #1 )( Re-Eval Status Improved ED Course Medication(s) Ordered Medication(s) Ordered: Antihistamine Drugs Sig/Chinedu Start time Last Medication Dose Route Stop Time Status Admin Diphenhydramine HCl 25 MG X1ED STA 08/28 1501 D C 08/28 PO 08/28 1502 1512 Central Nervous System Agents Sig/Chinedu Start time Last Medication Dose Route Stop Time Status Admin Ibuprofen 600 MG X1ED STA 08/28 1501 DC 08/28 PO 08/28 1502 1512 Eye, Ear, Nose And Throat (Een Sig/Chinedu Start time Last Medication Dose Route Stop Time Status Admin Dexamethasone Sodium 8 MG X1ED STA 08/28 1501 D C 08/28 Phosphate PO 08/28 1502 1512 Gastrointestinal Drugs Sig/Chinedu Start time Last Medication Dose Route Stop Time Status Admin Famotidine 40 MG X1ED STA 08/28 1501 DC / PO 08/28 1502 1512 Patient Discharge Departure Vital Signs/Condition Vital Signs First Documented: Result Date Time Pulse Ox 100 08/28 1425 B/P 120/79 08/28 1425 B/P Mean 92 08/28 1425 O2 Delivery Room air 08/28 142 Temp 98.5 08/28 1425 Pulse 79 08/28 1425 Resp 20 08/28 1425 Last Documented: Result Date Time Pulse Ox 99 08/28 1533 B/P 122/70 08/28 1533 B/P Mean 87 08/28 1533 O2 Delivery Room air 08/28 1533 Pulse 80 08/28 1533 Resp 18 08/28 1533 Temp 98.5 08/28 1425 All vital signs available at the time of this en try have been reviewed. Condition Stable Clinical Impression Clinical Impression Primary Impression: Poison pito dermatitis Disposition Decision Discharge )( Discharged to Home Yes )( Time 1523 )( Date 08/28/18 Discharge/Care Plan Counseled Regarding Diagnosi s, Prescriptions, Need for follow-up, When to return to ED Prescriptions prednisone, zyrtec, pepcid, zanfel otc Prescriptions Reviewed Risks, Benefits, Alternat paulina treatment Discharge Note I have spoken with the patie nt and/or caregivers. I have explained the patient's condition, diagnoses and heather atment plan based on the information available to me at this time. I have answered the patient's and/ or caregiver's questions and addressed any concerns. The patient and/or careg kaushik have as good an understanding of the patient 's diagnosis, condition and treatment plan as can be expected at this point. The vital signs have bee n stable. The patient's condition is stable and appr opriate for discharge from the emergency department. The patient will pursue further outpatient evalu ation with the primary care physician or other designated or consulting phys ician as outlined in the discharge instructions. The patient and/or caregivers are agreeable to this plan of care and follow-up instructions have been exp lained in detail. The patient and/or caregivers have received these instructio ns in written format and have expressed an understanding of the discharge inst ructions. The patient and/or caregivers are aware that any significant change in condition or worsening of symptoms should prompt an immediate return to [facility] or the closest emergency department or a call to 911. Electronically Signed by Olga Crain NP on 0 08/28/18 at 1724 RPT #: [id number] END OF REPORT 2018-08-28 15:02:00-00:00 [facility] ([facility]) EMERGENCY PROVIDER REPORT REPORT#:[id number] REPORT STATUS: Signed DATE:08/28/18 TIME:150 PATIENT: HSEILA RODRIGUEZ UNIT #: [id number] ROOM/BED: : 84 AGE: 32 SEX: F PCP PHYS: Janis Callahan E DO SERVICE AUTHOR: Olga Crain I HOBBING MACHINE OPERATOR * ALL edits or amendments must be made on the [email or web address] document * Olga Crain 08/28/18 1502: HPI-Allergic Reaction General Confirmed Patient Yes Patient Type New patient Presentation Chief Complaint Rash (to face) Hx Obtained From Patient Onset Occurred Today Symptom Duration Since onset, Constant Progression since Onset Unchanged Context of Onset Exposure, poison pito Location Face rash Quality Itching Radiation Does not radiate Severity: Current Pain level 0 out of 10 Associated with Reports: Itching localized (to face ). Associated Other Pt denies other symptoms Exacerbated by Scratching Relieved by Nothing Free Text HPI Notes Free Text HPI Notes 32 yo female presents to ED via EMS with c/o facial rash after being exposed to poison pito. Reports she had same episode yesterday and went to [facility] where she received a steroid shot and was diagnosed on benadryl. Reports she went to clean the same area she was exposed to yesterday again today when the rash de veloped. C/O itching and SOB when she was picked up by EMS. [facility]. Review of Systems ROS Statements All systems rev neg except as marked. Complete sys rev neg except as marked. Focused Review of Systems Constitutional Denies: Chills, Fever, Lethargy. Ears/Nose/Throat Denies: Earache bilat, Nasal congestion, Sore th roat. Respiratory Denies: Cough, non-productive, Cough, pr oductive, Pleuritic pain, Shortness of breath, Wheezing. GI Denies: Abdominal pain, Diarrhea, Nausea, Vomiti ng. Skin Reports: Rash. Neurologic Denies: Change LOC, Dizziness, Focal weakness, H eadache, Numbness, Slurred speech. Past Medical History - Adult Stated Complaint POSION PITO Allergies Coded Allergies: codeine (Severe, SHORTNESS OF BREATH 08/28/18) Home Medications Reported Medications No Known Home Medications Review of Nursing Notes Rev avail, and agree (tr iage only) Past Medical History: Reports: Asthma, Cancer (cer vical, in remission), GERD/gastritis, Kidney disease /stones (stones). Denies: Diabetes mellitus, Hyp ertension. Additional Medical History h/o kidney infections Past Surgical History: Reports: Cholecystectomy. Alcohol Use Alcohol use (occasional) Drug Use Denies recreational drugs Smoking status for patients 13 years old or olde r: Current some day smoker Other Social History Local resident Additional Social History Father at bedside Physical Exam Vital Signs Vital Signs First Documented: Result Date Time Pulse Ox 100 02/ 1425 B/P 120/79 02/ 1425 B/P Mean 92 02/ 1425 O2 Delivery Room air 02/ 1425 Temp 98.5 02/05 1425 Pulse 79 02/05 1425 Resp 20 02/05 1425 Last Documented: Result Date Time Pulse Ox 99 02/ 1533 B/P 122/70 02/ 1533 B/P Mean 87 02/05 1533 O2 Delivery Room air 02/05 1533 Pulse 80 02/05 1533 Resp 18 02/ 1533 Temp 98.5 02/05 1425 Review of Vital Signs Reviewed Focused PE General/Const General/Const Awake, Alert, No acute di stress, Well appearing, Well hydrated, Cooperative, Not toxic appearing MS Head Head Atraumatic Eyes Eyes No periorbital redness, No periorbital swe lling, Conjunctiva NL Ears/Nose/Throat Ears/Nose/Throat Airway patent, Mucous membrane s moist, Pharynx NL, Tympanic membs NL, Ext aud canal NL, No facial swelling Resp/Chest Respiratory/Chest Breath sounds NL, Breath soun ds = bilat, No respiratory distress, No rales, No rhonchi, No wheezing, No retractions, No stridor Cardiovascular Cardiovascular Heart rate NL, Regular r hythm, Heart sounds NL, Cap refill not delayed, Peripheral circulation NL Abdomen/GI Abdomen/GI Soft, Non-tender, BS normoactive Skin Skin Warm, Dry, No swelling Text/Dict Notes Facial erythematous rash. Non tender. Neurologic Neurologic Oriented X3, Speech NL, No motor def icits, No sensory deficits Additional PE MS Neck Neck Atraumatic, Full range of motion MS Back Back Atraumatic, Full range of motion Psychiatric Psychiatric Affect NL, Mood NL Interpretation Diagnostics Point of Care Testing Pulse Oximetry Pulse Ox % 100 On: Room air Interpretation Interpreted by me, Pulse oximetr y normal Re-Evaluation MDM )( Re-Evaluation/Progress #1 )( Re-Eval Status Improved ED Course Medication(s) Ordered Medication(s) Ordered: Antihistamine Drugs Sig/Chinedu Start time Last Medication Dose Route Stop Time Status Admin Diphenhydramine HCl 25 MG X1ED STA 08/28 1501 D C 02/05 PO 02/ 1502 1512 Central Nervous System Agents Sig/Chinedu Start time Last Medication Dose Route Stop Time Status Admin Ibuprofen 600 MG X1ED STA 08/28 1501 DC 02/ PO 02/05 1502 1512 Eye, Ear, Nose And Throat (Een Sig/Chinedu Start time Last Medication Dose Route Stop Time Status Admin Dexamethasone Sodium 8 MG X1ED STA 02/ 1501 D C 02/05 Phosphate PO 02/05 1502 1512 Gastrointestinal Drugs Sig/Chinedu Start time Last Medication Dose Route Stop Time Status Admin Famotidine 40 MG X1ED STA 02/ 1501 DC 02/05 PO 02/05 1502 1512 Patient Discharge Departure Vital Signs/Condition Vital Signs First Documented: Result Date Time Pulse Ox 100 / 1425 B/P 120/79 / 1425 B/P Mean 92 / 1425 O2 Delivery Room air 02/ 1425 Temp 98.5 02/ 1425 Pulse 79 02/ 1425 Resp 20 02/ 1425 Last Documented: Result Date Time Pulse Ox 99 02/ 1533 B/P 122/70 02/ 1533 B/P Mean 87 02/ 1533 O2 Delivery Room air 02/ 1533 Pulse 80 02/ 1533 Resp 18 02/ 1533 Temp 98.5 02/05 1425 All vital signs available at the time of this en try have been reviewed. Condition Stable Clinical Impression Clinical Impression Primary Impression: Poison pito dermatitis Disposition Decision Discharge )( Discharged to Home Yes )( Time 1523 )( Date 08/28/18 Discharge/Care Plan Counseled Regarding Diagnosi s, Prescriptions, Need for follow-up, When to return to ED Prescriptions prednisone, zyrtec, pepcid, zanfel otc Prescriptions Reviewed Risks, Benefits, Alternat paulina treatment Discharge Note I have spoken with the patie nt and/or caregivers. I have explained the patient's condition, diagnoses and heather atment plan based on the information available to me at this time. I have answered the patient's and/ or caregiver's questions and addressed any concerns. The patient and/or careg kaushik have as good an understanding of the patient 's diagnosis, condition and treatment plan as can be expected at this point. The vital signs have bee n stable. The patient's condition is stable and appr opriate for discharge from the emergency department. The patient will pursue further outpatient evalu ation with the primary care physician or other designated or consulting phys ician as outlined in the discharge instructions. The patient and/or caregivers are agreeable to this plan of care and follow-up instructions have been exp lained in detail. The patient and/or caregivers have received these instructio ns in written format and have expressed an understanding of the discharge inst ructions. The patient and/or caregivers are aware that any significant change in condition or worsening of symptoms should prompt an immediate return to [facility] or the closest emergency department or a call to 911. Isabel Davidson 09/03/18 0416: HPI-Allergic Reaction General Initial Greet Date/Time 08/28/18 1426 Physical Exam Vital Signs Vital Signs Patient Discharge Departure Vital Signs/Condition Vital Signs Supervising Physician Note MidLv Saw Pt Alone I have reviewed the PA/HOBBING MACHINE OPERATOR's note and plan of car e. I was available for consultation as needed at al l times during the patient's visit in the emergency department. I agree with the clinical impression , plan and disposition. Electronically Signed by Olga Crain NP on 0 08/28/18 at 1724 at 0416 RPT #: [id number] END OF REPORT
[2022-12-28] MEDS ORDERED: IBUPROFEN 200 MG TAB PO ONE (17:04)
[2022-12-28 17:33] LABS: SARS-CoV-2 Antigen Rapid Res Negative (Negative)
--- NOTE | 2022-12-28 19:04 | RAD REPORT ---
EXAM DESCRIPTION: Griselda Pa And Lat (2 Views)12/28/2022 6:26 pm CLINICAL HISTORY: Cough;Fever COMPARISON: Chest Single View dated 04/22/2022; Chest Single View dated 03/21/2022; Chest Single View dated 03/03/2022; Chest Single View dated 02/07/2022 TECHNIQUE: PA and lateral views of the chest. FINDINGS: The lungs are clear. No pneumothorax or effusion. The cardiomediastinal contours are unre markable. IMPRESSION: No acute cardiopulmonary process.
--- NOTE | 2022-12-28 19:08 | ER ---
Nurse's Notes [facility] Name: Jodie Rodriguez Age: 37 yrs Sex: Female : 1985 Arrival Date: 12/28/2022 Time: 16:37 Bed IW1 Private MD: Diagnosis: Acute upper respiratory infection, unspecified;Cough Presentation: 12/28 16:44 Chief complaint: Sinus congestion, subjective fever, sore throat, productive cough, hb pain with cough, chills, headache, body aches, and nausea x 4 days. Coronavirus screen: Client presents with at least one sign or symptom that may indicate coronavirus-19. Provider contacted for isolation considerations. Ebola Screen: No symptoms or risks identified at this time. Initial Sepsis Screen: Does the patient meet any 2 criteria? No. Patient's initial sepsis screen is negative. Does the patient have a suspected source of infection? No. Patient's initial sepsis screen is negative. Risk Assessment: Do you want to hurt yourself or someone else? Patient reports no desire to harm self or others. Onset of symptoms was December 28, 2022. 16:44 Method Of Arrival: Ambulatory hb 16:44 Acuity: FLORA 4 hb Triage Assessment: 19:45 General: Appears in no apparent distress. Behavior is calm, cooperative. Pain: Denies kd3 pain. Historical: - Allergies: 16:46 Codeine; hb 16:46 Morphine; hb - Home Meds: 16:46 albuterol sulfate 90 mcg/actuation Inhl aepb [Active]; hb - PMHx: 16:46 Anxiety; Asthma; depressive disorder; hb - PSHx: 16:46 section; Cholecystectomy; hb 16:48 Hernia Repair; hb - Immunization history:: Adult Immunizations up to date. - Social history:: Smoking status: Patient denies any tobacco usage or history of. Screenin:45 [facility] ED Fall Risk Assessment (Adult) History of falling in the last 3 months, kd3 including since admission No falls in past 3 months (0 pts) Confusion or Disorientation No (0 pts) Intoxicated or Sedated No (0 pts) Impaired Gait No (0 pts) Mobility Assist Device Used No (0 pt) Altered Elimination No (0 pt) Score/Fall Risk Level 0 - 2 = Low Risk Maintained a safe environment. Abuse screen:. Nutritional screening: No deficits noted. Tuberculosis screening: No symptoms or risk factors identified. Vital Signs: 16:44 BP 118 / 74; Pulse 73; Resp 20; Temp 98.5; Pulse Ox 100% on R/A; Weight 90.72 kg; hb Height 5 ft. 0 in. ; Pain 5/10; 16:44 Body Mass Index 39.06 (90.72 kg, 152.4 cm) hb 16:44 Pain Scale: Adult hb ED Course: 16:40 Patient arrived in ED. kj1 16:45 Juan Guzman DO is Attending Physician. ms3 16:46 Triage completed. hb 16:48 Arm band placed on. hb 17:01 Flu Sent. hb 18:28 Chest Pa And Lat (2 Views) XRAY In Process Unspecified. EDMS 19:07 Terrence Salinas DO is Referral Physician. ms3 19:45 No provider procedures requiring assistance completed. Patient did not have IV access kd3 during this emergency room visit. 19:46 Patient has correct armband on for positive identification. kd3 Administered Medications: 17:01 Drug: Ibuprofen PO 600 mg Route: PO; hb 19:46 Follow up: Response: No adverse reaction; Pain is decreased kd3 Medication: 19:46 VIS not applicable for this client. kd3 Outcome: 19:07 Discharge ordered by MD. ms3 19:46 Discharged to home ambulatory. kd3 19:46 Condition: stable 19:46 Discharge instructions given to patient, family, Instructed on discharge instructions, follow up and referral plans. Demonstrated understanding of instructions, follow-up care. 19:46 Patient left the ED. kd3 Signatures: Dispatcher [employer] EDMS Senait Reddy RN RN Parisa Hood kj1 Juan Guzman DO DO ms3 Chica Lawson RN RN kd3 Corrections: (The following items were deleted from the chart) 17:12 17:01 SARS-COV-2 RT PCR+[email or web address] drawn and sent. EDMS
--- NOTE | 2022-12-28 19:08 | EDPHYS ---
Physician Documentation [facility] Name: Jodie Rodriguez Age: 37 yrs Sex: Female : 1985 Arrival Date: 12/28/2022 Time: 16:37 Bed IW1 Private MD: ED Physician Juan Guzman HPI: 12/28 16:56 This 37 yrs old Female presents to ER via Ambulatory with complaints of Chest ms3 Congestion, Cold Symptoms. 16:56 37-year-old female with past medical history of anxiety, asthma, depression presents ms3 for cough, runny nose, myalgias, subjective fever that has been ongoing for 4 days. Patient denies sick contacts. Patient states her discomfort is a 5/10 described as aching. Patient denies alleviating or inciting factors.. Historical: - Allergies: 16:46 Codeine; hb 16:46 Morphine; hb - Home Meds: 16:46 albuterol sulfate 90 mcg/actuation Inhl aepb [Active]; hb - PMHx: 16:46 Anxiety; Asthma; depressive disorder; hb - PSHx: 16:46 section; Cholecystectomy; hb 16:48 Hernia Repair; hb - Immunization history:: Adult Immunizations up to date. - Social history:: Smoking status: Patient denies any tobacco usage or history of. ROS: 16:56 Constitutional: Negative for fever, and chills. Neck: Negative for injury, pain, and ms3 swelling, Cardiovascular: Negative for chest pain, and palpitations. Respiratory: Negative for shortness of breath, cough, wheezing, and pleuritic chest pain, Abdomen/GI: Negative for abdominal pain, nausea, vomiting, diarrhea, and constipation, MS/Extremity: Negative for injury and deformity, Skin: Negative for injury, rash, and discoloration. 16:56 All other systems are negative. Exam: 16:56 Constitutional: This is a well developed, well nourished patient who is awake, alert, ms3 and in no acute distress. Head/Face: Normocephalic, atraumatic. Neck: Trachea midline, no cervical lymphadenopathy. Supple, full range of motion without nuchal rigidity, or vertebral point tenderness. No Meningismus. Chest/axilla: Normal chest wall appearance and motion. Nontender with no deformity. Cardiovascular: Regular rate and rhythm with a normal S1 and S2. No gallops, murmurs, or rubs. Normal PMI, no JVD. No pulse deficits. Respiratory: Lungs have equal breath sounds bilaterally, clear to auscultation and percussion. No rales, rhonchi or wheezes noted. No increased work of breathing, no retractions or nasal flaring. Abdomen/GI: Soft, non-tender, with normal bowel sounds. No distension or tympany. No guarding or rebound. No evidence of tenderness throughout. Skin: Warm, dry with normal turgor. Normal color with no rashes, no lesions, and no evidence of cellulitis. 16:56 MS/ Extremity: Pulses equal, no cyanosis. Neurovascular intact. Full, normal range of motion. 16:56 ENT: Nose: nasal drainage, that is minimal, and is seen coming from both nares, that is clear. Vital Signs: 16:44 BP 118 / 74; Pulse 73; Resp 20; Temp 98.5; Pulse Ox 100% on R/A; Weight 90.72 kg; hb Height 5 ft. 0 in. ; Pain 5/10; 16:44 Body Mass Index 39.06 (90.72 kg, 152.4 cm) hb 16:44 Pain Scale: Adult hb MDM: 16:55 Patient medically screened. ms3 16:56 Differential Diagnosis: Influenza Upper Respiratory Infection Other COVID. ms3 19:07 Data reviewed: vital signs, nurses notes, lab test result(s), radiologic studies, plain ms3 films, and as a result, I will discharge patient. I considered the following discharge prescriptions or medication management in the emergency department Medications were administered in the Emergency Department. See MAR. Independent interpretation of the following test(s) in the Emergency Department X-Ray: My interpretation is Chest x-ray images reviewed by me do not reveal pneumonia.. Care significantly affected by the following chronic conditions: Asthma. Counseling: I had a detailed discussion with the patient and/or guardian regarding: the historical points, exam findings, and any diagnostic results supporting the discharge/admit diagnosis, lab results, radiology results, the need for outpatient follow up, to return to the emergency department if symptoms worsen or persist or if there are any questions or concerns that arise at home. Special discussion: I discussed with the patient/guardian in detail that at this point there is no indication for admission to the hospital. It is understood, however, that if the symptoms persist or worsen the patient needs to return immediately for re-evaluation. ED course: On reevaluation patient is alert and oriented x4, no apparent distress, nontoxic, speaking full sentences. Patient to follow-up with primary care in 2 to 3 days. Patient understands and agrees with plan. All questions were answered. Return precautions discussed include worsening symptoms, or any other concerns. 12/28 16:55 Order name: Flu; Complete Time: 17:49 ms3 12/28 17:12 Order name: SARS-COV-2 Antigen Rapid; Complete Time: 17:49 EDMS 12/28 16:55 Order name: Chest Pa And Lat (2 Views) XRAY; Complete Time: 19:06 ms3 Administered Medications: 17:01 Drug: Ibuprofen PO 600 mg Route: PO; hb 19:46 Follow up: Response: No adverse reaction; Pain is decreased kd3 Disposition Summary: 12/28/22 19:07 Discharge Ordered Location: Home ms3 Condition: Stable ms3 Diagnosis - Acute upper respiratory infection, unspecified ms3 - Cough ms3 Followup: ms3 - With: - When: 2 - 3 days - Reason: Recheck today's complaints Discharge Instructions: - Discharge Summary Sheet ms3 - Upper Respiratory Infection, Adult, [id number] ms3 - Cough, Adult ms3 Forms: - Medication Reconciliation Form ms3 - Thank You Letter ms3 - Antibiotic Education ms3 - Prescription Opioid Use ms3 Prescriptions: - Flonase Allergy Relief 50 mcg/actuation Nasal spray, suspension - spray 2 spray by INTRANASAL route daily administer into each nostril; 1 unit; ms3 Refills: 0, Product Selection Permitted - albuterol sulfate 90 mcg/actuation Inhalation HFA Aerosol Inhaler - inhale 3 puff by INHALATION route every 4 hours as needed for shortness of ms3 breath or wheezing; until breathing returns to target peak flow/parameters; 1 unit; Refills: 0, Product Selection Permitted - Claritin 10 mg Oral Tablet - take 1 tablet by ORAL route once daily As needed; 30 tablet; Refills: 0, ms3 Product Selection Permitted Signatures: Dispatcher [employer] EDMS Senait Reddy RN RN Juan Guzman DO DO ms3 Chica Lawson RN kd3 Corrections: (The following items were deleted from the chart) 17:12 16:55 SARS-COV-2 RT PCR+MOL.LAB.BRTalia ordered. EDMS EDMS 17:12 17:08 SARS-COV-2 Antigen Rapid+I.LAB.BRTalia ordered. EDMS EDMS
[2022-12-28 20:25] VITALS: BP 118/74; TEMP 98.5; O2SAT 100
== END 2022-12-28 19:46 | disposition home or self-care (01) ==
LOC: ER 16:37
DX: J06.9 Acute upper respiratory infection, unspecified (principal); R05.9 Cough, unspecified; R09.89 Other specified symptoms and signs involving the circulatory and respiratory systems; Z20.822 Contact with and (suspected) exposure to COVID-19; J45.909 Unspecified asthma, uncomplicated; M79.10 Myalgia, unspecified site; R50.9 Fever, unspecified; Z88.5 Allergy status to narcotic agent
CPT/HCPCS: 36415; 71046; 87804; 87811; 99284

== ENCOUNTER 2023-02-02 18:27 | Emergency (ER) | payer OTHER ==
--- OUTSIDE RECORDS SUMMARY | 2023-02-02 18:32 | XMS REPORT | Continuity of Care Document ---
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 sánchezvince [facility] 2020-07-28 2020-07-28 Laboratory NurseAleks 1.2.8 40.114 [id number] Univers 18:21:41 18:36:41 Only Ant Villalpando H Pediatric 350.1.13.10 ity of [place] and [place] [phone] [place] [address] Branch Care [facility] 2020-07-27 2020-07-27 Refill Doctor [facility] 1.2.840.114 [id number] Univers 00:00:00 00:00:00 Unassigned, Health 350.1.13.10 ity of [place] [phone] [address] ([facility]) 2020-06-01 2020-06-01 Telephone Siri Carney 1.2.840.114 [id number] Univers 00:00:00 00:00:00 Y Pediatric 350.1.13.10 ity of [place] and [place] [phone] [place] [address] Branch Care Clinic 2020-05-27 2020-05-27 Transition Erwin Hopper 1.2.840.114 [id number] Univers 00:00:00 00:00:00 of Care Vivienne Mendiola 350.1.13.10 it y of [place] 4.2.7.2.[place] [phone] [place] [address] Branch 2020-05-26 2020-05-26 Emergency Magen [facility] 1.2.840.114 [id number] Univers 12:56:00 17:09:00 [facility] 350.1.13.10 it y of [place] [phone] [place] [address] Branch ([facility]) 2020-05-26 2020-05-26 Telephone CarneySiri worley 1.2.840.114 [id number] Univers 00:00:00 00:00:00 Y Pediatric 350.1.13.10 ity of [place] and [place] [phone] [facility] Primary 314 Branch Care Clinic 2020-04-15 2020-04-15 Transition Erwin Kat 1.2.840.114 [id number] Univers 00:00:00 00:00:00 of Care Avery Mendiola 350.1.13.10 ity of [place] 4.2.7.2.[place] [phone] [place] [address] Branch 2020-04-13 2020-04-13 Emergency Demetris, [facility] 1.2.840.114 [id number] Univers 18:02:00 22:18:00 Elizabeth [employer] 350.1.13.10 i ty [place] [phone] [address] ([facility]) 2020-03-04 2020-03-07 Inpatient HCAPM AJ [id number] [facility] 19:14:00 03:31:04 87 [facility] 2020-02-24 2020-02-24 Emergency E YOON, MHSE MHSE 7531 MH 07:10:00 14:54:[address] [facility] 2019-12-30 2019-12-30 Telephone CarneySiri worley 1.2.840.114 [id number] 00:00:00 00:00:00 Y Pediatric 350.1.13.10 s and 4.2.7.2.[address] Adult [phone] [address] Clinic 2019-12-30 2019-12-30 Telephone Siri Carney 1.2.840.114 [id number] Univers 00:00:00 00:00:00 Y Pediatric 350.1.13.10 ity of [place] and [place] [phone] [facility] Primary 314 Branch Care Clinic 2019-12-11 2019-12-11 Transition Erwin Ansari 1.2.840.114 [id number] 00:00:00 00:00:00 of Care Chanel Waitey 350.1.13.10 [place] 4.2.7.2.686 [id number] [id number] 2019-12-11 2019-12-11 Transition Erwin Ansari 1.2.840.114 75 [id number] Univers 00:00:00 00:00:00 of Care Chanel Waitey 350.1.13.10 i ty of [place] 4[place]2.7.2.[place] [phone] [place] [address] Branch 2019-12-08 2019-12-10 Emergency Dhara Rico I [facility] 1.2 .840.114 [id number] 20:56:31 12:39:00 Abu [facility] 350.1.13.10 Clear 4.2.7.2.686 [place] [phone] [place] [address] ([facility]) 2019-12-08 2019-12-10 Emergency Dhara Rico I [facility] 1.2 .840.114 [id number] Univers 20:56:31 12:39:00 Abu [facility] 350.1.13.10 ity of [place] [phone] [place] [address] Branch ([facility]) 2019-12-08 2019-12-10 Outpatient X ABU [facility] [id number] Univers 20:56:31 12:39:00 GINA, ity o f [facility] 2019-11-19 2019-11-19 Transition Erwin Kat 1.2.840.114 [id number] 00:00:00 00:00:00 of Care Avery Mendiola 350.1.13.10 [place] 4.2.7.2.686 [id number] 403 2019-11-19 2019-11-19 Transition Erwin Kat 1.2.840.114 [id number] [id number] Univers 00:00:00 00:00:00 of Care Avery Mendiola 350.1.13.10 ity of [place].2.7.2.[place] [phone] [facility] 403 Branch 2019-11-18 2019-11-18 Emergency Elizabeth Willson [facility] 1.2.8 40.114 [id number] 17:23:42 21:05:00 Zuhair Powell [facility] 350.1.13.10 Clear 4.2.7.2.686 [place] [phone] [facility] 014 ([facility]) 2019-11-18 2019-11-18 Emergency Elizabeth Willson [facility] 1.2.8 40.114 [id number] Univers 17:23:42 21:05:00 [facility] 350.1.13.10 ity of [place].2.[place] [phone] [place] [address] Branch ([facility]) 2019-11-18 2019-11-18 Emergency X [facility] ERT [id number] Univers 17:23:42 21:05:00 ZUHAIR [facility] 2019-11-17 2019-11-18 Emergency E DLEME, LAZARO MHSE MHSE 7530 MH 23:37:00 02:43:00 [facility] 2019-11-13 2019-11-13 Telemedici Siri Carney 1.2.840.114 [id number] Univers 10:02:05 10:17:05 ne Visit Y Pediatric 350.1.13.10 ity of [place] and [place]2.7.2.[place] [phone] [facility] Primary [facility] Branch Care Clinic 2019-11-13 2019-11-13 Outpatient R SIRI CARNEY [facility] [id number] Univers 10:15:00 10:15:00 ity [facility] 2019-11-13 2019-11-13 Orders Doctor ONOFRE 1.2.840.114 [id number] 00:00:00 00:00:00 Only Unassigned, RAKESH 350.1.13.10 [place] [facility] 4.2.7.2.686 [id number] 009 2019-11-13 2019-11-13 Orders Doctor ONOFRE 1.2.840.114 [id number] Univers 00:00:00 00:00:00 Only Unassigned, RAKESH 350.1.13.10 ity of [place] [facility] 4.2.7.2.686 Girish as [phone] [address] 2019-11-08 2019-11-08 Telephone CarneySiri owrley 1.2.840.114 7 [id number] 00:00:00 00:00:00 Y Pediatric 350.1.13.10 s and 4.2.7.2.686 Adult [phone] [address] 2019-11-08 2019-11-08 Telephone CarneySiri worley Rhett 1.2.840.114 7 [id number] Univers 00:00:00 00:00:00 Y Pediatric 350.1.13.10 ity of [place] and [place] [id number] [address] 2019-10-18 2019-10-18 Telephone CarneySiri 1.2.840.114 7 [id number] Univers 00:00:00 00:00:00 Y Pediatric 350.1.13.10 ity of [place] and [place] [id number] [address] 2019-10-02 2019-10-02 Telephone CarneySiri worley Rhett 1.2.840.114 7 [id number] Univers 00:00:00 00:00:00 Y Pediatric 350.1.13.10 ity of [place] and [place]2.[place] [id number] [address] 2019-09-12 2019-09-12 Office Al [facility] 1.2.840.114 [id number] Univers 12:57:32 13:46:55 Visit Blake, SPECIALTY 350.1.13.10 ity of [place] CARE 4.2.7.2.686 [place]ish as CENTER AT [phone] Ga maribell MUELLER 2 [facility] ER 2019-09-12 2019-09-12 Orders Doctor KINGSTON 1.2.840.114 [id number] Univers 00:00:00 00:00:00 Only Unassigned, RAKESH 350.1.13.10 ity of [place] [facility] 4.2.7.2.686 Girish as [phone] [facility] 009 Branch 2019-08-22 2019-08-22 Emergency Magen [facility] 1.2.840.114 [id number] Univers 11:21:43 17:19:00 [facility] 350.1.13.10 it y of [place].2.[place] [phone] [facility] 014 Branch ([facility]) 2019-08-22 2019-08-22 Emergency X [facility] ERT [id number] Univers 11:21:43 17:19:00 COYE ity of [facility] 2019-08-22 2019-08-22 Office Roberto Carlos Hubbard 1.2.840.114 [id number] Univers 09:38:03 09:53:03 Visit , Erika Pediatric 350.1.13.10 ity of [place] and 4.2.7.2.686 [place] [id number] [facility] Primary 314 Branch Care Clinic 2019-08-20 2019-08-20 Transition Erwin Kat 1.2.840.114 [id number] [id number] Univers 00:00:00 00:00:00 of Care Avery Mendiola 350.1.13.10 ity of [place] 4.2.7.2.686 [place] [phone] [facility] 403 Branch 2019-08-18 2019-08-18 Emergency Arnulfo [facility] 1.2.056.562 [id number] [id number] Univers 16:02:43 20:28:00 [facility] 350.1.13.10 it y of [place] 4.2.7.2.686 [place] [phone] [facility] 014 Branch ([facility]) 2019-08-18 2019-08-18 Nurse KINGSTON Engle 1.2.840.114 [id number] Univers 00:00:00 00:00:00 Triage Angeline CAMERON 350.1.13.10 ity of HOSPITAL 4.2.7.2.686 [place] as [phone] [facility] 019 Branch 2019-08-15 2019-08-15 Office Siri Carney 1.2.840.114 [id number] Univers 14:01:24 16:11:29 Visit Y Pediatric 350.1.13.10 ity of [place] and 4.2.7.2.[place] [phone] [facility] 314 [facility] 2019-07-23 2019-07-23 Emergency X SIERRA [facility] ERT [id number] Univers 18:48:12 21:49:00 DHARA gonzalovince of [facility] 2019-04-12 2019-04-12 Telephone Team, [facility] KINGSTON 1.2.840.114 7 [id number] Univers 00:00:00 00:00:00 Health RAKESH 350.1.13.[address] [facility] 4.2.7.2.686 [place] [phone] [place] [address]62 Branch 2019-03-21 2019-03-21 Office Rhett Gabriel 1.2.840.114 [id number] Univers 13:09:44 13:29:44 Visit Bryon Pediatric 350.1.13.10 ity of s and [place]2.[place].2.[place] [phone] [facility] 059 [facility] 2019-03-15 2019-03-15 Office Rhett Massey 1.2.840.114 [id number] Univers 14:04:01 14:19:01 Visit Lana Pediatric 350.1.13.10 ity of [place] and [place]2.7.2.[place] [phone] [facility] 314 [facility] 2019-03-14 2019-03-14 Clinic Siri Carney 1.2.840.114 [id number] Univers 00:00:00 00:00:00 Assessment Y Pediatric 350.1.13.10 ity of s and [place].2.7.2.[place] [id number] [facility] 314 [facility] 2019-03-07 2019-03-07 Office Siri Carney 1Cain2.840.114 [id number] Univers 13:29:17 13:53:55 Visit Y Pediatric 350.1.13.10 ity of s and [place].2.7.2.686 [place] [id number] [address] 2019-02-28 2019-03-01 Emergency MutNatalio quevedo [facility] 1.2 .840.114 [id number] Univers 13:57:58 15:30:00 Kevin Vyas 350.1.13.10 ity of [place]2.7.2.686 [place] [phone] [facility] 109 Branch ([facility]) 2019-02-28 2019-02-28 Office CarneySiri worley 1.2.840.114 [id number] Univers 13:34:47 15:10:47 Visit Y Pediatric 350.1.13.10 ity of [place] and [place].7.2.[place] [id number] [address] 2019-02-28 2019-02-28 Telephone PcpRhett 1.2.806.972 [id number] Univers 00:00:00 00:00:00 Patient Pediatric 350.1.13.10 ity of Does Not s and 4.2.7.2.686 [place]ish as Have A Adult [phone] [address] Results Test Description Test Time Test Comments Results Result Comments Source COMP. METABOLIC PANEL (58721) 2022-06-29 18:22:57 Test Item Value Reference Range Interpretation Comme nts NA (test code = 8531950598) 137 mmol/L 135-145 K (test code = 8183088534) 4.4 mmol/L 3.5-5.0 CL (test code = 3594855042) 104 mmol/L 98-108 CO2 TOTAL (test code = 27 mmol/L 23-31 5877528149) AGAP (test code = 4437037575) 2-16 BUN (test code = 7854892613) 7 mg/dL 7-23 GLUCOSE (test code = 6660717390) 94 mg/dL 70-110 CREATININE (test code = 0.71 mg/dL 0.50-1.04 3399556159) TOTAL BILI (test code = 0.5 mg/dL 0.1-1.6 2828387581) CALCIUM (test code = 9968662487) 8.7 mg/dL 8.6-10.6 T PROTEIN (test code = 6.8 g/dL 6.3-8.2 8623102098) ALBUMIN (test code = 0640735062) 4.0 g/dL 3.5-5.0 ALK PHOS (test code = 2245661517) 78 U/L 34-122 ALTv (test code = 1742-6) 20 U/L 5-35 AST(SGOT) (test code = 25 U/L 13-40 8850080343) eGFR (test code = 4538550769) mL/min/1.73m2 ADARSH (test code = ADARSH) Association [...] or urine or abnormalities in imaging tests). [facility] WITH [id number] 18:08:32 Test Item Value Reference Range Interpretation [...] RDW-SD (test code = 41.9 fL 39.0-49.9 98756-2) RDW-CV (test code = 12.2 % 12.0-15.5 788-0) PLT (test code = See_Comment [Automated 777-3) message] The sy stem which generated this result transmitted reference range : 166 - 358 10*3/ ?L. The reference r cecilia was not used to interpret this result as normal/abnormal . MPV (test code = 11.4 fL 9.5-12.9 15818-3) NRBC/100 WBC (test See_Comment [Automat ed code = 7582716722) message] The system which generated this result transmitted reference range : 0.0 - 10.0 /100 WBCs. The refer ence range was not u sed to interpret th is result as normal/abnormal . NRBC x10^3 (test code See_Comment [Auto mated = 4493796012) message] The s ystem which generated this result transmitted reference range : 10*3/?L. The reference range was not used to interpret this result as normal/abnormal . GRAN MAT (NEUT) % 56.8 % (test code = 770-8) IMM GRAN % (test code 0.40 % = 9896826332) LYMPH % (test code = 25.2 % 736-9) MONO % (test code = 4.8 % 5905-5) EOS % (test code = 11.8 % 713-8) BASO % (test code = 1.0 % 706-2) GRAN MAT x10^3(ANC) 4.46 10*3/uL 1.88-7.09 (test code = 6745187014) IMM GRAN x10^3 (test 0.03 10*3/uL 0.00-0.06 code = 4926952214) LYMPH x10^3 (test code 1.98 10*3/uL 1.32-3.29 = 731-0) MONO x10^3 (test code 0.38 10*3/uL 0.33-0.92 = 742-7) EOS x10^3 (test code = 0.93 10*3/uL 0.03-0.39 H 711-2) BASO x10^3 (test code 0.08 10*3/uL 0.01-0.07 H = 704-7) Lab Interpretation Abnormal (test code = 30585-3) [facility] [id number] 17:29:00 Test Item Value Reference Range Interpretation Comments POCT PREG (test code = 1605) negative On board controls acceptable with positive C Line (test code = 3574) POCT PREG LOT # (test code = 3575) [id number] POCT PREG TEST DATE (test 10-22-2023 code = 3576) Lab Interpretation (test code = Normal 76447-6) [facility] [id number] 17:20:00 Test Item Value Reference Range Interpretation Comments POCT PREG (test code = 1605) Negative On board controls acceptable with Yes C Line (test code = 3574) POCT PREG LOT # (test code = 3575) [id number] POCT PREG TEST DATE (test 09/20/22 code = 3576) [facility]2021-09-20 13:37:00 Test Item Value Reference Range Interpretation Comments URINE HCG TRIAGE (ER ONLY) (test NEGATIVE Negative code = HCGTRIAGE) Urine Test Result: NEGATIVEAre internal controls (presence of a control line & clear background) OK? YesLot # of HCG Test Kit: [id number] Date of Kit: 09/18/21Test Performed by:KRISTINA Gorman Perfomed on: 09/18/21- CT ABD PELVIS [id number] 00:00:00 [facility] : 1985 Sex: F Name: SHEILA RODRIGUEZ FSED : 1985 Age/S: 36 / F [address] [facility] Unit #: [id number] Loc: [place] [address] Phys: Linda Kendrick MD Acct: [id number] Dis Date: Status: REG ER PHONE #: Exam Date: 2021 0310 FAX #: Reason: lower abdominal pain EXAMS: CPT CODE: [id number] ABD PELVIS W/CONT 08529 PROCEDURE INFORMATION: Exam: CT Abdomen And Pelvis [...] use at least one of these dose optimizationtechniques: automated exposure control; mA and/or kV adjustment per patient size (includes targeted exams where dose is matched to clinical indication); or iterative reconstruction. Contrast material: CVI898; Contrast volume: 95 ml; Contrast route: INTRAVENOUS [...] aortic aneurysm. Lymph nodes: No evidence of lymph adenopathy. Urinary bladder: Unremarkable as visualized. Reproductive: Unremarkable as visualized. Bones/joints: The visualized osseous structures are unremarkable. Soft tissues: There is a small fat containing umbilical hernia. IMPRESSION: 1. Small umbilical hernia. 2. No acute findings. PAGE 1 Signed Report (CONTINUED) Name: SHEILA RODRIGUEZ FSED : 1985 Age/S: 36 / F [address] [facility] Unit #: [id number] Loc: [place] [address] Phys: Linda Kendrick MD Acct: [id number] Dis Date: Status: REG ER PHONE #: Exam Date: 2021 0310 FAX #: Reason: lower abdominal pain EXAMS: CPT CODE: [id number] CT ABD PELVIS W/CONT 24488 (Continued) at 0355 Reported and signed by: Aubrie Busch M.D CC: Linda Kendrick MD; Dave Callahan DO Technologist:RT Soledad(R)(CT) CTDI: DLP: Trnscb Date/Time: 2021 (354) [email or web address] Orig Print D/T: S: 2021 (354) PAGE 2 Signed ReportBASIC METABOLIC [id number] 06:50:00 Test Item Value Reference Range Interpretation [...] CA) 9.3 MG/DL 8.5-10.1 N HEPATIC FUNCTION [id number] 06:50:00 Test Item Value Reference Range Interpretation [...] 45-117 N code = ALKP) BASIC METABOLIC [id number] 06:46:00 Test Item Value Reference Range Interpretation [...] CA) 9.3 MG/DL 8.5-10.1 N HEPATIC FUNCTION [id number] 06:46:00 Test Item Value Reference Range Interpretation [...] = ALKP) UA RFLX MICR CULT IF [id number] 06:43:00 Test Item Value Reference Range Interpretation [...] Indication for culture: RiskForSepsis-no oth srcUR HCG [id number] 06:43:00 Test Item Value Reference Range Interpretation Comments UR HCG QUAL (test code = HCGQLU) NEGATIVE NEGATIVE Indication for culture: RiskForSepsis-no oth src- XR CHEST 1 [id number] 06:38:00[facility] : 1985 Sex: F Name: SHEILA RODRIGUEZ [facility] : 1985 Age/S: 34 / F [address] [address] [employer] Unit #: [id number] Loc: [place] [address] Phys: Tolu Ashby MD Acct: [id number] Dis Date: Status: PRE ER PHONE #: [phone] Exam Date: 08/15/2020624 FAX #: Reason: chest pain EXAMS: CPT: [id number] XR CHEST 1 V 88073 Fluoro Time: DAP (Gy m2): Air Kerma [...] PAGE 1 Signed Report Name: SHEILA RODRIGUEZ [place] : 1985 Age/S: 34 / F [address] [address] [employer] Unit #: [id number] Loc: [place] [address] Phys: Tolu Ashby MD Acct: [id number] DisDate: Status: PRE ER PHONE #: [phone] Exam Date: 08/15/2020624 FAX #: Reason: chest pain EXAMS: CPT: [id number] XR CHEST 1 V 79932 Fluoro Time: DAP (Gy m2): Air Kerma (mGy): <Continued> Technologist: Jaiden Moise RT(R)(MR) Trnscb Date/Time: 08/15/2020 (0638) [email or web address] Orig Print D/T: S: 08/15/2020 (0641) PAGE 2 Signed ReportUA RFLX MICR CULT IF [id number] 06:36:00 Test Item Value Reference Range Interpretation [...] Indication for culture: RiskForSepsis-no oth srcUR HCG [id number] 06:36:00 Test Item Value Reference Range Interpretation Comments UR HCG QUAL (test code = HCGQLU) NEGATIVE NEGATIVE Indication for culture: RiskForSepsis-no oth srcCBC W/O [id number] 06:36:00 Test Item Value Reference Range Interpretation [...] H MPV) UA RFLX MICR CULT IF [id number] 06:32:00 Test Item Value Reference Range Interpretation [...] Indication for culture: RiskForSepsis-no oth srcUR HCG [id number] 06:32:00 Test Item Value Reference Range Interpretation Comments UR HCG QUAL (test code = HCGQLU) NEGATIVE Indication for culture: RiskForSepsis-no oth src- CT ABD PELVIS [id number] 22:06:00 Name: SHEILA RODRIGUEZ [facility] : 1985 Age/S: 34 / F [id number] [address] [employer] Unit #: [id number] Loc: [place] [address] Phys: Tolu Ashby MD Acct: [id number] Dis Date: Status: REG ER PHONE #: [phone] Exam Date: 03/04/20202131 FAX #: Reason: LLQ pain, tenderness EXAMS: CPT: [id number] CT ABD PELVIS W/CONT 64530 Location code: CT Abdomen and Pelvis with [...] 1 Signed Report (CONTINUED) Name: SHEILA RODRIGUEZ [facility] : 1985 Age/S: 34 / F [id number] [address] [employer] Unit #: [id number] Loc: [place] [address] Phys: Tolu Ashby MD Acct: [id number] Dis Date: Status: REG ER PHONE #: [phone] Exam Date: 03/04/20202131 FAX #: Reason: LLQ pain, tenderness EXAMS: CPT: [id number] CT ABD PELVIS W/CONT 72383 <Continued> Uterus is unremarkable. No adnexal masses [...] culture: Suprapubic PainUA RFLX MICR CULT IF [id number] 21:17:00 Test Item Value Reference Range Interpretation [...] CLEAN CATCHIndication for culture: Suprapubic PainBASIC METABOLIC [id number] 20:31:00 Test Item Value Reference Range Interpretation [...] CA) 8.6 MG/DL 8.5-10.1 N HEPATIC FUNCTION [id number] 20:31:00 Test Item Value Reference Range Interpretation [...] 45-117 N code = ALKP) CBC W/AUTO [id number] 20:22:00 Test Item Value Reference Range Interpretation [...] CRITERIA = MDIFF) - XR C-SPINE 2-3 [id number] 17:22:00 FAX: Dave Calero DO [phone] [place]: St: REG FAX: Rosenda Engle [phone] ---- Name: SHEILA RODRIGUEZ Formerly [facility] : 1985 Age/S: 33/F [address] [place] [address] Unit #: [id number] Loc: [place] [address] Phys: Rosenda Engle Acct: [id number] Dis Date: Status: REG ER PHONE #: [phone] Exam Date: 11/25/2018 1718 FAX #: [phone] Reason: NECK PAIN EXAMS: CPT CODE: [id number] XRC-SPINE 2-3 VIEWS 12362 CERVICAL SPINE SERIES 11/25/2018 AT 1652 HOURS. [...] 3. Clear lung apices. SL: ER-H at 4804 Reported and signed by: Alexy Fu M.D. CC: Dave Callahan DO; Rosenda Engle Technologist: RT Negro(Janis) Trnscrd Date/Time/By: 11/25/2018 (193) : By: [email or web address] Orig Print D/T: S: 11/25/2018 (0116) PAGE 1 Signed ReportURINALYSIS [id number] 16:40:00 Test Item Value Reference Range Interpretation [...] MUCU) TRACE /LPF NONE SEEN UR HCG [id number] 16:40:00 Test Item Value Reference Range Interpretation Comments UR HCG QUAL (test code = HCGQLU) NEGATIVE NEGATIVE URINALYSIS [id number] 04:22:00 Test Item Value Reference Range Interpretation [...] COMMENTS: Clean Catch- CT ABD PELVIS W/O [id number] 03:52:00 Name: SHEILA RODRIGUEZ Formerly [facility] : 1985 Age/S: 33 / F [address] [place] [address] Unit #: [id number] Loc: [place] [address] Phys: Adrianne Painter MD Acct: [id number] Dis Date: Status: REG ER PHONE #: [phone] Exam Date: 10/04/2018 0338 FAX #: [phone] Reason: rlq abd pain EXAMS: CPT CODE: [id number] CT ABD PELVIS W/O CONT 23659 EXAM: CT, CT abdomen pelvis without contrast: [...] 1 Signed Report (CONTINUED) Name: YASH RODRIGUEZ Formerly [facility] : 1985 Age/S: 33 / F [address] [place] [address] Unit #: [id number] Loc: [place] [address] Phys: Adrianne Painter MD Acct: [id number] Dis Date: Status: REG ER PHONE #: [phone] Exam Date: 10/04/2018337 FAX #: [phone] Reason: rlq abd pain EXAMS: CPT CODE: [id number] CT ABD PELVIS W/O CONT 87019 (Continued) PERITONEUM AND RETROPERITONEUM: No ascites or free air.No other fluid collection. There is no aortic aneurysm seen. LYMPH NODES: Unremarkable. PELVIS: No pelvic mass or adenopathy. Uterus is anteverted and unremarkable. Ovaries are unremarkable. BLADDER: Unremarkable. OSSEOUS STRUCTURES: No acute abnormality seen. SOFT TISSUES: Unremarkable. IMPRESSION: 1. No acute abdominal or pelvic abnormality. SL: TOYINH at 0352 Reported and signed by: Luis Mckeon M.D. CC: Adrianne Painter MD; Dave Callahan DO Technologist:RT Yuong(R) CTDI: DLP: Trnscb Date/Time: 10/04/2018 (035) [email or web address] Orig Print D/T: S: 10/04/2018 (035) CTDI: DLP: PAGE 2 Signed Report- US TRANSVAGINAL NON [id number] 03:43:00 Name: SHEILA RODRIGUEZ Formerly [facility] : 1985 Age/S: 33 / F [address] [place] [address] Unit #: [id number] Loc: [place] [address] Phys: Adrianne Painter MD Acct: [id number] Dis Date: Status: REGER PHONE #: [phone] Exam Date: 10/04/2018326 FAX #: [phone] Reason: Pelvic Pain EXAMS: CPT CODE: [id number] [place] [address] EXAM: US, US PELVIS COMPLETE: 10/04/2018 EXAM: [...] 1 Signed Report (CONTINUED) Name: SHEILA RODRIGUEZ Formerly [facility] : 1985 Age/S: 33 / F [address] [place] [address] Unit #: [id number] Loc: [place] [address] Phys: Adrianne Painter MD Acct: [id number] Dis Date: Status: REG ER PHONE #: [phone] Exam Date: 10/04/2018326 FAX #: [phone]: Pelvic Pain EXAMS: CPT CODE: [id number] [place] [address] (Continued) 1. Trace fluid in the endometrial and cervical canal. Prominent cervix. 2. Otherwise unremarkable pelvic ultrasound SL: CONNIE at 0343 Reported and signed by: Luis Mckeon M.D. CC: Adrianne Painter MD; Dave Callahan Technologist: Elisha Colmenares RDMS(A)(OB) Trnscb Date/Time: 10/04/2018 (0343) [email or web address] Orig Print D/T: S: 10/04/2018 (0346) Probe: [id number] PAGE 2 Signed Report- US PELVIS [id number] 03:43:00 Name: SHEILA RODRIGUEZ Formerly [facility] : 1985 Age/S: 33 / F [address] [place] [address] Unit #: [id number] Loc: [place] [address] Phys: Adrianne Painter MD Acct: [id number] Dis Date: Status: REG ER PHONE #: [phone] Exam Date: 10/04/2018326 FAX #: [phone] Reason: Pelvic Pain EXAMS: CPT CODE: [id number] US PELVIS COMPLETE 82083 EXAM: US, US PELVIS COMPLETE: 10/04/2018 EXAM: [...] 1 Signed Report (CONTINUED) Name: SHEILA RODRIGUEZ Formerly [facility] : 1985 Age/S: 33 / F [address] [place] [address] Unit #: [id number] Loc: [place] [address] Phys: Adrianne Painter MD Acct: [id number] Dis Date: Status: REG ER PHONE #: [phone] Exam Date: 10/04/2018326 FAX #: [phone] Reason: Pelvic Pain EXAMS: CPT CODE: [id number] US PELVIS COMPLETE 80350 (Continued) 1. Trace fluid in the endometrial and cervical canal. Prominent cervix. 2. Otherwise unremarkable pelvic ultrasound SL: JSYED-H at 0343 Reported and signed by: Luis Mckeon M.D. CC: Adrianne Painter MD; Dave Callahan DO Technologist: Elisha Colmenares RDMS(Ady)(OB) Trnscb Date/Time: 10/04/2018 (034) [email or web address] Orig Print D/T: S: 10/04/2018 (034) Probe: PAGE 2 Signed Report COMPREHENSIVE METABOLIC [id number] 03:26:00 Test Item Value Reference Range Interpretation [...] 20-125 N TOTAL (test code = ALKP) [id number] 03:26:00 Test Item Value Reference Range Interpretation Comments LIPASE (test code = LIP) 125 IUnit/L 73-393 N HCG SERUM [id number] 03:26:00 Test Item Value Reference Range Interpretation Comments HCG SERUM QUAL (test code = SERUM NEGATIVE NEGATIVE HCGQL) COMPREHENSIVE METABOLIC [id number] 03:15:00 Test Item Value Reference Range Interpretation [...] TOTAL (test IUnit/L 20-125 code = ALKP) [id number] 03:15:00 Test Item Value Reference Range Interpretation Comments LIPASE (test code = LIP) IUnit/L 73-393 HCG SERUM [id number] 03:15:00 Test Item Value Reference Range Interpretation Comments HCG SERUM QUAL (test code = SERUM NEGATIVE NEGATIVE HCGQL) CBC W/AUTO [id number] 03:11:00 Test Item Value Reference Range Interpretation [...] Date/Time Note Provider Source 2021-10-18 23:50:00-00:00 [facility] ([facility]) EMERGENCY PROVIDER REPORT REPORT#:[id number] REPORT STATUS: Signed DATE:10/18/21 TIME: 2349 PATIENT: SHEILA RODRIGUEZ UNIT #: [id number] ROOM/BED: AGE: 36 SEX: F PCP PHYS: [...] LOC or syncope. General Initial Greet Date/Time 10/18/210 Presentation Chief Complaint Abdominal pain Risk-Abd Pain [...] B/P 132/73 10/18 2349 B/P Mean 92 10/189 O2 Delivery Nasal cannula 10/18 2348 O2 Flow Rate 2 10/18 2348 Temp 36.6 10/18 234 Pulse 115 10/18 2348 Resp 20 10/18 2348 Last Documented: Result Date Time Pulse Ox 100 10/18 2349 B/P 132/73 10/18 2349 B/P Mean 92 10/18 2349 O2 Delivery Nasal cannula 10/18 2348 O2 Flow Rate 2 10/18 2348 Temp 36.6 10/18 234 Pulse 115 10/18 2349 Resp 20 10/18 234 Review of Vital Signs Reviewed Re-Evaluation MDM [...] eart sounds NL Abdomen/GI Abdomen/GI Soft, diffuse t enderness to palpation without rebound or guarding, No [...] staff was unable to locate patient. Nina yoder nurse Linda called PD and informed us [...] 0055 Sodium Chloride 0 ASDIR PRN 10/18 2345 AC IV 10/19 2256 Gastrointestinal Drugs Sig/Chinedu [...] Temp 36.6 10/18 2348 Pulse 115 10/18 234 Resp 20 10/18 2348 Last Documented: Result Date Time Pulse Ox 100 10/18 2349 B/P 132/73 10/18 2349 B/P Mean 92 10/18 2348 O2 Delivery Nasal cannula 03/28 2349 O2 Flow Rate 2 10/18 2348 Temp 36.6 10/18 234 Pulse 115 10/18 234 Resp 20 10/18 234 All vital signs available at the time of this en try have been reviewed. Clinical Impression Clinical Impression Primary Impression: Abdominal pain Disposition Decision Discharge )( Discharged to Home Yes )( Time 0148 )( Date 10/19/21 Electronically Signed by James Mims DO on 10/19 at 0148 RPT #:[id number] END OF REPORT 2021 04:00:00-00:00 [facility] ([facility]) EMERGENCY PROVIDER REPORT REPORT#:[id number] REPORT STATUS: Signed DATE:09/18/21 TIME: 0400 PATIENT: SHEILA RODRIGUEZ UNIT #: [id number] ROOM/BED: AGE: 36 SEX: F PCP PHYS: Dave Callahan DO SERVICE AUTHOR: Vitaliy Kendrick MD * ALL edits or amendments must be made on the NextFit/computer document * HPI- Female General Initial Greet [...] Result Date Time Pulse Ox 98 09/18 140 B/P 143/92 09/18 140 B/P Mean 109 09/18 140 O2 Delivery Room air 09/18 140 Temp 36.8 09/18 140 Pulse 84 09/18 140 Resp 20 09/18 140 Last Documented: Result Date Time Pulse Ox 99 09/18 411 B/P 132/89 09/18 411 B/P Mean 103 09/18 411 O2 Delivery Room air 09/18 411 Temp 36.9 09/18 411 Pulse 76 09/18 411 Resp 19 09/18 411 Review of Vital Signs Reviewed Focused PE [...] Inspection NL Skin Skin Atraumatic Genitourinary General Commercial Front Load Operator present Text/Dict Notes Scant dark red blood [...] home with return precautions, PCP foll owup, PRIVACY OFFICER followup. ED Course Medication(s) Ordered Medication(s) Ordered: Central Nervous System Agents Sig/Chinedu Start time Last Medication Dose Route Stop Time Status Admin Ketorolac 30 MG X1ED STA 09/18 0242 DC 09/18 Tromethamine IV 09/18 0243 0307 Ketorolac 30 MG X1ED STA 09/18 0227 CAN Tromethamine IM 09/188 Acetaminophen 1,000 MG X1ED STA 09/18 0147 DC 0 09/18 PO 09/18 147 0219 Diagnostic Agents Sig/Chinedu Start time Last Medication Dose Route Stop Time Status Admin Iopamidol 95 ML .STK-MED ONE 09/18 0254 DC 08/25 6 IV 09/18 025 0254 Patient Discharge Departure Vital Signs/Condition Vital [...] Call for appointment Notes: Abnormal menses Address: [address] [place] [address] [address] [place] [address] Provider Group: PRIMARY CARE Follow-Up: 1 Week [...] symptoms should prompt an immediate return to [facility] or the closest emergency department or a call to 1. at 0527 RPT #:[id number] END OF REPORT 2020-08-15 06:16:00-00:00 [facility] ([facility]) EMERGENCY PROVIDER REPORT REPORT#:[id number] REPORT STATUS: Signed DATE:08/15/20 TIME:06 PATIENT: SHEILA RODRIGUEZ UNIT #: [id number] ROOM/BED: : 84 AGE: 34 SEX: F [...] 08/15 0705 O2 Delivery Room air 08/15 07 Temp 36.8 08/15 0705 Pulse 65 08/15 0705 Resp 19 08/15 0705 Review of Vital Signs Reviewed Physical Exam [...] Glomerular Filtr Rate (>60 estGFR) >=60 max es timate Glucose (70 - 110 MG/DL) 93 Calcium [...] 7.0 pH UNITS) 7.5 H Ur Specific Seymour (1.005 - 1.030 SG) 1.010 Urine Protein [...] for active cardiopulmon too disease. Impression By: [email or web address] - Elizabeth Cole MD ECG #1 Interpretation [...] Resources given , return precautions given, follow-up [facility] PCP. Patient understands and agrees to plan. Re-Evaluation/Progress #1 Time of Re-Eval 0655 Re-Eval Status Improved ED Course Medication(s) Ordered Medication(s) Ordered: Central Nervous System Agents Sig/Chinedu Start time Last Medication Dose Route Stop Time Status Admin Lorazepam 0.5 MG X1ED STA 08/15 0600 DC 08/15 PO 08/15 0601 0605 Electrolytic, Caloric, And Cayden Sig/Chinedu Start time Last Medication Dose Route Stop Time Status Admin Sodium Chloride 1,000 ML X1ED STA 08/15 604 DC 08/15 IV 08/15 704 06 Patient Discharge Departure Vital Signs/Condition Vital Signs First Documented: Result Date Time Pulse Ox 100 08/15 0448 B/P 143/94 08/15 0448 B/P Mean 110 08/15 547 O2 Delivery Room air 08/15 547 Temp 36.7 08/15 547 Pulse 74 08/15 0448 Resp 18 08/15 547 Last Documented: Result Date Time Pulse Ox 100 08/15 704 B/P 132/75 08/15 0705 B/P Mean 94 08/15 704 O2 Delivery Room air 08/15 704 Temp 36.8 08/15 704 Pulse 65 08/15 704 Resp 19 08/15 704 All vital signs available at the time [...] symptoms should prompt an immediate return to [facility] or the closest emergency department or a call to [facility]. Electronically Signed by Tolu Ashby MD on at 1752 RPT #: [id number] END OF REPORT 2020-08-15 05:53:00-00:00 [id number] [facility] [address] [place] [address] PATIENT NAME: SHEILA RODRIGUEZ ADMIT DATE: 08/15/20 ACCOUNT NO: [id number] ROOM NO: AGE: 34 REPORT TYPE: eELECTROCARDIOGRAM SEX: F ADMITTING PHYSICIAN: ATTENDING PHYSICIAN: Order: [id number] Test Reason : (Not Selected) Test Date/Time [...] 2020 PATIENT NAME: SHEILA RODRIGUEZ 2020-03-04 19:22:00-00:00 [facility] ([facility]) EMERGENCY PROVIDER REPORT REPORT#:[id number] REPORT STATUS: Signed DATE:03/04/20 TIME:1921 PATIENT: SHEILA RODRIGUEZ UNIT #: [id number] ROOM/BED: : 84 AGE: 34 SEX: F [...] Back Inspection NL, Painless range of motion, No midline vertebral tend, No CVA tenderness Text/Dict [...] Psychiatric Psychiatric Affect NL, Mood NL, Thought conten t NL Interpretation Diagnostics Lab Results Interpretation Results [...] % (Auto) (20.5 - 51.1 %) 34.8 [place] % (Auto) (1.7 - 9.3 %) 7.5 Eos % (Auto) (0.0 - 6.0 %) 3.1 Baso % (Auto) (0.0 - 2.0 %) 0.8 Neut # (Auto) (1.8 - 7.6 K/mm3) 4.9 Lymph # (Auto) (0.6 - 3.2 K/mm3) 3.2 [place] # (Auto) (0.3 - 1.1 K/mm3) 0.7 [...] - 7.0 pH UNITS) 5.5 Ur Specific Seymour (1.005 - 1.030 SG) >=1.030 H Urine [...] 03/04 1941 DC 03/04 Tromethamine IV 03/04 1942 1950 Diagnostic Agents Sig/Chinedu Start time Last Medication [...] Ashby MD on at 0124 RPT #: [id number] END OF REPORT 2018-11-25 15:39:00-00:00 [facility] ([facility]) EMERGENCY PROVIDER REPORT REPORT#:[id number] REPORT STATUS: Signed DATE:11/25/18 TIME: 1538 PATIENT: SHEILA RODRIGUEZ UNIT #: [id number] ROOM/BED: AGE: 33 SEX: F PCP PHYS: Dave Callahan DO SERVICE AUTHOR: Rosenda Engle * ALL edits or amendments must be made on the NextFit/ADCentricity document * HPI-Neck Pain General Confirmed Patient Yes Initial Greet Date/Time 11/25/[address] Dave Callahan-PCP Presentation Chief Complaint Neck pain Hx Obtained From Patient Onset Occurred Days ago (x3) Symptom Duration Since onset Progression since Onset Intermittent, Gradually worsening Caused by No trauma by history Radiation No: Does not radiate. Associated with Reports: Decreased range of motion. Denies: Fekendrick rCain Free Text HPI Notes Free Text [...] today. Pt reports intermittent hematuria since this earlninoah g. Pt denies any fever. Portions of [...] Documented: Result Date Time Pulse Ox 98 05/05 1542 B/P 119/57 05/05 1542 B/P Mean 77 05/05 1542 O2 Delivery Room air 05/05 1542 Temp 36.7 05/05 1542 Pulse 81 05/05 1542 Resp 17 05/05 1542 Last Documented: Result Date Time Pulse Ox 98 05/05 1542 B/P 119/57 05/05 1542 B/P Mean 77 05/05 1542 O2 Delivery Room air 05/05 1542 Temp 36.7 05/05 1542 Pulse 81 05/05 1542 Resp 17 05/05 1542 Review of Vital Signs Reviewed Focused PE General/Const General/Const Awake, Alert, Well developed, Combination Man perative MS Head Head Atraumatic, Normocephalic Eyes [...] pH (5.0 - 7.0) 5.0 Ur Specific Seymour (1.005 - 1.030) 1.017 Urine Protein (NEGATIVE) [...] by Interpret - Radiolog ist Reviewed by RUTH HOLE DIGGER TRUCK DRIVER Portions of this section were scribed by Desean Morales on 11/25/18 at 1746 Re-Evaluation MDM Re-Evaluation/Progress Re-Evaluation/Progress Text/Dict Note Discussed results w/ pt, plan to D/C home and f/ u w/ PCP. Provided reasons to return to the ED for any new or worsening sxs. P t agrees w/ plan. Time of Re-Eval 173 ED Course Medication(s) Ordered Medication(s) Ordered: Anti-Infective [...] Documented: Result Date Time Pulse Ox 98 05/05 1542 B/P 119/57 05/05 1542 B/P Mean 77 05/05 1542 O2 Delivery Room air 05/05 1542 Temp 36.7 05/05 1542 Pulse 81 05/05 1542 Resp 17 05/05 1542 Last Documented: Result Date Time Pulse Ox 98 05/05 1542 B/P 119/57 05/05 1542 B/P Mean 77 05/05 1542 O2 Delivery Room air 05/05 1542 Temp 36.7 05/05 1542 Pulse 81 05/05 1542 Resp 17 05/05 1542 All vital signs available at the time of this en try have been reviewed. Condition Stable Clinical Impression Clinical Impression Primary Impression: UTI (urinary tract infection ) Secondary Impressions: Torticollis Disposition Decision Discharge )( Discharged to Home Yes )( Time 182 )( Date 11/25/18 Discharge/Care Plan Counseled Regarding Diagnosi s, Lab results, Imaging studies, Prescriptions, Need for follow-up, When to return to ED Prescriptions Naproxen, Flexeril, Macrobid Prescriptions Reviewed Risks, Benefits, Alternat paulina treatment Supervising Physician Note Scribe Statement Desean Carpio, 11/25/18 1558, scribing for an d in the presence of [Rosenda Engle NP]. Signed By: Desean Carpio, 11/25/18 5742 Provider Scribed Statement I personally performed the s ervices described in this documentation and reviewed the documentation that was dictated to the scrib e(s) in my presence, and it accurately records my words and actions. Raquel Engle, 11/25/18 Portions of this section were scribed by Desean Morales on 11/25/18 at 1746 Electronically Signed by Rosenda Engle on 0 11/25/18 at 4996 RPT #:[id number] END OF REPORT 2018-11-25 15:39:00-00:00 [facility]) EMERGENCY PROVIDER REPORT REPORT#:[id number] REPORT STATUS: Signed DATE:11/25/18 TIME: 1538 PATIENT: SHEILA RODRIGUEZ UNIT #: [id number] ROOM/BED: AGE: 33 SEX: F PCP PHYS: Dave Callahan DO SERVICE AUTHOR: Rosenda Engle * ALL edits or amendments must be made on the NextFit/computer document * Rosenda Engle. 11/25/18 1539: HPI-Neck Pain General Confirmed Patient Yes PCP Dr. Dave Callahan-PCP Presentation Chief Complaint Neck pain Hx Obtained From Patient Onset Occurred Days ago (x3) Symptom Duration Since onset Progression since Onset Intermittent, Gradually worsening Caused by No trauma by history Radiation No: Does not radiate. Associated with Reports: Decreased range of motion. Denies: Vivian rCain Free Text HPI Notes Free Text [...] Documented: Result Date Time Pulse Ox 98 05/05 1542 B/P 119/57 05/05 1542 B/P Mean 77 05/05 1542 O2 Delivery Room air / 1542 Temp 36.7 05/ 1542 Pulse 81 05/05 1542 Resp 17 05/ 1542 Last Documented: Result Date Time Pulse Ox 99 / 1830 B/P 115/68 05/ 1830 B/P Mean 83 05/05 1830 O2 Delivery Room air 11/25 1830 Temp 36.6 05/ 1830 Pulse 78 05/05 1830 Resp 18 05/05 1830 Review of Vital Signs Reviewed Focused PE General/Const General/Const Awake, Alert, Well developed, Combination Man perative MS Head Head Atraumatic, Normocephalic Eyes [...] pH (5.0 - 7.0) 5.0 Ur Specific Seymour (1.005 - 1.030) 1.017 Urine Protein (NEGATIVE) [...] Interpret - Radiolog ist Reviewed by ED HOLE DIGGER TRUCK DRIVER Portions of this section were scribed by [...] 1542 Pulse 81 11/25 1542 Resp 17 / 1542 Last Documented: Result Date Time Pulse Ox 99 11/25 1830 B/P 115/68 / 1830 B/P Mean 83 11/25 1830 O2 Delivery Room air 11/25 183 Temp 36.6 / 1830 Pulse 78 / 1830 Resp 18 11/25 1830 All vital signs available at the time of this en try have been reviewed. Condition Stable Clinical Impression Clinical Impression Primary Impression: UTI (urinary tract infection ) Secondary Impressions: Torticollis Disposition Decision Discharge )( Discharged to Home Yes )( Time 182 )( Date 11/25/18 Discharge/Care Plan Counseled Regarding Diagnosi s, Lab results, Imaging studies, Prescriptions, Need for follow-up, When to return to ED Prescriptions Naproxen, Flexeril, Macrobid Prescriptions Reviewed Risks, Benefits, Alternat paulina treatment Supervising Physician Note Scribe Statement Desean Carpio, 11/25/18 1558, scribing for an d in the presence of [Rosenda Engle NP]. Signed By: Desean Carpio, 11/25/18 1892 Provider Scribed Statement I personally performed the s ervices described in this documentation and reviewed the documentation that was dictated to the scrib e(s) in my presence, and it accurately records my words and actions. Raquel Engle, 11/25/18 Portions of this section were scribed by Desean Morales on 11/25/18 at 1746 Kp Moses 11/25/18 2044: HPI-Neck Pain General Initial Greet Date/Time 11/25/18 [...] Engle on 0 11/25/18 at 1829 RPT #:[id number] END OF REPORT 2018-11-25 15:39:00-00:00 [facility] EMERGENCY PROVIDER REPORT REPORT#:[id number] REPORT STATUS: Signed DATE:11/25/18 TIME: 153 PATIENT: SHEILA RODRIGUEZ UNIT #: [id number] ROOM/BED: AGE: 33 SEX: F PCP PHYS: Dave Callahan DO SERVICE AUTHOR: Engle,Rosenda J IN FLIGHT REFUELING SYSTEM REPAIRER * ALL edits or amendments must be made on the NextFit/computer document * Rosenda Engle Jay. 11/25/18 1539: HPI-Neck Pain General Confirmed Patient [...] Room air 11/25 154 Temp 36.7 11/25 154 Pulse 81 11/25 1542 Resp 17 11/25 154 Last Documented: Result Date Time Pulse Ox 99 11/25 1829 B/P 115/68 11/25 1829 B/P Mean 83 11/25 1829 O2 Delivery Room air 11/25 1829 Temp 36.6 11/25 1829 Pulse 78 11/25 1829 Resp 18 11/25 1829 Review of Vital Signs Reviewed Focused PE General/Const General/Const Awake, Alert, Well developed, Combination Man perative MS Head Head Atraumatic, Normocephalic Eyes [...] pH (5.0 - 7.0) 5.0 Ur Specific Seymour (1.005 - 1.030) 1.017 Urine Protein (NEGATIVE) [...] Interpret - Radiolog ist Reviewed by ED HOLE DIGGER TRUCK DRIVER Portions of this section were scribed by [...] Pulse Ox 98 11/25 1542 B/P 119/57 / 1542 B/P Mean 77 11/25 1542 O2 Delivery Room air 11/25 1542 Temp 36.7 11/25 1542 Pulse 81 11/25 1542 Resp 17 11/25 1542 Last Documented: Result Date Time Pulse Ox 99 11/25 1830 B/P 115/68 11/25 1830 B/P Mean 83 11/25 1830 O2 Delivery Room air 11/25 183 Temp 36.6 11/25 1830 Pulse 78 11/25 1830 Resp 18 11/25 1830 All vital signs available at the time of this en try have been reviewed. Condition Stable Clinical Impression Clinical Impression Primary Impression: UTI (urinary tract infection ) Secondary Impressions: Torticollis Disposition Decision Discharge )( Discharged to Home Yes )( Time 182 )( Date 11/25/18 Discharge/Care Plan Counseled Regarding Diagnosi s, Lab results, Imaging studies, Prescriptions, Need for follow-up, When to return to ED Prescriptions Naproxen, Flexeril, Macrobid Prescriptions Reviewed Risks, Benefits, Alternat paulina treatment Supervising Physician Note Scribe Statement Desean Carpio, 11/25/18 9328, scribing for an d in the presence of [Rosenda Engle NP]. Signed By: Desean Carpio, 11/25/18 3446 Provider Scribed Statement I personally performed the [...] Signed by Esteban Dewey MD on at 2100 RPT #:[id number] END OF REPORT 2018-10-04 00:48:00-00:00 [facility] ([facility]) EMERGENCY PROVIDER REPORT REPORT#:[id number] REPORT STATUS: Signed DATE:10/04/18 TIME: 47 PATIENT: SHEILA RODRIGUEZ UNIT #: [id number] ROOM/BED: AGE: 33 SEX: F PCP PHYS: [...] 10/04 0515 O2 Delivery Room air 10/04 0515 Temp 36.8 10/04 0515 Pulse 62 10/04 0515 Resp 16 10/04 0515 Review of Vital Signs Reviewed Focused PE [...] % (Auto) (14.0 - 32.0 %) 25.7 [place] % (Auto) (4.8 - 9.0 %) 5.4 Eos % (Auto) (0.3 - 3.7 %) 2.5 Baso % (Auto) (0.0 - 2.0 %) 0.7 Neut # (Auto) (2.0 - 7.6 x10 3/uL) 7.20 Lymph # (Auto) (1.0 - 3.8 x10 3/uL) 2.85 [place] # (Auto) (0.1 - 0.8 x10 3/uL) [...] pH (5.0 - 7.0) 5.0 Ur Specific Seymour (1.005 - 1.030) 1.015 Urine Protein (NEGATIVE) [...] No STEMI, nml intervals, no ST segment harrsi ges Date 10/04/18 Time 0225 Interpreted by ED physician Rate 62 Portions of this section were scribed by Karol Neil on 10/04/18 at 0539 Re-Evaluation [facility] )( Re-Evaluation/Progress #1 Text/Dict Note Discussed imaging results an d enlarged cervix and need fo rf/u with ob/gy. Plan to D/C home f/u w/ PRODUCTION PROOFREADER (Dr. Anderson). She und erstands agrees w/ [...] 10/04 0515 O2 Delivery Room air 10/04 0515 Temp 36.8 10/04 0515 Pulse 62 10/04 0515 Resp 16 10/04 0515 All vital signs [...] Supervising Physician Note Scribe Statement Bennie Neil, 10/04/188, scribing for and i n the presence of Dr. Adrianne Painter. Signed By: Bennie Neil, 10/04/1847 Provider Scribed Statement I personally performed the s ervices described in this documentation and reviewed the documentation that was dictated to the scrib e(s) in my presence, and it accurately records my words and actions. Adrianne Edward, 10/07/18 Portions of this section were scribed by Karol Neil on 10/04/18 at 0437 Electronically Signed by Adrianne Painter MD on 0 10/07/18 at 1544 RPT #:[id number] END OF REPORT 2018-08-28 15:02:00-00:00 [facility] ([facility]) EMERGENCY PROVIDER REPORT REPORT#:[id number] REPORT STATUS: Signed DATE:08/28/18 TIME:1502 PATIENT: SHEILA RODRIGUEZ UNIT #: [id number] ROOM/BED: : 84 AGE: 32 SEX: F PCP PHYS: Dave Callahan DO SERVICE AUTHOR: Olga Crain I HOLE DIGGER TRUCK DRIVER * ALL edits or amendments must be made on the NextFit/computer document * HPI-Allergic Reaction General Confirmed Patient [...] had same episode yesterday and went to [facility] where she received a steroid shot and was diagnosed on benadryl. Reports she went to clean the same area she was exposed to yesterday again today when the rash de veloped. C/O itching and SOB when she was picked up by EMS. Patient is in no acute distress at [facility] nt time. Review of Systems ROS [...] Pulse Ox 100 02/ 1425 B/P 120/79 02/05 1425 B/P Mean 92 02/05 1425 O2 Delivery Room air 02/ 1425 Temp 98.5 02/05 1425 Pulse 79 02/05 1425 Resp 20 02/05 1425 Last Documented: Result Date Time Pulse Ox 99 02/ 1533 B/P 122/70 02/ 1533 B/P Mean 87 02/05 1533 O2 Delivery Room air 02/05 1533 Pulse 80 02/05 1533 Resp 18 02/05 1533 Temp 98.5 02/05 1425 Review of [...] MG X1ED STA 08/28 1501 D C 02/ Phosphate PO 02/ 1502 1512 Gastrointestinal Drugs Sig/Chinedu Start time Last Medication Dose Route Stop Time Status Admin Famotidine 40 MG X1ED STA 08/28 1501 DC 02/05 PO 02/05 1502 1512 [...] 87 08/28 1533 O2 Delivery Room air 02/05 1533 Pulse 80 08/28 1533 Resp 18 [...] symptoms should prompt an immediate return to [facility] or the closest emergency department or a call to 911. Electronically Signed by Olga Crain NP on 0 08/28/18 at 1724 RPT #: [id number] END OF REPORT 2018-08-28 15:02:00-00:00 [facility] ([facility]) EMERGENCY PROVIDER REPORT REPORT#:[id number] REPORT STATUS: Signed DATE:08/28/18 TIME:1502 PATIENT: SHEILA RODRIGUEZ UNIT #: [id number] ROOM/BED: : 84 AGE: 32 SEX: F PCP PHYS: Janis Callahan DO SERVICE AUTHOR: Olga Crain I HOLE DIGGER TRUCK DRIVER * ALL edits or amendments must be made on the NextFit/[employer] document * Olga Crain 08/28/18 1502: HPI-Allergic [...] had same episode yesterday and went to [facility] where she received a steroid shot and was diagnosed on benadryl. Reports she went to clean the same area she was exposed to yesterday again today when the rash de veloped. C/O itching and SOB when she was picked up by EMS. Patient is in no acute distress at [facility] nt time. Review of Systems ROS Statements [...] 1425 Temp 98.5 08/28 1425 Pulse 79 02/ 1425 Resp 20 08/28 1425 Last Documented: [...] MG X1ED STA 08/28 1501 D C 02/ PO 02 1502 1512 Central Nervous System Agents Sig/Chinedu Start time Last Medication Dose Route Stop Time Status Admin Ibuprofen 600 MG X1ED STA 08/28 1501 DC 08/28 PO 08/28 1502 1512 Eye, Ear, Nose And Throat (Een Sig/Chinedu Start time Last Medication Dose Route Stop Time Status Admin Dexamethasone Sodium 8 MG X1ED STA 08/28 1501 D C 02/ Phosphate PO 08/28 1502 1512 Gastrointestinal Drugs Sig/Chinedu Start time Last Medication Dose Route Stop Time Status Admin Famotidine 40 MG X1ED STA 08/28 1501 DC 02/ PO 02 1502 1512 Patient Discharge Departure Vital Signs/Condition Vital Signs First Documented: Result Date Time Pulse Ox 100 / 1425 B/P 120/79 / 1425 B/P Mean 92 / 1425 O2 Delivery Room air 02/ 1425 Temp 98.5 02/ 1425 Pulse 79 02/05 1425 Resp 20 02/05 1425 Last Documented: Result Date Time Pulse Ox 99 02/ 1533 B/P 122/70 02/ 1533 B/P Mean 87 02/05 1533 O2 Delivery Room air 02/ 1533 [...] symptoms should prompt an immediate return to [facility] or the closest emergency department or a call to 911. Isabel Davidson. 09/03/18 0416: HPI-Allergic Reaction General Initial Greet Date/Time 08/28/18 1426 Physical Exam Vital Signs Vital Signs Patient Discharge Departure Vital Signs/Condition Vital Signs Supervising Physician Note MidLv Saw Pt Alone I have reviewed the PA/HOLE DIGGER TRUCK DRIVER's note and plan of car e. I was available for consultation as needed at al l times during the patient's visit in the emergency department. I agree with the clinical impression , plan and disposition. Electronically Signed by Olga Crain NP on 0 08/28/18 at 1724 at 0416 RPT #: [id number] END OF REPORT
[2023-02-02] MEDS ORDERED: KETOROLAC 30 MG/ML INJ ONE (20:25)
[2023-02-02] MEDS ORDERED: DIAZEPAM 10 MG/2 ML INJ SYRINGE ONE (20:25)
[2023-02-02] MEDS ORDERED: dexAMETHasone 10 MG/ML VIAL ONE (20:25)
--- NOTE | 2023-02-02 20:44 | RAD REPORT ---
EXAM DESCRIPTION: CT - CTHCSPWOC - 02/02/2023 8:32 pm CLINICAL HISTORY: Trauma, head and neck injury. PAIN COMPARISON: No comparisons TECHNIQUE: Axial 5 mm thick images of the head were obtained. Axial 2 mm thick images of the cervical spine were obtained with sagittal and coronal reconstruction images generated and reviewed. All CT scans are performed using dose optimization technique as appropriate and may include automated exposure control or mA/KV adjustment according to patient size. FINDINGS: CT HEAD WITHOUT CONTRAST: No acute hemorrhage, hydrocephalus or extra-axial collection is identified.No areas of brain edema or midline shift. The paranasal sinuses and mastoids are clear.The calvarium is intact. CT CERVICAL SPINE WITHOUT CONTRAST: No fracture or subluxation.Posterior disc bulge is suspected C5-6 and C6-7No prevertebral soft tissue s swelling is identified. IMPRESSION: No acute intracranial or cervical spine findings.
--- NOTE | 2023-02-02 21:35 | ER ---
Nurse's Notes [facility] Name: Jodie Rodriguez Age: 37 yrs Sex: Female : 1985 Arrival Date: 02/02/2023 Time: 18:27 Bed 24 Private MD: Diagnosis: Acute serous otitis media, right ear;Cervicalgia Presentation: 02/02 18:39 Chief complaint: Patient states: Stiff neck and HAYS for 3 days. No fever. Coronavirus ll1 screen: Vaccine status: Patient reports receiving the 2nd dose of the covid vaccine. Client denies travel out of the [place] in the last 14 days. At this time, the client does not indicate any symptoms associated with coronavirus-19. Ebola Screen: Patient denies travel to an Ebola-affected area in the 21 days before illness onset. Initial Sepsis Screen: Does the patient meet any 2 criteria? No. Patient's initial sepsis screen is negative. Does the patient have a suspected source of infection? Yes: Bone or joint infection. Risk Assessment: Do you want to hurt yourself or someone else? Patient reports no desire to harm self or others. Onset of symptoms was January 31, 2023. 18:39 Method Of Arrival: Ambulatory ll1 18:39 Acuity: FLORA 3 ll1 Triage Assessment: 18:41 General: Appears uncomfortable, Behavior is calm, cooperative, appropriate for age. ll1 Pain: Complains of pain in neck Quality of pain is described as aching. Musculoskeletal: Circulation, motion, and sensation intact. Capillary refill < 3 seconds, Reports pain in neck. Historical: - Allergies: 18:41 Codeine; ll1 18:41 Morphine; ll1 - Home Meds: 21:07 albuterol sulfate 90 mcg/actuation Inhl aepb [Active]; kd3 - PMHx: 18:41 Anxiety; Asthma; depressive disorder; ll1 - PSHx: 18:41 section; Cholecystectomy; hernia repair; ll1 - Immunization history:: Client reports receiving the 2nd dose of the Covid vaccine. - Social history:: Smoking status: Patient reports the use of cigarette tobacco products, denies chronic smoking, but will smoke occasionally. Screenin:06 [facility] ED Fall Risk Assessment (Adult) History of falling in the last 3 months, kd3 including since admission No falls in past 3 months (0 pts) Confusion or Disorientation No (0 pts) Intoxicated or Sedated No (0 pts) Impaired Gait No (0 pts) Mobility Assist Device Used No (0 pt) Altered Elimination No (0 pt) Score/Fall Risk Level 0 - 2 = Low Risk Maintained a safe environment. Abuse screen: Denies threats or abuse. Denies injuries from another. Nutritional screening: No deficits noted. Tuberculosis screening: No symptoms or risk factors identified. Assessment: 20:31 General: Appears uncomfortable, Behavior is calm, cooperative. kd3 20:31 Pain: Complains of pain in neck. Neuro: Level of Consciousness is awake, alert, obeys kd3 commands, Oriented to person, place, time, situation. Cardiovascular: Patient's skin is warm and dry. Respiratory: Airway is patent Trachea midline Respiratory effort is even, unlabored, Respiratory pattern is regular, symmetrical. GI: No signs and/or symptoms were reported involving the gastrointestinal system. : No signs and/or symptoms were reported regarding the genitourinary system. Vital Signs: 18:39 BP 115 / 81; Pulse 76; Resp 17; Temp 97.5; Pulse Ox 100% ; Height 5 ft. 0 in. ; Pain ll1 7/10; 20:26 BP 104 / 73; Pulse 67; Resp 16; Pulse Ox 100% ; kd3 21:46 BP 99 / 63; Pulse 64; Resp 19; Pulse Ox 100% on R/A; kd3 18:39 Pain Scale: Adult ll1 ED Course: 18:30 Patient arrived in ED. im 18:40 Triage completed. ll1 18:41 Arm band placed on. ll1 18:55 Lore Carmona PA-C is PHCP. sb4 18:55 Desean Rubio MD is Attending Physician. sb4 20:31 Chica Lawson, [facility] is Primary Nurse. kd3 20:31 Inserted saline lock: 22 gauge in right antecubital area, using aseptic technique. kd3 Blood collected. 20:34 Head C Spine Mpr Wo Con In Process Unspecified. EDMS 21:07 Patient has correct armband on for positive identification. Provided Education on: . kd3 21:32 Shon Coughlin MD is Referral Physician. sb4 21:53 No provider procedures requiring assistance completed. IV discontinued, intact, kd3 bleeding controlled, No redness/swelling at site. Pressure dressing applied. Administered Medications: 20:26 Drug: Ketorolac IVP 15 mg Route: IVP; Site: right antecubital; kd3 21:54 Follow up: Response: No adverse reaction kd3 20:26 Drug: Decadron - Dexamethasone IVP 10 mg Route: IVP; Site: right antecubital; kd3 21:54 Follow up: Response: No adverse reaction kd3 20:26 Drug: Diazepam IVP 5 mg Route: IVP; Site: right antecubital; kd3 21:54 Follow up: Response: No adverse reaction kd3 Medication: 20:31 VIS not applicable for this client. kd3 Outcome: 21:34 Discharge ordered by MD. sb4 21:53 Discharged to home ambulatory. kd3 21:53 Condition: stable 21:53 Discharge instructions given to patient, family, Instructed on discharge instructions, follow up and referral plans. medication usage, Demonstrated understanding of instructions, follow-up care, medications, Prescriptions given X 1. 21:54 Patient left the ED. kd3 Signatures: Dispatcher [employer] EDMS Sreedhar Trevino RN RN ll1 Chica Lawson RN RN kd3 Lore Carmona, PA-C PA-C sb4 Shereen Styles Corrections: (The following items were deleted from the chart) 18:43 18:39 Pulse 76bpm; Resp 17bpm; Pulse Ox 100%; Temp 97.5F; Height 5 ft. 0 in.; Pain ll1 7/10, Adult; ll1
--- NOTE | 2023-02-02 21:35 | EDPHYS ---
Physician Documentation [facility] Name: Jodie Rodriguez Age: 37 yrs Sex: Female : 1985 Arrival Date: 02/02/2023 Time: 18:27 Bed 24 Private MD: ED Physician Desean Rubio HPI: 02/03 02:25 This 37 yrs old Female presents to ER via Ambulatory with complaints of Stiff sb4 Neck. 02:25 The patient or guardian complains of pain, that is acute. The symptoms are located at sb4 the C6 and C7. Onset: The symptoms/episode began/occurred 3 day(s) ago. Context:. Context: no associated injury. Associated signs and symptoms: Pertinent positives: headache, Pertinent negatives: nausea, numbness, tingling, vomiting, weakness, No neurological symptoms were experienced by the patient prior to arrival in the emergency department. The pain radiates to the right ear and right jaw. Modifying factors: The symptoms are alleviated by nothing. the symptoms are aggravated by movement. Historical: - Allergies: 02/02 18:41 Codeine; ll1 18:41 Morphine; ll1 - Home Meds: 21:07 albuterol sulfate 90 mcg/actuation Inhl aepb [Active]; kd3 - PMHx: 18:41 Anxiety; Asthma; depressive disorder; ll1 - PSHx: 18:41 section; Cholecystectomy; hernia repair; ll1 - Immunization history:: Client reports receiving the 2nd dose of the Covid vaccine. - Social history:: Smoking status: Patient reports the use of cigarette tobacco products, denies chronic smoking, but will smoke occasionally. ROS: 02/03 02:25 Constitutional: Negative for fever, chills, and weight loss. sb4 ENT: Positive for ear pain. Neck: Positive for pain with movement, pain at rest, stiffness. Neuro: Positive for headache, Negative for altered mental status, dizziness, gait disturbance, hearing loss, loss of consciousness, numbness, syncope, tingling, tinnitus, visual changes, weakness. All other systems are negative. Exam: 02:25 Constitutional: This is a well developed, well nourished patient who is awake, alert, sb4 and in no acute distress. Head/Face: Normocephalic, atraumatic. Eyes: Extra-ocular motions intact. Periorbital areas with no swelling, redness, or edema. Cardiovascular: Regular rate and rhythm with a normal S1 and S2. Respiratory: Lungs have equal breath sounds bilaterally, clear to auscultation and percussion. No rales, rhonchi or wheezes noted. No increased work of breathing, no retractions or nasal flaring. Abdomen/GI: Soft, non-tender, no distension. Back: No spinal tenderness. No costovertebral tenderness. Full range of motion. Skin: Warm, dry with normal turgor. Normal color with no rashes, no lesions, and no evidence of cellulitis. MS/ Extremity: Pulses equal, no cyanosis. Neurovascular intact. Full, normal range of motion. 02:25 ENT: TM's: erythema, that is moderate, on the right, Examination of the other ear shows no obvious abnormality. 02:25 Neck: ROM/movement: pain, that is mild, with any movement, limited range of motion, is not appreciated, Meningeal signs: are not present, nuchal rigidity, is not appreciated. Vital Signs: 02/02 18:39 BP 115 / 81; Pulse 76; Resp 17; Temp 97.5; Pulse Ox 100% ; Height 5 ft. 0 in. ; Pain ll1 7/10; 20:26 BP 104 / 73; Pulse 67; Resp 16; Pulse Ox 100% ; kd3 21:46 BP 99 / 63; Pulse 64; Resp 19; Pulse Ox 100% on R/A; kd3 18:39 Pain Scale: Adult ll1 MDM: 18:55 Patient medically screened. sb4 02/03 02:25 Differential diagnosis: bacterial meningitis, C-Spine Fracture Cervical Disc Herniation sb4 Cervical Raiculopathy Cervical Spondylosis Epidural Abcess Neck Abrasion Neck Contusion Spinal Cord Compression Spondylosis subluxation, Unstable Vertebral Fracture viral meningitis. 02:25 Data reviewed: vital signs, nurses notes, radiologic studies, CT scan, and as a result, sb4 I will discharge patient. Historians other than the Patient: Spouse/Significant Other: significant other. Counseling: I had a detailed discussion with the patient and/or guardian regarding: the historical points, exam findings, and any diagnostic results supporting the discharge/admit diagnosis, radiology results, the need for outpatient follow up, an OB/Gyne specialist. Special discussion: Based on the history and exam findings, there is no indication for further emergent testing or inpatient evaluation. I discussed with the patient/guardian the need to see the orthopedic surgeon for further evaluation of the symptoms. 02/02 20:10 Order name: Head C Spine Mpr Wo Con; Complete Time: 20:54 EDMS 02/02 20:06 Order name: IV Start; Complete Time: 20:26 sb4 Administered Medications: 02/02 20:26 Drug: Ketorolac IVP 15 mg Route: IVP; Site: right antecubital; kd3 21:54 Follow up: Response: No adverse reaction kd3 20:26 Drug: Decadron - Dexamethasone IVP 10 mg Route: IVP; Site: right antecubital; kd3 21:54 Follow up: Response: No adverse reaction kd3 20:26 Drug: Diazepam IVP 5 mg Route: IVP; Site: right antecubital; kd3 21:54 Follow up: Response: No adverse reaction kd3 Disposition: 02/03 10:01 Co-signature as Attending Physician, Desean Rubio MD I reviewed the patient's care rt provided by the Advanced Practice Provider and agree with the diagnosis and treatment plan. Disposition Summary: 02/02/23 21:34 Discharge Ordered Location: Home sb4 Problem: new sb4 Symptoms: have improved sb4 Condition: Stable sb4 Diagnosis - Acute serous otitis media, right ear sb4 - Cervicalgia sb4 Followup: sb4 - With: Shon Coughlin MD - When: 10 - 14 days - Reason: Further diagnostic work-up, Recheck today's complaints, Re-evaluation by your physician Discharge Instructions: - Discharge Summary Sheet sb4 - Acute Back Pain, Adult sb4 - Otitis Media, Adult sb4 Forms: - Work release form kd3 - Medication Reconciliation Form sb4 - Thank You Letter sb4 - Antibiotic Education sb4 - Prescription Opioid Use sb4 - Patient Portal Instructions sb4 Prescriptions: - Amoxicillin 875 mg Oral Tablet - take 1 tablet by ORAL route every 12 hours for 10 days; 20 tablet; Refills: 0, sb4 Product Selection Permitted Signatures: Dispatcher [employer] EDMS Sreedhar Trevino RN RN ll1 Chica Lawson RN RN kd3 Lore Carmona PA-C PA-C sb4 Desean Rubio MD MD rt Corrections: (The following items were deleted from the chart) 02/02 20:08 20:06 Head Brain Wo Cont+CT.RAD.BRZ ordered. EDMS EDMS : 20:06 C Spine Wo Con+CT.RAD.BRZ ordered. EDMS EDMS
[2023-02-02 23:31] VITALS: TEMP 97.5; O2SAT 100
[2023-02-02 23:34] VITALS: BP 99/63
== END 2023-02-02 21:54 | disposition home or self-care (01) ==
LOC: ER 18:27
DX: H65.01 Acute serous otitis media, right ear (principal); M54.2 Cervicalgia; F17.210 Nicotine dependence, cigarettes, uncomplicated; Z88.5 Allergy status to narcotic agent
CPT/HCPCS: 70450; 72125; 96375; 96374; 99284; J3360; J1100

== ENCOUNTER 2023-06-19 14:20 | Emergency (ER) | payer OTHER ==
--- OUTSIDE RECORDS SUMMARY | 2023-06-19 14:26 | XMS REPORT | Continuity of Care Document ---
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 ([facility]) 2021-07-29 2021-07-29 Refill Doctor [facility] 1.2.840.114 [id number] Univers 00:00:00 00:00:00 Unassigned, HEALTH 350.1.13.10 [place] [id number] [address] ([facility]) 2021-07-29 2021-07-29 RefSiri Fox [facility] 1.2.840.114 [id number] Univers 00:00:00 00:00:00 Y ADEEL 350.1.13.10 it y of [place] [phone] [facility] 014 Branch ([facility]) 2021-07-23 2021-07-23 Emergency E [place] CORDERO MHSE MHSE 7532 MH 14:22:00 18:09:00 [facility] 2020-10-12 2020-10-12 Patient Chu [facility] 1.2.840.114 [id number] Univers 00:00:00 00:00:00 Outreach Marco UMANA 350.1.13.[address] [facility] 4.2.7.2.[place] NIRANJAN [phone] [facility] 388 Branch 2020-08-15 2020-08-17 Inpatient HCAPM AJ [id number] [facility] 05:45:00 03:02:29 25 [facility] 2020-07-30 2020-07-30 Letter KINGSTON Shafer 1.2.840.114 [id number] Univers 00:00:00 00:00:00 (Out) Dina CAMERON 350.1.13.10 it y of HOSPITAL 4.2.7.2.686 [place] as [id number] [facility] 019 Branch 2020-07-30 2020-07-30 Patient Doctor [place] 1.2.840.114 [id number] Univers 00:00:00 00:00:00 Secure Msg UnassignedRAKESH 350.1.13.10 ity of [place] [facility] 4.2.7.2.686 [place]ish as [phone] [facility] 019 Branch 2020-07-29 2020-07-29 Emergency Aden [facility] 1.2.366.281 [id number] Univers 11:25:00 16:46:00 [place] [facility] 350.1.13.10 it y of [place] [phone] [facility] 014 Branch ([facility]) 2020-07-29 2020-07-29 Emergency X ADEN [facility] ERT [id number] Univers 11:25:00 16:46:00 [place] itvince [facility] 2020-07-28 2020-07-28 Outpatient R KENDAL [facility] [id number] Univers 18:45:00 18:45:00 ANT ity [facility] 2020-07-28 2020-07-28 Laboratory NurseAleks 1.2.8 40.114 [id number] Univers 18:21:41 18:36:41 Only Ant Villalpando H Pediatric 350.1.13.10 ity of [place] [phone] [place] [address] Branch Care Clinic 2020-07-27 2020-07-27 Refill Doctor [facility] 1.2.840.114 [id number] Univers 00:00:00 00:00:00 Unassigned, Health 350.1.13.10 [place] of [place] [phone] [address] ([facility]) 2020-06-01 2020-06-01 Telephone CarneySiri worley 1.2.840.114 [id number] Univers 00:00:00 00:00:00 Y Pediatric 350.1.13.10 ity of [place] [phone] [place] [address] Branch Care Clinic 2020-05-27 2020-05-27 Transition Erwin Hopper 1.2.840.114 [id number] Univers 00:00:00 00:00:00 of Care Vivienne Waitey 350.1.13.10 it y of [place].7.2.[place] [id number] [facility] 403 Branch 2020-05-26 2020-05-26 Emergency Magen [facility] 1.2.840.114 [id number] Univers 12:56:00 17:09:00 [facility] 350.1.13.10 it y of [place] [phone] [address] ([facility]) 2020-05-26 2020-05-26 Telephone Siri Carney 1.2.840.114 [id number] Univers 00:00:00 00:00:00 Y Pediatric 350.1.13.10 ity of [place] [phone] [place] [address] Branch Care Clinic 2020-04-15 2020-04-15 Transition Erwin Kat 1.2.840.114 [id number] Univers 00:00:00 00:00:00 of Care Averycampbell Mendiola 350.1.13.10 ity of [place] 4[place]2.7.2.[place] [id number] [place] [address] Branch 2020-04-13 2020-04-13 Emergency Demetris [facility] 1.2.840.114 [id number] Univers 18:02:00 22:18:00 Elizabethvictorino Craft 350.1.13.10 i ty of [place] [phone] [facility] 014 Branch ([facility]) 2020-03-04 2020-03-07 Inpatient HCAPM AJ [id number] [facility] 19:14:00 03:31:04 87 [facility] 2020-02-24 2020-02-24 Emergency E YOON, MHSE MHSE 7531 MH 07:10:00 14:54:[address] [facility] 2019-12-30 2019-12-30 Telephone CarneySiri worley 1.2.840.114 7 [id number] 00:00:00 00:00:00 Y Pediatric 350.1.13.10 s and 4.2.7.2.[address] [phone] Clinic 2019-12-30 2019-12-30 Telephone CarneySiri worley 1.2.840.114 7 [id number] Univers 00:00:00 00:00:00 Y Pediatric 350.1.13.10 ity of [place] [id number] [address] 2019-12-11 2019-12-11 Transition Erwin Ansari 1.2.840.114 75 [id number] 00:00:00 00:00:00 of Care Chanel L [place] 350.1.13.10 [place] [id number] [facility] 2019-12-11 2019-12-11 Transition Erwin Ansari 1.2.840.114 75 [id number] Univers 00:00:00 00:00:00 of Care Chanel Waitey 350.1.13.10 i ty of [place] 4[place]2.7.2.[place] [phone] [place] [address] Branch 2019-12-08 2019-12-10 Emergency Dhara Rico I [facility] 1.2 .840.114 [id number] 20:56:31 12:39:00 Abu [facility] 350.1.13.10 Clear 4.2.7.2.686 [place] [phone] [place] [address] ([facility]) 2019-12-08 2019-12-10 Emergency Dhara Rico I [facility] 1.2 .840.114 [id number] [facility] 20:56:31 12:39:00 Abu [facility] 350.1.13.10 ity of [place] [id number] [place] [address] Branch ([facility]) 2019-12-08 2019-12-10 Outpatient X [facility] [id number] Univers 20:56:31 12:39:00 SEAN gonzalovince o f [facility] 2019-11-19 2019-11-19 Transition Erwin Kat 1.2.840.114 [id number] 00:00:00 00:00:00 of Care Avery Garsia [place] 350.1.13.10 [place] 4.2.7.2.686 [id number] [facility] 2019-11-19 2019-11-19 Transition Erwin Kat 1.2.840.114 [id number] Univers 00:00:00 00:00:00 of Care Avery Garsia [place] 350.1.13.10 ity of [place] 4.2.7.2.[place] [id number] [place] [address] Branch 2019-11-18 2019-11-18 Emergency Elizabeth Willson [facility] 1.2.8 40.114 [id number] 17:23:42 21:05:00 Zuhair Powell [facility] 350.1.13.10 Clear 4.2.7.2.686 [place] [id number] [facility] 014 ([facility]) 2019-11-18 2019-11-18 Emergency Elizabeth Willson [facility] 1.2.8 40.114 [id number] Univers 17:23:42 21:05:00 Zuhair Powell [facility] 350.1.13.10 ity of [place] [phone] [facility] 014 Branch ([facility]) 2019-11-18 2019-11-18 [facility] [id number] Univers 17:23:42 21:05:[address] [facility] 2019-11-17 2019-11-18 Emergency E LAZARO MASSEY MHSE MHSE 7530 MH 23:37:00 02:43:00 [facility] 2019-11-13 2019-11-13 Telemedici Siri Carney 1.2.840.114 [id number] Univers 10:02:05 10:17:05 ne Visit Y Pediatric 350.1.13.10 ity of [place] and [place] [id number] [facility] Primary [facility] Care [facility] 2019-11-13 2019-11-13 Outpatient R SIRI CARNEY [facility] [id number] Univers 10:15:00 10:15:00 ity of [facility] 2019-11-13 2019-11-13 Orders Doctor ONOFRE 1.2.840.114 [id number] 00:00:00 00:00:00 Only Unassigned, RAKESH 350.1.13.10 [place] [facility] 4.2.7.2.686 [id number] 009 2019-11-13 2019-11-13 Orders Doctor ONOFRE 1.2.840.114 [id number] Univers 00:00:00 00:00:00 Only Unassigned, RAKESH 350.1.13.10 ity of [place] [facility] 4.2.7.2.686 [place]ish as [phone] [place] [address] Branch 2019-11-08 2019-11-08 Telephone Siri Carney 1.2.840.114 7 [id number] 00:00:00 00:00:00 Y Pediatric 350.1.13.10 s and 4.2.7.2.686 Adult [phone] [address] 2019-11-08 2019-11-08 Telephone Siri Carney 1.2.840.114 7 [id number] Univers 00:00:00 00:00:00 Y Pediatric 350.1.13.10 ity of [place] and [place] [phone] [address] 2019-10-18 2019-10-18 Telephone Siri Carney 1.2.840.114 7 [id number] Univers 00:00:00 00:00:00 Y Pediatric 350.1.13.10 ity of [place] and [place]2.[place] [id number] [address] 2019-10-02 2019-10-02 Telephone Siri Carney 1.2.840.114 7 [id number] Univers 00:00:00 00:00:00 Y Pediatric 350.1.13.10 ity of [place] and [place]2.[place] [id number] [address] 2019-09-12 2019-09-12 Office Al [facility] 1.2.840.114 [id number] Univers 12:57:32 13:46:55 Visit Blake, RICH 350.1.13.10 ity of [facility] 4.2.7.2.686 [place]ish as CENTER AT [phone] [facility] 2019-09-12 2019-09-12 Orders Doctor KINGSTON 1.2.840.114 [id number] Univers 00:00:00 00:00:00 Only Unassigned, RAKESH 350.1.13.10 ity of [place] [facility] 4.2.7.2.686 [place]ish [place] [phone] [place] [address] Branch 2019-08-22 2019-08-22 [facility] 1.2.840.114 [id number] Univers 11:21:43 17:19:00 [facility] 350.1.13.10 it y of [place]2.[place] [phone] [facility] 014 Branch ([facility]) 2019-08-22 2019-08-22 Emergency X MAGEN [facility] ERT [id number] Univers 11:21:43 17:19:00 COYE ity of [facility] 2019-08-22 2019-08-22 Office Roberto Carlos Hubbard 1.2.840.114 [id number] Univers 09:38:03 09:53:03 Visit , Erika Pediatric 350.1.13.10 ity of [place] and [place]2.[place] [id number] [address] 2019-08-20 2019-08-20 Transition Aidan Katnoah 1.2.840.114 [id number] Univers 00:00:00 00:00:00 of Care Avery [place] 350.1.13.10 ity of [place] 4.2.7.2.[place] [phone] [place] [address] Branch 2019-08-18 2019-08-18 Emergency Arnulfo [facility] 1.2.567.024 [id number] Univers 16:02:43 20:28:00 Ar, Health 350.1.13.10 it y of [place] 4[place]2.7.2.[place] [id number] [address] ([facility]) 2019-08-18 2019-08-18 Nurse KINGSTON Engle 1.2.840.114 [id number] Univers 00:00:00 00:00:00 Triage Angeline HERNANDEZY 350.1.13.10 ity of HOSPITAL 4.2.7.2.686 [place] [phone] [place] [address] Branch 2019-08-15 2019-08-15 Office Siri Carney 1.2.840.114 [id number] Univers 14:01:24 16:11:29 Visit Y Pediatric 350.1.13.10 ity of [place] and [place]2.[place] [id number] [address] 2019-07-23 2019-07-23 Emergency X SIERRA [facility] ERT [id number] Univers 18:48:12 21:49:00 DHARA mata of [facility] 2019-04-12 2019-04-12 Telephone Team, [facility] K[place] 1.2.840.114 [id number] Univers 00:00:00 00:00:00 Health RAKESH 350.1.13.10 it y of [facility] 4.2.7.2.686 [place] [phone] [place] [address] Branch 2019-03-21 2019-03-21 Office Rhett Gabriel 1.2.840.114 [id number] Univers 13:09:44 13:29:44 Visit Bryon Pediatric 350.1.13.10 ity of [place] and [place]2.[place] [phone] [facility] 059 [facility] 2019-03-15 2019-03-15 Office Rhett Massey 1.2.840.114 [id number] Univers 14:04:01 14:19:01 Visit Lana Pediatric 350.1.13.10 ity of [place] and [place].7.2.[place] [phone] [facility] 314 [facility] 2019-03-14 2019-03-14 Clinic Siri Carney 1.2.840.114 [id number] Univers 00:00:00 00:00:00 Assessment Y Pediatric 350.1.13.10 ity of [place] and [place].2.[place] [id number] [facility] 314 [facility] 2019-03-07 2019-03-07 Office Siri Carney 1.2.840.114 [id number] Univers 13:29:17 13:53:55 Visit Y Pediatric 350.1.13.10 ity of [place] and [place].7.2.[place] [phone] [address] 2019-02-28 2019-03-01 Emergency JordanNatalio quevedo [facility] 1.2 .840.114 [id number] Univers 13:57:58 15:30:00 Kevin Vyas [facility] 350.1.13.10 ity of [place] [id number] [facility] 109 Branch ([facility]) 2019-02-28 2019-02-28 Office CarneySiri 1.2.840.114 [id number] Univers 13:34:47 15:10:47 Visit Y Pediatric 350.1.13.10 ity of [place] and [place].2.[place] [phone] [address] Care Clinic 2019-02-28 2019-02-28 Telephone PcpRhett 1.2.400.594 [id number] Univers 00:00:00 00:00:00 Patient Pediatric 350.1.13.10 ity of Does Not s and 4.2.7.2.686 [place] as Have A Adult [phone] [address] Results Test Description Test Time Test Comments Results Result Comments Source COMP. METABOLIC PANEL (56730) 2022-06-29 18:22:57 Test Item Value Reference Range Interpretation Comme nts NA (test code = 6178302910) 137 mmol/L 135-145 K (test code = 9239675981) 4.4 mmol/L 3.5-5.0 CL (test code = 7128407011) 104 mmol/L 98-108 CO2 TOTAL (test code = 27 mmol/L 23-31 2432809343) AGAP (test code = 1234550343) 2-16 BUN (test code = 8794489944) 7 mg/dL 7-23 GLUCOSE (test code = 9930677342) 94 mg/dL 70-110 CREATININE (test code = 0.71 mg/dL 0.50-1.04 2242177727) TOTAL BILI (test code = 0.5 mg/dL 0.1-1.1 7773651584) CALCIUM (test code = 9654825114) 8.7 mg/dL 8.6-10.6 T PROTEIN (test code = 6.8 g/dL 6.3-8.2 9189432806) ALBUMIN (test code = 9811946178) 4.0 g/dL 3.5-5.0 ALK PHOS (test code = 8155887104) 78 U/L 34-122 ALTv (test code = 1742-6) 20 U/L 5-35 AST(SGOT) (test code = 25 U/L 1340 0316156137) eGFR (test code = 5130276307) mL/min/1.73m2 ADARSH (test code = ADARSH) Association [...] or urine or abnormalities in imaging tests). [facility] WITH [id number] 18:08:32 Test Item Value Reference Range Interpretation Comments WBC (test code = See_Comment [Automated 7758-2) message] The sy stem which generated this result transmitted reference range : 4.30 - 11.10 10*3/?L. The reference range was not used to interpret this result as normal/abnormal . RBC (test code = See_Comment [Automated 395-4) message] The sy stem which generated this [...] RDW-SD (test code = 41.9 fL 39.0-49.9 95877-9) RDW-CV (test code = 12.2 % 12.0-15.5 788-0) PLT (test code = See_Comment [Automated 777-3) message] The sy stem which generated this result transmitted reference range : 166 - 358 10*3/ ?L. The reference r cecilia was not used to interpret this result as normal/abnormal . MPV (test code = 11.4 fL 9.5-12.9 73381-5) NRBC/100 WBC (test See_Comment [Automat ed code = 8230666232) message] The system which generated this result transmitted reference range : 0.0 - 10.0 /100 WBCs. The refer ence range was not u sed to interpret th is result as normal/abnormal . NRBC x10^3 (test code See_Comment [Auto mated = 2351650946) message] The s ystem which generated this result transmitted reference range : 10*3/?L. The reference range was not used to interpret this result as normal/abnormal . GRAN MAT (NEUT) % 56.8 % (test code = 770-8) IMM GRAN % (test code 0.40 % = 6359549691) LYMPH % (test code = 25.2 % 736-9) MONO % (test code = 4.8 % 5905-5) EOS % (test code = 11.8 % 713-8) BASO % (test code = 1.0 % 706-2) GRAN MAT x10^3(ANC) 4.46 10*3/uL 1.88-7.09 (test code = 1777973509) IMM GRAN x10^3 (test 0.03 10*3/uL 0.00-0.06 code = 5822945216) LYMPH x10^3 (test code 1.98 10*3/uL 1.32-3.29 = 731-0) MONO x10^3 (test code 0.38 10*3/uL 0.33-0.92 = 742-7) EOS x10^3 (test code = 0.93 10*3/uL 0.03-0.39 H 711-2) BASO x10^3 (test code 0.08 10*3/uL 0.01-0.07 H = 704-7) Lab Interpretation Abnormal (test code = 93899-3) [id number] 17:29:00 Test Item Value Reference Range Interpretation Comments POCT PREG (test code = 1605) negative On board controls acceptable with positive C Line (test code = 3574) POCT PREG LOT # (test code = 3575) [id number] POCT PREG TEST DATE (test 10-22-2023 code = 3576) Lab Interpretation (test code = Normal 35755-0) [facility] [id number] 17:20:00 Test Item Value Reference Range Interpretation Comments POCT PREG (test code = 1605) Negative On board controls acceptable with Yes C Line (test code = 3574) POCT PREG LOT # (test code = 3575) [id number] POCT PREG TEST DATE (test 09/20/22 code = 3576) [facility]2021-09-20 13:37:00 Test Item Value Reference Range Interpretation Comments URINE HCG TRIAGE (ER ONLY) (test NEGATIVE Negative code = HCGTRIAGE) Urine Test Result: NEGATIVEAre internal controls (presence of a control line & clear background) OK? YesLot # of HCG Test Kit: [id number] Date of Kit: 09/18/21Test Performed by:KRISTINA WALLTest Perfomed on: 09/18/21- CT ABD PELVIS [id number] 00:00:00 [facility] CLEAR LAKEName: SHEILA RODRIGUEZ : 1985 Sex: F Name: SHEILA RODRIGUEZ FSED : 1985 Age/S: 36 / F [address] [facility] Unit #: [id number] Loc: [place] [address] Phys: Linda Kendrick MD Acct: [id number] Dis Date: Status: REG ERPHONE #: Exam Date: 09/18/2021309 FAX #: Reason: lower abdominal pain EXAMS: CPT CODE: [id number] CT ABD PELVIS W/CONT 23459 PROCEDURE INFORMATION: Exam: CT Abdomen And Pelvis [...] clinical indication); or iterative reconstruction. Contrast material: TRT245; Contrast volume: 95 ml; Contrast route: INTRAVENOUS [...] : 1985 Age/S: 36 / F [address] [facility] Unit #: [id number] Loc: [place] [address] Phys: Linda Kendrick MD Acct: [id number] Dis Date: Status: REG ER PHONE #: Exam Date: 2021 0310 FAX #: Reason: lower abdominal pain EXAMS: CPT CODE: [id number] CT ABD PELVIS W/CONT 51422 (Continued) Electronically Signed by Ez Busch on2021 at 0355 Reported and signed by: Aubrie Busch M.D CC: Linda Kendrick MD; Dave Callahan DO Technologist:RT Soledad(R)(CT) CTDI: DLP: Trnscb Date/Time: 2021 (354) [email or web address] Orig Print D/T: S: 2021 (354) PAGE 2 Signed ReportBASIC METABOLIC [id number] 06:50:00 Test Item Value Reference Range Interpretation [...] CA) 9.3 MG/DL 8.5-10.1 N HEPATIC FUNCTION [id number] 06:50:00 Test Item Value Reference Range Interpretation [...] 45-117 N code = ALKP) BASIC METABOLIC [id number] 06:46:00 Test Item Value Reference Range Interpretation [...] CA) 9.3 MG/DL 8.5-10.1 N HEPATIC FUNCTION [id number] 06:46:00 Test Item Value Reference Range Interpretation [...] = ALKP) UA RFLX MICR CULT IF [id number] 06:43:00 Test Item Value Reference Range Interpretation [...] Indication for culture: RiskForSepsis-no oth srcUR HCG [id number] 06:43:00 Test Item Value Reference Range Interpretation Comments UR HCG QUAL (test code = HCGQLU) NEGATIVE NEGATIVE Indication for culture: RiskForSepsis-no oth src- XR CHEST 1 [id number] 06:38:00[facility] : 1985 Sex: F Name: SHEILA RODRIGUEZ [facility] : 1985 Age/S: 34 / F [address] Unit #: [id number] Loc: [place] [address] Phys: Tolu Ashby MD Acct: [id number] Dis Date: Status: PRE ER PHONE #: [phone] Exam Date: 08/15/2020624 FAX #: Reason: chest pain EXAMS: CPT: [id number] XR CHEST 1 V 00853 Fluoro Time: DAP (Gy m2): Air Kerma [...] PAGE 1 Signed Report Name: SHEILA RODRIGUEZ [facility] : 1985 Age/S: 34 / F [address] Unit #: [id number] Loc: [place] [address] Phys: Tolu Ashby MD Acct: [id number] Dis Date: Status: PRE ER PHONE #: [phone] Exam Date: 08/15/2020 06 FAX #: Reason: chest pain EXAMS: CPT: [id number] XR CHEST 1 V 71359 Fluoro Time: DAP (Gy m2): Air Kerma (mGy): <Continued> Technologist: Jaiden Moise RT(R)(MR) Trnscb Date/Time: 08/15/2020 (637) [email or web address] Orig Print D/T: S: 08/15/2020 (0600) PAGE 2 Signed ReportUA RFLX MICR CULT IF [id number] 06:36:00 Test Item Value Reference Range Interpretation [...] Indication for culture: RiskForSepsis-no oth srcUR HCG [id number] 06:36:00 Test Item Value Reference Range Interpretation Comments UR HCG QUAL (test code = HCGQLU) NEGATIVE NEGATIVE Indication for culture: RiskForSepsis-no oth srcCBC W/O [id number] 06:36:00 Test Item Value Reference Range Interpretation [...] H MPV) UA RFLX MICR CULT IF [id number] 06:32:00 Test Item Value Reference Range Interpretation [...] Indication for culture: RiskForSepsis-no oth srcUR HCG [id number] 06:32:00 Test Item Value Reference Range Interpretation Comments UR HCG QUAL (test code = HCGQLU) NEGATIVE Indication for culture: RiskForSepsis-no oth src- CT ABD PELVIS [id number] 22:06:00 Name: SHEILA RODRIGUEZ [facility] : 1985 Age/S: 34 / F [id number] Unit #: [id number] Loc: [place] [address] Phys: Tolu Ashby MD Acct: [id number] Dis Date: Status: REG ER PHONE #: [phone] Exam Date: 03/04/20202131 FAX #: Reason: LLQ pain, tenderness EXAMS: CPT: [id number] CT ABD PELVIS W/CONT 32847 Location code: H5 CT Abdomen and Pelvis with Contrast Indication: LLQ pain, tenderness. Comparison: 10/04/2018. Technical factors: Axial images were obtained with contrast.Coronal and sagittal reconstruction. This exam was performed according to our departmental dose-optimization program, which includes automated exposure control, adjustment of the mA and/or kV accordingto patient size and/or use of iterative reconstruction technique. Contrast: 100 mL Isovue-300 IV. Creatinine 0.8. GFR greater than 60. Findings: Lung bases are clear with no pleural effusion. The liveris normal in appearance. The biliary ducts are [...] 1 Signed Report (CONTINUED) Name: SHEILA RODRIGUEZ [facility] : 1985 Age/S: 34 / F [address] Unit #: [id number] Loc: [place] [address] Phys: Tolu Ashby MD Acct: [id number] Dis Date: Status: REG ERPHONE #: [phone] Exam Date: 03/04/20202131 FAX #: Reason: LLQ pain, tenderness EXAMS: CPT: [id number] CT ABD PELVIS W/CONT 44293 <Continued> Uterus is unremarkable. No adnexal masses [...] Dolores(R)(CT) CTDI: DLP: Trnscb Date/Time: 03/04/2020 (2205) [email or web address] Orig Print D/T: S: 03/04/2020 (2209) PAGE 2 Signed ReportUA RFLX MICR CULT IF [id number] 21:19:00 Test Item Value Reference Range Interpretation [...] culture: Suprapubic PainUA RFLX MICR CULT IF [id number] 21:17:00 Test Item Value Reference Range Interpretation [...] CLEAN CATCHIndication for culture: Suprapubic PainBASIC METABOLIC [id number] 20:31:00 Test Item Value Reference Range Interpretation [...] CA) 8.6 MG/DL 8.5-10.1 N HEPATIC FUNCTION [id number] 20:31:00 Test Item Value Reference Range Interpretation [...] 45-117 N code = ALKP) CBC W/AUTO [id number] 20:22:00 Test Item Value Reference Range Interpretation [...] CRITERIA = MDIFF) - XR C-SPINE 2-3 [id number] 17:22:00 FAX: Dave Calero DO [phone] [place]: St: REG FAX: Rosenda Engle [facility] [phone] ---- Name: SHEILA RODRIGUEZ [facility] Chuckie Flores : 1985 Age/S: 33/F [address] [place] [address] Unit #: [id number] Loc: [place] [address] Phys: Rosenda Engle Acct: [id number] Dis Date: Status: REG ER PHONE #: [phone] Exam Date: 11/25/2018 1718 FAX #: [phone] Reason: NECK PAIN EXAMS: CPT CODE: [id number] XRC-SPINE 2-3 VIEWS 16481 CERVICAL SPINE SERIES 11/25/2018 AT 1652 HOURS. [...] Engle Technologist: RT Negro(R) Trnscrd Date/Time/By: 11/25/2018 (898) : By: BernadineERR2 Orig Print D/T: S: 11/25/2018 (9032) PAGE 1 Signed ReportURINALYSIS [id number] 16:40:00 Test Item Value Reference Range Interpretation [...] MUCU) TRACE /LPF NONE SEEN UR HCG [id number] 16:40:00 Test Item Value Reference Range Interpretation Comments UR HCG QUAL (test code = HCGQLU) NEGATIVE NEGATIVE URINALYSIS [id number] 04:22:00 Test Item Value Reference Range Interpretation [...] COMMENTS: Clean Catch- CT ABD PELVIS W/O [id number] 03:52:00 Name: SHEILA RODRIGUEZ [facility] : 1985 Age/S: 33 / F [address] [place] [address] Unit #: [id number] Loc: [place] [address] Phys: Adrianne Painter MD Acct: [id number] Dis Date: Status: REG ER PHONE #: [phone] Exam Date: 10/04/20188 FAX #: [phone] Reason: rlq abd pain EXAMS: CPT CODE: [id number] CT ABD PELVIS W/O CONT 48501 EXAM: CT, CT abdomen pelvis without contrast: [...] mGy-cm FINDINGS: This examination is limited for theevaluation of solid organs and vascular structures due [...] opacified small bowel loops in the abdomen andpelvis appear unremarkable. The noncontrast opacified colonic loops in the abdomen and pelvis appearunremarkable. APPENDIX: Unremarkable Small fat-containing umbilical hernia seen. The lack of orally administered contrast material limits bowel assessment. PAGE 1 Signed Report (CONTINUED) Name: SHEILA RODRIGUEZ : 1985 Age/S: 33 / F [address] [place] [address] Unit #: [id number] Loc: [place] [address] Phys: Adrianne Painter MD Acct: [id number] Dis Date: Status: REG ER PHONE #: [phone] Exam Date: 10/04/2018337 FAX #: [phone] Reason: rlq abd pain EXAMS: CPT CODE: [id number] CT ABD PELVIS W/O CONT 12002 (Continued) PERITONEUM AND RETROPERITONEUM: No ascites or [...] Mckeon M.D. CC: Adrianne Painter MD; Dave Sebastianhon[facility] Technologist:RT Young(R) CTDI: DLP: Trnscb Date/Time: 10/04/2018 (035) ColinR.[email or web address] Orig Print D/T: S: 10/04/2018 (035) CTDI: DLP: PAGE 2 Signed Report- US TRANSVAGINAL NON [id number] 03:43:00 Name: SHEILA RODRIGUEZ : 1985 Age/S: 33 / F [address] [place] [address] Unit #: [id number] Loc: [place] [address] Phys: Adrianne Painter MD Acct: [id number] Dis Date: Status: REGER PHONE #: [phone] Exam Date: 10/04/2018326 FAX #: [phone] Reason: Pelvic Pain EXAMS: CPT CODE: [id number] [place] [address] EXAM: US, US PELVIS COMPLETE: 10/04/2018 EXAM: [...] seen in the endometrium trace fluid. Prominent cervixwith trace fluid in the cervical canal OVARIES: [...] PAGE1 Signed Report (CONTINUED) Name: SHEILA RODRIGUEZ [facility] : 1985 Age/S: 33 / F [address] [place] [address] Unit #: [id number] Loc: [place] [address] Phys: Adrianne Painter MD Acct: [id number] Dis Date: Status: REG ER PHONE #: [phone] Exam Date: 10/04/2018 032 FAX #: [phone] R dolores: Pelvic Pain EXAMS: CPT CODE: [id number] [place] [address] (Continued) 1. Trace fluid in the endometrial and cervical canal. Prominent cervix. 2. Otherwise unremarkable pelvic ultrasound SL: CONNIE at 0343 Reported and signed by: Luis Mckeon M.D. CC: Adrianne Painter MD; Dave Callahan Technologist: Elisha Colmenares RDMS(Ady)(OB) Trntxb Date/Time: 10/04/2018 (034) ColinR.[email or web address] Orig Print D/T: S: 10/04/2018 (0346) Probe: [id number] PAGE 2 Signed Report- US PELVIS [id number] 03:43:00 Name: SHEILA RODRIGUEZ [facility] : 1985 Age/S: 33 / F [address] [place] [address] Unit #: [id number] Loc: [place] [address] Phys: Adrianne Painter MD Acct: [id number] Dis Date: Status: REG ER PHONE #: [phone] Exam Date: 10/04/2018326 FAX #: [phone] Reason: Pelvic Pain EXAMS:CPT CODE: [id number] US PELVIS COMPLETE 66549 EXAM: US, US PELVIS COMPLETE: 10/04/2018 EXAM: [...] 1 Signed Report (CONTINUED) Name: SHEILA RODRIGUEZ [facility] : 1985 Age/S: 33 / F [address] [place] [address] Unit #: [id number] Loc: [place] [address] Phys: Adrianne Painter MD Acct: [id number] Dis Date: Status: REG ER PHONE #: [phone] Exam Date: 10/04/2018326 FAX #: [phone] Reason: Pelvic Pain EXAMS: CPT CODE: [id number] US PELVIS COMPLETE 46330 (Continued) 1. Trace fluid inthe endometrial and cervical canal. Prominent cervix. 2. Otherwise unremarkable pelvic ultrasound SL: TOYINH at 0343 Reported and signed by: Luis Mckeon M.D. CC: Adrianne Painter MD; Dave Callahan DO Technologist: Elisha Colmenares RDMS(Ady)(OB) Trnscb Date/Time: 10/04/2018 (034) t.CE.[email or web address] Orig Print D/T: S: 10/04/2018 (0346) Probe: PAGE 2 Signed ReportCOMPREHENSIVE METABOLIC [id number] 03:26:00 Test Item Value Reference Range Interpretation [...] 20-125 N TOTAL (test code = ALKP) [id number] 03:26:00 Test Item Value Reference Range Interpretation Comments LIPASE (test code = LIP) 125 IUnit/L 73-393 N HCG SERUM [id number] 03:26:00 Test Item Value Reference Range Interpretation Comments HCG SERUM QUAL (test code = SERUM NEGATIVE NEGATIVE HCGQL) COMPREHENSIVE METABOLIC [id number] 03:15:00 Test Item Value Reference Range Interpretation [...] TOTAL (test IUnit/L 20-125 code = ALKP) [id number] 03:15:00 Test Item Value Reference Range Interpretation Comments LIPASE (test code = LIP) IUnit/L 73-393 HCG SERUM [id number] 03:15:00 Test Item Value Reference Range Interpretation Comments HCG SERUM QUAL (test code = SERUM NEGATIVE NEGATIVE HCGQL) CBC W/AUTO [id number] 03:11:00 Test Item Value Reference Range Interpretation [...] MDIFF) Notes Date/Time Note Provider Source 2021-10-18 23:50:00 [id number]:50:00 [facility] REPORTREPORT#:[id number] REPORT STATUS: SignedDATE:10/18/21 TIME: 2349 PATIENT: SHEILA RODRIGUEZ UNIT #: [id number]#: [id number] ROOM/BED:AGE: 36 SEX: F PCP PHYS: Dave Callahan AUTHOR: James Mims DO * ALL edits or amendments must be made on the electronic/computer document * HPI-Abd Pain F Under 40 Free Text HPI NotesFree Text HPI Aozcr08X PMHx anxiety and gastritis complaining of right lower quadrant pain going onfor 2 days. Patient states the pain is 10 out of 10 associated with nausea vomiting and fever. Patient brought in by EMS who gave patient 4 mg of morphinethat brought pain down 10 out of 10. Patient states she is status post appendectomy, cholecystectomy and also repair of abdominal hernia with mesh. Patient also status post salpingectomy and oophorectomy. Patient denies chest pain, palpitations, or shortness of breath . Denies fevers chills or night sweats. Denies headache,dizziness, or blurry vision. Denies LOC or syncope. GeneralInitial Greet Date/Time 10/18/212349 PresentationChief Complaint Abdominal pain Risk-Abd Pain F Under 40)( Ectopi c Risk factors reviewed Review of System s ROS StatementsAll systems rev neg except as marked. Past Medical History - AdultStated Complaint RLQ PAINAllergiesCoded Allergies:codeine (Severe, SHORTNESS OF BREATH 10/18/21) Home MedicationsActive ScriptsIBUPROFE N (MOTRIN) 800 MG PO TID PRN PRN PAIN IBUPROFEN (MOTRIN) 800 MG PO TID PRN PRN PAIN #30 TABS Prov: 09/18/21 Physical Exam Vital SignsVital SignsFirst Documented: Result Date Time Pulse O x 100 10/18 2349 B/P 132/73 10/18 2349 B/P Mean 92 10/18 2349 O2 Delivery Nasal cannula 10/18 2348 O2 Flow Rate 2 10/18 234 Temp 36.6 10/18 234 Pulse 115 10/18 2349 Resp 20 10/18 2349 Last Documented: Result Date Time Pulse Ox 100 10/18 2349 B/P 132/73 10/18 2349 B/P Mean 92 10/18 234 9 O2 Delivery Nasal cannula 10/18 2348 O2 Flow Rat e 2 10/18 2348 Temp 36.6 10/18 2349 Pulse 115 / 8 2349 Resp 20 10/18 2349 Review of Vital Signs Reviewed Re-Evaluation MDM Free Text MDM NotesAdditional TextReview of Vital Signs Reviewed Focused PEGeneral/Const General/Cons t Awake, Alert, No acute distress, Well appearing, Well developed, Well hydrated, Well nourished, Cooperative, Not toxic appearingEyes Eyes EOMIMS Neck Neck Full range of motionResp/Chest Respiratory/Chest Breath sounds NL, Breath sound s = bilat, No respiratory distress, No rales, No rhonchi, No wheezing, No retractionsCardiovascular Cardiovascular Hear t rate NL, Regular rhythm, Heart sounds NLAbdomen/GI Abdomen/GI Soft, diffuse tenderness to palpation without rebound or guarding,No distentionMS Back Back Full range of motion, Painless range of motionMS Lower Extrem Lower Ext/Pelvis/MS No edemaSkin Skin Color NL, No rash, Warm, Dry, IntactNeurologic Neurologic Oriented X3, Speech NL, No motor deficits, CN II - XII intactPsychiatric Psychiatric Affect NL, Mood NL Additional PEMS Head Head Atraumatic, NormocephalicEars/Nose/Throat Ears/Nose/Throat Airway patentMS Upper Extrem Upper Extremity/MS Full range of motion, No deformity )( Re-Evaluation/Progress #1Text/Dict NoteInformed that patient was seen walking out of the emergency room with steady gait unassisted. Patient was screaming in intense pain when she arrived and we informed her that we would be doing the labs and imaging after she was recentl y given pain medication by EMS. AAOX4.VSS. Pt had IV line placed by EMS so security is currently looking for patient.Time of Re-Eval 003)( Re-Eval Status Unchanged Re-Evaluation/Progress #2Text/Dict NoteSecurity staff was unable to locate patient. Charge nurse Linda called PD and informed us that they had a different name for the patient. When patient spoke to EMS she said that she did not have ID and gave them a name an d address and information that we believed to be fake.Time of Eval 0147Re-Eval Status Unchanged E D CourseMedication(s) OrderedMedication(s) Ordered:Electrolytic, Caloric, And Cayden Sig/Chinedu Start time Last [...] IV 10/19 2344 Patient Discharge Departure Vital Signs/ConditionVital SignsFirst Documented: Result Date Time Pulse Ox 100 10/18 2349 B/P 132/73 10/18 2349 B/P Mean 92 10/18 2348 O2 Delivery Nasal cannula 10/18 2348 O2 Flow Rate 2 10/18 2348 Temp 36.6 10/18 234 Pulse 115 10/18 234 Resp 10/18 Last Documented: Result Date Time Pulse Ox 100 10/18 2349 B/P 132/73 10/18 2349 B/P Mean 92 10/18 2348 O2 Delivery Nasal cannula 10/18 2348 O2 Flow Rate 2 10/18 2348 Temp 36.6 10/18 234 Pulse 115 10/18 234 Resp 20 10/18 2348 All vital signs available at the time of this entry have been reviewed. Clinical ImpressionClinical ImpressionPrimary Impression: Abdominal pain Disposition DecisionDischarge )( Discharged to Home Yes )( Time 0148 )( Date 10/19/21 at 0148RPT #:[id number] OF REPORTEDEmergency department [id number]:50:00G.[id number] a ilable for patient [id number]:48:59 2021 04:00:00 [id number]:00:00 [facility] ([facility] REPORTREPORT#:[id number] REPORT STATUS: SignedDATE:09/18/21 TIME: 0400 PATIENT: SHEILA RODRIGUEZ UNIT #: [id number]#: [id number] ROOM/BED:AGE: 36 SEX: F PCP PHYS: Dave Callahan DOSERVICE AUTHOR: Linda Kendrick MD * ALL edits or amendments must be made on the electronic/computer document * HPI- Female GeneralInitial Greet Date/Time 09/18/21 0136 PresentationChief Complaint Vaginal bleeding Ritesh e Text HPI NotesFree Text HPI Ecivq14-epez-gra female presents with vaginal bleeding. Patient reports yesterday morning she started having vaginal bleeding and lower abdominal cramping pain. She reports small volume of blood but has not actually worn any pads reports shetook some tramadol at home without significant pain relief . Patient reports shehas unusual, which are usuall y just spotting for 1 day. LMP July 24. Review o f Systems Focused Review of SystemsConstitutionalDenies: Fever. GIReports: Abdominal pain. FemaleReports: Vaginal discharge. Denies: Dysuria. MusculoskeletalDenies: Back pain. NeurologicDenies: Focal weakness. Past Medical History - AdultStated Complaint ABDOMINAL PAIN, VAG BLEEDAllergiesCoded Allergies:codeine (Severe, SHORTNESS OF BREATH 03/14/19) Calculate d Suicide Risk (nurs) No riskPast Medical History:Reports: Asthma, Cancer (cervical, in remission), GERD/gastritis, Kidney disease/stone s (stones), Urinary tract infection. Denies: Diabetes mellitus, Hypertension. Additional Medical Historyh/o kidney infectionsPast Surgica l History:Reports: Cholecystectomy. Alcohol Use Alcohol use (occasional)Drug Use Denies recreational drugsSmoking status: Smoking status for patients 13 years old or older: Current ever y day smokerOther Social History Local residentAdditional Social HistoryFather at bedside Physical Exam Vital SignsVital SignsFirs t Documented: Result Date Time Pulse Ox 98 09/18 014 B/P 143/92 09/18 014 B/P Mean 109 09/18 0141 O2 Delivery Room air 09/18 014 Temp 36.8 09/18 014 Pulse 84 09/18 0141 Resp 20 09/18 014 1 Last Documented: Result Date Time Pulse Ox 99 09/18 0412 B/P 132/89 09/18 0412 B/P Mean 103 09/18 0412 O2 Delivery Room air 09/18 0412 Temp 36.9 09/18 0412 Pulse 76 09/18 0412 Resp 19 02/ 6 0412 Review of Vital Signs Reviewed Focused PEGeneral/Const General/Const Awake, Alert, No acute distress, Well appearing, Not toxic appearingResp/Chest Respiratory/Chest Breath sounds NL, Breath sounds = bilat, No respiratory distressCardiovascular Cardiovascular Heart rate NL, Regular rhythm, Heart sounds NLAbdomen/GI Abdomen/GI Soft, No guarding, No rebound Tenderness/Guarding/Rebound Tender RLQ, Tender suprapubic. MS Back Back Inspection NLSkin Skin AtraumaticGenitourinary General B2B Sales Executive present Text/Dict NotesScant dark red blood coming from os. No CMT, adenexal mass/tenderness . Interpretation Diagnostics Lab Results InterpretationResultsRecent Impressions:CAT SCAN - CT ABD PELVIS W/CONT 09/18 0300 Report Impression - Status: SIGNED Entered: 2021 0355 IMPRESSION: 1. Small umbilical hernia. 2. N o acute findings. Impression By: Deborah Busch M.D Point of Care TestingPregnancy Test Negative - urine HCG Re-Evaluation MDM Free Text MDM NotesFree Text MDM Ppcue17-zpkq-iya female presents with vaginal bleeding. Consider ectopic , miscarriage. Also consider menses, ovarian cyst/torsion. UPT ordered. Re-Evaluation/ProgressRe-Evaluation/Progress Text/Dict NoteUPT negative. CT without acute findings. Pelvic exam w/o brisk bleeding. Discharge home with return precautions, PCP followup, [employer] followup. ED CourseMedication(s) OrderedMedication(s) Ordered:Central Nervous System Agents Sig/Chinedu Start time Last Medication Dose Route Stop Time Status Admin Ketorolac 30 M G X1ED STA 09/18 0242 DC 09/18 Tromethamine IV 09/18 0243 0307 Ketorolac 30 MG X1ED STA 09/18 0227 CAN Tromethamine IM 09/18 0228 Acetaminophe n 1,000 MG X1ED STA 09/18 0147 DC 09/18 PO 09/18 0148 0219 Diagnostic Agents Sig/Chinedu Start time Last Medication Dose Route Stop Time Status Admin Iopamidol 95 ML .STK-MED ONE 09/18 0254 DC 09/18 IV 09/18 0255 0254 Patient Discharge Departure Vital Signs/ConditionVital SignsFirst Documented: Result Date Time Pulse Ox 98 09/18 0141 B/P 143/92 09/18 0141 B/P Mean 109 09/18 0141 O2 Delivery Room air 09/18 014 Temp 36.8 09/18 0141 Pulse 84 09/18 0141 Resp 20 09/18 0141 Last Documented: Result Date Time Pulse Ox 99 09/18 0412 B/P 132/89 09/18 0412 B/P Mean 103 09/18 0412 O2 Delivery Room air 09/18 0412 Temp 36.9 09/18 0412 Pulse 76 09/18 0412 Resp 19 08/25 6 0412 All vital signs available at the time of this entry have been reviewed. Clinical ImpressionClinical ImpressionPrimary Impression: Vaginal bleedingSecondary Impressions: Abnormal menses Disposition DecisionDischarge )( Discharged to Home Yes )( Time 040 )( Date 09/18/21 Discharge/Care PlanCounseled Regarding Diagnosis, Lab results, Imaging studies, Need fo r follow-up,When to return to ED(Auto) PrescriptionsCurrent Visit ScriptsIBUPROFEN (MOTRIN) 800 MG PO TID PRN PRN PAIN IBUPROFEN (MOTRIN) 800 MG PO TID PRN PRN PAIN #30 TABS Patient Instructions ED Dysfunctional Uterine BleedingReferralsProvider Referral: Bob Jennings MD Follow-Up: Call for appointment Notes: Abnormal menses Address: [address] [place] [address] [address] [place] [address] Provider Group: PRIMARY CARE Follow-Up: 1 Week Discharge NoteI have spoken with the patient and/or caregivers. I hav e explained the patient'scondition, diagnoses and treatment plan based on the information availabl e to meat this time. I have answered the patient's and/or caregiver's questions and addressed any concerns. The patient and/or caregivers have as good an understanding of the patient's diagnosis , condition and treatment plan as can beexpected a t this point. The vital signs have been stable. Th e patient's condition is stable and appropriate fo r discharge from the emergency department. The patient will pursue further outpatient evaluatio n with the primary care physician or other designated or consulting physician as outlined i n the discharge instructions. The patient and/or caregivers are agreeable to this planof care and follow-up instructions have been explained in detail. The patient and/or caregivers have received these instructions in written format an d have expressed an understanding of the discharge instructions. The patient and/or caregivers are aware that any significant change in condition o r worsening of symptoms should prompt an immediate return to this or the closest emergency department or a call to 911. at 0527RPT #:[id number] OF REPORTEDEmergency department pavqmj9199-79-44C28:00:00G.[id number] ady ilable for patient baiiEAWGNOSWRSLLQR4585-69-75M75:27:56 2020-08-15 06:16:00 [id number]:16:00 [facility] ([facility])EMERGENCY PROVIDER REPORTREPORT#:[id number] REPORT STATUS: SignedDATE:08/15/20 TIME:0616 PATIENT: SHEILA RODRIGUEZ UNIT #: [id number]#: [id number] ROOM/BED:: 84 AGE: 34 SEX: F PCP PHYS: DOES_NOT KNOWSERVICE AUTHOR: Tolu Ashby MD * ALL edits or amendments must be made on the electronic/computer document * HPI-General Illness Free Text HPI NotesFree Text HPI Ayouq70-exxy-cqu female with a past medical history anxiety depression presents emergency department via EMS for a "anxiety attack". Patient states that she was clean her friends house this morning when she started having her symptoms. Patient reports fast breathing chest pain headache and "tingling" of her hands. Patient reports 1-2 similar episodes per month. Patient reports seeing a counselor but reports that she has not seen one recently. Patient denies alcohol or drug use tonight. Of note the patient did say that she did meth a week ago and was around some friends who were doing meth tonight. GeneralInitial Greet Date/Time 08/15/20 0550 PresentationChief Complaint Anxiety, Chest painHx Obtained From Patient Review of Systems ROS StatementsAll systems rev neg except as marked. Review of SystemsConstitutionalDenies: Chills, Fever. RespiratoryDenies: Cough, productive, Shortness of breath. CardiovascularDenies: Chest pain. GIDenies: Abdominal pain, Nausea, Vomiting. SkinDenies: Rash. NeurologicReports: Headache. Denies: Syncope. PsychiatricReports: Anxiety. Denies: Depression. Past Medical History - AdultStated Complaint ANXIETY ATTACKAllergiesCoded Allergies:codeine (HIVES 08/15/20) Home MedicationsReported MedicationsNo Known Home Medications Calculated suicide risk level: No riskSmoking status for patients 13 years old or older: Current some day smoker Physical Exam Vital SignsVital SignsFirst Documented: Result Date Time Pulse Ox 100 08/15 0548 B/P 143/94 08/15 0448 B/P Mean 110 08/15 547 O2 Delivery Room air 08/15 547 Temp 36.7 08/15 547 Pulse 74 08/15 0448 Resp 18 08/15 547 Last Documented : Result Date Time Pulse Ox 100 08/15 0705 B/P 132/75 08/15 0705 B/P Mean 94 08/15 07 O2 Delivery Room air 08/15 704 Temp 36.8 01/23 0705 Pulse 65 08/15 0705 Resp 19 08/15 07 Review of Vital Signs Reviewed Physical ExamGeneral/Const General/Const Awake, Alert, Well appearingMS Head Head NormocephalicEyes Eye s PERRLEars/Nose/Throat Ears/Nose/Throat Airway patent, Mucous membranes moist, Pharynx NLMS Nec k Neck Supple, No meningismus, Full range of motion, No swelling, Non-tender, No massesResp/Chest Respiratory/Chest Breath sounds NL, Breath sounds = bilat, No respiratory distress, No rales, No rhonchi, No wheezingCardiovascular Cardiovascular Heart rate NL, Regular rhythm, Heart sounds NL, Cap refill notdelayed, Peripheral circulation NLAbdomen/GI Abdomen/GI Soft, Non-tender, No guarding, No reboundSkin Skin Color NL, Warm, Dry, Turgor NLNeurologic Neurologic Oriented X3, Speech NL, No motor deficits, No sensory deficitsPsychiatri c Psychiatric Mood NL, Thought content NL Abnormal Mood/Affect Anxious. Interpretation Diagnostics Lab Results InterpretationResultsLaboratory Test s 08/15/20613:[Embedded Image Not Available]Laboratory Tests: 08/15 613 Chemistry Sodium (134 - 147 mmol/L) 139 Potassium (3.4 - 5.0 mmol/L) 3.7 Chloride (100 - 108 mmol/L) 108 Carbon Dioxide (21 - 32 mmol/L) 24 Anion Gap (4. 0 - 15.0 GAP calc) 7.0 BUN (7 - 18 MG/DL) 8 Creatinine (0.6 - 1.0 MG/DL) 0.9 Glomerular Filt r Rate (>60 estGFR) >=60 max estimate Glucose (70 - 110 MG/DL) 93 Calcium [...] G/DL) 8.2 Albumin (3.4 - 5.0 G/DL) 3. 9 Hematology WBC (3.5 - 11.0 K/mm3) 9.2 [...] 7.0 pH UNITS) 7.5 H Ur Specific Gravit y (1.005 - 1.030 SG) 1.010 Urine Protein (NEG mg/dL) NEGATIVE Urine Glucose (UA) (NEG mg/dL) NEGATIVE Urine Ketones (NEG mg/dL) TRACE Urine Blood (NEG mg/DL) NEGATIVE Urine Nitrite (NEG SCREEN) NEGATIVE Urine Bilirubin (NEG mg/dL) NEGATIVE Urine Urobilinogen (<2.0 mg/dL) 0.2 Ur Leukocyte Esterase (NEGATIVE Leuk/mcL) 2+ H Urin e RBC (0 - 3 #RBC/HPF) 3-5 H Urine WBC (0 - 3 #WBC/HPF) 5-10 H Ur Squamous Epith Cells (NONE /HPF) 4+ H Urine Bacteria (NONE - TRACE /HPF) 1+ H Urine Yeast (NONE SEEN /HPF) TRACE H Urine Culture Screen (Culture CHK Criteria) NO, WBC<10 Urine HCG, Qual (NEGATIVE) NEGATIVE Recent Impressions:RADIOLOGY - XR CHEST 1 V 08/15 0620 Report Impression - Status: SIGNED Entered: 08/15/2020 0641 IMPRESSION: No radiographic evidence for active cardiopulmonary disease. Impression By: Makayla Randolph MD ECG #1 InterpretationText/Dict NoteEKG reviewed and interpreted by myself. Time 0 553. Heart rate 77 , normal sinus rhythm, no STEMI, normal intervals. Re-Evaluation MDM Free Text MDM NotesFree Text MDM NotesDifferential diagnosis anxiety, electrolyte abnormality, viral syndrome, pneumonia, among others. Labs and imaging reviewed and discussed with patient. Vital signs stable no respiratory distress or hypoxia. Consistent with patient's previous anxiety flares. Urged follow-up with her therapist. Resources given, return precautions given, follow-up with PCP. Patient understands and agrees to plan. Re-Evaluation/Progress #1Time of Re-Eval 0655Re-Eval Status Improved ED CourseMedication(s) OrderedMedication(s) Ordered:Central Nervous System Agents Sig/Chinedu Start time Last Medication Dose Route Stop Time Status Admin Lorazepam 0.5 MG X1ED STA 08/15 060 0 DC 08/15 PO 08/15 0601 0605 Electrolytic, Caloric, And Cayden Sig/Chinedu Start time Last Medication Dose Route Stop Time Status Admin Sodium Chloride 1,000 ML X1ED STA 08/15 0605 DC 08/15 IV 08/15 0705 0627 Patient Discharge Departure Vital Signs/ConditionVital SignsFirst Documented: Result Date Time Pulse Ox 100 08/15 0548 B/P 143/94 08/15 0548 B/P Mean 110 08/15 0548 O2 Delivery Room air 08/15 0548 Temp 36.7 08/15 0548 Pulse 74 08/15 0548 Resp 18 08/15 054 8 Last Documented: Result Date Time Pulse Ox 100 08/15 0705 B/P 132/75 08/15 0705 B/P Mean 94 08/15 0705 O2 Delivery Room air 08/15 0705 Temp 36.8 08/15 0705 Pulse 65 08/15 0705 Resp 19 08/15 0705 All vital signs available at the time of this entry have been reviewed. Condition Stable Clinical ImpressionClinical ImpressionPrimary Impression: Anxiety Dispositio n DecisionDischarge )( Discharged to Home Yes )( Time 0656 )( Date 08/15/20 Discharge/Care PlanCounseled Regarding Diagnosis, Lab results, Imaging studies, Need for follow-up,When to return to ED(Auto) PrescriptionsCurrent Visit ScriptsNo Known Home Medications Patient Instructions ED Anxiety Reaction, ED Panic AttackReferralsWilbert Weaver MD: 2-3 Days Discharg e NoteI have spoken with the patient and/or caregivers. I have explained the patient'scondition, diagnoses and treatment plan based on the information available to meat this time. I have answered the patient's and/or caregiver's questions and addressed any concerns . The patient and/or caregivers have as good an understanding of the patient's diagnosis, condition and treatment plan as can beexpected a t this point. The vital signs have been stable. Th e patient's condition is stable and appropriate fo r discharge from the emergency department. The patient will pursue further outpatient evaluatio n with the primary care physician or other designated or consulting physician as outlined i n the discharge instructions. The patient and/or caregivers are agreeable to this planof care and follow-up instructions have been explained in detail. The patient and/or caregivers have received these instructions in written format an d have expressed an understanding of the discharge instructions. The patient and/or caregivers are aware that any significant change in condition o r worsening of symptoms should prompt an immediate return to this or the closest emergency department or a call to 911. at 1752 RPT #: [id number] OF REPORTEDUniversity [facility] department [id number]:16:00L.[id number] a ilable for patient [id number]:52:31 2020-08-15 05:53:00 [id number]:53:[id number] 105 HCAPM [facility] [address] [place] [address] PATIENT NAME: SHEILA RODRIGUEZ ADMIT DATE: 08/15/20ACCOUNT NO: [id number] ROOM NO: AGE: 34 REPORT TYPE: eELECTROCARDIOGRAM SEX: F ADMITTING PHYSICIAN: ATTENDING PHYSICIAN: Order:[id number] Reason : (Not Selected) Test Date/Time Stamp:Sat Aug 15 2020 05:53:25Blood Pressure : 143/094 mmHGVent. Rate : 077 BPM Atrial Rate : 077 BPM P-R Int : 158 ms QRS Dur : 074 ms QT Int : 378 m s P-R-T Axes : 058 072 074 degrees QTc Int : 427 m s Normal sinus rhythmNormal ECGNo previous ECGs availableConfirmed by KRISTINE JEFFREY MD ([id number]) on 08/18/2020 8:20:22 PM Referred By: Self Referred Confirmed by:KRISTINE JEFFREY MD at 2019 PATIENT NAME: SHEILA RODRIGUEZ .[id number] AVAvailable for patient [id number]:20:43 2020-03-04 19:22:00 [id number]:22:00 [facility])EMERGENCY PROVIDER REPORTREPORT#:[id number] REPORT STATUS: SignedDATE:03/04/20 TIME:1921 PATIENT: SHEILA RODRIGUEZ UNIT #: [id number]#: [id number] ROOM/BED:: 84 AGE: 34 SEX: F PCP PHYS: Dave Callahan DOSERVICE AUTHOR: Tolu Ashby MD * ALL edits or amendments must be made on the electronic/computer document * HPI-General Illness Free Text HPI NotesFree Text HPI [id number] female with past medical history of asthma, anemia, chronic UTIs presents emergency department with left lower quadrant abdominal pain for the last 3 to 4 days. States about 4 days ago she was helping her friend move moving furniture she noted that her left lower quadrant started hurting she laiddown on the couch and her friend's dog jumped on her in the same location causing more pain she has had constant pain since then describes it as sharp andachy with some radiation to diffusely to her back. Patient denies dysuria, vaginal discharge. Patient denies nausea vomiting or diarrhea, feve r or chills,recent illness or sick contacts. Patient reports similar pain on and off x3 years . GeneralInitial Greet Date/Time 03/04/201914 PresentationChief Complaint Abdominal painHx Obtained From PatientSudden in Onset? No Review of Systems ROS StatementsAll systems rev neg except as marked. Review of SystemsConstitutionalDenies: Chills, Fever. Ears/Nose/ThroatDenies: Nasal congestion, Sore throat. RespiratoryDenies: Cough, non-productive , Cough, productive, Dyspnea on exertion, Shortnessof breath. CardiovascularDenies: Chest pain, Dyspnea on exertion. GIReports: Abdominal pain. Denies: Diarrhea, Nausea, Vomiting. MusculoskeletalReports: Back pain. Denies: Neck pain. SkinDenies: Rash. NeurologicDenies: Focal weakness, Generalized weakness, Headache, Syncope. Past Medical History - AdultStated Complaint ABDOMINAL AND BACK PAINAllergiesCoded Allergies:codeine (Severe, SHORTNESS OF BREATH 10/04/18) Home MedicationsReported MedicationsNo Known Home Medications Past Medical History:Reports: Asthma, Cancer (cervical, in remission), GERD/gastritis, Kidney disease/stone s (stones), Urinary tract infection. Denies: Diabetes mellitus, Hypertension. Additional Medical Historyh/o kidney infectionsPast Surgica l History:Reports: Cholecystectomy. Alcohol Use Alcohol use (occasional)Drug Use Denies recreational drugsOther Social History Local residentAdditional Social HistoryFather at bedside Physical Exam Vital SignsVital SignsFirs t Documented: Result Date Time Pulse Ox 97 03/04 1921 B/P 108/63 03/04 1921 B/P Mean 78 03/04 192 1 O2 Delivery Room air 03/04 1921 Temp 36.1 03/04 1921 Pulse 93 03/04 1921 Resp 18 03/04 1921 Las t Documented: Result Date Time Pulse Ox 100 03/04 2230 B/P 121/73 03/04 2230 B/P Mean 89 03/04 223 0 Pulse 82 03/04 2230 Resp 17 03/04 2230 O2 Delivery Room air 03/04 1921 Temp 36.1 03/04 192 1 Review of Vital Signs Reviewed Physical ExamGeneral/Const General/Const Awake, Alert, No acute distress, Well appearing, Well developed, Well hydrated, Well nourished, Cooperative, Not toxic appearingMS Head Head NormocephalicEyes Eyes PERRLEars/Nose/Throat Ears/Nose/Throat Airway patent, Mucous membranes moist, Pharynx NLMS Neck Neck Supple, No meningismus, Full rang e of motion, No swelling, Non-tender, No massesResp/Chest Respiratory/Chest Breath sounds NL, Breath sounds = bilat, No respiratory distress, No rales, No rhonchi, No wheezingCardiovascular Cardiovascular Heart rate NL, Regular rhythm, Heart sounds NL, Peripheral circulation NL Text/Dict NotesCap refill greater than 3 secondsAbdomen/GI Abdomen/GI Soft, No guarding, No rebound Text/Dict NotesLeft lower quadrant tenderness to palpation. No obvious hernia.MS Back Back Inspection NL, Painless rang e of motion, No midline vertebral tend, No CVA tenderness Text/Dict NotesDiffuse paraspinal lumbar tenderness to palpationMS Upper Extrem Upper Extremity/MS Inspection NL, No swelling, Non-tender, No erythema, No deformity, Neurologi c intact, Vascular intact, No clubbing/cyanosisMS Wrist/Hand Wrist/Hand Inspection NL, No swelling , No erythema, Non-tender, No deformity,Neurologic intact, Vascular intact, No clubbing/cyanosisMS Lower Extrem Lower Ext/Pelvis/MS Inspection NL, No swelling, Non-tender, No erythema, No deformity, Neurologic intact, Vascular intact, N o edemaMS Ankle/Foot Ankle/Foot Inspection NL, No swelling, No erythema, Non-tender, No deformity,Neurologic intact, Vascular intact, No edemaSkin Skin Color NL, Warm, Dry, Turgor NLNeurologic Neurologic Oriented X3, Speech NL, No motor deficits, No sensory deficitsPsychiatri c Psychiatric Affect NL, Mood NL, Thought content NL Interpretation Diagnostics Lab Results InterpretationResultsLaboratory Tests 03/04/201944:[Embedded Image Not Available]Laboratory Tests: 03/04 Chemistry Sodium (134 - 147 mmol/L) 140 Potassium (3.4 - 5.0 mmol/L) 4.2 Chloride (100 - 108 mmol/L) 109 H Carbon Dioxide (21 - 32 mmol/L) 26 Anion Gap (4. 0 - 15.0 GAP calc) 5.0 BUN (7 - 18 MG/DL) 10 Creatinine (0.6 - 1.0 MG/DL) 0.8 Glomerular Filtr Rate (>60 estGFR) >=60 max estimate Glucos e (70 - 110 MG/DL) 81 Calcium (8.5 - 10.1 MG/DL) 8.6 Total Bilirubin (0.2 - 1.2 MG/DL) 0.20 Direc t Bilirubin (0.00 - 0.30 MG/DL) < 0.10 [...] M/mm3) 4.51 L Hgb (10.4 - 14.9 G/DL ) 13.7 Hct (31.5 - 44.1 %) 41.9 MCV (84.5 - 98.6 Fl) 92.9 MCH (27.0 - 34.2 pg) 30.4 MCHC (31.5 - 34.0 G/DL) 32.7 RDW (11.5 - 14.5 SD) 12.5 Plt Count (150 - 450 K/mm3) 209 MPV (7.0 - 10.5 fL) 11.90 H Neut % (Auto) (40 - 76 %) 53.5 Lymph % (Auto) (20.5 - 51.1 %) 34.8 [place] % (Auto) (1.7 - 9.3 %) 7.5 Eos % (Auto) (0.0 - 6.0 %) 3.1 Baso % (Auto) (0.0 - 2.0 %) 0.8 Neut # (Auto) (1.8 - 7. 6 K/mm3) 4.9 Lymph # (Auto) (0.6 - 3.2 K/mm3) 3.2 [place] # (Auto) (0.3 - 1.1 K/mm3) 0.7 Eos # (Auto) (0.0 - 0.4 K/mm3) 0.3 Baso # (Auto) (0.0 - 0.1 K/mm3) 0.1 Abs Immat Gran (auto) (0.00 - 0.03 x1 0 3/uL) 0.03 Add Manual Diff (CRITERIA DIFF/SCN) N O Immature Gran % (0.0 - 5.0 %) 0.3 Nucleated RBC % (0.0 - 1.0 /100WBC%) 0.0 Urines Urine Color (YEL/STRAW discript) YELLOW Urine Appearance (CLEAR discript) CLEAR Urine pH (5.0 - 7.0 pH UNITS) 5.5 Ur Specific [place] (1.005 - 1.030 SG ) >=1.030 H Urine Protein (NEG mg/dL) NEGATIVE Urine Glucose (UA) (NEG mg/dL) NEGATIVE Urine Ketones (NEG mg/dL) TRACE Urine Blood (NEG mg/DL ) NEGATIVE Urine Nitrite (NEG SCREEN) NEGATIVE Urine [...] WBC<10 Urine HCG, Qual (NEGATIVE) NEGATIVE Recent Impressions:CAT SCAN - CT ABD PELVIS W/CONT 02/21 Report Impression - Status: SIGNED Entered: 03/04/20202209 Impression: 1. No specific evidence of acute pathology. Impression By: Delonte Nieves M.D. Re-Evaluation MDM Free Text MDM NotesFree Text MDM NotesDifferential diagnosis diverticulitis, ectopic, PID, musculoskeletal strain, among others. Labs and imaging reviewed and discussed with patient. Abdomen non-peritoneal. P.o. tolerant in ED. Rx meds, GI referral given. Return precautions given. Patient understands an d agrees to plan. Re-Evaluation/Progress #1Time of Re-Eval 2227Re-Eval Status Improved, stable ED CourseMedication(s) OrderedMedication(s) Ordered:Central Nervous System Agents Sig/Chinedu Start time Last Medication Dose Route Stop Time Status Admin Morphine Sulfate 4 MG X1ED STA 02/21 2 2038 DC 03/04 IV 03/04 Ketorolac 15 MG X1ED STA 03/04 1941 DC 03/04 Tromethamine IV 03/04 Diagnostic Agents Sig/Chinedu Start time Last Medication Dose Route Stop Time Status Admin Iopamidol 0 .STK-MED ONE 03/04 2048 DC 03/04 .ROUTE 2136 Electrolytic, Caloric, And Cayden Sig/Chinedu Start time Last Medication Dose Route Stop Time Status Admin Sodium Chloride 50 ML .STK-MED ONE 03/04 2048 DC 03/04 IV 2137 Sodium Chloride 1,000 ML X1ED STA 03/04 1941 DC 03/04 I V 03/04 2041 1950 Sodium Chloride 10 ML ASDIR 02/21 2 1929 DC IV 04/03 1929 Sodium Chloride 500 ML ONC E ONE 03/04 193 CAN IV 03/05 2029 Gastrointestinal Drugs Sig/Chinedu Start time Last Medication Dose Route Stop Time Status Admin Ondansetron HCl 4 MG X1ED STA 03/04 2039 DC 02/21 2 IV 03/04 Patient Discharge Departure Vital Signs/ConditionVital SignsFirst Documented : Result Date Time Pulse Ox 97 03/04 1921 B/P 108/63 03/04 1921 B/P Mean 78 03/04 192 O2 Delivery Room air 03/04 1921 Temp 36.1 03/04 192 1 Pulse 93 03/04 1921 Resp 18 03/04 1921 Last Documented: Result Date Time Pulse Ox 100 03/04 2230 B/P 121/73 03/04 2230 B/P Mean 89 03/04 223 0 Pulse 82 03/040 Resp 17 03/04 2230 O2 Delivery Room air 03/04 1921 Temp 36.1 03/04 192 1 All vital signs available at the time of this entry have been reviewed. Condition Stable Clinical ImpressionClinical ImpressionPrimary Impression: Abdominal pain Disposition DecisionDischarge )( Discharged to Home Yes )( Time 2228 )( Date 03/04/20 Discharge/Care PlanCounseled Regarding Diagnosis, Lab results, Prescriptions, Need for follow-up, When to retur n to EDRx Drug Database Reviewed YesPrescriptionsbentyltramadol(Auto) PrescriptionsCurrent Visit ScriptsNo Known Home Medications ReferralsPraDave tinoco DO (PCP/Family) at 0124 RPT #: [id number] OF REPORTEDEmergency department [id number]:22:00L.[id number] a ilable for patient [id number]:24:32 2018-11-25 15:39:00 [id number]:39:00 [facility] ([facility])EMERGENCY PROVIDER REPORTREPORT#:[id number] REPORT STATUS: SignedDATE:11/25/18 TIME: 153 PATIENT: SHEILA RODRIGUEZ UNIT #: [id number]#: [id number] ROOM/BED:AGE: 33 SEX: F PCP PHYS: Pedrito Callahan DOSERVICE AUTHOR: Rosenda Engle * ALL edits or amendments must be made on e electronic/computer document * HPI-Neck Pain GeneralConfirmed Patient YesInitial Greet Date/Time 11/25/18 1537PCPDr. Dave Callahan-PCP PresentationChief Complaint Neck painHx Obtained From PatientOnset Occurred Days ago (x3)Symptom Duration Since onsetProgression since Onset Intermittent, Gradually worseningCaused by No trauma by historyRadiationNo: Does not radiate. Associated withReports: Decreased range of motion. Denies: Fever. Free Text HPI NotesFree Text HPI Notes33 y/o F w/ PMHx asthma, cervical cancer in remission, UTI, GERD, and kidney stone s presents to the ED w/ c/o worsening intermittent neck pain, onset occurred 3 days ago. Pt notes the pain is located in the back of her neck, increasingly painful w/ ROM radiating to her mid back, and worse today. Pt reports intermittent hematuria since this morning. Pt denies any fever. Portions of this section were scribed by Desean Carpio on 11/25/18 at 1751 Review of Systems ROS StatementsAll systems rev neg except as marked. Focused Review of SystemsConstitutionalDenies: Fever. MusculoskeletalReports: Neck pain. Additional Review of SystemsGU FemaleReports: Hematuria. Portions of this section were scribed by Desean Carpio on 11/25/18 at 1539 Past Medica l History - AdultStated Complaint NECK PAINAllergiesCoded Allergies:codeine (Severe, SHORTNESS OF BREATH 10/04/18) Home MedicationsReported MedicationsNo Known Home Medications Past Medical History:Reports: Asthma , Cancer (cervical, in remission), GERD/gastritis, Kidney disease/stones (stones), Urinary tract infection. Denies: Diabetes mellitus, Hypertension. Additional Medical Historyh/o kidney infectionsPast Surgical History:Reports: Cholecystectomy. Alcohol Use Alcohol use (occasional)Drug Use Denies recreational drugsOther Social History Local residentAdditional Social HistoryFather at bedside Portions of this section were scribed by Desean Carpio on 11/25/18 at 1539 Physical Exam Vital SignsVital SignsFirst Documented: Result Date Time Pulse Ox 98 11/25 1542 B/P 119/57 05/05 1542 B/P Mean 77 05/05 1542 O2 Delivery Room air 05 1542 Temp 36.7 05/05 154 2 Pulse 81 05/05 1542 Resp 17 05/ 1542 Last Documented: Result Date Time Pulse Ox 98 11/25 1542 B/P 119/57 05/05 1542 B/P Mean 77 05/05 154 2 O2 Delivery Room air 05 1542 Temp 36.7 05/05 1542 Pulse 81 05/05 1542 Resp 17 05/05 1542 Review of Vital Signs Reviewed Focused PEGeneral/Const General/Const Awake, Alert, Well developed, CooperativeMS Head Head Atraumatic, NormocephalicEyes Eyes EOMI, Conjunctiva NLEars/Nose/Throat Ears/Nose/Throat Airway patent, Mucous membranes moistMS Neck Neck No meningismus Text/Dict NotesBL paraspinal cervical tenderness. Decreased ROM secondary to pain, pain worse when rotates head to the right. No stepoffs.Resp/Chest Respiratory/Chest Breath sounds NL, No respiratory distress, No rales, No rhonchi, No wheezingCardiovascular Cardiovascula r Heart rate NL, Regular rhythm, Heart sounds NLSkin Skin Warm, Dry, IntactNeurologic Neurologic Oriented X3, Speech NL, No motor deficits, No sensory deficits Additional PEPsychiatric Psychiatric Affect NL, Mood NL Portions of this section were scribed by Desean Carpio on 11/25/18 at 1557 Interpretation Diagnostics Lab Results InterpretationResultsLaboratory Tests: 11/25 11/25 1624 1624 Urines Urine Color (YEL/STRAW) YELLOW Urine Appearance (CLEAR) CLOUDY H Urine pH (5.0 - 7.0) 5.0 Ur Specific [place] (1.005 - 1.030) 1.017 Urine Protein (NEGATIVE) [...] (NONE SEEN /LPF) TRACE Urine HCG, Qual (NEGATIVE ) NEGATIVE Microbiology: Date/Time Procedure - Status Source Growth 11/25 1640 Urine Culture - RECD URINE Recent Impressions:RADIOLOGY - XR C-SPINE 2-3 VIEWS 11/25 1718 Report Impressio n - Status: SIGNED Entered: 11/25/2018 1725 IMPRESSION:1. No signs of cervical spine fractur e or subluxation.2. No visible significant degenerative change.3. Clear lung apices. SL: ER-HImpression By: BernadineERR2 - Alexy Fu M.D. Lab Imaging StatementLaboratory radiographic studies reviewe d and considered in the medical decision-making. Point of Care TestingPulse Oximetry Pulse Ox % 9 8 On: Room air Interpretation Interpreted by ky, Pulse oximetry normal Time 1542 RadiographyX-Ray C-Spine Text/Dict NoteIMPRESSION:1. No signs of cervical spine fracture or subluxation.2. No visible significant degenerative change.3. Clear lung apices. Interpretation/Wet Read by Interpre t - Radiologist Reviewed by ED ENERGY EFFICIENT SITE MANAGER Portions of this section were scribed by Desean Carpio on 11/25/18 at 1746 Re-Evaluation MDM Re-Evaluation/ProgressRe-Evaluation/Progress Text/Dict NoteDiscussed results w/ pt, plan to D/C home and f/u w/ PCP. Provided reasons to return to the ED for any new or worsening sxs. P t agrees w/ plan. Time of Re-Eval 1736 ED CourseMedication(s) OrderedMedication(s) Ordered:Anti-Infective Agents Sig/Chinedu Start time Last Medication Dose Route Stop Time Status Admi n Ceftriaxone Sodium 1,000 MG X1ED STA 11/25 1743 DC IM 11/25 1744 Autonomic Drugs Sig/Chinedu Start time Last Medication Dose Route Stop Time Status Admin Cyclobenzaprine HCl 10 MG X1ED STA 11/25 1541 DC 05/ PO 11/25 1542 1559 Cardiovascular Drugs Sig/Chinedu Start time Last Medication Dose Route Stop Time Status Admin Lidocaine HCl 2.1 M L X1ED STA 11/25 1743 DC IM 11/25 1744 Central Nervous System Agents Sig/Chinedu Start time Last Medication Dose Route Stop Time Status Admin Ketorolac 20 MG ONCE ONE 11/25 1545 DC 11/25 Tromethamine PO 11/25 1546 1559 Portions of thi s section were scribed by Desean Carpio on 11/25/18 at 1746 Patient Discharge Departure Vital Signs/ConditionVital SignsFirst Documented : Result Date Time Pulse Ox 98 05/05 1542 B/P 119/57 05/05 1542 B/P Mean 77 05/05 1542 O2 Delivery Room air 05/05 1542 Temp 36.7 05/05 154 2 Pulse 81 05/05 1542 Resp 17 05/05 1542 Last Documented: Result Date Time Pulse Ox 98 05/05 1542 B/P 119/57 05/05 1542 B/P Mean 77 05/05 1542 O2 Delivery Room air 05/05 1542 Temp 36.7 05/05 1542 Pulse 81 05/05 1542 Resp 17 05/05 154 2 All vital signs available at the time of this entry have been reviewed. Condition Stable Clinical ImpressionClinical ImpressionPrimary Impression: UTI (urinary tract infection)Secondary Impressions: Torticollis Disposition DecisionDischarge )( Discharged to Home Yes )( Time 1829 )( Date 11/25/18 Discharge/Care PlanCounseled Regarding Diagnosis , Lab results, Imaging studies, Prescriptions, Needfor follow-up, When to return to EDPrescriptionsNaproxen, Flexeril, MacrobidPrescriptions Reviewed Risks, Benefits, Alternative treatment Supervising Physician Note Scribe StatementDesean Carpio, 11/25/18 1558, scribing for and in the presence of [Rosenda Engle NP].Signed By: Desean Carpio, 11/25/18 1558 Provider Scribed StatementI personally performed the services described in this documentation and reviewedthe documentation that was dictated to the scribe(s) in my presence, an d it accurately records my words and actions. Rosenda Engle, 11/25/18 Portions of this section were scribed by Desean Carpio on 11/25/18 at 1746 at 1829RPT #:[id number] OF REPORTEDEmergency department yknyra9088-91-78F35:39:00G.[id number] a ilable for patient vdefIVZAZLWRYAQVEQ1305-98-87Q04:29:53 2018-11-25 15:39:00 [id number]:39:00 [facility] ([facility])EMERGENCY PROVIDER REPORTREPORT#:[id number] REPORT STATUS: SignedDATE:11/25/18 TIME: 153 PATIENT: SHEILA RODRIGUEZ UNIT #: [id number]#: [id number] ROOM/BED:AGE: 33 SEX: F PCP PHYS: Dave Callahan DOSERVICE AUTHOR: Rosenda Engle * ALL edits or amendments must be made on th e electronic/computer document * Rosenda Engle 11/25/18 1539:HPI-Neck Pain GeneralConfirmed Patient YesPCPDr. Dave Callahan-PCP PresentationChief Complaint Neck painHx Obtained From PatientOnset Occurred Days ago (x3)Symptom Duration Since onsetProgression since Onset Intermittent, Gradually worseningCaused by No trauma by historyRadiationNo: Does not radiate. Associated withReports: Decreased range of motion. Denies: Fever. Free Text HPI NotesFree Text HPI Notes33 y/o F w/ PMHx asthma, cervical cancer in remission, UTI, GERD, and kidney stone s presents to the ED w/ c/o worsening intermittent neck pain, onset occurred 3 days ago. Pt notes the pain is located in the back of her neck, increasingly painful w/ ROM radiating to her mid back, and worse today. Pt reports intermittent hematuria since this morning. Pt denies any fever. Portions of this section were scribed by Desean Carpio on 11/25/18 at 1751 Review of Systems ROS StatementsAll systems rev neg except as marked. Focused Review of SystemsConstitutionalDenies: Fever. MusculoskeletalReports: Neck pain. Additional Review of SystemsGU FemaleReports: Hematuria. Portions of this section were scribed by Desean Carpio on 11/25/18 at 1539 Past Medica l History - AdultStated Complaint NECK PAINAllergiesCoded Allergies:codeine (Severe, SHORTNESS OF BREATH 10/04/18) Home MedicationsReported MedicationsNo Known Home Medications Past Medical History:Reports: Asthma , Cancer (cervical, in remission), GERD/gastritis, Kidney disease/stones (stones), Urinary tract infection. Denies: Diabetes mellitus, Hypertension. Additional Medical Historyh/o kidney infectionsPast Surgical History:Reports: Cholecystectomy. Alcohol Use Alcohol use (occasional)Drug Use Denies recreational drugsOther Social History Local residentAdditional Social HistoryFather at bedside Portions of this section were scribed by Desean Carpio on 11/25/18 at 1539 Physical Exam Vital SignsVital SignsFirst Documented: Result Date Time Pulse Ox 98 11/25 1542 B/P 119/57 05/ 1542 B/P Mean 77 05/05 1542 O2 Delivery Room air 11/25 1542 Temp 36.7 / 154 2 Pulse 81 11/25 1542 Resp 17 / 1542 Last Documented: Result Date Time Pulse Ox 99 11/25 1830 B/P 115/68 05/ 1830 B/P Mean 83 / 183 0 O2 Delivery Room air 11/25 1830 Temp 36.6 / 1830 Pulse 78 / 1830 Resp 18 05/ 1830 Review of Vital Signs Reviewed Focused PEGeneral/Const General/Const Awake, Alert, Well developed, CooperativeMS Head Head Atraumatic, NormocephalicEyes Eyes EOMI, Conjunctiva NLEars/Nose/Throat Ears/Nose/Throat Airway patent, Mucous membranes moistMS Neck Neck No meningismus Text/Dict NotesBL paraspinal cervical tenderness. Decreased ROM secondary to pain, pain worse when rotates head to the right. No stepoffs.Resp/Chest Respiratory/Chest Breath sounds NL, No respiratory distress, No rales, No rhonchi, No wheezingCardiovascular Cardiovascula r Heart rate NL, Regular rhythm, Heart sounds NLSkin Skin Warm, Dry, IntactNeurologic Neurologic Oriented X3, Speech NL, No motor deficits, No sensory deficits Additional PEPsychiatric Psychiatric Affect NL, Mood NL Portions of this section were scribed by Desean Carpio on 11/25/18 at 1557 Interpretation Diagnostics Lab Results InterpretationResultsLaboratory Tests: 11/25 11/25 1624 1624 Urines Urine Color (YEL/STRAW) YELLOW Urine Appearance (CLEAR) CLOUDY H Urine p H (5.0 - 7.0) 5.0 Ur Specific [place] (1.005 - 1.030) 1.017 Urine Protein (NEGATIVE) [...] (NONE SEEN /LPF) TRACE Urine HCG, Qual (NEGATIVE ) NEGATIVE Microbiology: Date/Time Procedure - Status Source Growth 11/25 1640 Urine Culture - RECD URINE Recent Impressions:RADIOLOGY - XR C-SPINE 2-3 VIEWS 11/25 171 Report Impressio n - Status: SIGNED Entered: 11/25/2018 1725 IMPRESSION:1. No signs of cervical spine fractur e or subluxation.2. No visible significant degenerative change.3. Clear lung apices. SL: ER-HImpression By: Marbella.ERR2 - Alexy Fu M.D. Lab Imaging StatementLaboratory radiographic studies reviewe d and considered in the medical decision-making. Point of Care TestingPulse Oximetry Pulse Ox % 9 8 On: Room air Interpretation Interpreted by me, Pulse oximetry normal Time 1542 RadiographyX-Ray C-Spine Text/Dict NoteIMPRESSION:1. No signs of cervical spine fracture or subluxation.2. No visible significant degenerative change.3. Clear lung apices. Interpretation/Wet Read by [facility] t - Radiologist Reviewed by ED ENERGY EFFICIENT SITE MANAGER Portions of this section were scribed by Desean Carpio on 11/25/18 at 1746 Re-Evaluation MDM Re-Evaluation/ProgressRe-Evaluation/Progress Text/Dict NoteDiscussed results w/ pt, plan to D/C home and f/u w/ PCP. Provided reasons to return to the ED for any new or worsening sxs. P t agrees w/ plan. Time of Re-Eval 1736 ED CourseMedication(s) OrderedMedication(s) Ordered:Anti-Infective Agents Sig/Chinedu Start time Last Medication Dose Route Stop Time Status Admin Ceftriaxone Sodium 1,000 MG X1ED STA 11/25 1743 DC IM 11/25 1744 Autonomic Drugs Sig/Chinedu Start time Last Medication Dose Route Stop Time Status Admin Cyclobenzaprine HCl 10 MG X1ED STA 11/25 1541 DC 05/05 PO 11/25 1542 1559 Cardiovascular Drugs Sig/Chinedu [...] of this section were scribed by Desean Carpio on 11/25/18 at 1746 Patient Discharge Departure Vital Signs/ConditionVital SignsFirst Documented: Result Date Time Pulse Ox 98 11/25 1542 B/P 119/57 11/25 1542 B/P Mean 77 11/25 1542 O2 Delivery Room air 11/25 1542 Temp 36.7 11/25 1542 Pulse 81 11/25 1542 Resp 17 11/25 1542 Last Documented: Result Date Time Pulse Ox 99 11/25 1830 B/P 115/68 11/25 1830 B/P Mean 83 11/25 1830 O2 Delivery Room air 05/05 1830 Temp 36.6 11/25 1829 Pulse 78 11/25 1829 Resp 18 11/25 1829 All vital signs available at the time of this entry have been reviewed. Condition Stable Clinical ImpressionClinical ImpressionPrimary Impression: UTI (urinary tract infection)Secondary Impressions: Torticollis Disposition DecisionDischarge )( Discharged to Home Yes )( Time 1828 )( Date 11/25/18 Discharge/Care PlanCounseled Regarding Diagnosis , Lab results, Imaging studies, Prescriptions, Needfor follow-up, When to return to EDPrescriptionsNaproxen, Flexeril, MacrobidPrescriptions Reviewed Risks, Benefits, Alternative treatment Supervising Physician Note Scribe StatementDesean Carpio, 11/25/18 1558, scribing for and in the presence of [Rosenda Engle NP].Signed By: Desean Carpio, 11/25/18 1553 Provider Scribed StatementI personally performed the services described in this documentation and reviewedthe documentation that was dictated to the scribe(s) in my presence, an d it accurately records my words and actions. Rosenda Engle., 11/25/18 Portions of this section were scribed by Desean Carpio on 11/25/18 at 1746 Kp Moses 11/25/184:HPI-Neck Pain GeneralInitial Greet Date/Ranjeet e 11/25/18 1537 Physical Exam Vital SignsVital Signs Interpretation Diagnostics Lab Results InterpretationResults Re-Evaluation MDM ED CourseMedication(s) Ordered Patient Discharge Departure Vital Signs/ConditionVital Signs Supervising Physician Note MidLv Saw Pt AloneI was available for consultation as needed at all times during the patient's visit in the emergenc y department. Authenticated by Esteban Dewey MD 11/25/18 at 1756 at 8498RPT #:[id number] OF REPORTEDEmergency department [id number]:39:00G.[id number] a ilable for patient [id number]:45:09 2018-11-25 15:39:00 [id number]:39:00 [facility] ([facility])EMERGENCY PROVIDER REPORTREPORT#:[id number] REPORT STATUS: SignedDATE:11/25/18 TIME: 1538 PATIENT: SHEILA RODRIGUEZ UNIT #: [id number]#: [id number] ROOM/BED:AGE: 33 SEX: F PCP PHYS: Dave Callahan DOSERVICE AUTHOR: Rosenda Engle ECONOMICS LECTURER * ALL edits or amendments must be made on th e electronic/computer document * Rosenda Engle. 11/25/181538:HPI-Neck Pain GeneralConfirmed Patient YesPCPDr. Dave Callahan-PCP PresentationChief Complaint Neck painHx Obtained From PatientOnset Occurred Days ago (x3)Symptom Duration Since onsetProgression since Onset Intermittent, Gradually worseningCaused by No trauma by historyRadiationNo: Does not radiate. Associated withReports: Decreased range of motion. Denies: Fever. Free Text HPI NotesFree Text HPI Notes33 y/o F w/ PMHx asthma, cervical cancer in remission, UTI, GERD, and kidney stone s presents to the ED w/ c/o worsening intermittent neck pain, onset occurred 3 days ago. Pt notes the pain is located in the back of her neck, increasingly painful w/ ROM radiating to her mid back, and worse today. Pt reports intermittent hematuria since this morning. Pt denies any fever. Portions of this section were scribed by Desean Carpio on 11/25/18 at 1751 Review of Systems ROS StatementsAll systems rev neg except as marked. Focused Review of SystemsConstitutionalDenies: Fever. MusculoskeletalReports: Neck pain. Additional Review of SystemsGU FemaleReports: Hematuria. Portions of this section were scribed by Desean Carpio on 11/25/18 at 1539 Past Medica l History - AdultStated Complaint NECK PAINAllergiesCoded Allergies:codeine (Severe, SHORTNESS OF BREATH 10/04/18) Home MedicationsReported MedicationsNo Known Home Medications Past Medical History:Reports: Asthma , Cancer (cervical, in remission), GERD/gastritis, Kidney disease/stones (stones), Urinary tract infection. Denies: Diabetes mellitus, Hypertension. Additional Medical Historyh/o kidney infectionsPast Surgical History:Reports: Cholecystectomy. Alcohol Use Alcohol use (occasional)Drug Use Denies recreational drugsOther Social History Local residentAdditional Social HistoryFather at bedside Portions of this section were scribed by Desean Carpio on 11/25/18 at 1539 Physical Exam Vital SignsVital SignsFirst Documented: Result Date Time Pulse Ox 98 11/25 1542 B/P 119/57 11/25 1542 B/P Mean 77 11/25 1542 O2 Delivery Room air 11/25 154 Temp 36.7 11/25 1542 Pulse 81 11/25 1542 Resp 17 11/25 1542 Last Documented: Result Date Time Pulse Ox 99 11/25 1830 B/P 115/68 11/25 1830 B/P Mean 83 11/25 183 0 O2 Delivery Room air 11/25 183 Temp 36.6 11/25 1830 Pulse 78 11/25 1830 Resp 18 11/25 1830 Review of Vital Signs Reviewed Focused PEGeneral/Const General/Const Awake, Alert, Well developed, CooperativeMS Head Head Atraumatic, NormocephalicEyes Eyes EOMI, Conjunctiva NLEars/Nose/Throat Ears/Nose/Throat Airway patent, Mucous membranes moistMS Neck Neck No meningismus Text/Dict NotesBL paraspinal cervical tenderness. Decreased ROM secondary to pain, pain worse when rotates head to the right. No stepoffs.Resp/Chest Respiratory/Chest Breath sounds NL, No respiratory distress, No rales, No rhonchi, No wheezingCardiovascular Cardiovascular Heart rate NL, Regular rhythm, Heart sounds NLSkin Skin Warm, Dry, IntactNeurologic Neurologic Oriented X3, Speech NL, No motor deficits, No sensory deficit s Additional PEPsychiatric Psychiatric Affect NL, Mood NL Portions of this section were scribed by Desean Carpio on 11/25/18 at 1557 Interpretation Diagnostics Lab Results InterpretationResultsLaboratory Tests: 11/25 11/25 1624 1624 Urines Urine Color (YEL/STRAW) YELLOW Urine Appearance (CLEAR) CLOUDY H Urine p H (5.0 - 7.0) 5.0 Ur Specific [place] (1.005 - 1.030) 1.017 Urine Protein (NEGATIVE) [...] Procedure - Status Source Growth 11/25 1640 Urin e Culture - RECD URINE Recent Impressions:RADIOLOG Y - XR C-SPINE 2-3 VIEWS 11/25 1718 Report Impression - Status: SIGNED Entered: 11/25/2018 1725 IMPRESSION:1. No signs of cervical spine fracture or subluxation.2. No visible significan t degenerative change.3. Clear lung apices. SL: ER-HImpression By: BernadineERR2 - lAexy Fu M.D. Lab Imaging StatementLaboratory radiographic studies reviewe d and considered in the medical decision-making. Point of Care TestingPulse Oximetry Pulse Ox % 9 8 On: Room air Interpretation Interpreted by ky, Pulse oximetry normal Time 1542 RadiographyX-Ray C-Spine Text/Dict NoteIMPRESSION:1. No signs of cervical spine fracture or subluxation.2. No visible significant degenerative change.3. Clear lung apices. Interpretation/Wet Read by [facility] t - Radiologist Reviewed by ED ENERGY EFFICIENT SITE MANAGER Portions of this section were scribed by Desean Carpio on 11/25/18 at 1746 Re-Evaluation MDM Re-Evaluation/ProgressRe-Evaluation/Progress Text/Dict NoteDiscussed results w/ pt, plan to D/C home and f/u w/ PCP. Provided reasons to return to the ED for any new or worsening sxs. P t agrees w/ plan. Time of Re-Eval 1736 ED CourseMedication(s) OrderedMedication(s) Ordered:Anti-Infective Agents Sig/Chinedu Start time Last Medication Dose Route Stop Time Status Admi n Ceftriaxone Sodium 1,000 MG X1ED STA 11/25 1743 DC IM 11/25 1744 Autonomic Drugs Sig/Chinedu Start time Last Medication Dose Route Stop Time Status Admin Cyclobenzaprine HCl 10 MG X1ED STA 11/25 1541 DC 05/05 PO 0505 1542 1559 Cardiovascular Drugs Sig/Chinedu Start time Last Medication Dose Route Stop Time Status Admin Lidocaine HCl 2.1 M L X1ED STA 11/25 1743 DC IM 11/25 1744 Central Nervous System Agents Sig/Chinedu Start time Last Medication Dose Route Stop Time Status Admin Ketorolac 20 MG ONCE ONE 11/25 1545 DC 11/25 Tromethamine PO 11/25 1546 1559 Portions of this section were scribed by Desean Carpio on 11/25/18 at 1746 Patient Discharge Departure Vital Signs/ConditionVital SignsFirst Documented : Result Date Time Pulse Ox 98 05/ 1542 B/P 119/57 05/05 1542 B/P Mean 77 05/05 1542 O2 Delivery Room air 05/ 1542 Temp 36.7 05/05 154 2 Pulse 81 05/05 1542 Resp 17 05/05 1542 Last Documented: Result Date Time Pulse Ox 99 05/05 1830 B/P 115/68 05/05 1830 B/P Mean 83 05/05 183 0 O2 Delivery Room air 05/05 1830 Temp 36.6 05/05 1830 Pulse 78 05/05 1830 Resp 18 05/05 1830 All vital signs available at the time of this entry have been reviewed. Condition Stable Clinical ImpressionClinical ImpressionPrimary Impression: UTI (urinary tract infection)Secondary Impressions: Torticollis Disposition DecisionDischarge )( Discharged to Home Yes )( Time 182 )( Date 11/25/18 Discharge/Care PlanCounseled Regarding Diagnosis, Lab results, Imaging studies, Prescriptions, Needfor follow-up, When to return to EDPrescriptionsNaproxen, Flexeril, MacrobidPrescriptions Reviewed Risks, Benefits, Alternative treatment Supervising Physician Note Scribe StatementDesean Carpio, 11/25/18 2039, scribing for and in the presence of [Rosenda Engle NP].Signed By: Desean Carpio, 11/25/18 1558 Provider Scribed StatementI personally performed the services described in this documentation and reviewedthe documentation that was dictated to the scribe(s) in my presence, an d it accurately records my words and actions. Rosenda Engle., 11/25/18 Portions of this section were scribed by Desean Carpio on 11/25/18 at 1746 Kp Moses 11/25/18 2044:HPI-Neck Pain GeneralInitial Greet Date/Ranjeet e 11/25/18 1537 Physical Exam Vital SignsVital Signs Interpretation Diagnostics Lab Results InterpretationResults Re-Evaluation MDM ED CourseMedication(s) Ordered Patient Discharge Departure Vital Signs/ConditionVital Signs Supervising Physician Note MidLv Saw Pt AloneI was available for consultation as needed at all times during the patient's visit in the emergenc y department. Authenticated by Esteban Dewey MD 11/25/18 at 1756 at 1829Electronically Signed by Esteban Dewey MD n 11/25/18 at 2101RPT #:[id number] OF REPORTEDEmergency department [id number]:39:00G.[id number] a ilable for patient [id number]:01:25 2018-10-04 00:48:00 [id number]:48:00 [facility] REPORTREPORT#:[id number] REPORT STATUS: SignedDATE:10/04/18 TIME: 47 PATIENT: SHEILA RODRIGUEZ UNIT #: [id number]#: [id number] ROOM/BED:AGE: 33 SEX: F PCP PHYS: Dave Callahan AUTHOR: Adrianne Painter MD * ALL edits or amendments must be made on the electronic/computer document * HPI-Abd Pain F Under 40 GeneralConfirmed Patient YesInitial Greet Date/Time 10/04/18 0040 PresentationChief Complaint Abdominal painHx Obtained From PatientOnset Occurred One week agoSymptom Duration Since onsetProgression since Onset Gradually worseningLocation Suprapubic, Pelvis Free Text HPI NotesFree Text HPI Notes33 y/o F w / h/o cervical CA, chronic UTIs presents to the ED w/ c/o abd pain, onset one week ago. She states the pain became unbearable today. She reports intermittent CP, dysuria, constipation vomiting in assoc w/ sx. Pt reports shehad 4 episodes of emesis w/ some assoc taint blood. Additionally, she mentions that she believes she has a hernia. She denies hematuria, bloody/tarry stool or any other additional sx. She states sx do not feel consistent w/ h/o chronic UTIs. No other complaints. Portions of this section were scribe d by Bennie Neil on 10/04/18 at 0539 Risk-Abd Pain F Under 40)( Ectopic Risk factors reviewed Portions of this section were scribed b y Bennie Neil on 10/04/18 at 0413 Review of Systems ROS StatementsAll systems rev neg except as marked. Focused Review of SystemsCardiovascularReports: Chest pain. GIReports: Abdominal pain, Constipation, Vomiting. Denies: Bloody/tarry stool, Hematemesis. FemaleReports: Dysuria, Pelvic pain. Denies: Hematuria. Portions of this sectio n were scribed by Bennie Neil on 10/04/18 at 044 5 Past Medical History - AdultStated Complaint PELVIC PAIN,"VOMITING BLOOD, BLOOD IN STOOL."AllergiesCoded Allergies:codeine (Severe, SHORTNESS OF BREATH 10/04/18) Home MedicationsReported MedicationsNo Known Home Medications Past Medical History:Reports: Asthma , Cancer (cervical, in remission), GERD/gastritis, Kidney disease/stones (stones). Denies: Diabetes mellitus, Hypertension. Additional Medical Historyh/o kidney infectionsPast Surgical History:Reports: Cholecystectomy. Alcohol Use Alcohol use (occasional)Drug Use Denies recreational drugsSmoking status for patients 13 years old or older: Unknown,if ever smokedOther Social History Local residentAdditional Social HistoryFather at bedside Portions of this sectio n were scribed by Bennie Neil on 10/04/18 at 004 8 Physical Exam Vital SignsVital SignsFirst Documented: Result Date Time Pulse Ox 100 10/044 B/P 113/68 10/044 B/P Mean 83 10/044 O2 Delivery Room air 10/04 33 Temp 36.8 10/04 33 Pulse 62 10/04 0034 Resp 17 10/04 0034 Last Documented: Result Date Time Pulse Ox 98 10/04 514 B/P 103/55 10/04 514 B/P Mean 71 10/04 0415 O2 Delivery Room air 10/04 514 Temp 36.8 10/04 514 Pulse 62 10/04 514 Resp 16 09/21 4 0515 Review of Vital Signs Reviewed Focused PEGeneral/Const General/Const Awake, Alert, Well developed Text/Dict NoteshirsutismMS Head Head Atraumatic, NormocephalicEyes Eyes EOMI, Conjunctiva NLEars/Nose/Throat Ears/Nose/Throat Airway patent, Mucous membranes moistResp/Chest Respiratory/Chest Breath sounds NL, No respiratory distress, No rales, No rhonchi, No wheezing, No retractionsCardiovascular Cardiovascular Heart rate NL, Regular rhythm, Heart sounds NL, No gallop, No murmurs, No rubsAbdomen/GI Abdomen/GI Soft, No guarding, No rebound, No distention Text/Dict Notesno hernia noted Tenderness/Guarding/Rebound Tender RLQ, Tender LLQ, Tender suprapubic. MS Back Back Atraumatic, Inspection NL, No CVA tendernessSkin Skin Warm, Dry, IntactNeurologic Neurologic Oriented X3, Speech NL Additional PEM S Neck Neck Supple, Full range of motionPsychiatri c Psychiatric Affect NL, Mood NL Portions of this section were scribed by Bennie Neil on 9 at 0539 Interpretation Diagnostics Lab Results InterpretationResultsLaboratory Tests 10/04/18 0147:[Embedded Image Not Available]Laboratory Tests: 10/04 10/04 0339 0147 Chemistry Sodium (134 - 147 mEq/L) 138 Potassium (3.4 - 5.0 mEq/L) 4.3 Chloride (100 - 108 mEq/L) 107 Carbo n Dioxide (21 - 33 mEq/L) 25 Anion Gap (0 - 20) 10 BUN (7 - 18 mg/dL) 10 Creatinine (0.6 - 1.3 mg/dL) 0.7 Glomerular Filtr Rate (105 - 110) 95. 8 L Glucose (70 - 110 mg/dL) 102 Calcium (8.0 - 10.5 mg/dL) 8.7 Total Bilirubin (0.0 - 1.0 mg/dL ) 0.20 AST (15 - 37 IUnit/L) 29 [...] - 9.0 fL) 12.0 H Neut % (Auto ) (56.0 - 77.0 %) 65.0 Lymph % (Auto) (14.0 - 32. 0 %) 25.7 [place] % (Auto) (4.8 - 9.0 %) 5.4 Eos % (Auto) (0.3 - 3.7 %) 2.5 Baso % (Auto) (0.0 - 2. 0 %) 0.7 Neut # (Auto) (2.0 - 7.6 x10 3/uL) 7.20 Lymph # (Auto) (1.0 - 3.8 x10 3/uL) 2.85 [place] # (Auto) (0.1 - 0.8 x10 3/uL) 0.60 Eos # (Auto) (0.0 - 0.2 x10 3/uL) 0.28 H Baso # (Auto) (0.0 - 0.2 x10 3/uL) 0.08 Abs Immat Gran (auto) (0.00 - 0.03 x10 3/uL) 0.08 H Add Manual Diff NO Immatur e Gran % (0.0 - 2.0 %) 0.7 Nucleated RBC % (0 - 0 %) 0.0 Nucleated RBCs # (Man) (0.0 - 0.1 x10 3/uL) 0.00 Urines Urine Color (YEL/STRAW) YELLOW Urine Appearance (CLEAR) TURBID H Urine pH (5.0 - 7.0) 5.0 Ur Specific [place] (1.005 - 1.030) 1.015 Urine Protein (NEGATIVE) 1+ H Urine Glucos e (UA) (NEGATIVE) NEGATIVE Urine Ketones (NEGATIVE ) NEGATIVE Urine Blood (NEGATIVE) 1+ H Urine Nitrite (NEGATIVE) NEGATIVE Urine Bilirubin (NEGATIVE) NEGATIVE Urine Urobilinogen (0.2 - 1. 0 mg/dL) 0.2 Ur Leukocyte Esterase (NEGATIVE) 3+ H Urine RBC (0 - 3 RBC/HPF) >50 H Urine WBC (0 - 3 WBC/HPF) >50 H Ur Squamous Epith Cells (NONE SEE N /HPF) 36-50 H Urine Bacteria (NONE SEEN /HPF) 2 + H Urine Mucus (NONE SEEN /LPF) 3+ H Microbiology : Date/Time Procedure - Status Source Growth 09/21 4 0422 Urine Culture - COMP URINE Recent Impressions:ULTRASOUND - US TRANSVAGINAL NON OB 10/04 326 Report Impression - Status: SIGNED Entered: 10/04/2018345 IMPRESSION:1. Trace fluid in the endometrial and cervical canal. Prominentcervix.2. Otherwise unremarkable pelvic ultrasound SL: JSYED-HImpression By: Guido Mckeon M.D.ULTRASOUND - US PELVIS COMPLETE 10/04 326 Report Impression - Status: SIGNED Entered: 10/04/2018345 IMPRESSION:1. Trace fluid in the endometrial and cervical canal. Prominentcervix.2. Otherwise unremarkable pelvic ultrasound SL: JSYED-HImpression By: Guido Mckeon M.D.CAT SCAN - CT ABD PELVIS W/O CON T 10/04 0338 Report Impression - Status: SIGNED Entered: 10/04/2018 0355 IMPRESSION: 1. No acute abdominal or pelvic abnormality. SL: MELVIN-HImpression By: BernadineJS38 - Luis Mckeon M.D. Lab Imaging StatementLaboratory radiographi c studies reviewed and considered in the medical decision-making. Point of Care TestingPulse Oximetry Pulse Ox % 100 On: Room air Interpretation Interpreted by me, Pulse oximetry normal Time 0034 ECG #1 InterpretationText/Dict NoteNSR, No STEMI, nml intervals, no ST segment changesDate 10/04/18Time 0225Interpreted by ED physicianRate 62 Portions of this section were scribed by Bennie Neil on 10/04/18 at 0539 Re-Evaluation MDM )( Re-Evaluation/Progress #1Text/Dict NoteDiscussed imaging results and enlarged cervix and need fo rf/u with ob/gy. Arleen n to D/C home f/u w/ [facility] AD[facility]ER (Dr. Anderson). She understands agrees w/ plan of care. uti without sx or signs of pyelonephritisTime of Re-Eval 0434)( Re-Eval Status Improved ED CourseMedication(s) OrderedMedication(s) Ordered:Central Nervous System Agents Sig/Chinedu Start time Last Medication Dose Route Stop Time Status Admin Ketorolac 15 MG X1ED STA 10/04 0108 DC 10/04 Tromethamine IV 10/04 0109 0239 Morphin e Sulfate 4 MG X1ED STA 10/04 0108 DC IV 10/04 010 9 Electrolytic, Caloric, And Cayden Sig/Chinedu Start ranjeet e Last Medication Dose Route Stop Time Status Admin Sodium Chloride 0 ASDIR PRN 10/04 0115 DCD IV 10/05 0008 Gastrointestinal Drugs Sig/Chinedu Start time Last Medication Dose Route Stop Time Status Admin Ondansetron HCl 4 MG ONCE PRN 10/04 0115 DCD 10/04 IV 11/03 0114 0239 Portions of this section were scribed by Bennie Neil on 10/04/18 at 0539 Patient Discharge Departure Vital Signs/ConditionVital SignsFirst Documented : Result Date Time Pulse Ox 100 10/04 0034 B/P 113/68 10/04 0034 B/P Mean 83 03/14 0034 O2 Delivery Room air 10/04 0034 Temp 36.8 10/04 003 4 Pulse 62 10/04 0034 Resp 17 10/04 0034 Last Documented: Result Date Time Pulse Ox 98 10/04 0415 B/P 103/55 10/04 0515 B/P Mean 71 10/04 051 5 O2 Delivery Room air 10/04 514 Temp 36.8 10/04 05 Pulse 62 10/04 05 Resp 16 10/04 0515 All vital signs available at the time of this entry have been reviewed. Condition Stable Clinical ImpressionClinical ImpressionPrimary Impression: UTI (urinary tract infection)Secondary Impressions: History of cervical cancer Disposition DecisionDischarge )( Discharged to Home Yes )( Time 043 )( Date 10/04/18 Discharge/Care PlanCounseled Regarding Diagnosis , Lab results, Imaging studies, Prescriptions, Needfor follow-up, When to return to EDPrescriptionsTramadolPrescriptions Reviewed Risks, Benefits, Alternative treatment Supervising Physician Note Scribe StatementBennie Neil, 10/04/18 0048, scribing for and in the presence of Dr. Adrianne Painter.Signed By: Bennie Neil, 10/04/18 0048 Provider Scribed StatementI personally performed the services described in this documentation and reviewedthe documentation that was dictated to the scribe(s) in my presence, and it accurately records my words and actions. Adrianne Painter, 10/07/18 Portions of this section were scribed b y Bennie Neil on 10/04/18 at 0437 at 1544RPT #:[id number] OF REPORTEDEmergenc y department [id number]:48:00G.[id number] ady ilable for patient [id number]:44:38 2018-08-28 15:02:00 [id number]:02:00 [facility])EMERGENCY PROVIDER REPORTREPORT#:[id number] REPORT STATUS: SignedDATE:08/28/18 TIME:1502 PATIENT: SHEILA RODRIGUEZ UNIT #: [id number]#: [id number] ROOM/BED:: 84 AGE: 32 SEX: F PCP PHYS: Dave Callahan DOSERVICE AUTHOR: Olga Crain I ENERGY EFFICIENT SITE MANAGER * ALL edits or amendments must be made on the electronic/computer document * HPI-Allergic Reaction GeneralConfirmed Patient YesPatient Type New patientInitial Greet Date/Time 08/28/18 1426 PresentationChief Complaint Rash (to face)Hx Obtained From PatientOnset Occurred TodaySymptom Duration Sinc e onset, ConstantProgression since Onset UnchangedContext of Onset Exposure, poison ivyLocation Face rashQuality ItchingRadiation Does not radiateSeverity: Current Pain level 0 out of 10Associated withReports: Itching localized (to face ). Associated Other Pt denies other symptomsExacerbated by ScratchingRelieved by Nothing Free Text HPI NotesFree Text HPI Notes32 yo female presents to ED via EMS with c/ o facial rash after being exposed to poison pito. Reports she had same episode yesterday and went to [facility] where she received a steroid shot and was diagnosed on benadryl. Reports she went to clean the same are a she was exposed to yesterday again today when th e rash developed. C/O itching and SOB when she was picked upby EMS. Patient is in no acute distress at current time. Review of Systems ROS StatementsAll systems rev neg except as marked.Complete sys rev neg except as marked. Focused Review of SystemsConstitutionalDenies: Chills, Fever, Lethargy. Ears/Nose/ThroatDenies: Earache bilat, Nasal congestion, Sore throat. RespiratoryDenies: Cough, non-productive, Cough, productive, Pleuritic pain, Shortness of breath, Wheezing. GIDenies: Abdominal pain, Diarrhea, Nausea, Vomiting. SkinReports: Rash. NeurologicDenies: Change LOC, Dizziness, Focal weakness, Headache, Numbness, Slurred speech. Past Medical History - AdultStated Complaint POSION IVYAllergiesCoded Allergies:codeine (Severe, SHORTNESS OF BREATH 08/28/18) Home MedicationsReported MedicationsNo Known Home Medications Review of Nursing Notes Rev avail, and agree (triage only)Past Medical History:Reports: Asthma, Cancer (cervical, in remission), GERD/gastritis, Kidney disease/stone s (stones). Denies: Diabetes mellitus, Hypertension. Additional Medical Historyh/o kidney infectionsPast Surgical History:Reports: Cholecystectomy. Alcohol Use Alcohol use (occasional)Drug Use Denies recreational drugsSmoking status for patients 13 years old or older: Current some day smokerOther Social History Local residentAdditional Social HistoryFather at bedside Physical Exam Vital SignsVital SignsFirst Documented: Result Date Time Pulse Ox 100 08/28 1425 B/P 120/79 / 1425 B/P Mean 92 08/28 1425 O2 Delivery Room air 08/28 1425 Temp 98.5 08/28 1425 Pulse 79 02/ 1425 Resp 20 02/ 1425 Last Documented: Result Date Time Pulse Ox 99 02/ 1533 B/P 122/70 02/0 5 1533 B/P Mean 87 02/05 1533 O2 Delivery Room air 08/28 1533 Pulse 80 02/05 1533 Resp 18 02/05 153 3 Temp 98.5 0205 1425 Review of Vital Signs Reviewed Focused PEGeneral/Const General/Cons t Awake, Alert, No acute distress, Well appearing, Well hydrated,Cooperative, Not toxic appearingMS Head Head AtraumaticEyes Eyes No periorbital redness, No periorbital swelling, Conjunctiva NLEars/Nose/Throat Ears/Nose/Throat Airway patent, Mucous membranes moist, Pharynx NL, Tympanic membs NL, Ext aud canal NL, No facial swellingResp/Chest Respiratory/Chest Breath sounds NL, Breath sounds = bilat, No respiratory distress, No rales, No rhonchi, No wheezing, No retractions, No stridorCardiovascular Cardiovascular Heart rate NL, Regular rhythm, Heart sounds NL, Cap refill notdelayed, Peripheral circulation NLAbdomen/GI Abdomen/GI Soft, Non-tender, BS normoactiveSkin Skin Warm, Dry, No swelling Text/Dict NotesFacial erythematous rash. Non tender.Neurologic Neurologic Oriented X3, Speech NL, No motor deficits, No sensory deficits Additional PEMS Neck Neck Atraumatic, Full range of motionMS Jose F k Back Atraumatic, Full range of motionPsychiatric Psychiatric Affect NL, Mood NL Interpretation Diagnostics Point of Care TestingPulse Oximetry Pulse Ox % 100 On: Room air Interpretation Interpreted by me, Pulse oximetry normal Re-Evaluation MDM )( Re-Evaluation/Progress #1)( Re-Eval Status Improved ED CourseMedication(s) OrderedMedication(s) Ordered:Antihistamine Drugs Sig/Chinedu Start time Last Medication Dose Route Stop Time Status Admin Diphenhydramine HCl 25 MG X1ED STA 02/ 1501 DC 02/05 PO 02/05 1502 1512 Central Nervous System Agents Sig/Chinedu Start time Last Medication Dose Route Stop Time Status Admi n Ibuprofen 600 MG X1ED STA / 1501 DC 02/05 PO 02/05 1502 1512 Eye, Ear, Nose And Throat (Een Sig/Chinedu Start time Last Medication Dose Route Stop Time Status Admin Dexamethasone Sodium 8 MG X1ED STA / 1501 DC 02/ Phosphate PO 02/05 1502 1512 Gastrointestinal Drugs Sig/Chinedu Start time Last Medication Dose Route Stop Time Status Admin Famotidine 40 MG X1ED STA 02/ 1501 DC 02/05 PO 02/05 1502 1512 Patient Discharge Departure Vital Signs/ConditionVital SignsFirst Documented: Result Date Time Pulse Ox 100 02/ 1425 B/P 120/79 02/ 1425 B/P Mean 92 02/ 1425 O2 Delivery Room air 02/ 1425 Temp 98.5 02/05 1425 Pulse 79 02/05 1425 Resp 20 02/ 142 5 Last Documented: Result Date Time Pulse Ox 99 02/ 1533 B/P 122/70 02/ 1533 B/P Mean 87 02/05 1533 O2 Delivery Room air 02/ 1533 Pulse 80 02/ 1533 Resp 18 02/ 1533 Temp 98.5 02/05 1425 All vital signs available at the time of this entry have been reviewed. Condition Stable Clinical ImpressionClinical ImpressionPrimary Impression: Poison pito dermatitis Disposition DecisionDischarge )( Discharged to Home Yes )( Time 1523 )( Date 08/28/18 Discharge/Care PlanCounseled Regarding Diagnosis, Prescriptions , Need for follow-up, When to returnto EDPrescriptionsprednisone, zyrtec, pepcid, zanfe l otcPrescriptions Reviewed Risks, Benefits, Alternative treatment Discharge NoteI have spoke n with the patient and/or caregivers. I have explained the patient'scondition, diagnoses and treatment plan based on the information availabl e to meat this time. I have answered the patient's and/or caregiver's questions and addressed any concerns. The patient and/or caregivers have as good an understanding of the patient's diagnosis , condition and treatment plan as can beexpected a t this point. The vital signs have been stable. Th e patient's condition is stable and appropriate fo r discharge from the emergency department. The patient will pursue further outpatient evaluatio n with the primary care physician or other designated or consulting physician as outlined i n the discharge instructions. The patient and/or caregivers are agreeable to this planof care and follow-up instructions have been explained in detail. The patient and/or caregivers have received these instructions in written format an d have expressed an understanding of the discharge instructions. The patient and/or caregivers are aware that any significant change in condition o r worsening of symptoms should prompt an immediate return to this or the closest emergency department or a call to 911. at 1724 RPT #: [id number] OF REPORTEDEmerdewitt hospital department [id number]:02:00L.[id number] a ilable for patient [id number]:23:56 2018-08-28 15:02:00 [id number]:02:00 [facility] ([facility])EMERGENCY PROVIDER REPORTREPORT#:[id number] REPORT STATUS: SignedDATE:08/28/18 TIME:150 PATIENT: SHEILA RODRIGUEZ UNIT #: [id number]#: [id number] ROOM/BED:: 84 AGE: 32 SEX: F PCP PHYS: Dave Callahan DOSERVICE AUTHOR: Crain,Olga I ENERGY EFFICIENT SITE MANAGER * ALL edits or amendments mus t be made on the electronic/computer document * Olga Crain 08/28/18 1502:HPI-Allergic Reactio n GeneralConfirmed Patient YesPatient Type New patient PresentationChief Complaint Rash (to face)Hx Obtained From PatientOnset Occurred TodaySymptom Duration Since onset, ConstantProgression since Onset UnchangedContext of Onset Exposure, poison ivyLocation Face rashQuality ItchingRadiation Does not radiateSeverity: Current Pain level 0 out of 10Associated withReports: Itching localized (to face ). Associated Other Pt denies other symptomsExacerbated by ScratchingRelieved by Nothing Free Text HPI NotesFree Text HPI Notes32 yo female presents to ED via EMS with c/o facial rash after being exposed to poison pito. Reports she had same episode yesterday and went to [facility] where she received a steroid shot and was diagnosed on benadryl. Reports she went to clean the same are a she was exposed to yesterday again today when th e rash developed. C/O itching and SOB when she was picked upby EMS. Patient is in no acute distress at current time. Review of Systems ROS StatementsAll systems rev neg except as marked.Complete sys rev neg except as marked. Focused Review of SystemsConstitutionalDenies: Chills, Fever, Lethargy. Ears/Nose/ThroatDenies: Earache bilat, Nasal congestion, Sore throat. RespiratoryDenies: Cough, non-productive, Cough, productive, Pleuritic pain, Shortness of breath, Wheezing. GIDenies: Abdominal pain, Diarrhea, Nausea, Vomiting. SkinReports: Rash. NeurologicDenies: Change LOC, Dizziness, Focal weakness, Headache, Numbness, Slurred speech. Past Medical History - AdultStated Complaint POSION IVYAllergiesCoded Allergies:codeine (Severe, SHORTNESS OF BREATH 08/28/18) Home MedicationsReported MedicationsNo Known Home Medications Review of Nursing Notes Rev avail, and agree (triage only)Past Medical History:Reports: Asthma, Cancer (cervical, in remission), GERD/gastritis, Kidney disease/stone s (stones). Denies: Diabetes mellitus, Hypertension. Additional Medical Historyh/o kidney infectionsPast Surgical History:Reports: Cholecystectomy. Alcohol Use Alcohol use (occasional)Drug Use Denies recreational drugsSmoking status for patients 13 years old or older: Current some day smokerOther Social History Local residentAdditional Social HistoryFather at bedside Physical Exam Vital SignsVital SignsFirst Documented: Result Date Time Pulse Ox 100 08/28 1425 B/P 120/79 08/28 1425 B/P Mean 92 08/28 1425 O2 Delivery Room air 08/28 1425 Temp 98.5 08/28 1425 Pulse 79 08/28 1425 Resp 20 08/28 1425 Last Documented: Result Date Time Pulse Ox 99 08/28 1533 B/P 122/70 02/0 5 1533 B/P Mean 87 08/28 1533 O2 Delivery Room ai r 08/28 1533 Pulse 80 08/28 1533 Resp 18 08/28 153 3 Temp 98.5 08/28 1425 Review of Vital Signs Reviewed Focused PEGeneral/Const General/Cons t Awake, Alert, No acute distress, Well appearing, Well hydrated,Cooperative, Not toxic appearingMS Head Head AtraumaticEyes Eyes No periorbital redness, No periorbital swelling, Conjunctiva NLEars/Nose/Throat Ears/Nose/Throat Airway patent, Mucous membranes moist, Pharynx NL, Tympanic membs NL, Ext aud canal NL, No facial swellingResp/Chest Respiratory/Chest Breath sounds NL, Breath sounds = bilat, No respiratory distress, No rales, No rhonchi, No wheezing, No retractions, No stridorCardiovascular Cardiovascular Heart rate NL, Regular rhythm, Heart sounds NL, Cap refill notdelayed, Peripheral circulation NLAbdomen/GI Abdomen/GI Soft, Non-tender, BS normoactiveSkin Skin Warm, Dry, No swelling Text/Dict NotesFacial erythematous rash. Non tender.Neurologic Neurologic Oriented X3, Speech NL, No motor deficits, No sensory deficits Additional PEMS Neck Neck Atraumatic, Full range of motionMS Jose F k Back Atraumatic, Full range of motionPsychiatric Psychiatric Affect NL, Mood NL Interpretation Diagnostics Point of Care TestingPulse Oximetry Pulse Ox % 100 On: Room air Interpretation Interpreted by me, Pulse oximetry normal Re-Evaluation MDM )( Re-Evaluation/Progress #1)( Re-Eval Status Improved ED CourseMedication(s) OrderedMedication(s) Ordered:Antihistamine Drugs Sig/Chinedu Start time Last Medication Dose Route Stop Time Status Admin Diphenhydramine HCl 25 MG X1ED STA 08/28 1501 DC 02/ PO 02 1502 1512 Central Nervous System Agents Sig/Chinedu Start time Last Medication Dose Route Stop Time Status Admi n Ibuprofen 600 MG X1ED STA 08/28 1501 DC 02/ PO 02/05 1502 1512 Eye, Ear, Nose And Throat (Een Sig/Chinedu Start time Last Medication Dose Route Stop Time Status Admin Dexamethasone Sodium 8 MG X1ED STA 08/28 1501 DC 02/05 Phosphate PO 02 1502 1512 Gastrointestinal Drugs Sig/Chinedu Start time Last Medication Dose Route Stop Time Status Admin Famotidine 40 MG X1ED STA 08/28 1501 DC 02/ PO 08/28 1502 1512 Patient Discharge Departure Vital Signs/ConditionVital SignsFirst Documented: Result Date Time Pulse Ox 100 02/ 1425 B/P 120/79 02/ 1425 B/P Mean 92 02/ 1425 O2 Delivery Room air 02/ 1425 Temp 98.5 02/ 1425 Pulse 79 02/05 1425 Resp 20 02/ 1425 Last Documented: Result Date Time Pulse Ox 99 02/ 1533 B/P 122/70 02/ 1533 B/P Mean 87 02/ 1533 O2 Delivery Room air 02/ 1533 Puls e 80 02/ 1533 Resp 18 02/ 1533 Temp 98.5 02/05 1425 All vital signs available at the time of this entry have been reviewed. Condition Stable Clinical ImpressionClinical ImpressionPrimary Impression: Poison pito dermatitis Disposition DecisionDischarge )( Discharged to Home Yes )( Time 1523 )( Date 08/28/18 Discharge/Care PlanCounseled Regarding Diagnosis, Prescriptions , Need for follow-up, When to returnto EDPrescriptionsprednisone, zyrtec, pepcid, zanfe l otcPrescriptions Reviewed Risks, Benefits, Alternative treatment Discharge NoteI have spoke n with the patient and/or caregivers. I have explained the patient'scondition, diagnoses and treatment plan based on the information availabl e to meat this time. I have answered the patient's and/or caregiver's questions and addressed any concerns. The patient and/or caregivers have as good an understanding of the patient's diagnosis , condition and treatment plan as can beexpected a t this point. The vital signs have been stable. Th e patient's condition is stable and appropriate fo r discharge from the emergency department. The patient will pursue further outpatient evaluatio n with the primary care physician or other designated or consulting physician as outlined i n the discharge instructions. The patient and/or caregivers are agreeable to this planof care and follow-up instructions have been explained in detail. The patient and/or caregivers have received these instructions in written format an d have expressed an understanding of the discharge instructions. The patient and/or caregivers are aware that any significant change in condition o r worsening of symptoms should prompt an immediate return to this or the closest emergency department or a call to 911. Isabel Davidson . 09/03/18 0416:HPI-Allergic Reaction GeneralInitial Greet Date/Time 08/28/18 1426 Physical Exam Vital SignsVital Signs Patient Discharge Departure Vital Signs/ConditionVital Signs Supervising Physician Note MidLv Saw Pt AloneI have reviewed the PA/ENERGY EFFICIENT SITE MANAGER's note and plan o f care. I was available for consultation as needed at all times during the patient's visit in the emergency department. I agree with the clinical impression, plan and disposition. at 1724 at 0416 RPT #: [id number] OF REPORTB[facility] department [id number]:02:00L.[id number] a ilable for patient [id number]:16:31
--- NOTE | 2023-06-19 15:37 | ER ---
Nurse's Notes [facility] Name: Jodie Rodriguez Age: 37 yrs Sex: Female : 1985 Arrival Date: 06/19/2023 Time: 14:20 Bed DX4 Private MD: Diagnosis: Cervicalgia Presentation: 06/19 14:35 Chief complaint: Patient states: "For the past 3 day, I can't move my neck to the side. mb9 It feels stiff. I didn't fall or anything, just woke up like this". Coronavirus screen: Vaccine status: Patient reports receiving the 2nd dose of the covid vaccine. Ebola Screen: No symptoms or risks identified at this time. Initial Sepsis Screen: Does the patient meet any 2 criteria? No. Patient's initial sepsis screen is negative. Does the patient have a suspected source of infection? No. Patient's initial sepsis screen is negative. Risk Assessment: Do you want to hurt yourself or someone else? Patient reports no desire to harm self or others. Onset of symptoms was June 19, 2023. 14:35 Method Of Arrival: Ambulatory mb9 14:35 Acuity: FLORA 4 mb9 Triage Assessment: 14:36 General: Appears in no apparent distress. Behavior is calm, cooperative. Pain: mb9 Complains of pain in neck. EENT: No signs and/or symptoms were reported regarding the EENT system. Neuro: Fontenot Agitation-Sedation Scale (RASS): 0 - Alert and Calm Level of Consciousness is awake, alert, obeys commands, Oriented to person, place, time, situation, Appropriate for age. Cardiovascular: Patient's skin is warm and dry. Respiratory: Airway is patent Respiratory effort is even, unlabored, Respiratory pattern is regular, symmetrical. GI: No signs and/or symptoms were reported involving the gastrointestinal system. : No signs and/or symptoms were reported regarding the genitourinary system. Derm: Skin is pink, warm \\T\\ dry. Musculoskeletal: Range of motion: limited in neck. Historical: - Allergies: 14:36 Codeine; mb9 14:36 Morphine; mb9 - PMHx: 14:36 Anxiety; Asthma; depressive disorder; mb9 - PSHx: 14:36 Cholecystectomy; section; hernia repair; mb9 - Immunization history:: Adult Immunizations up to date. - Social history:: Smoking status: Patient reports the use of cigarette tobacco products, denies chronic smoking, but will smoke occasionally. Assessment: 15:49 Reassessment: No changes from previously documented assessment. Patient and/or family mb9 updated on plan of care and expected duration. Pain level reassessed. Patient is alert, oriented x 3, equal unlabored respirations, skin warm/dry/pink. Vital Signs: 14:35 BP 118 / 76; Pulse 70; Resp 16; Temp 98; Pulse Ox 100% on R/A; Weight 83.91 kg; Height mb9 5 ft. 0 in. ; 14:35 Body Mass Index 36.13 (83.91 kg, 152.4 cm) mb9 ED Course: 14:22 Patient arrived in ED. mr 14:36 Triage completed. mb9 14:36 Arm band placed on. mb9 14:49 Juan Guzman DO is Attending Physician. ms3 14:59 Attending Physician role handed off by Juan Guzman DO rt 14:59 Desean Rubio MD is Attending Physician. rt 15:49 Patient has correct armband on for positive identification. Adult w/ patient. mb9 15:49 No provider procedures requiring assistance completed. Patient did not have IV access mb9 during this emergency room visit. Administered Medications: 15:46 Drug: Ketorolac IM 15 mg IM once Route: IM; Site: left deltoid; mb9 Outcome: 15:36 Discharge ordered by . rt 15:49 Discharged to home ambulatory, with family, mb9 15:49 Condition: stable 15:49 Discharge instructions given to patient, Instructed on discharge instructions, follow up and referral plans. Demonstrated understanding of instructions, follow-up care, medications, Prescriptions given X 1, 15:49 Patient left the ED. mb9 Signatures: Delia Mart, Reg Reg mr Juan Guzman DO DO ms3 Delia Ewing RN RN mb9 Desean Rubio MD MD rt
--- NOTE | 2023-06-19 15:37 | EDPHYS ---
Physician Documentation [facility] Name: Jodie Rodriguez Age: 37 yrs Sex: Female : 1985 Arrival Date: 06/19/2023 Time: 14:20 Bed DX4 Private MD: ED Physician Desean Rubio HPI: 06/19 21:39 This 37 yrs old Female presents to ER via Ambulatory with complaints of Stiff rt Neck. 21:39 Patient presents to the ED with a neck pain, reported stiff neck. She has had similar rt symptoms previously. Patient states that she woke up this way. Denies fever, chills, other acute complaints. Symptoms are mild in severity, nonradiating, no other aggravating elevating factors.. Historical: - Allergies: 14:36 Codeine; mb9 14:36 Morphine; mb9 - PMHx: 14:36 Anxiety; Asthma; depressive disorder; mb9 - PSHx: 14:36 Cholecystectomy; section; hernia repair; mb9 - Immunization history:: Adult Immunizations up to date. - Social history:: Smoking status: Patient reports the use of cigarette tobacco products, denies chronic smoking, but will smoke occasionally. ROS: 21:39 Constitutional: Negative for fever, chills, and weight loss, Cardiovascular: Negative rt for chest pain, palpitations, and edema, Respiratory: Negative for shortness of breath, cough, wheezing, and pleuritic chest pain, Abdomen/GI: Negative for abdominal pain, nausea, vomiting, diarrhea, and constipation, MS/Extremity: Negative for injury and deformity, Skin: Negative for injury, rash, and discoloration, Neuro: Negative for headache, weakness, numbness, tingling, and seizure, Psych: Negative for depression, anxiety, suicide ideation, homicidal ideation, and hallucinations, 21:39 Neck: Positive for pain with movement, Negative for injury or acute deformity, Exam: 21:39 Constitutional: This is a well developed, well nourished patient who is awake, alert, rt and in no acute distress. Head/Face: Normocephalic, atraumatic. Chest/axilla: Normal chest wall appearance and motion. Nontender with no deformity. No lesions are appreciated. Cardiovascular: Regular rate and rhythm with a normal S1 and S2. No gallops, murmurs, or rubs. Normal PMI, no JVD. No pulse deficits. Respiratory: Lungs have equal breath sounds bilaterally, clear to auscultation and percussion. No rales, rhonchi or wheezes noted. No increased work of breathing, no retractions or nasal flaring. Abdomen/GI: Soft, non-tender, with normal bowel sounds. No distension or tympany. No guarding or rebound. No evidence of tenderness throughout. Skin: Warm, dry with normal turgor. Normal color with no rashes, no lesions, and no evidence of cellulitis. MS/ Extremity: Pulses equal, no cyanosis. Neurovascular intact. Full, normal range of motion. Neuro: Awake and alert, GCS 15, oriented to person, place, time, and situation. Cranial nerves II-XII grossly intact. Motor strength 5/5 in all extremities. Sensory grossly intact. Cerebellar exam normal. Normal gait. Psych: Awake, alert, with orientation to person, place and time. Behavior, mood, and affect are within normal limits. 21:39 Neck: Patient able to range neck, tenderness to the bilateral superior trapezius muscles, no midline tenderness, no step-offs, Vital Signs: 14:35 BP 118 / 76; Pulse 70; Resp 16; Temp 98; Pulse Ox 100% on R/A; Weight 83.91 kg; Height mb9 5 ft. 0 in. ; 14:35 Body Mass Index 36.13 (83.91 kg, 152.4 cm) mb9 MDM: 15:22 Patient medically screened. rt 21:39 Differential diagnosis: Muscle spasm, musculoskeletal pain. Data reviewed: vital signs, rt nurses notes. Test considered but Not performed: Other Details Patient with previous CT scan showing disc bulging. Patient is afebrile, able to range the neck. Have a very low suspicion for meningitis, encephalitis, lumbar puncture not indicated. Further imaging is not indicated at this time.. Counseling: I had a detailed discussion with the patient and/or guardian regarding the historical points, exam findings, and any diagnostic results supporting the discharge/admit diagnosis, the need for outpatient follow up. Administered Medications: 15:46 Drug: Ketorolac IM 15 mg IM once Route: IM; Site: left deltoid; mb9 Disposition Summary: 06/19/23 15:36 Discharge Ordered Notes: Location: Home rt Problem: an ongoing problem rt Symptoms: have improved rt Condition: Stable rt Diagnosis - Cervicalgia rt Followup: rt - With: Private Physician - When: 7 - 10 days - Reason: Discharge Instructions: - Discharge Summary Sheet rt - Cervical Radiculopathy rt Forms: - Work release form mb9 - Medication Reconciliation Form rt - Thank You Letter rt - Antibiotic Education rt - Prescription Opioid Use rt - Patient Portal Instructions rt - Leadership Thank You Letter rt Prescriptions: - Cyclobenzaprine 10 mg Oral Tablet - take 1 tablet ORAL route every 8 hours As needed; 30 tablet; Refills: 0, rt Product Selection Permitted Signatures: Delia Ewing RN RN mb9 Desean Rubio MD MD rt
[2023-06-19] MEDS ORDERED: KETOROLAC 30 MG/ML INJ ONE (15:55)
[2023-06-19 16:18] VITALS: BP 118/76; TEMP 98; O2SAT 100
== END 2023-06-19 15:49 | disposition home or self-care (01) ==
LOC: ER 14:20
DX: M54.2 Cervicalgia (principal)
CPT/HCPCS: 96372; 99284

== ENCOUNTER → 2023-07-21 | Emergency (ER) | payer OTHER, SELFPAY ==
[~2023-07-21] MED LIST: KETOROLAC 30 MG/ML INJ ONE
--- NOTE | 2023-07-21 18:11 | RAD REPORT ---
EXAM DESCRIPTION: RAD - Foot Left 2 View - 07/21/2023 5:38 pm CLINICAL HISTORY: pain COMPARISON: No comparisons TECHNIQUE: Left foot, 3 views. FINDINGS: No fracture, dislocation or periosteal reaction. No air or foreign body in the soft tissues. IMPRESSION: Negative left foot radiographs.
--- NOTE | 2023-07-21 18:23 | RAD REPORT ---
EXAM DESCRIPTION: RAD - Foot Right 2 View - 07/21/2023 5:38 pm CLINICAL HISTORY: pain COMPARISON: Foot Right 3 View dated 08/17/2022; Foot Left 2 View dated 07/21/2023 TECHNIQUE: Right foot, 3 views. FINDINGS: No fracture, dislocation or periosteal reaction. No air or foreign body in the soft tissues. IMPRESSION: Negative right foot examination.
--- NOTE | 2023-07-21 18:28 | EDPHYS ---
Physician Documentation [facility] Name: Jodie Rodriguez Age: 37 yrs Sex: Female : 1985 Arrival Date: 07/21/2023 Time: 15:52 Bed IW1 Private MD: ED Physician Tony Woods HPI: 07/21 18:35 This 37 yrs old Female presents to ER via Ambulatory with complaints of Foot kb Pain. 18:35 Pt is a 37 year old female who presents for bilateral chronic foot pain that has gotten kb worse over the last week or two. Denies injury or trauma. Historical: - Allergies: 15:59 Codeine; hb 15:59 Morphine; hb - Home Meds: 15:59 albuterol sulfate 90 mcg/actuation Inhl aepb [Active]; hb - PMHx: 15:59 Asthma; depressive disorder; Anxiety; hb - PSHx: 15:59 section; Cholecystectomy; hernia repair; hb - Immunization history:: Adult Immunizations up to date. - Social history:: Smoking status: Patient reports the use of cigarette tobacco products, denies chronic smoking, but will smoke occasionally. ROS: 18:34 Constitutional: Negative for fever, chills, and weight loss, kb 18:34 MS/extremity: Positive for pain, of the right foot and left foot, 18:34 All other systems are negative, Exam: 18:34 Constitutional: This is a well developed, well nourished patient who is awake, alert, kb and in no acute distress. Head/Face: Normocephalic, atraumatic. ENT: Moist Mucous membranes Respiratory: Respirations even and unlabored. No increased work of breathing. Talking in full sentences Skin: Warm, dry with normal turgor. Normal color. Neuro: Awake and alert, GCS 15, oriented to person, place, time, and situation. Moves all extremities. Normal gait. 18:34 Musculoskeletal/extremity: Extremities: grossly normal except: noted in the left foot and right foot: pain, ROM: intact in all extremities, Circulation is intact in all extremities. Sensation intact. Weight bearing: able to fully bear weight, Vital Signs: 15:58 BP 114 / 89; Pulse 85; Resp 18; Temp 97.1(TE); Pulse Ox 100% on R/A; Weight 113.4 kg; hb Height 4 ft. 11 in. ; Pain 5/10; 15:58 Body Mass Index 50.49 (113.40 kg, 149.86 cm) hb 15:58 Pain Scale: Adult hb MDM: 15:59 Patient medically screened. kb 18:35 Differential diagnosis: contusion, fracture, chronic pain, arthritis. Data reviewed: kb vital signs, nurses notes. 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 07/21 18:12 Order name: RAD; Complete Time: 18:13 EDMS 07/21 18:24 Order name: RAD; Complete Time: 18:26 EDMS Administered Medications: 18:44 Drug: Ketorolac IM 30 mg IM once Route: IM; Site: right deltoid; 18:44 Follow up: Response: Medication administered at discharge. Disposition: 19:05 Co-signature as Attending Physician, Tony Woods MD I agree with the assessment and kdr plan of care. Disposition Summary: 07/21/23 18:27 Discharge Ordered Notes: Location: Home kb Condition: Stable kb Diagnosis - Pain in right foot kb - Pain in left foot kb Followup: kb - With: Emergency Department - When: As needed - Reason: Worsening of condition Followup: kb - With: Private Physician - When: 2 - 3 days - Reason: Recheck today's complaints, Continuance of care, Re-evaluation by your physician Discharge Instructions: - Discharge Summary Sheet kb - Foot Pain kb Forms: - Medication Reconciliation Form kb - Thank You Letter kb - Antibiotic Education kb - Prescription Opioid Use kb - Patient Portal Instructions kb - Leadership Thank You Letter kb - Work release form iw Signatures: Dispatcher [employer] EDMS Zaynab Hood, PATIENT OMBUDSPERSON-C PATIENT OMBUDSPERSON-Tony Alamo MD MD [facility] Senait Reddy, RN RN hb
--- NOTE | 2023-07-21 18:28 | ER ---
Nurse's Notes [facility] Name: Jodie Rodriguez Age: 37 yrs Sex: Female : 1985 Arrival Date: 07/21/2023 Time: 15:52 Bed IW1 Private MD: Diagnosis: Pain in right foot;Pain in left foot Presentation: 07/21 15:58 Chief complaint: Bilateral foot pain x 1 week. Hx of heel spurs. Coronavirus screen: At this time, the client does not indicate any symptoms associated with coronavirus-19. Ebola Screen: No symptoms or risks identified at this time. Initial Sepsis Screen: Does the patient meet any 2 criteria? No. Patient's initial sepsis screen is negative. Does the patient have a suspected source of infection? No. Patient's initial sepsis screen is negative. Risk Assessment: Do you want to hurt yourself or someone else? Patient reports no desire to harm self or others. Onset of symptoms was July 14, 2023. 15:58 Method Of Arrival: Ambulatory hb 15:58 Acuity: FLORA 4 hb Triage Assessment: 15:59 General: Appears in no apparent distress. Behavior is calm, cooperative. Pain: Pain hb currently is 5 out of 10 on a pain scale. Neuro: Level of Consciousness is awake, alert, obeys commands, Oriented to person, place, time, situation. Cardiovascular: Patient's skin is warm and dry. Respiratory: Respiratory effort is even, unlabored, Respiratory pattern is regular, symmetrical. Historical: - Allergies: 15:59 Codeine; hb 15:59 Morphine; hb - Home Meds: 15:59 albuterol sulfate 90 mcg/actuation Inhl aepb [Active]; hb - PMHx: 15:59 Asthma; depressive disorder; Anxiety; hb - PSHx: 15:59 section; Cholecystectomy; hernia repair; hb - Immunization history:: Adult Immunizations up to date. - Social history:: Smoking status: Patient reports the use of cigarette tobacco products, denies chronic smoking, but will smoke occasionally. Vital Signs: 15:58 BP 114 / 89; Pulse 85; Resp 18; Temp 97.1(TE); Pulse Ox 100% on R/A; Weight 113.4 kg; hb Height 4 ft. 11 in. ; Pain 5/10; 15:58 Body Mass Index 50.49 (113.40 kg, 149.86 cm) hb 15:58 Pain Scale: Adult hb ED Course: 15:56 Patient arrived in ED. rg4 15:59 Triage completed. hb 15:59 Zaynab Hood F[facility]-C [facility] kb 15:59 Tony Woods MD is Attending Physician. kb 15:59 Arm band placed on. hb Administered Medications: 18:44 Drug: Ketorolac IM 30 mg IM once Route: IM; Site: right deltoid; hb 18:44 Follow up: Response: Medication administered at discharge. hb Outcome: 18:27 Discharge ordered by . kb 18:45 Patient left the ED. hb Signatures: Zaynab Hood FNP-C TRACK WATCHMAN-Senait Buenrostro, [facility] RN Shanhaz Lassiter rg4
[2023-07-21 20:47] VITALS: BP 114/89; TEMP 97.1; O2SAT 100
== END ==
LOC: ER 15:52
DX: M79.672 Pain in left foot (principal); M79.671 Pain in right foot
CPT/HCPCS: 96372; 99283

== ENCOUNTER → 2023-09-29 | Emergency (ER) | payer OTHER, SELFPAY ==
[~2023-09-29] MED LIST changes: +FENTANYL CITR 100 MCG/2 ML ONE; +NA CHLORIDE 0.9% 1,000 ML ONE
[2023-09-29 18:54] LABS: Absolute Basophils 0.1 K/uL (0-0.5); Absolute Lymphocytes (CBC) 2.5 K/uL (0.7-4.9); Hematocrit 39.1 % (36.0-45.0); MCV 91.5 fL (80-100); MPV 9.9 fL (7.6-11.3); Platelets 213 thou/uL (152-406); RBC Red Blood Cell Count 4.27 M/uL (3.86-4.86)
[2023-09-29 19:08] LABS: Anion Gap 8.7 mEq/L (5.0-15.0); BUN Blood Urea Nitrogen 11 mg/dL (7-18); Bicarbonate 26 mEq/L (21-32); Glomerular Filtration Rate 74 ml/min (=/>90); Glucose Level 109 mg/dL (74-106); Potassium 3.7 mEq/L (3.5-5.1); Sodium Level 136 mEq/L (136-145)
[2023-09-29 19:11] LABS: HCG, Quantitative < 1 mIU/mL (1-3)
[2023-09-29 19:31] LABS: Specific Gravity > 1.030 (1.005-1.030)
[2023-09-29 19:36] LABS: Specific Gravity > 1.030 (1.005-1.030); Urine Bacteria None Seen /HPF (<20); Urine Bilirubin NEGATIVE (Negative); Urine Blood 3+ (OVER) (Negative); Urine Clarity Extremely Turbid (Clear); Urine Color Yellow (Yellow); Urine Glucose NEGATIVE (Negative); Urine Mucus 2+ /HPF (None Seen); Urine Protein 1+ (Negative); Urine Urobilinogen 1+ (Normal); Urine Yeast (Budding) Trace /HPF (None Seen)
--- NOTE | 2023-09-29 20:01 | RAD REPORT ---
EXAM DESCRIPTION: US - Transvaginal Study Probe - 09/29/2023 7:50 pm CLINICAL HISTORY: VAGINAL BLEEDING COMPARISON: No comparisons FINDINGS: The uterus is normal in size, shape and echotexture. The uterus measures 5.6 x 2.8 x 4.3 c m. Intramural fibroid noted measuring 10 mm. The endometrial stripe measures 2 mm, normal. Both ovaries are normal in size, shape and echotexture. The right ovary measures 2 x 2.1 x 1.5 cm wi th volume of 3.3 cc. The left ovary measures 1.9 x 1.9 x 1.5 cm with volume of 2.8 cc. No ovarian or parovarian lesions. No adnexal masses. Normal Doppler blood flow was demonstrated to both ovaries. No significant pelvic ascites. IMPRESSION: 1. Bilateral ovarian blood flow. 2. Small intramural fibroid.
--- NOTE | 2023-09-29 21:04 | RAD REPORT ---
EXAM DESCRIPTION: CTAbdomen Pelvis W Contrast - 09/29/2023 8:51 pm CLINICAL HISTORY: ABD PAIN COMPARISON: Abdomen Pelvis W Contrast dated 04/05/2022 TECHNIQUE: CT of the abdomen and pelvis was performed. All CT scans are performed using dose optimization technique as appropriate and may include automated exposure control or mA/KV adjustment according to patient size. FINDINGS: Lower chest: No acute abnormality. Mild circumferential thickened distal esophagus could r eflect mild esophagitis. Liver: No acute abnormality or suspicious lesions. Biliary: No biliary ductal dilatation. Cholecystectomy Stomach: No significant focal abnormality. Duodenum: No significant focal abnormality. Pancreas: No significant abnormality. Spleen: No significant abnormality. Adrenal: No suspicious lesions. Kidney/ureter: No hydronephrosis. No renal calculi. Bilateral renal scarring. Retroperitoneum: No retroperitoneal adenopathy. Vascular: No aneurysm. Bowel: No significant focal abnormality. Normal appendix. Peritoneum: No ascites or free air. Small fat containing umbilical hernia. Bladder: Grossly unremarkable. Reproductive: No adnexal masses. Bones: No acute fracture. Other: n/a IMPRESSION: No acute intra-abdominal or pelvic finding. Normal appendix.
--- NOTE | 2023-09-29 21:55 | ER ---
Nurse's Notes [facility] Name: Jodie Rodriguez Age: 38 yrs Sex: Female : 1985 Arrival Date: 09/29/2023 Time: 17:58 Bed 14 Private MD: Diagnosis: Abnormal uterine and vaginal bleeding, unspecified;Lower abdominal pain, unspecified Presentation: 09/28 18:08 Chief complaint: Patient states: lower abd pain and vaginal bleeding with clots that aa5 began yesterday, pt reports states "I haven't had a period in about 4 months but I am normally irregular". Coronavirus screen: At this time, the client does not indicate any symptoms associated with coronavirus-19. Ebola Screen: Patient denies travel to an Ebola-affected area in the 21 days before illness onset. Initial Sepsis Screen: Does the patient meet any 2 criteria? No. Patient's initial sepsis screen is negative. Does the patient have a suspected source of infection? No. Patient's initial sepsis screen is negative. Risk Assessment: Do you want to hurt yourself or someone else? Patient reports no desire to harm self or others. Onset of symptoms was September 2023. 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 - Social history:: Smoking status: Patient denies any tobacco usage or history of. Screenin:26 [facility] ED Fall Risk Assessment (Adult) History of falling in the last 3 months, kc6 including since admission No falls in past 3 months (0 pts) Confusion or Disorientation No (0 pts) Intoxicated or Sedated No (0 pts) Impaired Gait No (0 pts) Mobility Assist Device Used No (0 pt) Altered Elimination No (0 pt) Score/Fall Risk Level 0 - 2 = Low Risk. Abuse screen: Denies threats or abuse. Denies injuries from another. Nutritional screening: No deficits noted. Tuberculosis screening: No symptoms or risk factors identified. Assessment: 18:25 General: Appears in no apparent distress. comfortable, well groomed, well developed, kc6 Behavior is calm, cooperative, appropriate for age. Pain: Complains of pain in suprapubic area Quality of pain is described as crampy. Neuro: Level of Consciousness is awake, alert, obeys commands, Oriented to person, place, time, situation, Appropriate for age. Cardiovascular: Capillary refill < 3 seconds. Respiratory: Airway is patent Trachea midline Respiratory effort is even, unlabored, Respiratory pattern is regular, symmetrical. GI: No signs and/or symptoms were reported involving the gastrointestinal system. : Reports vaginal bleeding that is bright red, with clots, moderate flow. EENT: No signs and/or symptoms were reported regarding the EENT system. Derm: No signs and/or symptoms reported regarding the dermatologic system. Skin is intact, is healthy with good turgor, Skin is pink, warm \\T\\ dry. Musculoskeletal: No signs and/or symptoms reported regarding the musculoskeletal system. Circulation, motion, and sensation intact. Capillary refill < 3 seconds, Range of motion: intact in all extremities. 19:25 Reassessment: Patient and/or family updated on plan of care and expected duration. Pain tm6 level reassessed. Patient is alert, oriented x 3, equal unlabored respirations, skin warm/dry/pink. 20:24 Reassessment: Patient and/or family updated on plan of care and expected duration. Pain tm6 level reassessed. Patient is alert, oriented x 3, equal unlabored respirations, skin warm/dry/pink. 21:09 Reassessment: Patient and/or family updated on plan of care and expected duration. Pain tm6 level reassessed. Patient is alert, oriented x 3, equal unlabored respirations, skin warm/dry/pink. 22:45 Reassessment: Patient and/or family updated on plan of care and expected duration. Pain tm6 level reassessed. Patient is alert, oriented x 3, equal unlabored respirations, skin warm/dry/pink. Vital Signs: 18:08 BP 129 / 85; Pulse 73; Resp 16 S; Temp 97.8(TE); Pulse Ox 100% on R/A; Weight 92.99 kg aa5 (M); Height 5 ft. 0 in. (R); 19:23 BP 119 / 57; Pulse 59; Pulse Ox 100% on R/A; Pain 5/10; tm6 20:22 BP 112 / 73; Pulse 69; Pulse Ox 100% on R/A; Pain 6/10; tm6 20:39 Pain 3/10; tm6 21:09 BP 97 / 73; Pulse 64; Pulse Ox 100% on R/A; Pain 3/10; tm6 22:45 BP 133 / 80; Pulse 72; Resp 19; Temp 97.9(O); Pulse Ox 100% on R/A; Pain 0/10; tm6 18:08 Body Mass Index 40.04 (92.99 kg, 152.4 cm) aa5 19:23 Pain Scale: Adult tm6 20:22 Pain Scale: Adult tm6 20:39 Pain Scale: Adult tm6 21:09 Pain Scale: Adult tm6 22:45 Pain Scale: Adult tm6 ED Course: 18:01 Patient arrived in ED. rg4 18:02 Naresh Banks PA is PHCP. cp 18:02 Juan Guzman DO is Attending Physician. cp 18:08 Arm band placed on. aa5 18:10 Triage completed. aa5 18:13 Suyapa Jc, [facility] is Primary Nurse. kc6 18:26 Patient has correct armband on for positive identification. Bed in low position. Call kc6 light in reach. Side rails up X 1. Client placed on continuous cardiac and pulse oximetry monitoring. NIBP monitoring applied. 18:26 monitoring and evaluation advisor on. Pulse ox on. hb 18:26 Patient maintains SpO2 saturation greater than 95% on room air. kc6 18:41 Initial lab(s) drawn, by ED staff, sent to lab. hb 18:46 Inserted saline lock: 20 gauge in right antecubital area, using aseptic technique. kc6 Blood collected. 19:00 Report received from Suyapa WALL. tm6 19:23 Test, Urine Sent. tm6 19:23 Urinalysis w/ reflexes Sent. tm6 19:52 Transvaginal Study Probe In Process Unspecified. EDMS 20:53 CT Abd/Pelvis - IV Contrast Only In Process Unspecified. EDMS 21:53 Veronica Ozuna MD is Referral Physician. cp 22:45 No provider procedures requiring assistance completed. IV discontinued, intact, tm6 bleeding controlled, No redness/swelling at site. Pressure dressing applied. 22:46 Provided Education on: follow up with obgyn. tm6 Administered Medications: 18:46 Drug: Ketorolac IVP 15 mg IVP once Route: IVP; Site: right antecubital; kc6 20:31 Drug: fentaNYL (PF) IVP 25 mcg IVP once Route: IVP; Site: right antecubital; tm6 20:39 Follow up: Pain 3/10 Adult; Response: Marked relief of symptoms; Pain is decreased tm6 21:25 Drug: NS 0.9% IV 1000 ml IV at 1 bolus Per protocol; 1000 mL bolus Route: IV; Rate: 1 tm6 bolus; Site: right antecubital; 22:47 Follow up: Response: No adverse reaction; IV Status: Completed infusion; IV Intake: tm6 1000ml Medication: 22:46 VIS not applicable for this client. tm6 Intake: 22:47 IV: 1000ml; Total: 1000ml. tm6 Outcome: 21:54 Discharge ordered by MD. cp 22:46 Discharged to home ambulatory, with friend, tm6 22:46 Condition: stable 22:46 Discharge instructions given to patient, Instructed on discharge instructions, follow up and referral plans. medication usage, Demonstrated understanding of instructions, follow-up care, medications, Prescriptions given X 2, 22:47 Patient left the ED. tm6 Signatures: Dispatcher [employer] EDMS Rosio Dewey RN RN aa5 Naresh Banks PA PA cp Baxter, Heather, RN RN hb Garcia, Rubi rg4 Suyapa Jc RN RN kc6 Tanya Davidson RN RN tm6 Corrections: (The following items were deleted from the chart) 18:11 18:08 BP 129 / 85; Pulse 73bpm; Resp 16bpm; Spontaneous; Pulse Ox 100% RA; Temp 97.8F aa5 Temporal; Height 5 ft. 0 in. Reported; aa5 20:24 20:22 BP 112 / 73; Pulse 69bpm; Pulse Ox 100% RA; Pain 0/10, Adult; tm6 tm6
--- NOTE | 2023-09-29 21:55 | EDPHYS ---
Physician Documentation [facility] Name: Jodie Rodriguez Age: 38 yrs Sex: Female : 1985 Arrival Date: 09/29/2023 Time: 17:58 Bed 14 Private MD: ED Physician Juan Guzman HPI: 09/28 18:33 This 38 yrs old Female presents to ER via Ambulatory with complaints of Pelvic cp Pain, Blood clot. 18:33 The patient presents with vaginal bleeding that is heavy, with clots. Onset: The cp symptoms/episode began/occurred yesterday. Associated signs and symptoms: Pertinent positives: cramping, abdominal pain. 18:33 Severity of symptoms: in the emergency department the symptoms are unchanged, despite cp home interventions. The patient's method of control includes nothing. Patient reports last menstrual cycle was about 4 months ago. 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 - Social history:: Smoking status: Patient denies any tobacco usage or history of. ROS: 18:35 Constitutional: Negative for body aches, chills, fever, poor PO intake, cp 18:35 Eyes: Negative for injury, pain, redness, and discharge, cp 18:35 Cardiovascular: Negative for chest pain, palpitations, 18:35 Respiratory: Negative for cough, shortness of breath, wheezing, 18:35 Abdomen/GI: Positive for abdominal pain, Negative for vomiting, diarrhea, constipation, 18:35 Back: Negative for injury or acute deformity, decreased range of motion, 18:35 : Positive for vaginal bleeding, Negative for urinary symptoms, 18:35 Neuro: Negative for altered mental status, dizziness, headache, weakness, 18:35 All other systems are negative, Exam: 18:40 Constitutional: The patient appears in no acute distress, alert, awake, non-toxic, well cp developed, well nourished, overweight 18:40 Head/Face: Normocephalic, atraumatic. cp 18:40 Eyes: Periorbital structures: appear normal, Conjunctiva: normal, no exudate, no injection, Sclera: no appreciated abnormality, Lids and lashes: appear normal, bilaterally, 18:40 ENT: External ear(s): are unremarkable, Nose: is normal, Mouth: Lips: moist, Oral mucosa: pink and intact, moist, Posterior pharynx: is normal, airway is patent, no erythema, no exudate, 18:40 Chest/axilla: Inspection: normal, 18:40 Cardiovascular: Rate: normal, Rhythm: regular, 18:40 Respiratory: the patient does not display signs of respiratory distress, Respirations: normal, no use of accessory muscles, no retractions, labored breathing, is not present, Breath sounds: are clear throughout, no decreased breath sounds, no stridor, no wheezing, 18:40 Abdomen/GI: Inspection: obese Bowel sounds: active, all quadrants, Palpation: soft, in all quadrants, moderate abdominal tenderness, in the right lower quadrant and left lower quadrant, rebound tenderness, is not appreciated, voluntary guarding, is elicited in the right lower quadrant and left lower quadrant, 18:40 Back: CVA tenderness, is absent, 18:40 Neuro: Orientation: is normal, Mentation: is normal, Vital Signs: 18:08 BP 129 / 85; Pulse 73; Resp 16 S; Temp 97.8(TE); Pulse Ox 100% on R/A; Weight 92.99 kg aa5 (M); Height 5 ft. 0 in. (R); 19:23 BP 119 / 57; Pulse 59; Pulse Ox 100% on R/A; Pain 5/10; tm6 20:22 BP 112 / 73; Pulse 69; Pulse Ox 100% on R/A; Pain 6/10; tm6 20:39 Pain 3/10; tm6 21:09 BP 97 / 73; Pulse 64; Pulse Ox 100% on R/A; Pain 3/10; tm6 22:45 BP 133 / 80; Pulse 72; Resp 19; Temp 97.9(O); Pulse Ox 100% on R/A; Pain 0/10; tm6 18:08 Body Mass Index 40.04 (92.99 kg, 152.4 cm) aa5 19:23 Pain Scale: Adult tm6 20:22 Pain Scale: Adult tm6 20:39 Pain Scale: Adult tm6 21:09 Pain Scale: Adult tm6 22:45 Pain Scale: Adult tm6 MDM: 18:09 Patient medically screened. 21:53 Data reviewed: vital signs, nurses notes, lab test result(s), radiologic studies, CT cp scan, ultrasound. 21:53 Differential diagnosis: endometriosis, molar preganancy, ruptured ectopic , cp uterine fibroids, urinary tract infection, vaginosis. I considered the following discharge prescriptions or medication management in the emergency department Medications were administered in the Emergency Department. See MAR. Counseling: I had a detailed discussion with the patient and/or guardian regarding the historical points, exam findings, and any diagnostic results supporting the discharge/admit diagnosis, lab results, radiology results, the need for outpatient follow up, an OB/Gyne specialist, to return to the emergency department if symptoms worsen or persist or if there are any questions or concerns that arise at home. Response to treatment: the patient's symptoms have markedly improved after treatment, pain improved. Special discussion: Based on the patient's Hx, exam, and Dx evaluation, there is no indication for emergent surgery or inpatient Tx. It is understood by the patient/guardian that if the Sx's persist or worsen they need to return immediately for re-evaluation. 09/28 18:29 Order name: Abo/rh Typing 09/28 18:29 Order name: Basic Metabolic Panel; Complete Time: 20:17 09/28 20:17 Interpretation: Normal except: GLUC 109; GFR 74. 09/28 18:29 Order name: CBC with Diff; Complete Time: 20:17 09/28 20:18 Interpretation: Normal except: WBC 11.00; EOSINOPHIL % 5.7; EOSA 0.6. 09/28 18:29 Order name: Test, Urine; Complete Time: 20:17 09/28 18:29 Order name: Quantitative Hcg; Complete Time: 20:17 09/28 18:29 Order name: Urinalysis w/ reflexes; Complete Time: 20:17 09/28 20:18 Interpretation: Normal except: UCLA Extremely Turbid; Urine SG > 1.030; UKET TRACE; cp UBLD 3+ (OVER); UPROT 1+; UUROB 1+; UESTR 75; UWBC 10-20; URBC 5-10; SQEPI 20-50; BYST Trace. 09/28 19:52 Order name: Transvaginal Study Probe; Complete Time: 20:17 EDMS 09/28 20:25 Order name: CT Abd/Pelvis - IV Contrast Only; Complete Time: 21:13 cp 09/28 21:13 Interpretation: Report reviewed. cp 09/28 18:29 Order name: IV Saline Lock; Complete Time: 18:41 cp 09/28 18:29 Order name: Labs collected and sent; Complete Time: 18:42 cp 09/28 18:29 Order name: NPO; Complete Time: 18:30 cp Administered Medications: 18:46 Drug: Ketorolac IVP 15 mg IVP once Route: IVP; Site: right antecubital; kc6 20:31 Drug: fentaNYL (PF) IVP 25 mcg IVP once Route: IVP; Site: right antecubital; tm6 20:39 Follow up: Pain 09/30 Adult; Response: Marked relief of symptoms; Pain is decreased tm6 21:25 Drug: NS 0.9% IV 1000 ml IV at 1 bolus Per protocol; 1000 mL bolus Route: IV; Rate: 1 tm6 bolus; Site: right antecubital; 22:47 Follow up: Response: No adverse reaction; IV Status: Completed infusion; IV Intake: tm6 1000ml Disposition: 09/29 21:14 I was immediately available on-site in the Emergency Department for consultation in the ms3 care of the patient. Disposition Summary: 09/29/23 21:54 Discharge Ordered Notes: Location: Home cp Problem: new cp Symptoms: have improved cp Condition: Stable cp Diagnosis - Abnormal uterine and vaginal bleeding, unspecified cp - Lower abdominal pain, unspecified cp Followup: cp - With: Veronica Ozuna MD - When: 1 week - Reason: symptoms continue Discharge Instructions: - Discharge Summary Sheet cp - Abdominal Pain, Adult cp - Abnormal Uterine Bleeding cp - Uterine Fibroids cp - Dysfunctional Uterine Bleeding cp Forms: - Medication Reconciliation Form cp - Thank You Letter cp - Antibiotic Education cp - Prescription Opioid Use cp - Patient Portal Instructions cp - Leadership Thank You Letter cp - Work release form lg3 Prescriptions: - Zofran 4 mg Oral Tablet - take 1 tablet ORAL route every 12 hours As needed; 20 tablet; Refills: 0, cp Product Selection Permitted - Diclofenac Sodium 75 mg Oral Tablet Sustained Release - take 1 tablet ORAL route 2 times per day; 30 tablet; Refills: 0, Product cp Selection Permitted Signatures: Dispatcher [employer] EDMS Rosio Dewey, RN RN aa5 Naresh Banks PA PA cp Juan Guzman, DO ms3 Suyapa Jc RN RN kc6 Tanya Davidson RN RN tm6 Corrections: (The following items were deleted from the chart) 09/28 19:52 18:30 Pelvis Complete+US.RAD.BRZ ordered. EDMS EDMS 20:18 20:17 Normal except: WBC 11.00. cp cp
[2023-09-29 23:39] VITALS: BP 133/80; TEMP 97.9; O2SAT 100
== END ==
LOC: ER 17:58
DX: N93.9 Abnormal uterine and vaginal bleeding, unspecified (principal); R10.30 Lower abdominal pain, unspecified; Z88.5 Allergy status to narcotic agent
CPT/HCPCS: 96361; 85025; 81001; 80048; 36415; 86900; 81025; 86901; 84702; 74177; 76830; 96375; 96374; 99285; Q9967; J3010; J7030

== ENCOUNTER 2024-01-17 12:14 | Emergency (ER) | payer OTHER, SELFPAY ==
--- NOTE | 2024-01-17 13:25 | RAD REPORT ---
EXAM DESCRIPTION: RAD - Chest Single View - 01/17/2024 1:08 pm CLINICAL HISTORY: CHEST PAIN COMPARISON: Chest Pa And Lat (2 Views) dated 12/28/2022; Chest Single View dated 04/22/2022; Chest Sing le View dated 03/21/2022; Chest Single View dated 03/03/2022 FINDINGS: Lines: None. Lungs: No evidence of edema or pneumonia. Pleural: No significant pleural effusions or pneumothorax. Cardiac: The heart size is within normal limits. Mediastinum: Within normal limits. Bones: No acute fractures. Other: None IMPRESSION: No acute cardiopulmonary disease.
[2024-01-17 13:56] LABS: Absolute Basophils 0.1 K/uL (0-0.5); Absolute Eosinophils 0.5 K/uL (0-0.5); Absolute Lymphocytes (CBC) 2.2 K/uL (0.7-4.9); Absolute Monocytes 0.4 K/uL (0.1-1.3); Absolute Neutrophil 4.5 K/uL (1.8-8.0); Eosinophils % 6.4 % (0-4.4); Hematocrit 41.2 % (36.0-45.0); Hemoglobin 13.6 g/dL (12.0-15.0); Lymphocytes % 28.2 % (15.3-44.8); MCH 30.7 pg (27.0-35.0); MCHC 33.1 g/dL (32.0-36.0); MCV 92.9 fL (80-100); MPV 10.4 fL (7.6-11.3); Monocytes % 4.9 % (3.3-12.3); Neutrophils % 59.5 % (41.7-73.7); Platelets 199 thou/uL (152-406); RBC Red Blood Cell Count 4.44 M/uL (3.86-4.86); Red Cell Distribution Width 13.5 % (12.1-15.2)
[2024-01-17 14:09] LABS: PT Prothrombin Time 11.7 SECONDS (9.4-12.5); Protime INR 1.07
[2024-01-17] MEDS ORDERED: NA CHLORIDE 0.9% 1,000 ML ONE ×2 (14:22→16:23)
[2024-01-17 14:51] LABS: Specific Gravity 1.018 (1.005-1.030)
[2024-01-17 14:56] LABS: Specific Gravity 1.018 (1.005-1.030); Urine Bilirubin NEGATIVE (Negative); Urine Blood 3+ (OVER) (Negative); Urine Clarity Extremely Turbid (Clear); Urine Color Light-Yellow (Yellow); Urine Glucose NEGATIVE (Negative); Urine Ketones NEGATIVE (Negative); Urine pH 5.5 (5.0-7.0)
[2024-01-17 14:57] LABS: Urine Bacteria <20 /HPF (<20); Urine Culture Reflex Order NOT NEEDED; Urine Microscopic Reflex YN ORDER UMIC; Urine Mucus 1+ /HPF (None Seen); Urine Nitrite NEGATIVE (Negative); Urine Protein NEGATIVE (Negative); Urine RBC <5 /HPF (None Seen); Urine Urobilinogen Normal (Normal); Urine WBC <5 /HPF (<5); Urine WBC Clump Rare /HPF (None Seen)
[2024-01-17 15:02] LABS: ALT/SGPT 23 U/L (13-56); AST/SGOT 18 U/L (15-37); Albumin 3.6 g/dL (3.4-5.0); Albumin/Globulin Ratio 1.1 (1.1-1.8); Alkaline Phosphatase 86 U/L (45-117); Anion Gap 7.7 mEq/L (5.0-15.0); BUN Blood Urea Nitrogen 10 mg/dL (7-18); Bicarbonate 26 mEq/L (21-32); Bilirubin Total 0.4 mg/dL (0.2-1.0); Globulin 3.4 g/dL (2.3-3.5); Glomerular Filtration Rate 91 ml/min (=/>90); Glucose Level 92 mg/dL (74-106); Magnesium 1.9 mg/dL (1.6-2.4); NT PRO-BNP 234 pg/mL (<125); Potassium 3.7 mEq/L (3.5-5.1); Sodium Level 137 mEq/L (136-145); Troponin High Sensitivity 3.5 pg/mL (<58.9)
[2024-01-17 15:15] LABS: Bilirubin Direct < 0.2 mg/dL (0-0.2); Bilirubin Indirect, Calculated 0.2 mg/dL (0.2-0.8)
[2024-01-17] MEDS ORDERED: CEFTRIAXONE 1000 MG/VIAL ONE (15:40)
[2024-01-17] MEDS ORDERED: ONDANSETRON 4 MG/2 ML VIAL ONE (15:40)
[2024-01-17] MEDS ORDERED: KETOROLAC 30 MG/ML INJ ONE (15:41)
--- NOTE | 2024-01-17 16:16 | RAD REPORT ---
EXAM DESCRIPTION: CTAbdomen Pelvis W Contrast - 01/17/2024 3:58 pm CLINICAL HISTORY: Abd pain;Flank pain;Hematuria COMPARISON: Abdomen Pelvis W Contrast dated 09/29/2023; Abdomen Pelvis W Contrast dated 04/05/2022 TECHNIQUE: CT of the abdomen and pelvis was performed. All CT scans are performed using dose optimization technique as appropriate and may include automated exposure control or mA/KV adjustment according to patient size. FINDINGS: Lower chest: No acute abnormality. Small hiatal hernia. Liver: No acute abnormality or suspicious lesions. Biliary: Cholecystectomy. Stomach: No significant focal abnormality. Duodenum: No significant focal abnormality. Pancreas: No significant abnormality. Spleen: No significant abnormality. Adrenal: No suspicious lesions. Kidney/ureter: No hydronephrosis. No renal calculi. Renal scarring at the upper poles bilaterally. Retroperitoneum: No retroperitoneal adenopathy. Vascular: No aneurysm. Bowel: No significant focal abnormality. Normal appendix. Peritoneum: No ascites or free air. Fat containing umbilical hernia. Bladder: Grossly unremarkable. Reproductive: No adnexal masses. Bones: No acute fracture. Other: n/a IMPRESSION: No acute intra-abdominal or pelvic finding. Normal appendix.
--- NOTE | 2024-01-17 16:26 | ER ---
Nurse's Notes [facility] Name: Jodie Rodriguez Age: 38 yrs Sex: Female : 1985 Arrival Date: 01/17/2024 Time: 12:14 Bed 12 Private MD: Diagnosis: UTI/ Urinary tract infection, site not specified;Hematuria, unspecified;Chest pain, unspecified;Abdominal tenderness Presentation: 01/16 12:40 Chief complaint: Patient states: Pt c/o left side chest pain underneath her left tl4 breast, low back pain, vomiting, and blood when she wipes after a BM x 3 days. No history of similar sxs. Coronavirus screen: At this time, the client does not indicate any symptoms associated with coronavirus-19. Ebola Screen: No symptoms or risks identified at this time. Initial Sepsis Screen: Does the patient meet any 2 criteria? No. Patient's initial sepsis screen is negative. Does the patient have a suspected source of infection? No. Patient's initial sepsis screen is negative. Risk Assessment: Do you want to hurt yourself or someone else? Patient reports no desire to harm self or others. Onset of symptoms was January 14, 2024. 12:40 Method Of Arrival: Ambulatory tl4 12:40 Acuity: FLORA 3 tl4 Triage Assessment: 12:42 General: Appears uncomfortable, Behavior is calm, cooperative. Pain: Complains of pain tl4 in back and abdomen. EENT: No signs and/or symptoms were reported regarding the EENT system. Neuro: Level of Consciousness is awake, alert, obeys commands, Oriented to person, place, time, situation, Relay Repairer are equal bilaterally Moves all extremities. Full function Gait is steady, Speech is normal, Facial symmetry appears normal, Denies dizziness. Cardiovascular: Reports chest pain, nausea, vomiting. Respiratory: Reports shortness of breath Airway is patent Respiratory effort is even, unlabored, Respiratory pattern is regular, symmetrical. GI: Reports nausea, vomiting. : No signs and/or symptoms were reported regarding the genitourinary system. Derm: No signs and/or symptoms reported regarding the dermatologic system. Musculoskeletal: No signs and/or symptoms reported regarding the musculoskeletal system. 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 - Infectious Disease History:: Denies. - Social history:: Smoking status: Reported history of juuling and/or vaping. Screenin:57 [facility] ED Fall Risk Assessment (Adult) History of falling in the last 3 months, as6 including since admission No falls in past 3 months (0 pts) Confusion or Disorientation No (0 pts) Intoxicated or Sedated No (0 pts) Impaired Gait No (0 pts) Mobility Assist Device Used No (0 pt) Altered Elimination No (0 pt) Score/Fall Risk Level 0 - 2 = Low Risk Oriented to surroundings, Maintained a safe environment, Educated pt \T\ family on fall prevention, incl call for assistance when getting out of bed, Assessed \T\ reinforced patient's understanding of fall precautions. Abuse screen: Denies threats or abuse. Denies injuries from another. Nutritional screening: No deficits noted. Tuberculosis screening: No symptoms or risk factors identified. Assessment: 14:57 Reassessment: Patient appears in no apparent distress at this time. Patient and/or as6 family updated on plan of care and expected duration. Pain level reassessed. Patient is alert, oriented x 3, equal unlabored respirations, skin warm/dry/pink. General: Appears. 16:35 General: discharge pending fluids . as6 17:07 Reassessment: Patient appears in no apparent distress at this time. Patient and/or as6 family updated on plan of care and expected duration. Pain level reassessed. Patient is alert, oriented x 3, equal unlabored respirations, skin warm/dry/pink. Patient states feeling better. Vital Signs: 12:40 BP 124 / 69; Pulse 62; Resp 16; Temp 98.5(TE); Pulse Ox 99% on R/A; Weight 90.72 kg; tl4 Height 4 ft. 11 in. ; Pain 5/10; 14:57 BP 128 / 75; Pulse 51; Resp 16; Pulse Ox 99% ; as6 16:00 BP 127 / 72; Pulse 49; Resp 18 S; Pulse Ox 100% on R/A; as6 17:14 BP 122 / 65; Pulse 47; Resp 16; Pulse Ox 100% ; as6 12:40 Body Mass Index 40.39 (90.72 kg, 149.86 cm) tl4 12:40 Pain Scale: Adult tl4 ED Course: 12:18 Patient arrived in ED. mg5 12:33 Naresh Connolly MD is Attending Physician. sandra 12:42 Triage completed. tl4 12:44 Arm band placed on right wrist. tl4 13:10 XRAY Chest (1 view) In Process Unspecified. EDMS 13:44 D-Dimer Sent. bc6 13:44 Basic Metabolic Panel Sent. bc6 13:45 CBC with Diff Sent. bc6 13:45 LFT's Sent. bc6 13:45 Magnesium Sent. bc6 13:45 Troponin HS Sent. bc6 13:45 PT-INR Sent. bc6 13:45 NT PRO-BNP Sent. bc6 13:45 Initial lab(s) drawn, by ED staff, sent to lab. EKG done, by ED staff, reviewed by rico Connolly MD. Inserted saline lock: 20 gauge in right antecubital area, using aseptic technique. Blood collected. 14:33 Curly Haro, RN is Primary Nurse. as6 14:57 Bed in low position. Call light in reach. Warm blanket given. as6 16:00 CT Abd/Pelvis - IV Contrast Only In Process Unspecified. EDMS 17:02 No provider procedures requiring assistance completed. as6 17:07 Provided Education on: follow up, rx teaching . as6 17:13 IV discontinued, intact, bleeding controlled, No redness/swelling at site. Pressure as6 dressing applied. Administered Medications: 14:34 Drug: NS 0.9% IV 1000 ml IV at 1 bolus Per protocol; 1000 mL bolus Route: IV; Rate: 1 as6 bolus; Site: right antecubital; 17:00 Follow up: Response: No adverse reaction; IV Status: Completed infusion; IV Intake: as6 1000ml 15:48 Drug: Rocephin IV 1 grams IV at per protocol once; Given slow IV push per pharmacy as6 instructions Route: IV; Rate: per protocol; Site: right antecubital; 17:00 Follow up: Response: No adverse reaction; IV Status: Completed infusion; IV Intake: [id number] 15:48 Drug: Ketorolac IVP 30 mg IVP once Route: IVP; Site: right antecubital; as6 17:01 Follow up: Response: No adverse reaction as6 15:48 Drug: Ondansetron IVP 4 mg IVP once; over 2 minutes Route: IVP; Site: right antecubital;as6 17:01 Follow up: Response: No adverse reaction as6 16:35 Drug: NS 0.9% IV 1000 ml IV at 1 bolus Per protocol; 1000 mL bolus Route: IV; Rate: 1 as6 bolus; Site: right antecubital; 17:01 Follow up: Response: No adverse reaction; IV Status: Completed infusion; IV Intake: as6 1000ml Medication: 14:58 VIS not applicable for this client. as6 Intake: 17:00 IV: 1000ml; Total: 1000ml. as6 17:00 IV: 10ml; Total: 1010ml. as6 17:01 IV: 1000ml; Total: 2010ml. as6 Outcome: 16:25 Discharge ordered by . sandra 17:02 Condition: stable as6 17:13 Discharged to home ambulatory, as6 17:13 Discharge instructions given to patient, Instructed on discharge instructions, follow up and referral plans. medication usage, Demonstrated understanding of instructions, follow-up care, medications, Prescriptions given X 4, 17:14 Patient left the ED. as6 Signatures: Dispatcher [employer] Naresh Elaine MD MD cha Slawson, Ashby, RN RN as6 Mary Coreas 6 Eloisa Storey mg5 Mikael Urena RN RN tl4
--- NOTE | 2024-01-17 16:26 | EDPHYS ---
Physician Documentation [facility] Name: Jodie Rodriguez Age: 38 yrs Sex: Female : 1985 Arrival Date: 01/17/2024 Time: 12:14 Bed 12 Private MD: ED Physician Naresh Connolly HPI: 01/16 15:32 This 38 yrs old Female presents to ER via Ambulatory with complaints of Chest sandra Pain, Nausea/Vomiting, Bleeding. 15:32 The patient or guardian reports chest pain that is located primarily in the epigastric sandra area. The pain does not radiate. 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 - Infectious Disease History:: Denies. - Social history:: Smoking status: Reported history of juuling and/or vaping. ROS: 15:33 Constitutional: Negative for fever, chills, and weight loss, Eyes: Negative for injury, sandra pain, redness, and discharge, ENT: Negative for injury, pain, and discharge, Neck: Negative for injury, pain, and swelling, Cardiovascular: Negative for chest pain, palpitations, and edema, Exam: 15:38 Constitutional: This is a well developed, well nourished patient who is awake, alert, sandra and in no acute distress. Head/Face: Normocephalic, atraumatic. Eyes: Pupils equal round and reactive to light, extra-ocular motions intact. Lids and lashes normal. Conjunctiva and sclera are non-icteric and not injected. Cornea within normal limits. Periorbital areas with no swelling, redness, or edema. ENT: Nares patent. No nasal discharge, no septal abnormalities noted. Tympanic membranes are normal and external auditory canals are clear. Oropharynx with no redness, swelling, or masses, exudates, or evidence of obstruction, uvula midline. Mucous membranes moist. Neck: Trachea midline, no thyromegaly or masses palpated, and no cervical lymphadenopathy. Supple, full range of motion without nuchal rigidity, or vertebral point tenderness. No Meningismus. Chest/axilla: Normal chest wall appearance and motion. Nontender with no deformity. No lesions are appreciated. Cardiovascular: Regular rate and rhythm with a normal S1 and S2. No gallops, murmurs, or rubs. Normal PMI, no JVD. No pulse deficits. Respiratory: Lungs have equal breath sounds bilaterally, clear to auscultation and percussion. No rales, rhonchi or wheezes noted. No increased work of breathing, no retractions or nasal flaring. Abdomen/GI: Soft, non-tender, with normal bowel sounds. No distension or tympany. No guarding or rebound. No evidence of tenderness throughout. Back: No spinal tenderness. No costovertebral tenderness. Full range of motion. Female : Normal external genitalia. Skin: Warm, dry with normal turgor. Normal color with no rashes, no lesions, and no evidence of cellulitis. MS/ Extremity: Pulses equal, no cyanosis. Neurovascular intact. Full, normal range of motion. Neuro: Awake and alert, GCS 15, oriented to person, place, time, and situation. Cranial nerves II-XII grossly intact. Motor strength 5/5 in all extremities. Sensory grossly intact. Cerebellar exam normal. Normal gait. Psych: Awake, alert, with orientation to person, place and time. Behavior, mood, and affect are within normal limits. 15:53 ECG was reviewed by the Attending Physician. [facility] 15:53 Musculoskeletal/extremity: ROM: no acute changes, Circulation is intact in all sandra extremities. Sensation intact. Compartment Syndrome exam of affected extremity: is normal. Weight bearing: able to fully bear weight, without difficulty, DVT Exam: No signs of deep vein thrombosis. no pain, no swelling, no tenderness, negative Homans' sign noted on exam, no appreciated bluish discoloration, no erythema, no increased warmth, Vital Signs: 12:40 BP 124 / 69; Pulse 62; Resp 16; Temp 98.5(TE); Pulse Ox 99% on R/A; Weight 90.72 kg; tl4 Height 4 ft. 11 in. ; Pain 5/10; 14:57 BP 128 / 75; Pulse 51; Resp 16; Pulse Ox 99% ; as6 16:00 BP 127 / 72; Pulse 49; Resp 18 S; Pulse Ox 100% on R/A; as6 17:14 BP 122 / 65; Pulse 47; Resp 16; Pulse Ox 100% ; as6 12:40 Body Mass Index 40.39 (90.72 kg, 149.86 cm) tl4 12:40 Pain Scale: Adult tl4 MDM: 12:33 Patient medically screened. sandra 15:38 Differential diagnosis: abnormal EKG, acute myocardial infarction, acute pericarditis, sandra anxiety, coronary artery disease chest wall pain, Cholelithiasis costochondritis, appendicitis, gastroesophageal reflux disease (GERD), myocarditis, pancreatitis, peptic ulcer disease, pulmonary embolus, stable angina, unstable angina, diverticulitis, Mesenteric ischemia or infarction, non-specific abd pain, pancreatitis, Pyelonephritis, Ureterolithiasis, urinary tract infection. HEART Score: History: Slightly Suspicious (0), ECG: Normal (0), Age: < or = 45 years (0), Risk Factors: 1 or 2 risk factors (1), [+ Family HX] [Obesity] Troponin: < or = 1 x Normal Limit (0). HALLEY Risk Score: TOTAL SCORE = 0. Data reviewed: vital signs, nurses notes, lab test result(s), EKG, radiologic studies, CT scan, plain films. Consideration of Admission/Observation Escalation of care including admission/observation considered. I considered the following discharge prescriptions or medication management in the emergency department Medications were administered in the Emergency Department. See MAR. Test considered but Not performed: Ultrasound no abd usg. 01/16 12:34 Order name: Basic Metabolic Panel; Complete Time: 15:26 [facility] 01/16 12:34 Order name: CBC with Diff; Complete Time: 15: [facility] 01/16 12:34 Order name: LFT's; Complete Time: 15:26 [facility] 01/16 12:34 Order name: Magnesium; Complete Time: 15:26 [facility] 01/16 12:34 Order name: NT PRO-BNP; Complete Time: 15: [facility] 01/16 12:34 Order name: PT-INR; Complete Time: 15: [facility] 01/16 12:34 Order name: Troponin HS; Complete Time: 15: [facility] 01/16 12:34 Order name: Urinalysis w/ reflexes; Complete Time: 15:26 [facility] 01/16 12:34 Order name: PREGU; Complete Time: 15:26 [facility] 01/16 13:44 Order name: D-Dimer; Complete Time: 15:26 EDMS 01/16 12:34 Order name: XRAY Chest (1 view); Complete Time: 15: [facility] 01/16 15:30 Order name: CT Abd/Pelvis - IV Contrast Only; Complete Time: 16:28 [facility] 01/16 12:34 Order name: Cardiac monitoring; Complete Time: 14:34 [facility] 01/16 12:34 Order name: EKG - Nurse/Tech; Complete Time: 13:43 [facility] 01/16 12:34 Order name: IV Saline Lock; Complete Time: 13:43 [facility] 01/16 12:34 Order name: Labs collected and sent; Complete Time: 13:43 [facility] 01/16 12:34 Order name: O2 Per Protocol; Complete Time: 14:34 [facility] 01/16 12:34 Order name: O2 Sat Monitoring; Complete Time: 14:34 [facility] 01/16 13:53 Order name: Labs - recollect needed: recollect green top; Complete Time: 14:34 bd EC:53 Rate is 54 beats/min. Rhythm is regular. QRS [place] is Normal. IN interval is normal. QRS sandra interval is normal. QT interval is normal. No Q waves. T waves are Normal. No ST changes noted. Clinical impression: Sinus bradycardia and No evidence of ischemia. Interpreted by me. Reviewed by me. Administered Medications: 14:34 Drug: NS 0.9% IV 1000 ml IV at 1 bolus Per protocol; 1000 mL bolus Route: IV; Rate: 1 as6 bolus; Site: right antecubital; 17:00 Follow up: Response: No adverse reaction; IV Status: Completed infusion; IV Intake: as6 1000ml 15:48 Drug: Rocephin IV 1 grams IV at per protocol once; Given slow IV push per pharmacy as6 instructions Route: IV; Rate: per protocol; Site: right antecubital; 17:00 Follow up: Response: No adverse reaction; IV Status: Completed infusion; IV Intake: [id number] 15:48 Drug: Ketorolac IVP 30 mg IVP once Route: IVP; Site: right antecubital; as6 17:01 Follow up: Response: No adverse reaction as6 15:48 Drug: Ondansetron IVP 4 mg IVP once; over 2 minutes Route: IVP; Site: right antecubital;as6 17:01 Follow up: Response: No adverse reaction as6 16:35 Drug: NS 0.9% IV 1000 ml IV at 1 bolus Per protocol; 1000 mL bolus Route: IV; Rate: 1 as6 bolus; Site: right antecubital; 17:01 Follow up: Response: No adverse reaction; IV Status: Completed infusion; IV Intake: as6 1000ml Disposition Summary: 01/17/24 16:25 Discharge Ordered Notes: Location: Home sandra Problem: new sandra Symptoms: have improved sandra Condition: Stable sandra Diagnosis - UTI/ Urinary tract infection, site not specified sandra - Hematuria, unspecified sandra - Chest pain, unspecified sandra - Abdominal tenderness sandra Followup: sandra - With: Private Physician - When: 2 - 3 days - Reason: Recheck today's complaints, Continuance of care, Re-evaluation by your physician Discharge Instructions: - Discharge Summary Sheet sandra - Nonspecific Chest Pain, Adult sandra - Dysuria sandra - Hematuria, Adult sandra - Urinary Tract Infection, Adult sandra - Urinary Tract Infection, Adult, [id number] sandra - Nonspecific Chest Pain, Adult, [id number] sandra - Aspirin and Your Heart [facility] Forms: - Medication Reconciliation Form sandra - Antibiotic Education sandra - Prescription Opioid Use sandra - Patient Portal Instructions [facility] - Leadership Thank You Letter [facility] Prescriptions: - Flomax 0.4 mg Oral capsule - take 1 capsule ORAL route every 24 hours; 14 capsule; Refills: 0, Product sandra Selection Permitted - acetaminophen-codeine 300-30 mg Oral tablet - take 1 tablet ORAL route every 6 hours as needed for pain; 20 tablet; Refills: sandra 0, Product Selection Permitted - ondansetron 4 mg Oral Tablet,disintegrating - take 1 tablet ORAL route every 6-8 hours for 5 days as needed for nausea and sandra vomiting; 20 tablet; Refills: 0, Product Selection Permitted - Cipro 500 mg Oral Tablet - take 1 tablet ORAL route every 12 hours for 7 days; 14 tablet; Refills: 0, sandra Product Selection Permitted Signatures: Dispatcher [employer] Bertha Abbasi Corey, MD MD cha Slawson, Ashby RN RN as6 Mikael Urena RN RN tl4 Corrections: (The following items were deleted from the chart) 12:34 12:34 Chest Single View+RAD.RAD.BRZ ordered. EDMS EDMS 13:44 12:34 D-DIMER+COAG.LAB.BRZ ordered. EDMS EDMS
[2024-01-17 17:36] VITALS: TEMP 98.5
[2024-01-17 17:51] VITALS: BP 122/65; O2SAT 100
--- NOTE | 2024-01-18 14:09 | EKG ---
Test Date: 2024-01-17 Test Time: 13:40:11 Laboratory Administrative Director: MAIRNA MEASUREMENT RESULTS: Intervals: Rate: 54 [place]: 144 QRSD: 74 QT: 424 QTc: 402 [place]: P: 57 [place]: 144 QRS: 53 T: 50 INTERPRETIVE STATEMENTS: Sinus bradycardia Otherwise normal ECG Compared to ECG 07/10/2022 16:55:36 Sinus rhythm no longer present Electronically Signed On 01-18-24 14:07:09 CDT by Jose Thompson
== END 2024-01-17 17:14 | disposition home or self-care (01) ==
LOC: ER 12:14
DX: N39.0 Urinary tract infection, site not specified (principal); R07.9 Chest pain, unspecified; R10.816 Epigastric abdominal tenderness
CPT/HCPCS: 36415; 71045; 74177; 80048; 80076; 81001; 81025; 83735; 83880; 84484; 85025; 85379; 85610; 93005; 96361; 96365; 96375; 99284; J0696; J2405; J7030; Q9967

== ENCOUNTER 2024-06-30 18:43 | Emergency (ER) | payer OTHER ==
--- NOTE | 2024-06-30 19:54 | ER ---
Nurse's Notes [facility] Name: Jodie Rodriguez Age: 38 yrs Sex: Female : 1985 Arrival Date: 06/30/2024 Time: 18:43 Bed DX4 Private MD: Diagnosis: Sciatica, left side Presentation: 06/30 19:46 Chief complaint: Patient states: left leg started hurting one week ago, started to tm6 swell up on Monday. No reported injury. Difficult to walk. Coronavirus screen: Client denies travel out of the [place] in the last 14 days. Ebola Screen: Patient negative for fever greater than or equal to 101.5 degrees Fahrenheit, and additional compatible Ebola Virus Disease symptoms Patient denies exposure to infectious person. Patient denies travel to an Ebola-affected area in the 21 days before illness onset. No symptoms or risks identified at this time. Initial Sepsis Screen: Does the patient meet any 2 criteria? No. Patient's initial sepsis screen is negative. Does the patient have a suspected source of infection? No. Patient's initial sepsis screen is negative. Risk Assessment: Do you want to hurt yourself or someone else? Patient reports no desire to harm self or others. Onset of symptoms was June 23, 2024. 19:46 Method Of Arrival: Ambulatory tm6 19:46 Acuity: FLORA 3 tm6 Triage Assessment: 19:46 General: Appears in no apparent distress. uncomfortable, Behavior is calm, cooperative. tm6 Pain: Complains of pain in left leg Pain currently is 5 out of 10 on a pain scale. Quality of pain is described as burning, Pain began one week ago. EENT: No signs and/or symptoms were reported regarding the EENT system. Neuro: Level of Consciousness is awake, alert, obeys commands, Oriented to person, place, time, situation. Cardiovascular: Patient's skin is warm and dry. Respiratory: Airway is patent Respiratory effort is even, unlabored, Respiratory pattern is regular, symmetrical. GI: No signs and/or symptoms were reported involving the gastrointestinal system. Abdomen is round. : No signs and/or symptoms were reported regarding the genitourinary system. Derm: No signs and/or symptoms reported regarding the dermatologic system. Musculoskeletal: Reports pain in left leg since x1 week ago. Pain is 5 out of 10 on a pain scale. patient reports swelling in left leg. 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 - Infectious Disease History:: Denies. - Social history:: Smoking status: Patient reports the use of cigarette tobacco products, denies chronic smoking, but will smoke occasionally. Screenin:34 [facility] ED Fall Risk Assessment (Adult) History of falling in the last 3 months, vc1 including since admission No falls in past 3 months (0 pts) Confusion or Disorientation No (0 pts) Intoxicated or Sedated No (0 pts) Impaired Gait Yes (1 pt) Mobility Assist Device Used No (0 pt) Altered Elimination No (0 pt) Score/Fall Risk Level 0 - 2 = Low Risk Oriented to surroundings, Maintained a safe environment, Educated pt \T\ family on fall prevention, incl call for assistance when getting out of bed. Abuse screen: Denies threats or abuse. Nutritional screening: No deficits noted. Tuberculosis screening: No symptoms or risk factors identified. Vital Signs: 19:44 BP 112 / 52; Pulse 62; Resp 18; Temp 97.9(O); Pulse Ox 100% on R/A; MAP 70 mmHg; Weight tm6 113.4 kg; Height 4 ft. 10 in. ; Pain 5/10; 19:44 Body Mass Index 52.25 (113.40 kg, 147.32 cm) tm6 19:44 Pain Scale: Adult tm6 ED Course: 19:00 Patient arrived in ED. mg5 19:46 Arm band placed on left wrist. tm6 19:47 Triage completed. tm6 19:47 Alexy Mishra MD is Attending Physician. ec2 21:34 No provider procedures requiring assistance completed. Patient did not have IV access vc1 during this emergency room visit. Administered Medications: 21:26 Drug: Ketorolac IM 30 mg IM once Route: IM; Site: right deltoid; vc1 21:26 Drug: Diazepam PO 5 mg PO once Route: PO; vc1 21:26 Drug: Acetaminophen PO 1000 mg PO once Route: PO; vc1 21:26 Drug: Lidoderm Topical Patch 5 % (700 mg/patch) 1 patches Topical once; leave on for 12 vc1 hours; cover most painful area; may cut into smaller pieces {Note: left dorsal foot.} Route: Topical; Site: affected area; Medication: 21:35 VIS not applicable for this client. vc1 Outcome: 19:54 Discharge ordered by . ec2 21:35 Discharged to home with family, vc1 21:35 Condition: good 21:35 Discharge instructions given to patient, Instructed on discharge instructions, follow up and referral plans. medication usage, Demonstrated understanding of instructions, follow-up care, medications, Prescriptions given X 1, 21:36 Patient left the ED. vc1 Signatures: Lynette Wells RN RN vc1 Eloisa Storey mg5 Alexy Mishra MD MD ec2 Tanya Davidson RN RN tm6
--- NOTE | 2024-06-30 19:54 | EDPHYS ---
Physician Documentation [facility] Name: Jodie Rodriguez Age: 38 yrs Sex: Female : 1985 Arrival Date: 06/30/2024 Time: 18:43 Bed DX4 Private MD: ED Physician Alexy Mishra HPI: 06/30 19:55 This 38 yrs old Female presents to ER via Ambulatory with complaints of Leg ec2 Pain. 19:55 Patient arrives today for evaluation of left lower extremity pain. Patient reports that ec2 she is having pain that is going from the low back into the left lower extremity that is worse with positional movements and weightbearing. Patient reports no falls injuries or trauma. Reports that she feels like it swollen but is more still having pain with movement. Patient reports otherwise no significant medical problems, no history of sciatica, no previous back surgeries, no red flag symptoms.. 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 - Infectious Disease History:: Denies. - Social history:: Smoking status: Patient reports the use of cigarette tobacco products, denies chronic smoking, but will smoke occasionally. ROS: 19:55 Constitutional: as per hpi ec2 Exam: 19:55 Constitutional: GEN: NAD Head: atraumatic Eyes: EOMI Ears: External ears are ec2 normal. CV: regular rate LUNGS: no respiratory distress ABD: non-distended SKIN: no evidence of rashes MSK: no evidence of trauma, positive straight leg raise test on the left lower extremity. Intact range of motion left lower extremity, no appreciable swelling noted. Intact distal neurovascular status noted. No C or T deformities. Some minimal lateral L-spine TTP over the left buttock area Vital Signs: 19:44 BP 112 / 52; Pulse 62; Resp 18; Temp 97.9(O); Pulse Ox 100% on R/A; MAP 70 mmHg; Weight tm6 113.4 kg; Height 4 ft. 10 in. ; Pain 5/10; 19:44 Body Mass Index 52.25 (113.40 kg, 147.32 cm) tm6 19:44 Pain Scale: Adult tm6 MDM: 19:47 Medical Screening Exam initiated ec2 19:55 Data reviewed: vital signs, nurses notes. ED course: Patient arrives today for ec2 evaluation of low back pain in the left leg. Presentation consistent with sciatica. Will treat the patient for pain and have the patient follow-up PCP. Instructed on return precautions. Considered other processes such as spinal cord pathology, bony fractures, DVT.. Administered Medications: 21:26 Drug: Ketorolac IM 30 mg IM once Route: IM; Site: right deltoid; vc1 21:26 Drug: Diazepam PO 5 mg PO once Route: PO; vc1 21:26 Drug: Acetaminophen PO 1000 mg PO once Route: PO; vc1 21:26 Drug: Lidoderm Topical Patch 5 % (700 mg/patch) 1 patches Topical once; leave on for 12 vc1 hours; cover most painful area; may cut into smaller pieces {Note: left dorsal foot.} Route: Topical; Site: affected area; Disposition Summary: 06/30/24 19:54 Discharge Ordered Notes: Location: Home ec2 Condition: Stable ec2 Diagnosis - Sciatica, left side ec2 Followup: ec2 - With: Private Physician - When: - Reason: Re-evaluation by your physician Discharge Instructions: - Discharge Summary Sheet ec2 - Sciatica ec2 Forms: - Work release form rv1 - Medication Reconciliation Form ec2 - Antibiotic Education ec2 - Prescription Opioid Use ec2 - Patient Portal Instructions ec2 - Leadership Thank You Letter ec2 Prescriptions: - Zanaflex 4 mg Oral Tablet - take 1 tablet ORAL route every 8 hours As needed; 20 tablet; Refills: 0, ec2 Product Selection Permitted - Prednisone 20 mg Oral Tablet - take 2 tablets ORAL route once daily for 5 days; 10 tablet; Refills: 0, Product ec2 Selection Permitted Signatures: Lynette Wells RN RN vc1 Alexy Mishra MD MD ec2 Tanya Davidson RN RN tm6
[2024-06-30] MEDS ORDERED: ACETAMINOPHEN 500 MG TAB ONE (21:18)
[2024-06-30] MEDS ORDERED: KETOROLAC 30 MG/ML INJ ONE (21:18)
[2024-06-30] MEDS ORDERED: DIAZEPAM 5 MG TABLET ONE (21:19)
[2024-06-30] MEDS ORDERED: LIDOCAINE 4% PATCH ONE (21:19)
[2024-07-01 02:44] VITALS: BP 112/52; TEMP 97.9; O2SAT 100
== END 2024-06-30 21:36 | disposition home or self-care (01) ==
LOC: ER 18:43
DX: M54.32 Sciatica, left side (principal)
CPT/HCPCS: 96372; 99284; J2003

== ENCOUNTER 2024-09-23 20:24 | Emergency (ER) | payer OTHER ==
[2024-09-23 21:12] LABS: Influenza A Ag Negative; Influenza B Ag Negative
[2024-09-23 21:13] LABS: SARS-CoV-2 Antigen Rapid Res Negative (Negative)
--- NOTE | 2024-09-23 21:51 | RAD REPORT ---
EXAM: Chest Pa And Lat (2 Views) HISTORY: 39 years Female COUGH COMPARISON: None. FINDINGS: LUNGS/PLEURA: The lungs are clear. No pleural effusions or pneumothorax. No pulmonary edema. CARDIAC/MEDIASTINUM: The cardiac silhouette is within normal limits. UPPER ABDOMEN: No significant abnormality. BONES: No acute abnormality. LINES/TUBES/OTHER: N/A IMPRESSION: No evidence of acute cardiopulmonary disease. No significant change from prior.
--- NOTE | 2024-09-23 21:56 | ER ---
Nurse's Notes [facility] Name: Jodie Rodriguez Age: 39 yrs Sex: Female : 1985 Arrival Date: 09/23/2024 Time: 20:24 Bed IW2 Private MD: Diagnosis: Acute upper respiratory infection, unspecified Presentation: 09/23 20:31 Chief complaint: Patient states: body aches, cough, congestion, dizziness, n/v, sore me1 throat since Monday. Coronavirus screen: Vaccine status: Patient reports receiving the 2nd dose of the covid vaccine. Ebola Screen: Patient reports receiving the 2nd dose of the covid vaccine. No symptoms or risks identified at this time. Initial Sepsis Screen: Does the patient meet any 2 criteria? No. Patient's initial sepsis screen is negative. Risk Assessment: Do you want to hurt yourself or someone else? Patient reports no desire to harm self or others. Onset of symptoms was September 18, 2024. 20:31 Method Of Arrival[place] [facility] [place] Acuity: FLORA 4 me1 22:06 Initial Sepsis Screen: Does the patient have a suspected source of infection? No. cm10 Patient's initial sepsis screen is negative. Triage Assessment: 20:35 General: Appears ill, Behavior is calm, cooperative, appropriate for age, Reports me1 feeling ill for > 3 days. Pain: Complains of pain in generalized Pain does not radiate. Pain currently is 5 out of 10 on a pain scale. Quality of pain is described as aching, Pain began last Monday Is continuous. EENT: Reports nasal congestion pain when swallowing. Neuro: Level of Consciousness is awake, alert, obeys commands, Oriented to person, place, time, situation, Appropriate for age. Neuro: Reports dizziness. Cardiovascular: Patient's skin is warm and dry. Respiratory: Airway is patent Respiratory effort is even, unlabored, Respiratory pattern is regular, symmetrical. GI: Reports nausea, vomiting. : No signs and/or symptoms were reported regarding the genitourinary system. Derm: Skin is intact, Skin is pink, warm \T\ dry. Musculoskeletal: Reports generalized body aches. 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 - Infectious Disease History:: Denies. - Social history:: Smoking status: Patient reports the use of cigarette tobacco products, denies chronic smoking, but will smoke occasionally, Reported history of juuling and/or vaping. Screenin:06 [facility] ED Fall Risk Assessment (Adult) History of falling in the last 3 months, cm10 including since admission No falls in past 3 months (0 pts) Confusion or Disorientation No (0 pts) Intoxicated or Sedated No (0 pts) Impaired Gait No (0 pts) Mobility Assist Device Used No (0 pt) Altered Elimination No (0 pt) Score/Fall Risk Level 0 - 2 = Low Risk Oriented to surroundings, Maintained a safe environment, Hourly rounding (assess needs \T\ fall precautionary measures) done. Abuse screen: Denies threats or abuse. Denies injuries from another. Nutritional screening: No deficits noted. Tuberculosis screening: No symptoms or risk factors identified. Vital Signs: 20:31 BP 110 / 51; Pulse 58; Resp 18; Temp 97.7; Pulse Ox 100% ; Weight 99.79 kg; Height 5 me1 ft. 0 in. ; Pain 5/10; 20:31 Body Mass Index 42.97 (99.79 kg, 152.4 cm) me1 20:31 Pain Scale: Adult me1 ED Course: 20:25 Patient arrived in ED. im 20:26 Tolu Tyler FNP-C is PHCP. dr5 20:26 Tyrone Salinas MD is Attending Physician. dr5 20:33 Triage completed. me1 20:33 Arm band placed on Patient placed in waiting room. me1 20:41 COVID swab sent to lab. Flu and/or RSV swab sent to lab. Strep swab sent to lab. me1 21:45 Chest Pa And Lat (2 Views) XRAY In Process Unspecified. EDMS 22:06 Patient has correct armband on for positive identification. Provided Education on: cm10 Follow-up instructions. 22:06 No provider procedures requiring assistance completed. Patient did not have IV access cm10 during this emergency room visit. Administered Medications: No medications were administered Medication: 22:06 VIS not applicable for this client. cm10 Outcome: 21:55 Discharge ordered by . dr5 22:06 Discharged to home ambulatory, cm10 22:06 Condition: good 22:06 Discharge instructions given to patient, Instructed on discharge instructions, follow up and referral plans. medication usage, Demonstrated understanding of instructions, follow-up care, medications, Prescriptions given X 2, 22:07 Patient left the ED. cm10 Signatures: Dispatcher [employer] EDShereen Greco Clarissa, RN RN 10 Elizabeth Marie RN RN me1 Tolu Tyler, COMPUTER HARDWARE TECHNICIAN-C COMPUTER HARDWARE TECHNICIAN-Cdr5
--- NOTE | 2024-09-23 21:56 | EDPHYS ---
Physician Documentation [facility] Name: Jodie Rodriguez Age: 39 yrs Sex: Female : 1985 Arrival Date: 09/23/2024 Time: 20:24 Bed IW2 Private MD: ED Physician Tyrone Salinas HPI: 09/24 00:06 This 39 yrs old Female presents to ER via Ambulatory with complaints of Flu dr5 Symptoms, Blurred Vision, Pain All Over. 00:06 Onset: The symptoms/episode began/occurred 5 day(s) ago. Patient reports flu like dr5 symptoms, congestion, cough has been going on for the past 5 days. Patient reports subjective fevers that have improved. Patient has history of depression, anxiety, asthma.. 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 - Infectious Disease History:: Denies. - Social history:: Smoking status: Patient reports the use of cigarette tobacco products, denies chronic smoking, but will smoke occasionally, Reported history of juuling and/or vaping. ROS: 09/24 00:06 Constitutional: as per hpi dr5 Exam: 00:06 Constitutional: This is a well developed, well nourished patient who is awake, alert, dr5 and in no acute distress. Head/Face: Normocephalic, atraumatic. Eyes: Pupils equal round and reactive to light, extra-ocular motions intact. Lids and lashes normal. Conjunctiva and sclera are non-icteric and not injected. Cornea within normal limits. Periorbital areas with no swelling, redness, or edema. Neck: Trachea midline, no thyromegaly or masses palpated, and no cervical lymphadenopathy. Supple, full range of motion without nuchal rigidity, or vertebral point tenderness. No Meningismus. Chest/axilla: Normal chest wall appearance and motion. Nontender with no deformity. No lesions are appreciated. Cardiovascular: Regular rate and rhythm with a normal S1 and S2. Normal PMI, no JVD. No pulse deficits. Respiratory: Lungs have equal breath sounds bilaterally, clear to auscultation. No rales, rhonchi or wheezes noted. No increased work of breathing, no retractions or nasal flaring. Back: No spinal tenderness. No costovertebral tenderness. Full range of motion. Skin: Warm, dry with normal turgor. Normal color with no rashes, no lesions, and no evidence of cellulitis. MS/ Extremity: Pulses equal, no cyanosis. Neurovascular intact. Full, normal range of motion. Neuro: Awake and alert, GCS 15, oriented to person, place, time, and situation. Cranial nerves II-XII grossly intact. Motor strength 5/5 in all extremities. Sensory grossly intact. Cerebellar exam normal. Normal gait. Vital Signs: 09/23 20:31 BP 110 / 51; Pulse 58; Resp 18; Temp 97.7; Pulse Ox 100% ; Weight 99.79 kg; Height 5 me1 ft. 0 in. ; Pain 5/10; 20:31 Body Mass Index 42.97 (99.79 kg, 152.4 cm) me1 20:31 Pain Scale: Adult me1 MDM: 20:26 Medical Screening Exam initiated dr5 09/24 00:06 Differential diagnosis: viral Infection, bacterial infection, URI, bronchitis. Data dr5 reviewed: vital signs, nurses notes. I considered the following discharge prescriptions or medication management in the emergency department. Care significantly affected by the following chronic conditions: Anxiety, Asthma, Depression. Care significantly affected by the following Social Determinants of Health: Poor access to healthcare and/or lack of insurance, Poor access to transportation, Problems related to employment. Counseling: I had a detailed discussion with the patient and/or guardian regarding the historical points, exam findings, and any diagnostic results supporting the discharge/admit diagnosis, the presence of at least one elevated blood pressure reading (>120/80) during this emergency department visit, lab results, radiology results, the need for outpatient follow up, for definitive care, a family practitioner, to return to the emergency department if symptoms worsen or persist or if there are any questions or concerns that arise at home. 09/23 20:37 Order name: COVID-19 Ag + Flu A+B Ag; Complete Time: :33 dr5 09/23 20:37 Order name: Group A Streptococcus Rapid; Complete Time: : dr5 09/23 21:15 Order name: Throat Culture EDMS 09/23 20:37 Order name: Chest Pa And Lat (2 Views) XRAY; Complete Time: 21:52 dr5 Administered Medications: No medications were administered Disposition Summary: 09/23/24 21:55 Discharge Ordered Notes: Location: Home dr5 Condition: Stable dr5 Diagnosis - Acute upper respiratory infection, unspecified dr5 Followup: dr5 - With: Emergency Department - When: As needed - Reason: Worsening of condition Followup: dr5 - With: Private Physician - When: 1 - 2 days - Reason: Recheck today's complaints, Continuance of care, Re-evaluation by your physician Discharge Instructions: - Discharge Summary Sheet dr5 - Upper Respiratory Infection, Adult dr5 Forms: - Work release form dr5 - Medication Reconciliation Form dr5 - Patient Portal Instructions dr5 - Leadership Thank You Letter dr5 Prescriptions: - Tessalon Perles 100 mg Oral Capsule - take 1 capsule ORAL route every 8 hours As needed; 15 capsule; Refills: 0, dr5 Product Selection Permitted - Medrol (Dejon) 4 mg Oral Tablets, Dose Pack - take 1 tablet ORAL route as directed - follow package instructions; 1 packet; dr5 Refills: 0, Product Selection Permitted Signatures: Dispatcher [employer] Elizabeth Clayton RN RN me1 Tolu Tyler, PROFESSIONAL SECURITY OFFICER-C PROFESSIONAL SECURITY OFFICER-Cdr5 Corrections: (The following items were deleted from the chart) 09/23 20:37 20:37 Chest Pa And Lat (2 Views)+[email or web address] ordered. EDNC EDNC
== END 2024-09-23 22:07 | disposition home or self-care (01) ==
LOC: ER 20:24
DX: J06.9 Acute upper respiratory infection, unspecified (principal); Z11.52 Encounter for screening for COVID-19
CPT/HCPCS: 36415; 71046; 87070; 87428; 99283

== ENCOUNTER 2024-10-29 03:03 | Emergency (ER) | payer OTHER ==
[2024-10-29] MEDS ORDERED: NA CHLORIDE 0.9% 1,000 ML ONE ×2 (03:37→03:54)
[2024-10-29] MEDS ORDERED: ONDANSETRON 4 MG/2 ML VIAL ONE (03:37)
[2024-10-29] MEDS ORDERED: METOCLOPRAMIDE 10 MG/2mL INJ ONE (03:53)
[2024-10-29] MEDS ORDERED: KETOROLAC 30 MG/ML INJ ONE (03:53)
[2024-10-29] MEDS ORDERED: DIPHENOX/ATROP SULF 1 TAB PO ONE (03:54)
[2024-10-29 04:16] LABS: Absolute Eosinophils 0.3 K/uL (0-0.5); Absolute Lymphocytes (CBC) 0.8 K/uL (0.7-4.9); Absolute Monocytes 0.4 K/uL (0.1-1.3); Absolute Neutrophil 13.4 K/uL (1.8-8.0); Basophils % 0.1 % (0-1.3); Eosinophils % 2.1 % (0-4.4); Hematocrit 39.8 % (36.0-45.0); Hemoglobin 13.3 g/dL (12.0-15.0); Lymphocytes % 5.6 % (15.3-44.8); MCH 30.4 pg (27.0-35.0); MCHC 33.3 g/dL (32.0-36.0); MCV 91.3 fL (80-100); MPV 10.5 fL (7.6-11.3); Monocytes % 2.9 % (3.3-12.3); Neutrophils % 89.3 % (41.7-73.7); Platelets 192 thou/uL (152-406); RBC Red Blood Cell Count 4.36 M/uL (3.86-4.86); Red Cell Distribution Width 13.4 % (12.1-15.2)
[2024-10-29 04:26] LABS: Albumin 3.8 g/dL (3.4-5.0); Albumin/Globulin Ratio 1.1 (1.1-1.8); Anion Gap 7.9 mEq/L (5.0-15.0); Bilirubin Total 0.4 mg/dL (0.2-1.0); Globulin 3.6 g/dL (2.3-3.5); Potassium 3.9 mEq/L (3.5-5.1); Protein, Total 7.4 g/dL (6.4-8.2)
[2024-10-29 05:04] LABS: Band Neutrophils 21 % (0-1); Differential Total Cells Count 100; Eosinophils 1 % (0-3); Lymphocytes 8 % (15-42); Monocytes 5 % (0-10); Segmented Neutrophils 65 % (40-80)
[2024-10-29 05:05] LABS: Blood Morphology Comment NOT SEEN (NOT SEEN); Platelet Estimate ADEQ
[2024-10-29 05:27] LABS: Specific Gravity > 1.030 (1.005-1.030)
[2024-10-29 05:28] LABS: Specific Gravity > 1.030 (1.005-1.030); Urine Bacteria 20-50 /HPF (<20); Urine Bilirubin NEGATIVE (Negative); Urine Blood Negative (Negative); Urine Clarity Extremely Turbid (Clear); Urine Color Yellow (Yellow); Urine Culture Reflex Order NOT NEEDED; Urine Glucose NEGATIVE (Negative); Urine Ketones 1+ (Negative); Urine Microscopic Reflex YN ORDER UMIC; Urine Mucus 2+ /HPF (None Seen); Urine Nitrite NEGATIVE (Negative); Urine Protein TRACE (Negative); Urine RBC None Seen /HPF (None Seen); Urine Urobilinogen Normal (Normal); Urine WBC <5 /HPF (<5); Urine pH 5.5 (5.0-7.0)
--- NOTE | 2024-10-29 06:00 | EDPHYS ---
Physician Documentation [facility] Name: Jodie Rodriguez Age: 39 yrs Sex: Female : 1985 Arrival Date: 10/29/2024 Time: 03:03 Bed 15 Private MD: ED Physician Tico Lorenzo HPI: 10/29 05:54 This 39 yrs old Female presents to ER via Ambulatory with complaints of sp4 Nausea/Vomiting/Diarrhea. 23:39 39-year-old female presents with acute onset of nausea vomiting and diarrhea.. 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 - Infectious Disease History:: Denies. - Social history:: Smoking status: Patient reports the use of cigarette tobacco products, smokes one pack cigarettes per day. - Family history:: not pertinent. ROS: 23:39 Constitutional: Negative for fever, chills, and weight loss, positive for nausea sp4 vomiting and diarrhea 23:39 All other systems are negative, Exam: 23:39 Constitutional: This is a well developed, well nourished patient who is awake, alert, sp4 positive mild distress secondary to nausea Head/Face: Normocephalic, atraumatic. Eyes: Pupils equal round and reactive to light, extra-ocular motions intact. Lids and lashes normal. Conjunctiva and sclera are not injected. Cornea within normal limits. Periorbital areas with no swelling, redness, or edema. ENT: Nares patent. No nasal discharge, no septal abnormalities noted. Tympanic membranes are normal and external auditory canals are clear. Oropharynx with no redness, swelling, or masses, exudates, or evidence of obstruction, uvula midline. Mucous membranes moist. Neck: Trachea midline, no thyromegaly or masses palpated, and no cervical lymphadenopathy. Supple, full range of motion without nuchal rigidity, or vertebral point tenderness. Chest/axilla: Normal chest wall appearance and motion. Nontender with no deformity. No lesions are appreciated. Cardiovascular: Regular rate and rhythm with a normal S1 and S2. No gallops, murmurs, or rubs. Normal PMI, no JVD. No pulse deficits. Respiratory: Lungs have equal breath sounds bilaterally, clear to auscultation and percussion. No rales, rhonchi or wheezes noted. No increased work of breathing, no retractions or nasal flaring. Abdomen/GI: Soft, with normal bowel sounds. No distension or tympany. No guarding or rebound. No evidence of tenderness throughout. Back: No spinal tenderness. No costovertebral tenderness. Skin: Warm, dry with normal turgor. Normal color with no rashes, no lesions, and no evidence of cellulitis. MS/ Extremity: Pulses equal, no cyanosis. Neurovascular intact. Full, normal range of motion. Neuro: Awake and alert, GCS 15, oriented to person, place, time, and situation. Cranial nerves II-XII grossly intact. Motor strength 5/5 in all extremities. Sensory grossly intact. Psych: Awake, alert, with orientation to person, place and time. Behavior, mood, and affect are within normal limits Vital Signs: 03:10 BP 112 / 62; Pulse 70; Resp 17 S; Temp 97.2; Pulse Ox 100% on R/A; Weight 90 kg; Height ha1 5 ft. 0 in. ; 04:15 BP 99 / 56; Pulse 63; Resp 17; Pulse Ox 99% on R/A; rg5 04:47 BP 104 / 61; Pulse 86; Resp 18; Pulse Ox 100% ; Pain 0/10; rg5 05:30 BP 101 / 57; Pulse 55; Resp 17; Pulse Ox 99% on R/A; Pain 0/10; rg5 03:10 Body Mass Index 38.75 (90.00 kg, 152.4 cm) ha1 04:47 Pain Scale: Adult rg5 05:30 Pain Scale: Adult rg5 Kingsbury Coma Score: 23:39 Eye Response: spontaneous(4). Motor Response: obeys commands(6). Verbal Response: sp4 oriented(5). Total: 15. MDM: 03:31 Medical Screening Exam initiated sp4 06:03 Differential diagnosis: Nonspecific abd pain, gastritis, pancreatitis, viral sp4 gastroenteritis, gastroenteritis. Data reviewed: vital signs, nurses notes, old medical records, lab test result(s). ED course: Patient is stable for discharge home.. 23:41 Consideration of Admission/Observation Escalation of care including sp4 admission/observation considered. 10/29 03:31 Order name: CBC with Diff; Complete Time: 05:39 sp4 10/29 03:31 Order name: CMP; Complete Time: 05:39 sp4 10/29 03:31 Order name: Lipase; Complete Time: 05:39 sp4 10/29 03:31 Order name: Test, Urine; Complete Time: 05:39 sp4 10/29 03:31 Order name: Urinalysis w/ reflexes; Complete Time: 05:39 sp4 10/29 04:28 Order name: Manual Differential; Complete Time: 05:39 EDMS 10/29 03:31 Order name: IV Saline Lock; Complete Time: 03:34 sp4 10/29 03:31 Order name: Labs collected and sent; Complete Time: 03:34 sp4 Administered Medications: 03:40 Drug: Ondansetron IVP 4 mg IVP once; over 2 minutes Route: IVP; Site: right antecubital;rg5 04:09 Follow up: Response: No adverse reaction; Pain is decreased rg5 03:40 Drug: NS 0.9% IV 1000 ml IV at 1 bolus Per protocol; to be given as a bolus over 60 rg5 minutes Route: IV; Rate: 1 bolus; Site: right antecubital; 04:09 Follow up: IV Status: Completed infusion; IV Intake: 1000ml rg5 04:08 Drug: metoCLOPramide IVP 10 mg IVP once; over 1 to 2 minutes Route: IVP; Site: right rg5 antecubital; 05:00 Follow up: Response: No adverse reaction rg5 04:08 Drug: Diphenoxylate-Atropine PO 2 tabs PO once Route: PO; rg5 05:00 Follow up: Response: No adverse reaction rg5 04:08 Drug: NS 0.9% IV 1000 ml IV at 250 ml/hr once; to be given as a bolus over 60 minutes rg5 Route: IV; Rate: 250 ml/hr; Site: right antecubital; 05:00 Follow up: IV Status: Completed infusion; IV Intake: 1000ml rg5 04:09 Drug: Ketorolac IVP 30 mg IVP once Route: IVP; Site: right antecubital; rg5 05:00 Follow up: Response: No adverse reaction rg5 Disposition Summary: 10/29/24 06:00 Discharge Ordered Notes: Location: Home sp4 Problem: new sp4 Symptoms: have improved sp4 Condition: Stable sp4 Diagnosis - Acute viral gastroenteritis, acute nausea vomiting and diarrhea sp4 - UTI/ Urinary tract infection, site not specified sp4 Followup: sp4 - With: Private Physician - When: 7 - 10 days - Reason: Recheck today's complaints Discharge Instructions: - Urinary Tract Infection, Adult, [id number] sp4 - Clear Liquid Diet, Adult, [id number] sp4 - Discharge Summary Sheet vk Forms: - Patient Portal Instructions sp4 - Work release form vk Prescriptions: - Cephalexin 500 mg Oral Capsule - take 1 capsule ORAL route every 12 hours for 10 days; 20 capsule; Refills: 0, sp4 Product Selection Permitted - Lomotil 2.5-0.025 mg Oral tablet - take 1 tablet ORAL route every 6 hours As needed PRN diarrhea; 30 tablet; sp4 Refills: 0, Product Selection Permitted - dicyclomine 20 mg Oral tablet - take 1 tablet ORAL route 3 times per day PRN abdominal cramps; 30 tablet; sp4 Refills: 0, Product Selection Permitted - ondansetron 8 mg Oral Tablet,disintegrating - take 1 tablet ORAL route every 8 hours PRN nausea; 30 tablet; Refills: 0, sp4 Product Selection Permitted Signatures: Dispatcher [employer] Angella Spivey RN RN ha1 Tico Lorenzo MD MD sp4 Linus Milligan RN RN rg5
--- NOTE | 2024-10-29 06:00 | ER ---
Nurse's Notes [facility] Name: Jodie Rodriguez Age: 39 yrs Sex: Female : 1985 Arrival Date: 10/29/2024 Time: 03:03 Bed 15 Private MD: Diagnosis: Acute viral gastroenteritis, acute nausea vomiting and diarrhea;UTI/ Urinary tract infection, site not specified Presentation: 10/29 03:10 Chief complaint: Patient states: NAUSEA, VOMITING, DIARRHEA, AND ABDOMINAL PAIN. ha1 03:10 Coronavirus screen: Client denies travel out of the [place] in the last 14 days. Ebola ha1 Screen: No symptoms or risks identified at this time. Initial Sepsis Screen: Does the patient meet any 2 criteria? No. Patient's initial sepsis screen is negative. Does the patient have a suspected source of infection? No. Patient's initial sepsis screen is negative. Risk Assessment: Do you want to hurt yourself or someone else? Patient reports no desire to harm self or others. Onset of symptoms was October 28, 2024. 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 - Infectious Disease History:: Denies. - Social history:: Smoking status: Patient reports the use of cigarette tobacco products, smokes one pack cigarettes per day. - Family history:: not pertinent. Screenin:27 [facility] ED Fall Risk Assessment (Adult) History of falling in the last 3 months, ha1 including since admission No falls in past 3 months (0 pts) Confusion or Disorientation No (0 pts) Intoxicated or Sedated No (0 pts) Impaired Gait No (0 pts) Mobility Assist Device Used No (0 pt) Altered Elimination No (0 pt) Score/Fall Risk Level 0 - 2 = Low Risk Oriented to surroundings, Maintained a safe environment, Educated pt \T\ family on fall prevention, incl call for assistance when getting out of bed, Hourly rounding (assess needs \T\ fall precautionary measures) done. Abuse screen: Denies threats or abuse. Denies injuries from another. Nutritional screening: No deficits noted. Tuberculosis screening: No symptoms or risk factors identified. Assessment: 03:15 General: Appears uncomfortable, Behavior is calm, cooperative, appropriate for age. rg5 Pain: Complains of pain in abdomen Quality of pain is described as aching. Neuro: Level of Consciousness is awake, alert, obeys commands, Oriented to person, place, time, situation. Cardiovascular: Patient's skin is warm and dry. GI: Abdomen is round obese, Abd is soft and non tender Reports diarrhea, nausea, vomiting. : No signs and/or symptoms were reported regarding the genitourinary system. EENT: No deficits noted. Derm: Skin is intact, Skin is dry, Skin is normal, Skin temperature is warm. Musculoskeletal: Circulation, motion, and sensation intact. Range of motion: intact in all extremities. 04:25 Reassessment: Patient and/or family updated on plan of care and expected duration. Pain rg5 level reassessed. Patient is alert, oriented x 3, equal unlabored respirations, skin warm/dry/pink. Patient states feeling better. 05:36 Reassessment: Patient and/or family updated on plan of care and expected duration. Pain rg5 level reassessed. Patient is alert, oriented x 3, equal unlabored respirations, skin warm/dry/pink. Patient states feeling better. Patient states symptoms have improved. Vital Signs: 03:10 BP 112 / 62; Pulse 70; Resp 17 S; Temp 97.2; Pulse Ox 100% on R/A; Weight 90 kg; Height ha1 5 ft. 0 in. ; 04:15 BP 99 / 56; Pulse 63; Resp 17; Pulse Ox 99% on R/A; rg5 04:47 BP 104 / 61; Pulse 86; Resp 18; Pulse Ox 100% ; Pain 0/10; rg5 05:30 BP 101 / 57; Pulse 55; Resp 17; Pulse Ox 99% on R/A; Pain 0/10; rg5 03:10 Body Mass Index 38.75 (90.00 kg, 152.4 cm) ha1 04:47 Pain Scale: Adult rg5 05:30 Pain Scale: Adult rg5 Julio Coma Score: 23:39 Eye Response: spontaneous(4). Motor Response: obeys commands(6). Verbal Response: sp4 oriented(5). Total: 15. ED Course: 03:09 Patient arrived in ED. gm2 03:10 Patient has correct armband on for positive identification. Bed in low position. Call ha1 light in reach. Side rails up X 1. Adult w/ patient. 03:10 Arm band placed on. rg5 03:15 Linus Milligan, RN is Primary Nurse. rg5 03:15 Door closed. Noise minimized. Warm blanket given. rg5 03:15 No provider procedures requiring assistance completed. Inserted saline lock: 20 gauge rg5 in right antecubital area, using aseptic technique. Blood collected. Flushed with 10 mL NS. 03:26 Triage completed. ha1 03:30 Tico Lorenzo MD is Attending Physician. sp4 06:12 Provided Education on: post er care done. rg5 06:12 Patient transferred, IV remains in place. bleeding controlled, No redness/swelling at rg5 site. Pressure dressing applied. Administered Medications: 03:40 Drug: Ondansetron IVP 4 mg IVP once; over 2 minutes Route: IVP; Site: right antecubital;rg5 04:09 Follow up: Response: No adverse reaction; Pain is decreased rg5 03:40 Drug: NS 0.9% IV 1000 ml IV at 1 bolus Per protocol; to be given as a bolus over 60 rg5 minutes Route: IV; Rate: 1 bolus; Site: right antecubital; 04:09 Follow up: IV Status: Completed infusion; IV Intake: 1000ml rg5 04:08 Drug: metoCLOPramide IVP 10 mg IVP once; over 1 to 2 minutes Route: IVP; Site: right rg5 antecubital; 05:00 Follow up: Response: No adverse reaction rg5 04:08 Drug: Diphenoxylate-Atropine PO 2 tabs PO once Route: PO; rg5 05:00 Follow up: Response: No adverse reaction rg5 04:08 Drug: NS 0.9% IV 1000 ml IV at 250 ml/hr once; to be given as a bolus over 60 minutes rg5 Route: IV; Rate: 250 ml/hr; Site: right antecubital; 05:00 Follow up: IV Status: Completed infusion; IV Intake: 1000ml rg5 04:09 Drug: Ketorolac IVP 30 mg IVP once Route: IVP; Site: right antecubital; rg5 05:00 Follow up: Response: No adverse reaction rg5 Medication: 03:15 VIS not applicable for this client. rg5 Intake: 04:09 IV: 1000ml; Total: 1000ml. rg5 05:00 IV: 1000ml; Total: 2000ml. rg5 Outcome: 06:00 Discharge ordered by MD. barney 06:13 Discharged to home ambulatory, rg5 06:13 Condition: stable 06:13 Discharge instructions given to patient, Instructed on discharge instructions, follow up and referral plans. Demonstrated understanding of instructions, follow-up care, medications, Prescriptions given X 4, 06:21 Patient left the ED. rg5 Signatures: Angella Avilez RN RN ha1 Tico Lorenzo MD MD sp4 Leonela Simmons 2 Linus Milligan RN RN rg5
[2024-10-29 06:44] VITALS: TEMP 97.2
[2024-10-29 06:48] VITALS: BP 101/57; O2SAT 99
== END 2024-10-29 06:21 | disposition home or self-care (01) ==
LOC: ER 03:03
DX: A08.4 Viral intestinal infection, unspecified (principal); N39.0 Urinary tract infection, site not specified; F17.210 Nicotine dependence, cigarettes, uncomplicated
CPT/HCPCS: 96361; 85025; 81001; 36415; 81025; 83690; 80053; 96375; 96374; 99284; J2765; J2405; J7030 ×2

== ENCOUNTER 2024-12-07 16:32 | Emergency (ER) | payer OTHER ==
[2024-12-07] MEDS ORDERED: NA CHLORIDE 0.9% 1,000 ML ONE (17:28)
[2024-12-07] MEDS ORDERED: FAMOTIDINE 20 MG/2 ML VIAL IV ONE (17:28)
[2024-12-07] MEDS ORDERED: DIPHENHYDRAMINE 50 MG/ML VIAL ONE (17:28)
[2024-12-07] MEDS ORDERED: METOCLOPRAMIDE 10 MG/2mL INJ ONE (17:28)
[2024-12-07 17:57] LABS: Absolute Basophils 0.1 K/uL (0-0.5); Absolute Eosinophils 0.1 K/uL (0-0.5); Absolute Lymphocytes (CBC) 1.7 K/uL (0.7-4.9); Absolute Monocytes 0.5 K/uL (0.1-1.3); Absolute Neutrophil 8.1 K/uL (1.8-8.0); Basophils % 1.1 % (0-1.3); Hematocrit 40.5 % (36.0-45.0); Hemoglobin 13.9 g/dL (12.0-15.0); MCH 30.8 pg (27.0-35.0); MCHC 34.3 g/dL (32.0-36.0); MCV 89.8 fL (80-100); MPV 10.7 fL (7.6-11.3); Monocytes % 4.4 % (3.3-12.3); Neutrophils % 77.5 % (41.7-73.7); Platelets 200 thou/uL (152-406); RBC Red Blood Cell Count 4.51 M/uL (3.86-4.86); Red Cell Distribution Width 13.4 % (12.1-15.2)
[2024-12-07 18:02] LABS: Specific Gravity 1.026 (1.005-1.030)
[2024-12-07 18:05] LABS: Specific Gravity 1.026 (1.005-1.030); Urine Bilirubin NEGATIVE (Negative); Urine Blood Negative (Negative); Urine Clarity Extremely Turbid (Clear); Urine Color Yellow (Yellow); Urine Glucose NEGATIVE (Negative); Urine Ketones 1+ (Negative); Urine Microscopic Reflex YN NO UMIC; Urine Nitrite 2+ (Negative); Urine Protein TRACE (Negative); Urine Urobilinogen Normal (Normal)
[2024-12-07 18:06] LABS: Urine Bacteria <20 /HPF (<20); Urine Culture Reflex Order NOT NEEDED; Urine Mucus Slight /HPF (None Seen); Urine RBC None Seen /HPF (None Seen)
--- NOTE | 2024-12-07 18:11 | RAD REPORT ---
EXAM: Chest Single View HISTORY: 39 years Female COUGH COMPARISON: 09/23/2024 FINDINGS: LUNGS/PLEURA: The lungs are clear. No pleural effusions or pneumothorax. No pulmonary edema. CARDIAC/MEDIASTINUM: The cardiac silhouette is within normal limits. UPPER ABDOMEN: No significant abnormality. BONES: No acute abnormality. LINES/TUBES/OTHER: N/A IMPRESSION: No evidence of acute cardiopulmonary disease. No significant change from prior.
[2024-12-07 18:23] LABS: ALT/SGPT 22 U/L (13-56); AST/SGOT 13 U/L (15-37); Albumin 3.6 g/dL (3.4-5.0); Albumin/Globulin Ratio 0.9 (1.1-1.8); Alkaline Phosphatase 88 U/L (45-117); Anion Gap 12.7 mEq/L (5.0-15.0); BUN Blood Urea Nitrogen 14 mg/dL (7-18); Bicarbonate 20 mEq/L (21-32); Bilirubin Total 0.5 mg/dL (0.2-1.0); Glomerular Filtration Rate 79 ml/min (=/>90); Glucose Level 118 mg/dL (74-106); Lipase 20 U/L (13-75); Potassium 3.7 mEq/L (3.5-5.1); Protein, Total 7.6 g/dL (6.4-8.2); Sodium Level 136 mEq/L (136-145)
[2024-12-07 18:26] LABS: Troponin High Sensitivity < 3.0 pg/mL (<58.9)
[2024-12-07] MEDS ORDERED: KETOROLAC 30 MG/ML INJ ONE (18:28)
[2024-12-07 18:42] LABS: SARS-CoV-2 Antigen Rapid Res Negative (Negative)
--- NOTE | 2024-12-07 19:06 | RAD REPORT ---
EXAMINATION: Abdomen Pelvis W Contrast CLINICAL INDICATION: Female, 39 years old.ABD PAIN TECHNIQUE: CT abdomen and pelvis was performed, after the administration of IV contrast, as per [facility] protocol. Axial, sagittal and coronal reconstructions were obtained. One or more of the following dose reduction techniques were used: Automated exposure control, adjustment of the mA and/o r kV according to patient size, and/or iterative reconstruction. Unless otherwise specified, incidental findings do not require dedicated imaging follow-up. [id number]. COMPARISON: 01/17/2024 FINDINGS: LOWER CHEST: No acute process identified.No significant pericardial effusion. Mild circumferential th ickening of the distal esophagus which could reflect esophagitis. UPPER GI: No significant abnormality. LIVER: No significant focal abnormality. GALLBLADDER/BILE DUCTS: Cholecystectomy?. No biliary duct dilatation. PANCREAS: No mass, ductal dilation, or agnes-pancreatic fluid. SPLEEN: Unremarkable. ADRENALS: No adrenal masses. KIDNEYS AND URETERS: No hydronephrosis.Renal scarring bilaterally.No renal calculi.No ureteral calcul i. ABDOMINAL AORTA AND OTHER VESSELS: Normal caliber aorta and IVC. PERITONEUM: No abnormal free fluid. No free air. LYMPH NODES: No pathologic lymphadenopathy. ABDOMINAL WALL: Small fat containing umbilical hernia. SMALL BOWEL/COLON: Small bowel has normal course and caliber. No colonic wall thickening or pericolon ic inflammatory changes.Normal appendix. Mild diverticulosis without diverticulitis. Low formed stool burden. URINARY BLADDER: Underdistended but grossly unremarkable. REPRODUCTIVE ORGANS: No pathologic process. MUSCULOSKELETAL: No acute or suspicious osseous abnormality. ADDITIONAL FINDINGS: None. IMPRESSION: No acute findings within the abdomen or pelvis. No appendicitis. Incidental findings as noted above.
--- NOTE | 2024-12-07 19:39 | ER ---
Nurse's Notes [facility] Name: Jodie Rodriguez Age: 39 yrs Sex: Female : 1985 Arrival Date: 12/07/2024 Time: 16:32 Bed 5 Private MD: Diagnosis: Nausea with vomiting, unspecified;UTI/ Urinary tract infection, site not specified;Abdominal pain, unspecified Presentation: 12/07 16:37 Chief complaint: Patient states: N/V, pain all over since 2 AM. Weak, SOB, and dizzy ll1 now. Coronavirus screen: Client denies travel out of the [place] in the last 14 days. difficulty breathing, fatigue, headache, nausea, shortness of breath, vomiting. Client presents with at least one sign or symptom that may indicate coronavirus-19. Standard/surgical mask placed on the client. Ebola Screen: Patient denies travel to an Ebola-affected area in the 21 days before illness onset. Initial Sepsis Screen: Does the patient meet any 2 criteria? No. Patient's initial sepsis screen is negative. Does the patient have a suspected source of infection? No. Patient's initial sepsis screen is negative. Risk Assessment: Do you want to hurt yourself or someone else? Patient reports no desire to harm self or others. Onset of symptoms was December 07, 2024. 16:37 Method Of Arrival: Ambulatory ll1 16:37 Acuity: FLORA 3 ll1 Triage Assessment: 16:37 General: Appears distressed, uncomfortable, ill, Behavior is cooperative, appropriate ll1 for age, listless. General: Reports feeling ill for fatigue for. Pain: Complains of pain in abdomen Quality of pain is described as aching. Respiratory: Reports shortness of breath cough that is. GI: Reports lower abdominal pain, upper abdominal pain, cramping, diarrhea, nausea, vomiting. Musculoskeletal: Reports pain all over. Historical: - Allergies: 16:37 Codeine; ll1 16:37 Morphine; ll1 - PMHx: 16:37 Anxiety; Asthma; depressive disorder; ll1 - PSHx: 16:37 section; Cholecystectomy; hernia repair; ll1 - Immunization history:: Adult Immunizations up to date. - Infectious Disease History:: Denies. - Social history:: Smoking status: Patient reports the use of cigarette tobacco products, denies chronic smoking, but will smoke occasionally. Screenin:11 [facility] ED Fall Risk Assessment (Adult) History of falling in the last 3 months, kc6 including since admission No falls in past 3 months (0 pts) Confusion or Disorientation No (0 pts) Intoxicated or Sedated No (0 pts) Impaired Gait No (0 pts) Mobility Assist Device Used No (0 pt) Altered Elimination No (0 pt) Score/Fall Risk Level 0 - 2 = Low Risk Oriented to surroundings. Abuse screen: Denies threats or abuse. Denies injuries from another. Nutritional screening: No deficits noted. Tuberculosis screening: No symptoms or risk factors identified. Assessment: 17:10 General: Appears in no apparent distress. uncomfortable, unkempt, well developed, kc6 Behavior is calm, cooperative, appropriate for age. Pain: Complains of pain in back, chest, right lower quadrant and left lower quadrant. Neuro: Level of Consciousness is awake, alert, obeys commands, Oriented to person, place, time, situation, Appropriate for age. Cardiovascular: Reports chest pain, Heart tones S1 S2 present Capillary refill < 3 seconds. Respiratory: Reports shortness of breath at rest on exertion Airway is patent Trachea midline Respiratory effort is even, unlabored, Respiratory pattern is regular, symmetrical. GI: Abdomen is round Bowel sounds present X 4 quads. Abd is soft X 4 quads Abdomen is tender to palpation in right lower quadrant and left lower quadrant Reports lower abdominal pain, nausea, vomiting, Patient currently denies constipation, diarrhea. : No signs and/or symptoms were reported regarding the genitourinary system. EENT: No signs and/or symptoms were reported regarding the EENT system. Derm: No signs and/or symptoms reported regarding the dermatologic system. Skin is intact, is healthy with good turgor, Skin is pink, warm \T\ dry. Musculoskeletal: No signs and/or symptoms reported regarding the musculoskeletal system. Circulation, motion, and sensation intact. Range of motion: intact in all extremities. 18:35 Reassessment: Patient appears in no apparent distress at this time. No changes from kc6 previously documented assessment. Patient and/or family updated on plan of care and expected duration. Pain level reassessed. Patient is alert, oriented x 3, equal unlabored respirations, skin warm/dry/pink. 19:50 Reassessment: Patient appears in no apparent distress at this time. No changes from vc1 previously documented assessment. Patient and/or family updated on plan of care and expected duration. Pain level reassessed. Patient is alert, oriented x 3, equal unlabored respirations, skin warm/dry/pink. Patient states feeling better. Patient states symptoms have improved. Vital Signs: 16:37 BP 123 / 74; Pulse 70; Resp 22; Temp 97.8; Pulse Ox 100% ; Height 4 ft. 11 in. ; Pain ll1 10/10; 17:49 BP 118 / 60; Pulse 71; Resp 17 S; Pulse Ox 100% on R/A; kc6 18:35 BP 103 / 58; Pulse 60; Resp 18 S; Pulse Ox 100% on R/A; kc6 19:30 BP 106 / 58; Pulse 52; Resp 18; Pulse Ox 100% ; vc1 16:37 Pain Scale: Adult ll1 ED Course: 16:35 Patient arrived in ED. al6 16:38 Triage completed. ll1 16:42 Arm band placed on Patient placed in an exam room, on a stretcher. ll1 16:59 Naresh Banks PA is PHCP. cp 16:59 Joe Main MD is Attending Physician. cp 17:09 Suyapa Jc, [facility] is Primary Nurse. kc6 17:11 Patient has correct armband on for positive identification. Bed in low position. Call kc light in reach. Side rails up X 1. Pulse ox on. NIBP on. Door closed. Noise minimized. Lights dimmed. Warm blanket given. Pillow given. Verbal reassurance given. 17:11 Patient maintains SpO2 saturation greater than 95% on room air. kc6 17:35 EKG done, by ED staff, reviewed by Suyapa Jc RN. mb9 17:47 XRAY Chest (1 view) In Process Unspecified. EDMS 17:49 Initial lab(s) drawn, by [facility], sent to lab. Inserted saline lock: 20 gauge in right kc6 antecubital area, using aseptic technique. Blood collected. Flushed with 10 mL NS. 18:54 CT Abd/Pelvis - IV Contrast Only In Process Unspecified. EDMS 19:04 Report given to [facility] Ojeda. [facility] 19:48 No provider procedures requiring assistance completed. IV discontinued, intact, vc1 bleeding controlled, No redness/swelling at site. Pressure dressing applied. 19:49 Provided Education on: abx, f/u if symptoms persist. vc1 Administered Medications: 17:48 Drug: NS 0.9% IV 1000 ml IV at 1 bolus Per protocol; to be given as a bolus over 60 kc6 minutes Route: IV; Rate: 1 bolus; Site: right antecubital; 18:35 Follow up: Response: No adverse reaction; IV Status: Completed infusion; IV Intake: kc6 1000ml 17:48 Drug: diphenhydrAMINE IVP 25 mg IVP once Route: IVP; Site: right antecubital; kc6 18:35 Follow up: Response: No adverse reaction 6 17:49 Drug: Famotidine IVP 20 mg IVP once; dilute with 10 mL 0.9% NaCl; give over 2 minutes kc6 Route: IVP; Site: right antecubital; 18:35 Follow up: Response: No adverse reaction 6 17:49 Drug: metoCLOPramide IVP 10 mg IVP once; over 1 to 2 minutes Route: IVP; Site: right kc6 antecubital; 18:35 Follow up: Response: No adverse reaction 6 18:35 Drug: Ketorolac IVP 15 mg IVP once Route: IVP; Site: right antecubital; kc6 19:00 Follow up: Response: No adverse reaction; Marked relief of symptoms; Pain is decreased vc1 19:47 Drug: Rocephin IV 1 grams IV at calculated rate once; Given slow IV push per pharmacy vc1 instructions Route: IV; Rate: calculated rate; Site: right antecubital; 19:51 Follow up: IV Status: Completed infusion; IV Intake: 10ml vc1 Medication: 19:49 VIS not applicable for this client. vc1 Intake: 18:35 IV: 1000ml; Total: 1000ml. kc6 19:51 IV: 10ml; Total: 1010ml. vc1 Outcome: 19:39 Discharge ordered by cp 19:48 Discharged to home ambulatory, vc1 19:48 Condition: stable 19:48 Discharge instructions given to patient, Instructed on discharge instructions, follow up and referral plans. Demonstrated understanding of instructions, follow-up care, 19:55 Instructed on medication usage, Demonstrated understanding of medications, vc1 Prescriptions given X 3, 19:56 Patient left the ED. vc1 Signatures: Dispatcher [employer] EDMS Naresh Banks PA PA cp Lewis, Lynsay, RN RN ll1 Lynette Wells RN RN vc1 Suyapa Jc RN RN kc6 Hillary, Delia Howard, RN RN mb9 Flory Pamla6
--- NOTE | 2024-12-07 19:39 | EDPHYS ---
Physician Documentation [facility] Name: Jodie Rodriguez Age: 39 yrs Sex: Female : 1985 Arrival Date: 12/07/2024 Time: 16:32 Bed 5 Private MD: ED Physician Joe Main HPI: 12/07 17:15 This 39 yrs old Female presents to ER via Ambulatory with complaints of cp Vomiting, Breathing Difficulty, Pain All Over. 17:15 The patient presents to the emergency department with nausea, that is moderate, cp vomiting, that is intermittent, abdominal pain, of the abdomen diffusely. Onset: The symptoms/episode began/occurred this morning. 17:15 Associated signs and symptoms: Pertinent positives: abdominal pain, cough, shortness of cp breath, pain all over, Pertinent negatives: constipation, diarrhea, fever. 17:15 Severity of symptoms: in the emergency department the symptoms are unchanged despite cp home interventions. Historical: - Allergies: 16:37 Codeine; ll1 16:37 Morphine; ll1 - PMHx: 16:37 Anxiety; Asthma; depressive disorder; ll1 - PSHx: 16:37 section; Cholecystectomy; hernia repair; ll1 - Immunization history:: Adult Immunizations up to date. - Infectious Disease History:: Denies. - Social history:: Smoking status: Patient reports the use of cigarette tobacco products, denies chronic smoking, but will smoke occasionally. ROS: 17:20 Constitutional: Negative for body aches, fever, poor PO intake, cp 17:20 Eyes: Negative for injury, pain, redness, and discharge, cp 17:20 ENT: Negative for drainage from ear(s), ear pain, sore throat, difficulty swallowing, difficulty handling secretions, 17:20 Respiratory: Positive for cough, shortness of breath, Negative for wheezing, 17:20 Abdomen/GI: Positive for abdominal pain, nausea and vomiting, anorexia, Negative for diarrhea, constipation, hematemesis, 17:20 Skin: Negative for rash, 17:20 Neuro: Negative for altered mental status, headache, syncope, weakness, 17:20 All other systems are negative, Exam: 17:25 Constitutional: The patient appears in no acute distress, alert, awake, cp non-diaphoretic, non-toxic, well developed, well nourished, uncomfortable, 17:25 Head/Face: Normocephalic, atraumatic. cp 17:25 Eyes: Periorbital structures: appear normal, Conjunctiva: normal, no exudate, no injection, Sclera: no appreciated abnormality, Lids and lashes: appear normal, bilaterally, 17:25 ENT: External ear(s): are unremarkable, Nose: is normal, Mouth: Lips: moist, Oral mucosa: moist, Posterior pharynx: Airway: no evidence of obstruction, patent, erythema, is not appreciated, exudate, is not appreciated, 17:25 Neck: ROM/movement: is normal, is supple, without pain, no range of motions limitations, 17:25 Chest/axilla: Inspection: normal, 17:25 Cardiovascular: Rate: normal, Rhythm: regular, Edema: is not appreciated, JVD: is not appreciated, 17:25 Respiratory: the patient does not display signs of respiratory distress, Respirations: labored breathing, that is mild, Breath sounds: are clear throughout, no decreased breath sounds, no stridor, no wheezing, 17:25 Abdomen/GI: Inspection: abdomen appears normal, Bowel sounds: active, all quadrants, Palpation: soft, in all quadrants, severe abdominal tenderness, in the right lower quadrant and left lower quadrant, rebound tenderness, is not appreciated, involuntary guarding, is not appreciated, 17:25 Back: CVA tenderness, is absent, 17:25 Neuro: Orientation: to person, place \T\ time. Mentation: is normal, Motor: moves all fours, strength is normal, Sensation: no obvious gross deficits, 17:40 ECG was reviewed by the Attending Physician. cp Vital Signs: 16:37 BP 123 / 74; Pulse 70; Resp 22; Temp 97.8; Pulse Ox 100% ; Height 4 ft. 11 in. ; Pain ll1 10/10; 17:49 BP 118 / 60; Pulse 71; Resp 17 S; Pulse Ox 100% on R/A; kc6 18:35 BP 103 / 58; Pulse 60; Resp 18 S; Pulse Ox 100% on R/A; kc6 19:30 BP 106 / 58; Pulse 52; Resp 18; Pulse Ox 100% ; vc1 16:37 Pain Scale: Adult ll1 MDM: 18:00 Differential diagnosis: gastritis, pancreatitis, appendicitis, diverticulitis, viral cp gastroenteritis, gastroenteritis, choledocholithiasis. 19:38 Data reviewed: vital signs, nurses notes, lab test result(s), EKG, radiologic studies, cp CT scan, plain films, and as a result, I will discharge patient. 19:38 I considered the following discharge prescriptions or medication management in the emergency department Medications were administered in the Emergency Department. See MAR. Independent interpretation of the following test(s) in the Emergency Department EKG: See my EKG interpretation above. Care significantly affected by the following chronic conditions: Asthma. Counseling: I had a detailed discussion with the patient and/or guardian regarding the historical points, exam findings, and any diagnostic results supporting the discharge/admit diagnosis, lab results, radiology results, to return to the emergency department if symptoms worsen or persist or if there are any questions or concerns that arise at home. Response to treatment: the patient's symptoms have markedly improved after treatment, nausea improved, vomiting and abdominal pain resolved, and as a result, I will discharge patient. Special discussion: Based on the patient's Hx, exam, and Dx evaluation, there is no indication for emergent surgery or inpatient Tx. It is understood by the patient/guardian that if the Sx's persist or worsen they need to return immediately for re-evaluation. 19:39 Medical Screening Exam initiated 12/07 17:12 Order name: CBC with Diff; Complete Time: 18:13 12/07 17:12 Order name: CMP; Complete Time: 19:15 12/07 19:15 Interpretation: Normal except: CO2 20; GLUC 118; GFR 79; AST 13; GLOB 4.0; A/G 0.9. 12/07 17:12 Order name: Lipase; Complete Time: 19:15 12/07 17:12 Order name: Test, Urine; Complete Time: 18:13 12/07 17:12 Order name: UA Rfx Rg Cult if indicated; Complete Time: 18:13 12/07 18:14 Interpretation: Normal except: [facility] Extremely Turbid; UKET 1+; UPH 8.0; UPROT TRACE; cp UNIT 2+; UESTR 25. 12/07 17:12 Order name: Troponin High Sensitivity; Complete Time: 19:15 12/07 17:17 Order name: SARS RAPID; Complete Time: 19:15 12/07 17:12 Order name: XRAY Chest (1 view); Complete Time: 18:13 12/07 18:16 Order name: CT Abd/Pelvis - IV Contrast Only; Complete Time: 19:15 12/07 19:17 Interpretation: Report reviewed. 12/07 17:12 Order name: EKG; Complete Time: 17:13 cp 12/07 17:12 Order name: IV Saline Lock; Complete Time: 17:35 cp 12/07 17:12 Order name: Labs collected and sent; Complete Time: 17:35 12/07 17:12 Order name: EKG - Nurse/Tech; Complete Time: 17:35 12/07 19:31 Order name: PO challenge; Complete Time: 19:47 cp EC:40 Rate is 60 beats/min. Rhythm is regular. DE interval is normal. QRS interval is normal. cp QT interval is normal. T waves are Inverted in lead aVR. Interpreted by me. Reviewed by me. Administered Medications: 17:48 Drug: NS 0.9% IV 1000 ml IV at 1 bolus Per protocol; to be given as a bolus over 60 kc6 minutes Route: IV; Rate: 1 bolus; Site: right antecubital; 18:35 Follow up: Response: No adverse reaction; IV Status: Completed infusion; IV Intake: kc6 1000ml 17:48 Drug: diphenhydrAMINE IVP 25 mg IVP once Route: IVP; Site: right antecubital; kc6 18:35 Follow up: Response: No adverse reaction [facility] 17:49 Drug: Famotidine IVP 20 mg IVP once; dilute with 10 mL 0.9% NaCl; give over 2 minutes kc6 Route: IVP; Site: right antecubital; 18:35 Follow up: Response: No adverse reaction [facility] 17:49 Drug: metoCLOPramide IVP 10 mg IVP once; over 1 to 2 minutes Route: IVP; Site: right kc6 antecubital; 18:35 Follow up: Response: No adverse reaction [facility] 18:35 Drug: Ketorolac IVP 15 mg IVP once Route: IVP; Site: right antecubital; kc6 19:00 Follow up: Response: No adverse reaction; Marked relief of symptoms; Pain is decreased vc1 19:47 Drug: Rocephin IV 1 grams IV at calculated rate once; Given slow IV push per pharmacy vc1 instructions Route: IV; Rate: calculated rate; Site: right antecubital; 19:51 Follow up: IV Status: Completed infusion; IV Intake: 10ml vc1 Disposition Summary: 12/07/24 19:39 Discharge Ordered Notes: Location: Home cp Problem: new cp Symptoms: have improved cp Condition: Stable cp Diagnosis - Nausea with vomiting, unspecified cp - UTI/ Urinary tract infection, site not specified cp - Abdominal pain, unspecified cp Followup: cp - With: Private Physician - When: 2 - 3 days - Reason: Worsening of condition Discharge Instructions: - Discharge Summary Sheet cp - Abdominal Pain, Adult cp - Nausea and Vomiting, Adult cp - Urinary Tract Infection, Adult cp Forms: - Medication Reconciliation Form cp - Antibiotic Education cp - Prescription Opioid Use cp - Patient Portal Instructions cp - Leadership Thank You Letter cp Prescriptions: - Pepcid 20 mg Oral Tablet - take 1 tablet ORAL route every 12 hours for 10 days; 20 tablet; Refills: 0, cp Product Selection Permitted - Zofran 4 mg Oral Tablet - take 1 tablet ORAL route every 12 hours As needed; 20 tablet; Refills: 0, cp Product Selection Permitted - Macrobid 100 mg Oral Capsule - take 1 capsule ORAL route every 12 hours for 7 days; 14 capsule; Refills: 0, cp Product Selection Permitted Signatures: Dispatcher [employer] EDMS Naresh Banks PA PA cp Sreedhar Trevino RN RN ll1 Lynette Wells RN RN vc1 Suyapa Jc RN RN kc6 Corrections: (The following items were deleted from the chart) 17:17 17:17 SARS-COV-2 Antigen Rapid+I.LAB.BRZ ordered. EDMS EDMS
[2024-12-07] MEDS ORDERED: CEFTRIAXONE 1000 MG/VIAL ONE (19:43)
[2024-12-07 20:06] VITALS: TEMP 97.8; O2SAT 100
[2024-12-07 20:23] VITALS: BP 106/58
--- NOTE | 2024-12-09 16:47 | EKG ---
Test Date: 2024-12-07 Test Time: 17:33:22 Grind Operator: MB MEASUREMENT RESULTS: Intervals: Rate: 60 [place]: 158 QRSD: 78 QT: 434 QTc: 434 [place]: P: 52 [place]: 158 QRS: 62 T: 62 INTERPRETIVE STATEMENTS: Normal sinus rhythm Normal ECG Compared to ECG 01/17/2024 13:40:11 Sinus bradycardia no longer present Electronically Signed On 12-09-24 16:45:05 CDT by Alejandro Whitlock
== END 2024-12-07 19:56 | disposition home or self-care (01) ==
LOC: ER 16:32
DX: R11.2 Nausea with vomiting, unspecified (principal); N39.0 Urinary tract infection, site not specified; R10.32 Left lower quadrant pain; R05.9 Cough, unspecified; F17.210 Nicotine dependence, cigarettes, uncomplicated; Z11.52 Encounter for screening for COVID-19
CPT/HCPCS: 96361; 93005; 85025; 36415; 81025; 81003; 84484; 83690; 80053; 74177; 71045; 96375; 96374; 99284; 87426; Q9967; J2765; J1200; J7030; J0696